=== PATIENT | female | born 1945 | race Caucasian/White ===

== ENCOUNTER 2018-04-05 16:00 | Inpatient (IN) | payer MEDICARE, SELFPAY ==
[2018-04-05] VITALS (10 sets, daily range): BP systolic 109–141; BP diastolic 49–76; PULSE 67–85; RESP 14–20; TEMP 36.1–36.7; O2SAT 97–100; BMI 22.5
--- NOTE | 2018-04-05 16:34 | ED.WEAKNESS ---
HPI - Weakness <Matthew Epperson DO - Last Filed: 04/06/18 07:07> General Chief complaint: Weakness Stated complaint: Can't walk or think Time Seen by Provider: 04/05/18 16:32 Related Data Home Medications Medication Instructions Recorded Confirmed FERROUS SULFATE 325 mg PO HS #0 11/25/12 04/05/18 mupirocin calcium 2 % TOPICAL TID PRN #0 08/24/16 04/05/18 ProAir HFA 108 mcg INHALATION Q4H PRN 04/05/18 04/05/18 calcium carbonate [Calcium 500] 1,200 mg PO DAILY 04/05/18 04/05/18 cholecalciferol (vitamin D3) 2,000 unit PO DAILY 04/05/18 04/05/18 [Vitamin D3] citalopram 40 mg PO DAILY 04/05/18 04/05/18 fluticasone-salmeterol [Advair 1 inh INHALATION BID 04/05/18 04/05/18 Diskus] metoprolol succinate 12.5 mg PO DAILY 04/05/18 04/05/18 multivitamin 1 tab PO DAILY 04/05/18 04/05/18 omeprazole 20 mg PO DAILY 04/05/18 04/05/18 spironolactone 25 mg PO BID 04/05/18 04/05/18 Allergies Allergy/AdvReac Type Severity Reaction Status Date / Time bacitracin Allergy Unknown Verified 04/05/18 16:37 [From NEOSPORIN ([id number])] neomycin Allergy Unknown Verified 04/05/18 16:37 [From NEOSPORIN ([id number])] polymyxin B Allergy Unknown Verified 04/05/18 16:37 [From NEOSPORIN ([id number])] ceftriaxone [CEFTRIAXONE] AdvReac Mild loss of Verified 04/05/18 16:37 memory and lethargy <Angeles Giordano PA-C - Last Filed: 04/05/18 21:24> General Source: patient and family Mode of arrival: ambulatory Limitations: altered mental status History of Present Illness HPI Narrative: This 72-year-old female is brought in by her daughter today due to approximately 4 day history of generalized weakness and fatigue along with feeling like she is mentally foggy. She states ?I can't walk or think right?. She thinks that this has been of gradual onset. She denies any focal weakness. She denies any difficulty with speech, she states that she has some chronic dysphagia but denies any new difficulty swallowing. She has chronic loose stools following intestinal bypass years ago, but states that she has had diarrhea for several days, approximately 8-10 times daily with mucoid stool. She denies any blood in the stool. She denies any urinary symptoms. She denies any recent illness, fever, chills, or sweats. She does have COPD and states she has perhaps slightly more shortness of breath/reduced exercise tolerance. She does not have chest pain. She does not have abdominal pain, but feels bloated. She denies any new pain or swelling in her extremities. 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 Patient denies any headache, vision change, or other new complaints on systems review aside from ?growling? in her stomach. She denies any recent antibiotic use, medication changes, or travel <Angeles Giordano PA-C - Last Filed: 04/05/18 21:24> Review of Systems All systems reviewed & are unremarkable except as noted in HPI and below <Angeles Giordano PA-C - Last Filed: 04/05/18 21:24> Comment: ETOH 1/day Exam <Matthew Epperson DO - Last Filed: 04/06/18 07:07> Initial Vital Signs Initial Vital Signs: Vital Signs Temperature 97 F L 04/05/18 16:17 Pulse Rate 75 04/05/18 16:17 Respiratory Rate 20 04/05/18 16:17 Blood Pressure 141/76 H 04/05/18 16:17 Pulse Oximetry 98 04/05/18 16:17 <Angeles Giordano PA-C - Last Filed: 04/05/18 21:24> Narrative Exam Narrative: GENERAL APPEARANCE: Patient sitting comfortably, in no distress. HEENT: PERRL, EOMI, normal oropharynx NECK: Supple LUNGS: Coarse breath sounds with generalized wheezes and rhonchi, no crackles, no cough on exam HEART: Rate and rhythm regular without murmur, normal S1 and S2, no S3 or S4. ABDOMEN: Soft, NT, ND, + BS x 4 quadrants NEUROLOGIC: Alert, answers questions slowly but speech is fluent, normal coordination EXTREMITIES: No edema, cyanosis, no calf tenderness DERMATOLOGIC: No jaundice or exanthem Initial Vital Signs Initial Vital Signs: Vital Signs Temperature 97 F L 04/05/18 16:17 Pulse Rate 75 04/05/18 16:17 Respiratory Rate 20 04/05/18 16:17 Blood Pressure 141/76 H 04/05/18 16:17 Pulse Oximetry 98 04/05/18 16:17 Course <Matthew Epperson DO - Last Filed: 04/06/18 07:07> Orders Ordered: ED Orders 04/05/18 16:26 EKG-12 Lead Stat 04/05/18 16:30 Ammonia (NH3) Stat 04/05/18 16:44 CT head/brain wo con Stat XR acute abdomen series Stat 04/05/18 16:47 Complete Blood Count AUTO DIFF Stat Comprehensive Metabolic Panel Stat Lipase Stat Magnesium Stat Partial Thromboplastin Time Stat Phosphorous Stat Prothrombin Time INR Stat 04/05/18 16:51 B Type Natriuretic Peptide Stat 04/05/18 18:10 GI Panel Stat 04/05/18 18:15 Lactate (Lactic Acid) Stat 04/05/18 19:30 Urinalysis and Microscopic Stat Urine Culture Stat Discontinued Medications Hydrocodone Bitart/Acetaminophen ([place] 5/325) 1 tab PO NOW ONE Stop: 04/05/18 18:23 Last Admin: 04/05/18 18:36 Dose: Albuterol/Ipratropium (Duoneb) 3 ml INH NOW ONE Stop: 04/05/18 16:45 Last Admin: 04/05/18 16:52 Dose: 3 ml Sodium Chloride (Normal Saline 0.9%) 1,000 mls @ 1,000 mls/hr IV BOLUS ONE Stop: 04/05/18 17:32 Last Infusion: 04/05/18 18:36 Dose: 0 mls/hr Admin: 04/05/18 16:38 Dose: 1,000 mls/hr Sodium Chloride (Normal Saline 0.9%) 1,000 mls @ 1,000 mls/hr IV BOLUS ONE Stop: 04/05/18 18:49 Last Infusion: 04/05/18 21:08 Dose: 0 mls/hr Admin: 04/05/18 18:39 Dose: 1,000 mls/hr Vital Signs - 8 hr 04/05/18 16:17 04/05/18 16:40 04/05/18 16:53 Temperature 97 F L Pulse Rate 75 70 67 Respiratory Rate 20 15 20 Blood Pressure 141/76 H Blood Pressure [Left Arm] 126/54 L Pulse Oximetry 98 99 98 04/05/18 17:56 04/05/18 18:55 04/05/18 18:58 Temperature Pulse Rate 69 85 78 Respiratory Rate 14 14 18 Blood Pressure Blood Pressure [Left Arm] 116/57 L 114/49 L Pulse Oximetry 98 98 04/05/18 19:55 04/05/18 21:05 Temperature Pulse Rate 68 67 Respiratory Rate 18 18 Blood Pressure Blood Pressure [Left Arm] 109/67 109/55 L Pulse Oximetry 97 97 <Angeles Giordano PA-C - Last Filed: 04/05/18 21:24> Additional Information: Reviewed findings with Dr. Epperson who also evaluated patient and agrees hospital admission is warranted. Spoke with front office spec hospitalist CYNDI Gonzalez re: patient's diarrhea, inability to maintain hydration/eat at home as well as ARF today. She has bacteruria (cx pending). Also reviewed elevated BNP (unclear whether new) with history of COPD and question of increased dyspnea/exercise intolerance vs generalized weakness (patient did think sx improved with nebulizer treatment). Patient also has worse anemia per labs. Per outside records she has a history of B12 deficiency but is also on iron. She has not had any blood in the stools. May correlate with renal status. CYNDI Gonzalez is agreeable with admission as inpatient. Orders Ordered: ED Orders 04/05/18 16:26 EKG-12 Lead Stat 04/05/18 16:30 Ammonia (NH3) Stat 04/05/18 16:44 CT head/brain wo con Stat XR acute abdomen series Stat 04/05/18 16:47 Complete Blood Count AUTO DIFF Stat Comprehensive Metabolic Panel Stat Lipase Stat Magnesium Stat Partial Thromboplastin Time Stat Phosphorous Stat Prothrombin Time INR Stat 04/05/18 16:51 B Type Natriuretic Peptide Stat 04/05/18 18:10 GI Panel Stat 04/05/18 18:15 Lactate (Lactic Acid) Stat 04/05/18 19:30 Urinalysis and Microscopic Stat Urine Culture Stat Discontinued Medications Hydrocodone Bitart/Acetaminophen ([place] 5/325) 1 tab PO NOW ONE Stop: 04/05/18 18:23 Last Admin: 04/05/18 18:36 Dose: Albuterol/Ipratropium (Duoneb) 3 ml INH NOW ONE Stop: 04/05/18 16:45 Last Admin: 04/05/18 16:52 Dose: 3 ml Sodium Chloride (Normal Saline 0.9%) 1,000 mls @ 1,000 mls/hr IV BOLUS ONE Stop: 04/05/18 17:32 Last Infusion: 04/05/18 18:36 Dose: 0 mls/hr Admin: 04/05/18 16:38 Dose: 1,000 mls/hr Sodium Chloride (Normal Saline 0.9%) 1,000 mls @ 1,000 mls/hr IV BOLUS ONE Stop: 04/05/18 18:49 Last Infusion: 04/05/18 21:08 Dose: 0 mls/hr Admin: 04/05/18 18:39 Dose: 1,000 mls/hr Vital Signs - 8 hr 04/05/18 16:17 04/05/18 16:40 04/05/18 16:53 Temperature 97 F L Pulse Rate 75 70 67 Respiratory Rate 20 15 20 Blood Pressure 141/76 H Blood Pressure [Left Arm] 126/54 L Pulse Oximetry 98 99 98 04/05/18 17:56 04/05/18 18:55 04/05/18 18:58 Temperature Pulse Rate 69 85 78 Respiratory Rate 14 14 18 Blood Pressure Blood Pressure [Left Arm] 116/57 L 114/49 L Pulse Oximetry 98 98 04/05/18 19:55 04/05/18 21:05 Temperature Pulse Rate 68 67 Respiratory Rate 18 18 Blood Pressure Blood Pressure [Left Arm] 109/67 109/55 L Pulse Oximetry 97 97 MDM - Weakness <Matthew Epperson DO - Last Filed: 04/06/18 07:07> Lab Data Result diagrams: 04/05/18 16:47 04/05/18 16:47 Lab Results 04/05/18 04/05/18 04/05/18 Range/Units 16:30 16:47 16:47 WBC 5.3 (4.5-11.0) X10^3/uL RBC 2.95 L (4.0-5.2) X10^6/uL Hgb 10.0 L (12.0-16.0) g/dL Hct 30.8 L (36-46) % MCV 104.3 H (80-100) fL MCH 33.8 (26-34) PG MCHC 32.4 (30-36) % RDW 13.7 (11.6-14.8) % Plt Count 147 L (150-400) X10^3/uL Neut % (Auto) 61.3 (50-75) % Lymph % (Auto) 25.5 (25-40) % [place] % (Auto) 10.0 (3-14) % Eos % (Auto) 2.4 (2-4) % Baso % (Auto) 0.8 (0-2) % Neut # (Auto) 3200 (5252-8685) /uL PT 12.3 (10.1-12.7) SECONDS INR 1.1 (0.9-1.3) APTT 21 L (26.4-36.2) SECONDS Sodium (137-145) mmol/L Potassium (3.4-5.1) mmol/L Chloride (98-107) mmol/L Carbon Dioxide (22-32) mmol/L BUN (7-17) mg/dL Creatinine (0.52-1.04) mg/dL Estimated GFR (>60) mL/min BUN/Creatinine Ratio (6-22) Glucose (80-110) mg/dL Lactate (0.7-2.1) mmol/L Calcium (8.4-10.2) mg/dL Phosphorus (2.8-4.1) mg/dL Magnesium (1.6-2.3) mg/dL Total Bilirubin (0.2-1.3) mg/dL AST (14-36) IU/L ALT (9-52) IU/L Alkaline Phosphatase (38-126) U/L Ammonia 23.0 (9-30) umol/L B-Natriuretic Peptide (<100) Total Protein (6.3-8.2) g/dL Albumin (3.5-5.0) g/dL Globulin (1.7-4.1) g/dL Albumin/Globulin Ratio (1.0-2.8) Lipase (23-300) U/L Urine Color Urine Appearance Urine pH (4.5-8.0) Ur Specific [place] (1.000-1.035) Urine Protein (Negative) Urine Glucose (UA) (Normal) g/dL Urine Ketones (NEGATIVE) Urine Occult Blood (Negative) Urine Nitrate (Negative) Urine Bilirubin (NEGATIVE) Urine Urobilinogen (0.2) E.U./dL Ur Leukocyte Esterase (NEGATIVE) Urine RBC (0-5/HPF) Urine WBC (0-5/HPF) Ur Squamous Epith Cells Urine Bacteria (None) Ur Culture Indicated? Micro UA Comment Stool Aeromonas Cult (Not Detect) Stl C. cayetanensis PCR (Not Detect) Stool Rotavirus (PCR) (Not Detect) Stool Adenovirus (PCR) (Not Detect) Stool Astrovirus (PCR) (Not Detect) Stool Cryptosporidium PCR (Not Detect) Stl E.coli Shiga Tox PCR (Not Detect) St Sh/Enteroin Ecoli PCR (Not Detect) Stool E coli O157 PCR Stl Enterotoxigenic E PCR (Not Detect) Stool EPEC (PCR) (Not Detect) Stl E. histolytica PCR (Not Detect) Stool Giardia Lamblia PCR (Not Detect) Stool Sapovirus (PCR) (Not Detect) Stl P. shigelloides PCR (Not Detect) St Y.enterocolitica PCR (Not Detect) Stool Vibrio (PCR) (Not Detect) Stl Vibrio cholerae PCR (Not Detect) Stl Enteroaggr Ecoli PCR (Not Detect) Stl Norovirus GI/GII PCR (Not Detect) Campylobacter (PCR) (Not Detect) C. difficile Tox (PCR) (Not Detect) Salmonella (PCR) (Not Detect) 04/05/18 04/05/18 04/05/18 Range/Units 16:47 16:47 16:51 WBC (4.5-11.0) X10^3/uL RBC (4.0-5.2) X10^6/uL Hgb (12.0-16.0) g/dL Hct (36-46) % MCV (80-100) fL MCH (26-34) PG MCHC (30-36) % RDW (11.6-14.8) % Plt Count (150-400) X10^3/uL Neut % (Auto) (50-75) % Lymph % (Auto) (25-40) % [place] % (Auto) (3-14) % Eos % (Auto) (2-4) % Baso % (Auto) (0-2) % Neut # (Auto) (4280-1808) /uL PT (10.1-12.7) SECONDS INR (0.9-1.3) APTT (26.4-36.2) SECONDS Sodium 141 (137-145) mmol/L Potassium 3.8 (3.4-5.1) mmol/L Chloride 115 H (98-107) mmol/L Carbon Dioxide 14 L (22-32) mmol/L BUN 26 H (7-17) mg/dL Creatinine 1.90 H (0.52-1.04) mg/dL Estimated GFR 25.9 L (>60) mL/min BUN/Creatinine Ratio 13.7 (6-22) Glucose 101 (80-110) mg/dL Lactate (0.7-2.1) mmol/L Calcium 8.3 L (8.4-10.2) mg/dL Phosphorus 4.0 Cancelled (2.8-4.1) mg/dL Magnesium 1.4 L (1.6-2.3) mg/dL Total Bilirubin 0.5 (0.2-1.3) mg/dL AST 24 (14-36) IU/L ALT 24 (9-52) IU/L Alkaline Phosphatase 70 (38-126) U/L Ammonia (9-30) umol/L B-Natriuretic Peptide 912.0 H (<100) Total Protein 5.8 L (6.3-8.2) g/dL Albumin 3.2 L (3.5-5.0) g/dL Globulin 2.6 (1.7-4.1) g/dL Albumin/Globulin Ratio 1.2 (1.0-2.8) Lipase 105 (23-300) U/L Urine Color Urine Appearance Urine pH (4.5-8.0) Ur Specific [place] (1.000-1.035) Urine Protein (Negative) Urine Glucose (UA) (Normal) g/dL Urine Ketones (NEGATIVE) Urine Occult Blood (Negative) Urine Nitrate (Negative) Urine Bilirubin (NEGATIVE) Urine Urobilinogen (0.2) E.U./dL Ur Leukocyte Esterase (NEGATIVE) Urine RBC (0-5/HPF) Urine WBC (0-5/HPF) Ur Squamous Epith Cells Urine Bacteria (None) Ur Culture Indicated? Micro UA Comment Stool Aeromonas Cult (Not Detect) Stl C. cayetanensis PCR (Not Detect) Stool Rotavirus (PCR) (Not Detect) Stool Adenovirus (PCR) (Not Detect) Stool Astrovirus (PCR) (Not Detect) Stool Cryptosporidium PCR (Not Detect) Stl E.coli Shiga Tox PCR (Not Detect) St Sh/Enteroin Ecoli PCR (Not Detect) Stool E coli O157 PCR Stl Enterotoxigenic E PCR (Not Detect) Stool EPEC (PCR) (Not Detect) Stl E. histolytica PCR (Not Detect) Stool Giardia Lamblia PCR (Not Detect) Stool Sapovirus (PCR) (Not Detect) Stl P. shigelloides PCR (Not Detect) St Y.enterocolitica PCR (Not Detect) Stool Vibrio (PCR) (Not Detect) Stl Vibrio cholerae PCR (Not Detect) Stl Enteroaggr Ecoli PCR (Not Detect) Stl Norovirus GI/GII PCR (Not Detect) Campylobacter (PCR) (Not Detect) C. difficile Tox (PCR) (Not Detect) Salmonella (PCR) (Not Detect) 04/05/18 04/05/18 04/05/18 Range/Units 18:10 18:15 19:30 WBC (4.5-11.0) X10^3/uL RBC (4.0-5.2) X10^6/uL Hgb (12.0-16.0) g/dL Hct (36-46) % MCV (80-100) fL MCH (26-34) PG MCHC (30-36) % RDW (11.6-14.8) % Plt Count (150-400) X10^3/uL Neut % (Auto) (50-75) % Lymph % (Auto) (25-40) % [place] % (Auto) (3-14) % Eos % (Auto) (2-4) % Baso % (Auto) (0-2) % Neut # (Auto) (5751-6846) /uL PT (10.1-12.7) SECONDS INR (0.9-1.3) APTT (26.4-36.2) SECONDS Sodium (137-145) mmol/L Potassium (3.4-5.1) mmol/L Chloride (98-107) mmol/L Carbon Dioxide (22-32) mmol/L BUN (7-17) mg/dL Creatinine (0.52-1.04) mg/dL Estimated GFR (>60) mL/min BUN/Creatinine Ratio (6-22) Glucose (80-110) mg/dL Lactate 0.5 L (0.7-2.1) mmol/L Calcium (8.4-10.2) mg/dL Phosphorus (2.8-4.1) mg/dL Magnesium (1.6-2.3) mg/dL Total Bilirubin (0.2-1.3) mg/dL AST (14-36) IU/L ALT (9-52) IU/L Alkaline Phosphatase (38-126) U/L Ammonia (9-30) umol/L B-Natriuretic Peptide (<100) Total Protein (6.3-8.2) g/dL Albumin (3.5-5.0) g/dL Globulin (1.7-4.1) g/dL Albumin/Globulin Ratio (1.0-2.8) Lipase (23-300) U/L Urine Color Yellow Urine Appearance Clear Urine pH 5.5 (4.5-8.0) Ur Specific [place] 1.015 (1.000-1.035) Urine Protein Trace H (Negative) Urine Glucose (UA) Negative (Normal) g/dL Urine Ketones Negative (NEGATIVE) Urine Occult Blood Negative (Negative) Urine Nitrate Positive H (Negative) Urine Bilirubin Negative (NEGATIVE) Urine Urobilinogen 0.2 (0.2) E.U./dL Ur Leukocyte Esterase Negative (NEGATIVE) Urine RBC None seen (0-5/HPF) Urine WBC 5-10/hpf H (0-5/HPF) Ur Squamous Epith Cells 0-1 /hpf Urine Bacteria Many (>30) H (None) Ur Culture Indicated? Specimen cultured Micro UA Comment Not Reportable Stool Aeromonas Cult Neg for aeromonas (Not Detect) Stl C. cayetanensis PCR Not detected (Not Detect) Stool Rotavirus (PCR) Not detected (Not Detect) Stool Adenovirus (PCR) Not detected (Not Detect) Stool Astrovirus (PCR) Not detected (Not Detect) Stool Cryptosporidium PCR Not detected (Not Detect) Stl E.coli Shiga Tox PCR Not detected (Not Detect) St Sh/Enteroin Ecoli PCR Not detected (Not Detect) Stool E coli O157 PCR Not Reportable Stl Enterotoxigenic E PCR Not detected (Not Detect) Stool EPEC (PCR) Not detected (Not Detect) Stl E. histolytica PCR Not detected (Not Detect) Stool Giardia Lamblia PCR Not detected (Not Detect) Stool Sapovirus (PCR) Not detected (Not Detect) Stl P. shigelloides PCR Not detected (Not Detect) St Y.enterocolitica PCR Not detected (Not Detect) Stool Vibrio (PCR) Not detected (Not Detect) Stl Vibrio cholerae PCR Not detected (Not Detect) Stl Enteroaggr Ecoli PCR Not detected (Not Detect) Stl Norovirus GI/GII PCR Not detected (Not Detect) Campylobacter (PCR) Not detected (Not Detect) C. difficile Tox (PCR) Not detected (Not Detect) Salmonella (PCR) Not detected (Not Detect) <Angeles Giordano PA-C - Last Filed: 04/05/18 21:24> Lab Data Attestation: I reviewed the patient's lab results. Lab Results 04/05/18 04/05/18 04/05/18 Range/Units 16:30 16:47 16:47 WBC 5.3 (4.5-11.0) X10^3/uL RBC 2.95 L (4.0-5.2) X10^6/uL Hgb 10.0 L (12.0-16.0) g/dL Hct 30.8 L (36-46) % MCV 104.3 H (80-100) fL MCH 33.8 (26-34) PG MCHC 32.4 (30-36) % RDW 13.7 (11.6-14.8) % Plt Count 147 L (150-400) X10^3/uL Neut % (Auto) 61.3 (50-75) % Lymph % (Auto) 25.5 (25-40) % [place] % (Auto) 10.0 (3-14) % Eos % (Auto) 2.4 (2-4) % Baso % (Auto) 0.8 (0-2) % Neut # (Auto) 3200 (4347-7088) /uL PT 12.3 (10.1-12.7) SECONDS INR 1.1 (0.9-1.3) APTT 21 L (26.4-36.2) SECONDS Sodium (137-145) mmol/L Potassium (3.4-5.1) mmol/L Chloride (98-107) mmol/L Carbon Dioxide (22-32) mmol/L BUN (7-17) mg/dL Creatinine (0.52-1.04) mg/dL Estimated GFR (>60) mL/min BUN/Creatinine Ratio (6-22) Glucose (80-110) mg/dL Lactate (0.7-2.1) mmol/L Calcium (8.4-10.2) mg/dL Phosphorus (2.8-4.1) mg/dL Magnesium (1.6-2.3) mg/dL Total Bilirubin (0.2-1.3) mg/dL AST (14-36) IU/L ALT (9-52) IU/L Alkaline Phosphatase (38-126) U/L Ammonia 23.0 (9-30) umol/L B-Natriuretic Peptide (<100) Total Protein (6.3-8.2) g/dL Albumin (3.5-5.0) g/dL Globulin (1.7-4.1) g/dL Albumin/Globulin Ratio (1.0-2.8) Lipase (23-300) U/L Urine Color Urine Appearance Urine pH (4.5-8.0) Ur Specific [place] (1.000-1.035) Urine Protein (Negative) Urine Glucose (UA) (Normal) g/dL Urine Ketones (NEGATIVE) Urine Occult Blood (Negative) Urine Nitrate (Negative) Urine Bilirubin (NEGATIVE) Urine Urobilinogen (0.2) E.U./dL Ur Leukocyte Esterase (NEGATIVE) Urine RBC (0-5/HPF) Urine WBC (0-5/HPF) Ur Squamous Epith Cells Urine Bacteria (None) Ur Culture Indicated? Micro UA Comment Stool Aeromonas Cult (Not Detect) Stl C. cayetanensis PCR (Not Detect) Stool Rotavirus (PCR) (Not Detect) Stool Adenovirus (PCR) (Not Detect) Stool Astrovirus (PCR) (Not Detect) Stool Cryptosporidium PCR (Not Detect) Stl E.coli Shiga Tox PCR (Not Detect) St Sh/Enteroin Ecoli PCR (Not Detect) Stool E coli O157 PCR Stl Enterotoxigenic E PCR (Not Detect) Stool EPEC (PCR) (Not Detect) Stl E. histolytica PCR (Not Detect) Stool Giardia Lamblia PCR (Not Detect) Stool Sapovirus (PCR) (Not Detect) Stl P. shigelloides PCR (Not Detect) St Y.enterocolitica PCR (Not Detect) Stool Vibrio (PCR) (Not Detect) Stl Vibrio cholerae PCR (Not Detect) Stl Enteroaggr Ecoli PCR (Not Detect) Stl Norovirus GI/GII PCR (Not Detect) Campylobacter (PCR) (Not Detect) C. difficile Tox (PCR) (Not Detect) Salmonella (PCR) (Not Detect) 04/05/18 04/05/18 04/05/18 Range/Units 16:47 16:47 16:51 WBC (4.5-11.0) X10^3/uL RBC (4.0-5.2) X10^6/uL Hgb (12.0-16.0) g/dL Hct (36-46) % MCV (80-100) fL MCH (26-34) PG MCHC (30-36) % RDW (11.6-14.8) % Plt Count (150-400) X10^3/uL Neut % (Auto) (50-75) % Lymph % (Auto) (25-40) % [place] % (Auto) (3-14) % Eos % (Auto) (2-4) % Baso % (Auto) (0-2) % Neut # (Auto) (8784-5811) /uL PT (10.1-12.7) SECONDS INR (0.9-1.3) APTT (26.4-36.2) SECONDS Sodium 141 (137-145) mmol/L Potassium 3.8 (3.4-5.1) mmol/L Chloride 115 H (98-107) mmol/L Carbon Dioxide 14 L (22-32) mmol/L BUN 26 H (7-17) mg/dL Creatinine 1.90 H (0.52-1.04) mg/dL Estimated GFR 25.9 L (>60) mL/min BUN/Creatinine Ratio 13.7 (6-22) Glucose 101 (80-110) mg/dL Lactate (0.7-2.1) mmol/L Calcium 8.3 L (8.4-10.2) mg/dL Phosphorus 4.0 Cancelled (2.8-4.1) mg/dL Magnesium 1.4 L (1.6-2.3) mg/dL Total Bilirubin 0.5 (0.2-1.3) mg/dL AST 24 (14-36) IU/L ALT 24 (9-52) IU/L Alkaline Phosphatase 70 (38-126) U/L Ammonia (9-30) umol/L B-Natriuretic Peptide 912.0 H (<100) Total Protein 5.8 L (6.3-8.2) g/dL Albumin 3.2 L (3.5-5.0) g/dL Globulin 2.6 (1.7-4.1) g/dL Albumin/Globulin Ratio 1.2 (1.0-2.8) Lipase 105 (23-300) U/L Urine Color Urine Appearance Urine pH (4.5-8.0) Ur Specific [place] (1.000-1.035) Urine Protein (Negative) Urine Glucose (UA) (Normal) g/dL Urine Ketones (NEGATIVE) Urine Occult Blood (Negative) Urine Nitrate (Negative) Urine Bilirubin (NEGATIVE) Urine Urobilinogen (0.2) E.U./dL Ur Leukocyte Esterase (NEGATIVE) Urine RBC (0-5/HPF) Urine WBC (0-5/HPF) Ur Squamous Epith Cells Urine Bacteria (None) Ur Culture Indicated? Micro UA Comment Stool Aeromonas Cult (Not Detect) Stl C. cayetanensis PCR (Not Detect) Stool Rotavirus (PCR) (Not Detect) Stool Adenovirus (PCR) (Not Detect) Stool Astrovirus (PCR) (Not Detect) Stool Cryptosporidium PCR (Not Detect) Stl E.coli Shiga Tox PCR (Not Detect) St Sh/Enteroin Ecoli PCR (Not Detect) Stool E coli O157 PCR Stl Enterotoxigenic E PCR (Not Detect) Stool EPEC (PCR) (Not Detect) Stl E. histolytica PCR (Not Detect) Stool Giardia Lamblia PCR (Not Detect) Stool Sapovirus (PCR) (Not Detect) Stl P. shigelloides PCR (Not Detect) St Y.enterocolitica PCR (Not Detect) Stool Vibrio (PCR) (Not Detect) Stl Vibrio cholerae PCR (Not Detect) Stl Enteroaggr Ecoli PCR (Not Detect) Stl Norovirus GI/GII PCR (Not Detect) Campylobacter (PCR) (Not Detect) C. difficile Tox (PCR) (Not Detect) Salmonella (PCR) (Not Detect) 04/05/18 04/05/18 04/05/18 Range/Units 18:10 18:15 19:30 WBC (4.5-11.0) X10^3/uL RBC (4.0-5.2) X10^6/uL Hgb (12.0-16.0) g/dL Hct (36-46) % MCV (80-100) fL MCH (26-34) PG MCHC (30-36) % RDW (11.6-14.8) % Plt Count (150-400) X10^3/uL Neut % (Auto) (50-75) % Lymph % (Auto) (25-40) % [place] % (Auto) (3-14) % Eos % (Auto) (2-4) % Baso % (Auto) (0-2) % Neut # (Auto) (2872-6344) /uL PT (10.1-12.7) SECONDS INR (0.9-1.3) APTT (26.4-36.2) SECONDS Sodium (137-145) mmol/L Potassium (3.4-5.1) mmol/L Chloride (98-107) mmol/L Carbon Dioxide (22-32) mmol/L BUN (7-17) mg/dL Creatinine (0.52-1.04) mg/dL Estimated GFR (>60) mL/min BUN/Creatinine Ratio (6-22) Glucose (80-110) mg/dL Lactate 0.5 L (0.7-2.1) mmol/L Calcium (8.4-10.2) mg/dL Phosphorus (2.8-4.1) mg/dL Magnesium (1.6-2.3) mg/dL Total Bilirubin (0.2-1.3) mg/dL AST (14-36) IU/L ALT (9-52) IU/L Alkaline Phosphatase (38-126) U/L Ammonia (9-30) umol/L B-Natriuretic Peptide (<100) Total Protein (6.3-8.2) g/dL Albumin (3.5-5.0) g/dL Globulin (1.7-4.1) g/dL Albumin/Globulin Ratio (1.0-2.8) Lipase (23-300) U/L Urine Color Yellow Urine Appearance Clear Urine pH 5.5 (4.5-8.0) Ur Specific [place] 1.015 (1.000-1.035) Urine Protein Trace H (Negative) Urine Glucose (UA) Negative (Normal) g/dL Urine Ketones Negative (NEGATIVE) Urine Occult Blood Negative (Negative) Urine Nitrate Positive H (Negative) Urine Bilirubin Negative (NEGATIVE) Urine Urobilinogen 0.2 (0.2) E.U./dL Ur Leukocyte Esterase Negative (NEGATIVE) Urine RBC None seen (0-5/HPF) Urine WBC 5-10/hpf H (0-5/HPF) Ur Squamous Epith Cells 0-1 /hpf Urine Bacteria Many (>30) H (None) Ur Culture Indicated? Specimen cultured Micro UA Comment Not Reportable Stool Aeromonas Cult Neg for aeromonas (Not Detect) Stl C. cayetanensis PCR Not detected (Not Detect) Stool Rotavirus (PCR) Not detected (Not Detect) Stool Adenovirus (PCR) Not detected (Not Detect) Stool Astrovirus (PCR) Not detected (Not Detect) Stool Cryptosporidium PCR Not detected (Not Detect) Stl E.coli Shiga Tox PCR Not detected (Not Detect) St Sh/Enteroin Ecoli PCR Not detected (Not Detect) Stool E coli O157 PCR Not Reportable Stl Enterotoxigenic E PCR Not detected (Not Detect) Stool EPEC (PCR) Not detected (Not Detect) Stl E. histolytica PCR Not detected (Not Detect) Stool Giardia Lamblia PCR Not detected (Not Detect) Stool Sapovirus (PCR) Not detected (Not Detect) Stl P. shigelloides PCR Not detected (Not Detect) St Y.enterocolitica PCR Not detected (Not Detect) Stool Vibrio (PCR) Not detected (Not Detect) Stl Vibrio cholerae PCR Not detected (Not Detect) Stl Enteroaggr Ecoli PCR Not detected (Not Detect) Stl Norovirus GI/GII PCR Not detected (Not Detect) Campylobacter (PCR) Not detected (Not Detect) C. difficile Tox (PCR) Not detected (Not Detect) Salmonella (PCR) Not detected (Not Detect) Imaging Data CT scan - head: Radiologist's impression: Lianna Stevenson - Patient Chart Chart Viewer Diagnostics DATE TYPE STATUS AUTHOR Marianna 04/05/18 16:44 Karoline Noguera 04/05/18 16:44 Karoline Noguera Lianna Stevenson R 72, F1944 REG ER, ED - Main ED: R10 165.1cm 54.431kg BSA: 1.59m? BMI: 20.0kg/m? Weakness Search Chart NF - Not included in interaction checking bacitracin (From NEOSPORIN ([id number])) neomycin (From NEOSPORIN ([id number])) polymyxin B (From NEOSPORIN ([id number])) ceftriaxone (CEFTRIAXONE) loss of memory and lethargy ONSET Today 16:53 [place] [address] CT Scan Report Signed Patient: Lianna Stevenson RMR#: [id number] : 5Acct:[id number] Age/Sex: 72 / FDate of Service: 04/05/18 Loc: ED Accession Number: [id number] Procedure: CT head/brain wo con Ordering Provider: Angeles Giordano P.A-C PROCEDURE: CT HEAD/BRAIN WO CON INDICATIONS: MS change TECHNIQUE: Noncontrast 4.5 mm thick angled axial sections acquired from the foramen magnum to the vertex, with coronal and sagittal reformats. For radiation dose reduction, the following was used: automated exposure control, adjustment of mA and/or kV according to patient size. COMPARISON: [facility], CT, HEAD WITHOUT CONTRAST, 08/25/2016, 0:56. FINDINGS: Image quality: Excellent. CSF spaces: Basal cisterns are patent. No extra-axial fluid collections. The ventricles are symmetric in size and shape. Brain: No intracranial bleeds or masses. There is cerebral volume loss for age, with resultant ventricular and sulcal prominence. There are periventricular and deep white matter chronic small vessel ischemic changes. There is intracranial internal carotid artery atherosclerosis. Skull and face: Calvarium and visualized facial bones appear intact, without suspicious lesions. Sinuses: Visualized sinuses and mastoids are clear. IMPRESSION: 1. No acute intracranial process. 2. Moderate atrophy and chronic microvascular ischemic changes. Dictated by: Karoline Noguera M.D. on 04/05/2018 at 17:26 Approved by: Karoline Noguera M.D. on 04/05/2018 at 17:27 Abdominal x-ray: Radiologist's impression: [address] [address] XRay Report Signed Patient: Lianna Stevenson RMR#: [id number] : 5Acct:[id number] Age/Sex: 72 / FDate of Service: 04/05/18 Loc: ED Accession Number: [id number] Procedure: XR acute abdomen series Ordering Provider: Angeles Giordano P.A-C PROCEDURE: XR ACUTE ABDOMEN SERIES INDICATIONS: COPD, abdominal bloating, diarrhea TECHNIQUE: One view chest and two views of the abdomen were acquired. COMPARISON: [facility], , ABDOMEN COMPLETE, 09/15/2016, 8:33. FINDINGS: Surgical changes and devices: None. Chest: Lungs are clear. Heart size is normal. No pleural effusions. No pneumoperitoneum. Abdomen: Bowel gas pattern is nonspecific with several prominent loops of colon. Moderate stool. No suspicious calcifications. Visualized solid organ contours appear normal. Bones: No suspicious bony lesions. IMPRESSION: Nonspecific gas pattern with prominent stool as well as several loops of colon. Overall appearance is most suggestive of constipation. Dictated by: Karoline Noguera M.D. on 04/05/2018 at 17:27 Approved by: Karoline Noguera M.D. on 04/05/2018 at 17:28 ECG Data Attestation: I personally reviewed and interpreted this ECG as follows: (Normal sinus rhythm, rate 68, right bundle branch pattern/conduction delay) Prior ECG tracings: not available for review
[2018-04-05] MEDS: SODIUM CHLORIDE 0.9% 1,000 ML 1000 ML IV ×2 (16:38→18:39)
--- NOTE | 2018-04-05 16:44 | DI.CT.S_ITS ---
PROCEDURE: CT HEAD/BRAIN WO CON INDICATIONS: MS change TECHNIQUE: Noncontrast 4.5 mm thick angled axial sections acquired from the foramen magnum to the vertex, with coronal and sagittal reformats. For radiation dose reduction, the following was used: automated exposure control, adjustment of mA and/or kV according to patient size. COMPARISON: [facility], CT, HEAD WITHOUT CONTRAST, 08/25/2016, 0:56. FINDINGS: Image quality: Excellent. CSF spaces: Basal cisterns are patent. No extra-axial fluid collections. The ventricles are symmetric in size and shape. Brain: No intracranial bleeds or masses. There is cerebral volume loss for age, with resultant ventricular and sulcal prominence. There are periventricular and deep white matter chronic small vessel ischemic changes. There is intracranial internal carotid artery atherosclerosis. Skull and face: Calvarium and visualized facial bones appear intact, without suspicious lesions. Sinuses: Visualized sinuses and mastoids are clear. IMPRESSION: 1. No acute intracranial process. 2. Moderate atrophy and chronic microvascular ischemic changes. Dictated by: Karoline Noguera M.D. on 04/05/2018 at 17:26 Approved by: Karoline Noguera M.D. on 04/05/2018 at 17:27
--- NOTE | 2018-04-05 16:44 | DI.RAD.S_ITS ---
PROCEDURE: XR ACUTE ABDOMEN SERIES INDICATIONS: COPD, abdominal bloating, diarrhea TECHNIQUE: One view chest and two views of the abdomen were acquired. COMPARISON: [facility], , ABDOMEN COMPLETE, 09/15/2016, 8:33. FINDINGS: Surgical changes and devices: None. Chest: Lungs are clear. Heart size is normal. No pleural effusions. No pneumoperitoneum. Abdomen: Bowel gas pattern is nonspecific with several prominent loops of colon. Moderate stool. No suspicious calcifications. Visualized solid organ contours appear normal. Bones: No suspicious bony lesions. IMPRESSION: Nonspecific gas pattern with prominent stool as well as several loops of colon. Overall appearance is most suggestive of constipation. Dictated by: Karoline Noguera M.D. on 04/05/2018 at 17:27 Approved by: Karoline Noguera M.D. on 04/05/2018 at 17:28
[2018-04-05] MEDS: ALBUTEROL/IPRATROPIUM 3 ML AMPUL INH (16:52)
[2018-04-05 17:01] LABS: INR 1.1 (0.9-1.3); Prothrombin Time 12.3 SECONDS (10.1-12.7)
[2018-04-05 17:04] LABS: PTT Partial Thromboplastin Tim 21 SECONDS (26.4-36.2)
[2018-04-05 17:05] LABS: Add Manual Diff / Slide Review NO; Basophils Percent Auto 0.8 % (0-2); Eosinophils Percent Auto 2.4 % (2-4); Hematocrit 30.8 % (36-46); Lymphocytes Percent Auto 25.5 % (25-40); Mean Corpuscular HGB Conc 32.4 % (30-36); Mean Corpuscular Hemoglobin 33.8 PG (26-34); Mean Corpuscular Volume 104.3 fL (80-100); Neutrophils Absolute Auto 3200 /uL (3000-5900); Neutrophils Percent Auto 61.3 % (50-75); Platelet Count 147 X10^3/uL (150-400); Red Blood Cell Count 2.95 X10^6/uL (4.0-5.2); Red Cell Distribution Width 13.7 % (11.6-14.8); White Blood Cell Count 5.3 X10^3/uL (4.5-11.0)
[2018-04-05 17:06] LABS: Alanine Aminotransferase 24 IU/L (9-52); Albumin 3.2 g/dL (3.5-5.0); Albumin Globulin Ratio 1.2 (1.0-2.8); Alkaline Phosphatase 70 U/L (38-126); Aspartate Aminotransferase 24 IU/L (14-36); BUN Creatinine Ratio 13.7 (6-22); Bilirubin Total 0.5 mg/dL (0.2-1.3); Blood Urea Nitrogen 26 mg/dL (7-17); Calcium 8.3 mg/dL (8.4-10.2); Carbon Dioxide 14 mmol/L (22-32); Chloride 115 mmol/L (98-107); Estimated Glomerular Filt Rate 25.9 mL/min (>60); Globulin 2.6 g/dL (1.7-4.1); Glucose 101 mg/dL (80-110); HEMOLYSIS 27 (0-50); Lipase 105 U/L (23-300); Magnesium 1.4 mg/dL (1.6-2.3); Potassium 3.8 mmol/L (3.4-5.1); Sodium 141 mmol/L (137-145); Total Protein 5.8 g/dL (6.3-8.2)
--- NOTE | 2018-04-05 17:59 | PC.NURSE ---
Pt c/o general malaise and difficulty focusing mentally. No focal weakness. Noted worsening anemia and kidney functions but not by a significant amount per history. Pt laying in bed, no acute distress. Family at bedside. Encouraged po fluids.
[2018-04-05 18:34] LABS: Lactate (Lactic Acid) 0.5 mmol/L (0.7-2.1)
--- NOTE | 2018-04-05 18:58 | PC.NURSE ---
Walked w/ standby assist w/o difficulty.
[2018-04-05 20:13] LABS: Adenovirus F 40/41 Not Detected (Not Detect); Astrovirus Not Detected (Not Detect); Campylobacter Not Detected (Not Detect); Clostridium difficile toxin AB Not Detected (Not Detect); Cryptosporidium Not Detected (Not Detect); Cyclospora cayetanensis Not Detected (Not Detect); Entamoeba histolytica Not Detected (Not Detect); Enteroaggregative E.coli Not Detected (Not Detect); Enteropathogenic E.coli Not Detected (Not Detect); Enterotoxigenic E.coli It/st Not Detected (Not Detect); Giardia lamblia Not Detected (Not Detect); Norovirus GI/GII Not Detected (Not Detect); Plesiomonsa shigelloides Not Detected (Not Detect); Rotavirus A Not Detected (Not Detect); Salmonella Not Detected (Not Detect); Shiga-like toxin-prod E.coli Not Detected (Not Detect); Shigella/Enteroinvasive E.coli Not Detected (Not Detect); Vibrio Not Detected (Not Detect); Vibrio cholerae Not Detected (Not Detect); Yersinia enterocolitica Not Detected (Not Detect)
[2018-04-05 20:13] LABS: RBC Urine None Seen (0-5/HPF)
[2018-04-05 20:14] LABS: Sapovirus Not Detected (Not Detect)
[2018-04-05 20:18] LABS: Appearance Urine UA CLEAR; Bilirubin Urine UA NEGATIVE (NEGATIVE); Color Urine UA YELLOW; Glucose Urine UA NEGATIVE (Normal); Ketones Urine UA NEGATIVE (NEGATIVE); Leukocyte Esterase Urine UA NEGATIVE (NEGATIVE); Nitrite Urine UA POSITIVE (Negative); Occult Blood Urine UA NEGATIVE (Negative); Protein Urine UA TRACE (Negative); Specific Gravity Urine UA 1.015 (1.000-1.035); Urobilinogen Urine UA 0.2 E.U./dL (0.2); pH Urine UA 5.5 (4.5-8.0)
[2018-04-05 20:24] LABS: Bacteria Urine Many (>30); Culture Indicated Urine Specimen Cultured; Squamous Epithelial Cell Urine 0-1 /HPF; WBC Urine 5-10/HPF (0-5/HPF)
[2018-04-05 22:08] LABS: Procalcitonin < 0.05 ng/mL (<0.5)
--- NOTE | 2018-04-05 22:28 | PM.HP.1 ---
History of Present Illness Date Patient Seen: 04/05/18 Chief complaint: Can't walk or think Narrative: HPI is ascertained the interview of the patient's daughter, son, and the patient herself. 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 Patient was brought to the ED by her family out of concern for generalized weakness. Patient is set to have a 4-5 day history of generalized weakness, somnolence, disorientation, delayed response time, unstable gait, loose / water stools (8 per day), diminished appetite, dysphagia, weight loss of 10 lbs, dyspnea (both at rest and w/ exertion), and increased purulence. Patient's baseline cognition is noted to be sharp and quick witted. She is noted to be more fatigued and somnolent, noted to be sleeping all day Monday and Monday. The family denies having difficulty arousing the patient. The patient is noted to have disorientation and at times a degree of confusion. They deny symptoms of delirium. She has noted as having slow responses, but no aphasia or dysarthria. Patient lives by herself and is able to perform most ADLs independently. Recently she was noted to have unsteady gait. Patient herself notes her legs not functioning and feels as if they are giving out. No reported falls. Patient has chronic soft stools, recently experiencing 8-10 stools per day, which are described to be more loose. Typically occur shortly after eating. Frequently associated with sensation of dyspepsia, fecal urgency and LLQ abdominal discomfort. Patient has not experienced nausea, vomiting, hematemesis, or signs of blood loss per rectum. Known to have a history of GERD and Zavala's esophagus, recently having difficulty swallowing. Patient has had minimal intake of food and fluid in the past 4 days. Daughter reports weight loss of 10 lbs. Underlying h/o COPD and lifelong tobacco dependence (at least 40 pack yrs), currently smokes 1/2 to 1 ppd. Recently, experiencing dyspnea at rest and with exertion. Reports occasional cough and wheezing. Notes significant increase in purulence (white / thick). Typically is not oxygen dependent. Symptoms improved with an albuterol inhaler. Patient has not experienced fever or chills, chest pain, palpitations, dizziness, lightheadedness, syncopal events, orthopnea, claudication, PND, dysuria, or hematuria. It is worth noting that patient's 3 brother's in a short time frame from each other, one from spinal cancer, one from pancreatic cancer and another from colon cancer. Patient History Medical History Atrial fibrillation (Chronic) COPD (chronic obstructive pulmonary disease) (Chronic) Chronic diarrhea (Chronic) Chronic renal insufficiency (Chronic) GERD (gastroesophageal reflux disease) (Chronic) History of anemia (Chronic) History of hepatic failure (Chronic) History of polymyalgia rheumatica (Chronic) Surgical History Status post intestinal bypass (Resolved) Family & Social History Social History: household members Lives independently in her own home, children live in close proximily Prior Living Arrangements House Safety & Behavioral: Feels Safe in Current Yes Environment Been Physically Hurt or No Threatened By a Person Suicidal Ideation Description None Tobacco & Substance use: Smoking Status Current every day smoker. Left long history of tobacco dependence, at least 40 pack years, currently smokes 1/2 to 1 ppd. alcohol intake Former. No h/o heavy EtOH consumption. Substance Use Type Never Meds Home Medications Medication Instructions Recorded Confirmed Type FERROUS SULFATE 325 mg PO HS #0 11/25/12 04/05/18 History mupirocin calcium 2 % TOPICAL TID PRN #0 08/24/16 04/05/18 History ProAir HFA 108 mcg INHALATION Q4H PRN 04/05/18 04/05/18 History calcium carbonate [Calcium 500] 1,200 mg PO DAILY 04/05/18 04/05/18 History cholecalciferol (vitamin D3) 2,000 unit PO DAILY 04/05/18 04/05/18 History [Vitamin D3] citalopram 40 mg PO DAILY 04/05/18 04/05/18 History fluticasone-salmeterol [Advair 1 inh INHALATION BID 04/05/18 04/05/18 History Diskus] metoprolol succinate 12.5 mg PO DAILY 04/05/18 04/05/18 History multivitamin 1 tab PO DAILY 04/05/18 04/05/18 History omeprazole 20 mg PO DAILY 04/05/18 04/05/18 History spironolactone 25 mg PO BID 04/05/18 04/05/18 History Allergies Allergy/AdvReac Type Severity Reaction Status Date / Time bacitracin Allergy Unknown Verified 04/05/18 16:37 [From NEOSPORIN ([id number])] neomycin Allergy Unknown Verified 04/05/18 16:37 [From NEOSPORIN ([id number])] polymyxin B Allergy Unknown Verified 04/05/18 16:37 [From NEOSPORIN ([id number])] ceftriaxone [CEFTRIAXONE] AdvReac Mild loss of Verified 04/05/18 16:37 memory and lethargy Review of Systems Review of Systems All systems reviewed & are unremarkable except as noted in HPI and below Exam Vital Signs (past 8 hours): - 04/05/18 16:17 04/05/18 16:40 04/05/18 16:53 Temperature 97 F L Pulse Rate 75 70 67 Respiratory Rate 20 15 20 Blood Pressure 141/76 H Blood Pressure [Left Arm] 126/54 L Pulse Oximetry 98 99 98 04/05/18 17:56 04/05/18 18:55 04/05/18 18:58 Temperature Pulse Rate 69 85 78 Respiratory Rate 14 14 18 Blood Pressure Blood Pressure [Left Arm] 116/57 L 114/49 L Pulse Oximetry 98 98 04/05/18 19:55 04/05/18 21:05 04/05/18 21:40 Temperature 97.7 F Pulse Rate 68 67 72 Respiratory Rate 18 18 20 Blood Pressure 124/61 Blood Pressure [Left Arm] 109/67 109/55 L Pulse Oximetry 97 97 100 Fraction of Inspired Oxygen 21 Oxygen Delivery Method Room Air Oxygen Flow Rate 0 Narrative Exam Narrative: Constitutional: NAD Neurologic: alert, oriented to person, year, season and holiday (named wrong hospital), no focal neurological deficits, no unilateral weakness at times having difficulty with what she wants to say Head: NC, AT Eyes: PERRL, EOMI, dry, no drainage Ears: external ears normal, no otorrhea Nose: external nose normal, no rhinorrhea or epistaxis Throat: dry MM, oropharynx w/o exudate Neck: no masses, lymphadenopathy, or JVD Chest / Respiratory: equal chest rise, diminished, expiratory wheeze both lobes (significantly more pronounced on the right), crackles RML/RLL, on RA Heart / CV: S1S2, no murmur Abdomen / GI: round, NT, ND, hypoactive BS RUQ, hyperactive BS RLQ, LLQ, hepatomegally, no ascites : no suprapubic tenderness, no CVA Peripheral / Vascular: warm to touch, DP 2, no edema Musc: full ROM of upper extremities, diminished ROM of lower extremities bilat w/ diminished strength, adequate muscle tone and bulk Skin: hyperpigmentation of BLE, right forearm w/ echymosis and abrasion from cat scratch Objective Labs Result Diagrams: 04/05/18 16:47 04/05/18 16:47 Labs: Laboratory Results - last 24 hr 04/05/18 04/05/18 04/05/18 16:30 16:47 16:47 WBC 5.3 RBC 2.95 L Hgb 10.0 L Hct 30.8 L MCV 104.3 H MCH 33.8 MCHC 32.4 RDW 13.7 Plt Count 147 L Neut % (Auto) 61.3 Lymph % (Auto) 25.5 [place] % (Auto) 10.0 Eos % (Auto) 2.4 Baso % (Auto) 0.8 Neut # (Auto) 3200 PT 12.3 INR 1.1 APTT 21 L Sodium Potassium Chloride Carbon Dioxide BUN Creatinine Estimated GFR BUN/Creatinine Ratio Glucose Lactate Calcium Phosphorus Magnesium Total Bilirubin AST ALT Alkaline Phosphatase Ammonia 23.0 B-Natriuretic Peptide Total Protein Albumin Globulin Albumin/Globulin Ratio Lipase Procalcitonin Urine Color Urine Appearance Urine pH Ur Specific [place] Urine Protein Urine Glucose (UA) Urine Ketones Urine Occult Blood Urine Nitrate Urine Bilirubin Urine Urobilinogen Ur Leukocyte Esterase Urine RBC Urine WBC Ur Squamous Epith Cells Urine Bacteria Ur Culture Indicated? Micro UA Comment Stool Aeromonas Cult Stl C. cayetanensis PCR Stool Rotavirus (PCR) Stool Adenovirus (PCR) Stool Astrovirus (PCR) Stool Cryptosporidium PCR Stl E.coli Shiga Tox PCR St Sh/Enteroin Ecoli PCR Stool E coli O157 PCR Stl Enterotoxigenic E PCR Stool EPEC (PCR) Stl E. histolytica PCR Stool Giardia Lamblia PCR Stool Sapovirus (PCR) Stl P. shigelloides PCR St Y.enterocolitica PCR Stool Vibrio (PCR) Stl Vibrio cholerae PCR Stl Enteroaggr Ecoli PCR Stl Norovirus GI/GII PCR Campylobacter (PCR) C. difficile Tox (PCR) Salmonella (PCR) 04/05/18 04/05/18 04/05/18 16:47 16:47 16:47 WBC RBC Hgb Hct MCV MCH MCHC RDW Plt Count Neut % (Auto) Lymph % (Auto) [place] % (Auto) Eos % (Auto) Baso % (Auto) Neut # (Auto) PT INR APTT Sodium 141 Potassium 3.8 Chloride 115 H Carbon Dioxide 14 L BUN 26 H Creatinine 1.90 H Estimated GFR 25.9 L BUN/Creatinine Ratio 13.7 Glucose 101 Lactate Calcium 8.3 L Phosphorus 4.0 Cancelled Magnesium 1.4 L Total Bilirubin 0.5 AST 24 ALT 24 Alkaline Phosphatase 70 Ammonia B-Natriuretic Peptide Total Protein 5.8 L Albumin 3.2 L Globulin 2.6 Albumin/Globulin Ratio 1.2 Lipase 105 Procalcitonin < 0.05 Urine Color Urine Appearance Urine pH Ur Specific [place] Urine Protein Urine Glucose (UA) Urine Ketones Urine Occult Blood Urine Nitrate Urine Bilirubin Urine Urobilinogen Ur Leukocyte Esterase Urine RBC Urine WBC Ur Squamous Epith Cells Urine Bacteria Ur Culture Indicated? Micro UA Comment Stool Aeromonas Cult Stl C. cayetanensis PCR Stool Rotavirus (PCR) Stool Adenovirus (PCR) Stool Astrovirus (PCR) Stool Cryptosporidium PCR Stl E.coli Shiga Tox PCR St Sh/Enteroin Ecoli PCR Stool E coli O157 PCR Stl Enterotoxigenic E PCR Stool EPEC (PCR) Stl E. histolytica PCR Stool Giardia Lamblia PCR Stool Sapovirus (PCR) Stl P. shigelloides PCR St Y.enterocolitica PCR Stool Vibrio (PCR) Stl Vibrio cholerae PCR Stl Enteroaggr Ecoli PCR Stl Norovirus GI/GII PCR Campylobacter (PCR) C. difficile Tox (PCR) Salmonella (PCR) 04/05/18 04/05/18 04/05/18 16:51 18:10 18:15 WBC RBC Hgb Hct MCV MCH MCHC RDW Plt Count Neut % (Auto) Lymph % (Auto) [place] % (Auto) Eos % (Auto) Baso % (Auto) Neut # (Auto) PT INR APTT Sodium Potassium Chloride Carbon Dioxide BUN Creatinine Estimated GFR BUN/Creatinine Ratio Glucose Lactate 0.5 L Calcium Phosphorus Magnesium Total Bilirubin AST ALT Alkaline Phosphatase Ammonia B-Natriuretic Peptide 912.0 H Total Protein Albumin Globulin Albumin/Globulin Ratio Lipase Procalcitonin Urine Color Urine Appearance Urine pH Ur Specific [place] Urine Protein Urine Glucose (UA) Urine Ketones Urine Occult Blood Urine Nitrate Urine Bilirubin Urine Urobilinogen Ur Leukocyte Esterase Urine RBC Urine WBC Ur Squamous Epith Cells Urine Bacteria Ur Culture Indicated? Micro UA Comment Stool Aeromonas Cult Neg for aeromonas Stl C. cayetanensis PCR Not detected Stool Rotavirus (PCR) Not detected Stool Adenovirus (PCR) Not detected Stool Astrovirus (PCR) Not detected Stool Cryptosporidium PCR Not detected Stl E.coli Shiga Tox PCR Not detected St Sh/Enteroin Ecoli PCR Not detected Stool E coli O157 PCR Not Reportable Stl Enterotoxigenic E PCR Not detected Stool EPEC (PCR) Not detected Stl E. histolytica PCR Not detected Stool Giardia Lamblia PCR Not detected Stool Sapovirus (PCR) Not detected Stl P. shigelloides PCR Not detected St Y.enterocolitica PCR Not detected Stool Vibrio (PCR) Not detected Stl Vibrio cholerae PCR Not detected Stl Enteroaggr Ecoli PCR Not detected Stl Norovirus GI/GII PCR Not detected Campylobacter (PCR) Not detected C. difficile Tox (PCR) Not detected Salmonella (PCR) Not detected 04/05/18 19:30 WBC RBC Hgb Hct MCV MCH MCHC RDW Plt Count Neut % (Auto) Lymph % (Auto) [place] % (Auto) Eos % (Auto) Baso % (Auto) Neut # (Auto) PT INR APTT Sodium Potassium Chloride Carbon Dioxide BUN Creatinine Estimated GFR BUN/Creatinine Ratio Glucose Lactate Calcium Phosphorus Magnesium Total Bilirubin AST ALT Alkaline Phosphatase Ammonia B-Natriuretic Peptide Total Protein Albumin Globulin Albumin/Globulin Ratio Lipase Procalcitonin Urine Color Yellow Urine Appearance Clear Urine pH 5.5 Ur Specific [place] 1.015 Urine Protein Trace H Urine Glucose (UA) Negative Urine Ketones Negative Urine Occult Blood Negative Urine Nitrate Positive H Urine Bilirubin Negative Urine Urobilinogen 0.2 Ur Leukocyte Esterase Negative Urine RBC None seen Urine WBC 5-10/hpf H Ur Squamous Epith Cells 0-1 /hpf Urine Bacteria Many (>30) H Ur Culture Indicated? Specimen cultured Micro UA Comment Not Reportable Stool Aeromonas Cult Stl C. cayetanensis PCR Stool Rotavirus (PCR) Stool Adenovirus (PCR) Stool Astrovirus (PCR) Stool Cryptosporidium PCR Stl E.coli Shiga Tox PCR St Sh/Enteroin Ecoli PCR Stool E coli O157 PCR Stl Enterotoxigenic E PCR Stool EPEC (PCR) Stl E. histolytica PCR Stool Giardia Lamblia PCR Stool Sapovirus (PCR) Stl P. shigelloides PCR St Y.enterocolitica PCR Stool Vibrio (PCR) Stl Vibrio cholerae PCR Stl Enteroaggr Ecoli PCR Stl Norovirus GI/GII PCR Campylobacter (PCR) C. difficile Tox (PCR) Salmonella (PCR) Assessment & Plan Plan: Assessment/Plan Narrative: Acute metabolic encephalopathy 2/2 UTI vs hypoxia / COPD exacerbation vs pneumonia vs UTI vs volume depletion No overt s/s of an infection Head CT w/o findings for an acute intracranial process. No bleed or mass. Moderate atrophy and chronic microvascular ischemic changes noted. Ammonia level WNL. - Neuro checks Q4H x24, then per protocol if stable. Avoid psychotropic agents. - Blood Cx x2 - Urine Cx pending, result to be followed - CXR unremarkable for pneumonia Acute cystitis w/o complications and hematuria No h/o recurrent UTIs. Last UTI 08/2016 w/ urine cx + E. coli species. Documented allergy to rocephin (allergy is questionable, not likely, intolerance at the most) Potentially urinary urgency, otherwise asymptomatic - Levaquin - Urine cx pending, results to be followed TESHA on CKD (baseline sCr 1.3), presented w/ sCr 1.9 / GFR 25.9 likely pre-renal, volume depletion vs ATN - IVF - I/O monitoring. Trend renal fx - Avoid nephrotoxic agents. Renally dose meds. Optimize renal perfusion. Generalized weakness, multifactorial. PT eval and treat Volume Depletion Multi-factorial... poor PO intake, GI losses. Received 2L NS bolus in ED. Dyspnea COPD exacerbation vs aspiration pneumonia vs acute HF vs PAF CXR unremarkable for any acute findings. Prominent wheeze and crackles RML/RLL on exam. Reported increased purulence, dyspnea, and dysphagia. - repeat CXR (2 view) in am, after patient has been hydrated - Consult RT, eval and treat - Duo-neb Q6H scheduled x24 hours, then RT to re-evaluate / change to prn if patient no longer requires - BNP elevated 912, no clinical indication of volume excess (TESHA on CKD) - procalcitonin level - on Levaquin diffuse abdominal pain w/ associated diarrhea, weight loss, anemia, new dysphagia abdominal xr suggestive of constipation. hx of GERD and Zavala's esophagus. FHx of colon and pancreatic cancer (brothers) - consider H. pylori testing and CT of abdomen Dysphagia - Speech to eval and treat. Swallow eval. - Aspiration precautions Macrocytic anemia 2/2 underlying liver disease and h/o gastric bypass surgery. [employer]ER on iron supplement and B12 for iron and B12 deficiency. Hgb 10 on presentation (hemoconcentrated?), Baseline 11 g/dL range. Noted to be 13 in Jun 2017, outlier for patient. No active s/s of bleeding. Reports taking 162 mg of ASA this am d/t a headache. Otherwise, denies use of antithrombotic agents and other anti-coagulants. 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 DPOA is Beatrice Davis, daughter. Home medications reviewed and reconciled. Quality VTE Deep Vein Thrombosis/Pulmonary Embolism Present on Admission: No
[2018-04-05] MEDS: MAGNESIUM SULFATE 2 GM/50 ML PIGGYBACK IV (23:34)
[2018-04-05] MEDS: NICOTINE 21 MG PATCH TOP (23:42)
[2018-04-06] VITALS (7 sets, daily range): BP systolic 108–122; BP diastolic 53–61; PULSE 70–85; RESP 16–21; TEMP 36.4–36.9; O2SAT 96–99; BMI 22.5
--- NOTE | 2018-04-06 | DI.RAD.S_ITS ---
PROCEDURE: XR CHEST 2V INDICATIONS: dyspnea, concern for aspiration, pneumonia TECHNIQUE: 2 views of the chest were acquired. COMPARISON: [facility], , CHEST 1 VIEW, 08/24/2016, 22:19. [facility], , CHEST FOR PICC PLACEMENT, 11/25/2012, 17:01. FINDINGS: Surgical changes and devices: None. Lungs and pleura: No pleural effusions or pneumothorax. Lungs are clear considering light film technique. Mediastinum: Mediastinal contours are normal. Heart size is normal. Bones and chest wall: No suspicious bony abnormalities. Soft tissues appear unremarkable. IMPRESSION: Relatively large lung volumes, COPD is suspected, otherwise normal for age, source of current symptoms is not seen. Light film technique on the frontal projection, which accentuates the bronchovascular markings. Dictated by: Abraham Bautista M.D. on 04/06/2018 at 8:13 Approved by: Abraham Bautista M.D. on 04/06/2018 at 8:23
--- NOTE | 2018-04-06 00:01 | PC.NURSE ---
Patient has tender abdomen, with pre admit history of diarrhea.
[2018-04-06] MEDS: levoFLOXacin 750 MG/150 ML PIGGYBACK 100 MG IV (02:01)
[2018-04-06] MEDS: ALBUTEROL/IPRATROPIUM 3 ML AMPUL INH ×3 (05:58→18:34)
[2018-04-06] MEDS: FLUTICASONE/SALMETEROL 250/50 14 PUFF DISKUS INH ×2 (06:05→18:34)
[2018-04-06 06:44] LABS: Add Manual Diff / Slide Review NO; Basophils Percent Auto 0.7 % (0-2); Eosinophils Percent Auto 4.1 % (2-4); Mean Corpuscular HGB Conc 32.3 % (30-36); Mean Corpuscular Hemoglobin 33.7 PG (26-34); Mean Corpuscular Volume 104.4 fL (80-100); Monocytes Percent Auto 9.9 % (3-14); Neutrophils Absolute Auto 1900 /uL (3000-5900); Neutrophils Percent Auto 55.3 % (50-75); Platelet Count 126 X10^3/uL (150-400); Red Blood Cell Count 2.68 X10^6/uL (4.0-5.2); Red Cell Distribution Width 13.8 % (11.6-14.8); White Blood Cell Count 3.4 X10^3/uL (4.5-11.0)
[2018-04-06 06:56] LABS: Alanine Aminotransferase 23 IU/L (9-52); Albumin 2.4 g/dL (3.5-5.0); Alkaline Phosphatase 63 U/L (38-126); Aspartate Aminotransferase 16 IU/L (14-36); BUN Creatinine Ratio 13.1 (6-22); Bilirubin Total 0.4 mg/dL (0.2-1.3); Blood Urea Nitrogen 21 mg/dL (7-17); Calcium 7.7 mg/dL (8.4-10.2); Carbon Dioxide 11 mmol/L (22-32); Chloride 117 mmol/L (98-107); Estimated Glomerular Filt Rate 31.6 mL/min (>60); Globulin 2.4 g/dL (1.7-4.1); Glucose 68 mg/dL (80-110); HEMOLYSIS < 15 (0-50); Magnesium 1.8 mg/dL (1.6-2.3); Potassium 3.5 mmol/L (3.4-5.1); Sodium 139 mmol/L (137-145); Total Protein 4.8 g/dL (6.3-8.2)
[2018-04-06] MEDS: SODIUM CHLORIDE 0.9% 1,000 ML 70 ML IV ×2 (06:59→21:26)
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
--- NOTE | 2018-04-06 09:32 | P.PN_ITS ---
Subjective Date Patient Seen: 04/06/18 Time Patient Seen: 09:19 Interval history: Follow-up on weakness, dehydration, TESHA, UTI. Patient seen at bedside. Still complaining of weakness. Had 2 episodes of loose stools, however not diarrhea. Denies fevers or chills. Currently denies any shortness of breath. Denies any abdominal pain or chest pain. Patient states she just feels tired, but she would like to eat something. No acute overnight events Exam Vital Signs (past 8 hours): - 04/06/18 03:30 04/06/18 06:11 Temperature 97.5 F L Pulse Rate 78 70 Respiratory Rate 21 18 Blood Pressure 121/60 Pulse Oximetry 98 99 Fraction of Inspired Oxygen 21 Oxygen Delivery Method Room Air Oxygen Flow Rate 0 Narrative Exam Narrative: General: No acute distress, AAO x3 HEENT PERRLA bilaterally, dry mucous membranes Neck: Supple, no LAD or JVD CV: Regular rate rhythm, no murmurs or gallops Respiratory: Mild expiratory wheezes appreciated in all lung oliver, however saturating above 95% on room air GI: No tenderness to palpation, positive bowel sounds in all 4 quadrants. No organomegaly Musculoskeletal: Normal range of motion in all extremities Extremities: No edema noted Skin: No rash or bruising Neuro: No focal deficits Psych: Patient is slightly anxious, The mood is appropriate Objective Labs Result Diagrams: 04/06/18 06:13 04/06/18 06:13 Labs: Laboratory Results - last 24 hr 04/05/18 04/05/18 04/05/18 16:30 16:47 16:47 WBC 5.3 RBC 2.95 L Hgb 10.0 L Hct 30.8 L MCV 104.3 H MCH 33.8 MCHC 32.4 RDW 13.7 Plt Count 147 L Neut % (Auto) 61.3 Lymph % (Auto) 25.5 [place] % (Auto) 10.0 Eos % (Auto) 2.4 Baso % (Auto) 0.8 Neut # (Auto) 3200 PT 12.3 INR 1.1 APTT 21 L Sodium Potassium Chloride Carbon Dioxide BUN Creatinine Estimated GFR BUN/Creatinine Ratio Glucose Lactate Calcium Phosphorus Magnesium Total Bilirubin AST ALT Alkaline Phosphatase Ammonia 23.0 B-Natriuretic Peptide Total Protein Albumin Globulin Albumin/Globulin Ratio Lipase Procalcitonin Urine Color Urine Appearance Urine pH Ur Specific [place] Urine Protein Urine Glucose (UA) Urine Ketones Urine Occult Blood Urine Nitrate Urine Bilirubin Urine Urobilinogen Ur Leukocyte Esterase Urine RBC Urine WBC Ur Squamous Epith Cells Urine Bacteria Ur Culture Indicated? Micro UA Comment Stool Aeromonas Cult Stl C. cayetanensis PCR Stool Rotavirus (PCR) Stool Adenovirus (PCR) Stool Astrovirus (PCR) Stool Cryptosporidium PCR Stl E.coli Shiga Tox PCR St Sh/Enteroin Ecoli PCR Stool E coli O157 PCR Stl Enterotoxigenic E PCR Stool EPEC (PCR) Stl E. histolytica PCR Stool Giardia Lamblia PCR Stool Sapovirus (PCR) Stl P. shigelloides PCR St Y.enterocolitica PCR Stool Vibrio (PCR) Stl Vibrio cholerae PCR Stl Enteroaggr Ecoli PCR Stl Norovirus GI/GII PCR Campylobacter (PCR) C. difficile Tox (PCR) Salmonella (PCR) 04/05/18 04/05/18 04/05/18 16:47 16:47 16:47 WBC RBC Hgb Hct MCV MCH MCHC RDW Plt Count Neut % (Auto) Lymph % (Auto) [place] % (Auto) Eos % (Auto) Baso % (Auto) Neut # (Auto) PT INR APTT Sodium 141 Potassium 3.8 Chloride 115 H Carbon Dioxide 14 L BUN 26 H Creatinine 1.90 H Estimated GFR 25.9 L BUN/Creatinine Ratio 13.7 Glucose 101 Lactate Calcium 8.3 L Phosphorus 4.0 Cancelled Magnesium 1.4 L Total Bilirubin 0.5 AST 24 ALT 24 Alkaline Phosphatase 70 Ammonia B-Natriuretic Peptide Total Protein 5.8 L Albumin 3.2 L Globulin 2.6 Albumin/Globulin Ratio 1.2 Lipase 105 Procalcitonin < 0.05 Urine Color Urine Appearance Urine pH Ur Specific [place] Urine Protein Urine Glucose (UA) Urine Ketones Urine Occult Blood Urine Nitrate Urine Bilirubin Urine Urobilinogen Ur Leukocyte Esterase Urine RBC Urine WBC Ur Squamous Epith Cells Urine Bacteria Ur Culture Indicated? Micro UA Comment Stool Aeromonas Cult Stl C. cayetanensis PCR Stool Rotavirus (PCR) Stool Adenovirus (PCR) Stool Astrovirus (PCR) Stool Cryptosporidium PCR Stl E.coli Shiga Tox PCR St Sh/Enteroin Ecoli PCR Stool E coli O157 PCR Stl Enterotoxigenic E PCR Stool EPEC (PCR) Stl E. histolytica PCR Stool Giardia Lamblia PCR Stool Sapovirus (PCR) Stl P. shigelloides PCR St Y.enterocolitica PCR Stool Vibrio (PCR) Stl Vibrio cholerae PCR Stl Enteroaggr Ecoli PCR Stl Norovirus GI/GII PCR Campylobacter (PCR) C. difficile Tox (PCR) Salmonella (PCR) 04/05/18 04/05/18 04/05/18 16:51 18:10 18:15 WBC RBC Hgb Hct MCV MCH MCHC RDW Plt Count Neut % (Auto) Lymph % (Auto) [place] % (Auto) Eos % (Auto) Baso % (Auto) Neut # (Auto) PT INR APTT Sodium Potassium Chloride Carbon Dioxide BUN Creatinine Estimated GFR BUN/Creatinine Ratio Glucose Lactate 0.5 L Calcium Phosphorus Magnesium Total Bilirubin AST ALT Alkaline Phosphatase Ammonia B-Natriuretic Peptide 912.0 H Total Protein Albumin Globulin Albumin/Globulin Ratio Lipase Procalcitonin Urine Color Urine Appearance Urine pH Ur Specific [place] Urine Protein Urine Glucose (UA) Urine Ketones Urine Occult Blood Urine Nitrate Urine Bilirubin Urine Urobilinogen Ur Leukocyte Esterase Urine RBC Urine WBC Ur Squamous Epith Cells Urine Bacteria Ur Culture Indicated? Micro UA Comment Stool Aeromonas Cult Neg for aeromonas Stl C. cayetanensis PCR Not detected Stool Rotavirus (PCR) Not detected Stool Adenovirus (PCR) Not detected Stool Astrovirus (PCR) Not detected Stool Cryptosporidium PCR Not detected Stl E.coli Shiga Tox PCR Not detected St Sh/Enteroin Ecoli PCR Not detected Stool E coli O157 PCR Not Reportable Stl Enterotoxigenic E PCR Not detected Stool EPEC (PCR) Not detected Stl E. histolytica PCR Not detected Stool Giardia Lamblia PCR Not detected Stool Sapovirus (PCR) Not detected Stl P. shigelloides PCR Not detected St Y.enterocolitica PCR Not detected Stool Vibrio (PCR) Not detected Stl Vibrio cholerae PCR Not detected Stl Enteroaggr Ecoli PCR Not detected Stl Norovirus GI/GII PCR Not detected Campylobacter (PCR) Not detected C. difficile Tox (PCR) Not detected Salmonella (PCR) Not detected 04/05/18 04/06/18 04/06/18 19:30 06:13 06:13 WBC 3.4 L RBC 2.68 L Hgb 9.0 L Hct 28.0 L MCV 104.4 H MCH 33.7 MCHC 32.3 RDW 13.8 Plt Count 126 L Neut % (Auto) 55.3 Lymph % (Auto) 30.0 [place] % (Auto) 9.9 Eos % (Auto) 4.1 H Baso % (Auto) 0.7 Neut # (Auto) 1900 L PT INR APTT Sodium 139 Potassium 3.5 Chloride 117 H Carbon Dioxide 11 L BUN 21 H Creatinine 1.60 H Estimated GFR 31.6 L BUN/Creatinine Ratio 13.1 Glucose 68 L Lactate Calcium 7.7 L Phosphorus Magnesium 1.8 Total Bilirubin 0.4 AST 16 ALT 23 Alkaline Phosphatase 63 Ammonia B-Natriuretic Peptide Total Protein 4.8 L Albumin 2.4 L Globulin 2.4 Albumin/Globulin Ratio 1.0 Lipase Procalcitonin Urine Color Yellow Urine Appearance Clear Urine pH 5.5 Ur Specific [place] 1.015 Urine Protein Trace H Urine Glucose (UA) Negative Urine Ketones Negative Urine Occult Blood Negative Urine Nitrate Positive H Urine Bilirubin Negative Urine Urobilinogen 0.2 Ur Leukocyte Esterase Negative Urine RBC None seen Urine WBC 5-10/hpf H Ur Squamous Epith Cells 0-1 /hpf Urine Bacteria Many (>30) H Ur Culture Indicated? Specimen cultured Micro UA Comment Not Reportable Stool Aeromonas Cult Stl C. cayetanensis PCR Stool Rotavirus (PCR) Stool Adenovirus (PCR) Stool Astrovirus (PCR) Stool Cryptosporidium PCR Stl E.coli Shiga Tox PCR St Sh/Enteroin Ecoli PCR Stool E coli O157 PCR Stl Enterotoxigenic E PCR Stool EPEC (PCR) Stl E. histolytica PCR Stool Giardia Lamblia PCR Stool Sapovirus (PCR) Stl P. shigelloides PCR St Y.enterocolitica PCR Stool Vibrio (PCR) Stl Vibrio cholerae PCR Stl Enteroaggr Ecoli PCR Stl Norovirus GI/GII PCR Campylobacter (PCR) C. difficile Tox (PCR) Salmonella (PCR) Assessment & Plan Plan: Assessment/Plan Narrative: 1. Acute metabolic encephalopathy -resolved, likely due to AKA versus UTI -CT head negative for acute intracranial processes, bleeding, or masses. There was moderate atrophy and chronic microvascular ischemic changes -ammonia levels normal -continue frequent neuro checks 2. UTI -no leukocytosis or fevers -urine cultures positive for gram-negative rods -continue levofloxacin at this time until sensitivities are back 3. TESHA on CKD -improving, likely due to dehydration -BUN 21, creatinine 1.6 -continue IV hydration and monitor renal function 4. Generalized weakness -likely due to dehydration from chronic diarrhea -PT/OT on board, will follow up 5. COPD -not in acute exacerbation, however has mild expiratory wheezes -RT consulted for oxygenation as necessary -continue duo nebs as needed 6. Diffuse abdominal pain -seems to have resolved, possibly due to chronic diarrhea from gastric bypass surgery -abdominal x-ray did not show any acute pathology, however did show prominent stool -consider stool softener, however patient complains of having chronic diarrhea already -stool workup in ED completely negative, including C diff testing -monitor 7. Macrocytic anemia -likely due to malabsorption to have disorder from gastric bypass surgery -hemoglobin 9.0, hematocrit 28.0, MCV >105 -continue iron, B12 supplementation -continue to monitor 8. Dysphagia -speech therapy consulted for swallow eval, will follow up -aspiration precautions 9. End-stage liver disease -no acute ascites noted at this time -continue spironolactone home medication Quality VTE Deep Vein Thrombosis/Pulmonary Embolism Present on Admission: No
[2018-04-06] MEDS: CHOLECALCIFEROL (VITAMIN D3) 1,000 UNIT TABLET 2000 UNIT PO (09:37)
[2018-04-06] MEDS: SPIRONOLACTONE 25 MG TABLET PO ×2 (09:37→20:24)
[2018-04-06] MEDS: MULTIVIT,CALC,MINS/IRON/FOLIC 1 TABLET 1 TAB PO (09:44)
--- NOTE | 2018-04-06 10:57 | CM.DANOTE ---
Addendum entered by Janet Earl LPN 04/06/18 15:26: MAMMOGRAPHY TECHNICIAN Kavita did see pt. Identified her dysphagia issues as related to an ongoing problem with denture/implants and thus a chewing problem. She says the son/in room at the time of her assessment, confirmed this had been an ongoing problem for a long time and that they had been following up with the dental provider. Kavita noted no other concerns needing MAMMOGRAPHY TECHNICIAN followup/see her eval for details. Went to room then to try to check in with son. Pt again asleep. Son gone. DCP team to follow as clearly d/c planning will be needed for this patient. Original Note: Addendum entered by Janet Earl LPN 04/06/18 11:29: Checked in with pt. She is currently in middle of treatment with RT. Will try to return later today as time allows. Original Note: Discharge Planning/Care Management DCP: assessment: case received, EMR reviewed and went to room this morning 0830 to see pt for intial discussion and introduction of role. Pt was lying still in bed, eyes shut. Decision made to check back in when pt is awake and more is known re the dX and POC. Pt is a 72 year old female who admitted to care of hospitalist team last night. Payer: [facility] and [employer]. PCP: Dr. Kang Lion. Admission status: in review: per UR GRECIA Pugh. Is noted that pt carries a multitude of medical comorbidities. She does have several adult children and her daughter Beatrice Davis is DPOA: [phone]. Will be following up with pt and her family as full dx and treatment plan are clarified. CM Discharge Assessment Start: 04/06/18 10:55 Freq: Status: Active Protocol: Document 04/06/18 10:56 ITV (Rec: 04/06/18 10:56 ITV [id number]) Discharge Planning Assessment Advance Directives? No History Provided By Patient Medical Record Prior Living Arrangements House Household Members none Whiteboard Updated in Patient Room with Yes name and ext. # of High Speed Operator Review Status In Process Next Review Type Continued Stay Review
--- NOTE | 2018-04-06 12:10 | PT.IIE ---
Surgical History (Last Reviewed 04/05/18 @ 22:58 by PATRICIO Jacinto) Gastric bypass status for obesity (Acute) Status post intestinal bypass (Resolved) Medical History (Last Reviewed 04/05/18 @ 22:58 by PATRICIO Jacinto) Barretts esophagus (Acute) Liver disease, chronic (Acute) Atrial fibrillation (Chronic) COPD (chronic obstructive pulmonary disease) (Chronic) Chronic diarrhea (Chronic) Chronic renal insufficiency (Chronic) GERD (gastroesophageal reflux disease) (Chronic) History of anemia (Chronic) History of hepatic failure (Chronic) History of polymyalgia rheumatica (Chronic) Physical Therapy Inpatient Evaluation/Re-Eval M1 PT/OT-IP Prior Functional Status Start: 04/06/18 11:42 Freq: NEEDED Status: Active Protocol: Document 04/06/18 09:30 AMB (Rec: 04/06/18 12:06 AMB [id number]) Medical Review Prior Functional Status Medical History Reviewed Yes Mobility and Gait Pt states she has a FWW and SPC at home but was not previously using them. Activities of Daily Living and IADL's Pt reports that before the last 5 days she has been independent with all IADLs. Social History Household Members none Living Arrangements House Number of Floors (Floors) Two Floors Number of Stairs To Enter/Railing? Split level home. 3 steps to enter, then 7 to go upstairs or 6 to go downstairs to the bedroom. 1 railing. Home Equipment Front Wheel Walker Straight Cane Additional Social History Comment Pt has adult children who live in the area and would be able to help, but they do not live with her. M2 PT-IP Current Condition Start: 04/06/18 11:42 Freq: NEEDED Status: Active Protocol: Document 04/06/18 09:30 AMB (Rec: 04/06/18 12:06 AMB [id number]) Physical Therapy Current Condition Current Condition Evaluation Date 04/06/18 Treatment Diagnosis weakness, confusion, UTI Onset Date 04/05/18 M3 PT-IP Subjective Start: 04/06/18 11:42 Freq: NEEDED Status: Active Protocol: Document 04/06/18 09:30 AMB (Rec: 04/06/18 12:06 AMB [id number]) Subjective Physical Therapy Visit Type Type Initial Evaluation Visit Start Time 10:00 Visit Stop Time 10:25 Total Visit Minutes 25 Number of CAISSON WORKER Visits 0 Physical Therapy Visit Comments Patient Comments Pt is cold but is willing to get up Therapy Pain Assessment Pain When Pain Assessed At Rest Pain Present Pain Present Denied Pain M4 PT-IP Mobility and Gait Start: 04/06/18 11:42 Freq: NEEDED Status: Active Protocol: Document 04/06/18 09:30 AMB (Rec: 04/06/18 12:06 AMB [id number]) PT-Bed Mobility Assessment Rolling Type of Rolling Roll to Right Level of Assist Standby Assistance Supine to Sit Supine to Sit Standby Assistance Sit to Supine Sit to Supine Standby Assistance Scooting Scooting to Edge of Bed Standby Assistance PT-Transfer Assessment Sit to and From Stand Sit to and from Stand Minimal Assistance Equipment Transfer Assistive Device Gait Belt Front Wheeled Walker Transfers Transfer Destination Toilet Transfer Technique Stand Step Pivot Transfer Ability Level of Assist Contact Guard Assistance Gait Assessment Gait Gait Assistance Required: Contact Guard Assist Distance (Feet) 150 Assistive Devices Assistive Device Gait Belt Front Wheeled Walker Gait Deviations General Gait Pattern Decreased Stride Length Flexed Trunk Factors Limiting Gait Function Factors Limiting Gait Function Decreased Activity Tolerance Decreased Strength Poor Balance Comments Gait Comments Pt becomes fatigued easily, but able to ambulate with FWW. Not yet at her baseline of being able to safety ambulate without device. Stair Climbing Assessment Evaluation Level of Assist On Stairs Contact Guard Assistance Devices Stair Climbing Assistive Devices Left Railing Right Railing Technique/Endurance Stair Climbing Direction Ascend and Descend Stair Climbing Technique Step to Step Number of Steps Climbed 3 Query Text: Stair Climbing Set # Repetitions (reps) 1 Comments Stair Climbing Comments Pt became fatigued quickly. SpO2 remained in the mid 90's throughout ambulation. PT-Balance Assessment Sitting Balance and Reactions Static Sitting Balance Ability Good Dynamic Sitting Balance Ability Fair Standing Balance and Reactions Static Standing Balance Ability Fair Comments Other Balance Tests/Deviations/Treatment Pt can stand without UE : support with WBOS for 5- 10 seconds, but feels unsteady. M5 PT-IP Objective Assessments Start: 04/06/18 11:42 Freq: NEEDED Status: Active Protocol: Document 04/06/18 09:30 AMB (Rec: 04/06/18 12:06 AMB [id number]) Orientation Orientation/Cognition Safety Awareness Decreased Safety Awareness M7 PT-IP Assessment and Plan Start: 04/06/18 11:42 Freq: NEEDED Status: Active Protocol: Document 04/06/18 09:30 AMB (Rec: 04/06/18 12:06 AMB [id number]) PT Summary Assessment and Plan Potential Rehabilitation Potential Good Status of Condition at Evaluation Evolving Summary Impairments Strength Balance Gait Activity Tolerance Assessment Summary The patient is confused and weak due to UTI and acute on chronic kidney disease. Not yet up to her baseline of being able to ambulate without assistive device or go up and down the many stairs in her split level home. If she recovers quickly, she will likely be able to go home with family assistance and perhaps home health. However at this time she would be unsafe to discharge home alone and if her recovery is slow she would need rehab at a SNF as she is still far from her baseline. Goals Bed Mobility Goal Independent Transfer Goal Independent Gait Goal Standby Assistance Front Wheel Walker Gait Distance 300 Other Goals Ascend and descend 14 steps with one rail with SBA. Days to Meet Goals 4 Frequency of Treatment Frequency Of Treatment Twice a Day Treatment Plan Physical Therapy Treatment Plan Bed Mobility Training Transfer Training Gait Training Therapeutic Exercise Balance Retraining Neuromuscular Re-ed Other Recommendations and Next Treatment Progress gait and stair Focus training Recommendations To Nursing Amount of Assist Needed 1 Person Assist Discharge Recommendations PT Discharge Recommendations SNF Rehab
--- NOTE | 2018-04-06 13:18 | ST.IPIE ---
Care Team Visit Care Team Role Provider Type Kang Lion MD Primary Care Provider Physician Specialty: Internal Medicine Address: [address] [place] [address], [facility] Email: Angeles Giordano PA-C Emergency Provider Advanced Residential Sales Consultant Specialty: Emergency Medicine Address: [address] [place] [address], [facility] Email: PATRICIO Jacinto Admit Provider Advanced Residential Sales Consultant Attending Provider Specialty: Internal Medicine Address: [address] [place] [address], [facility] Email: Past Medical History (Last Reviewed 04/05/18 @ 22:58 by PATRICIO Jacinto) Barretts esophagus (Acute Medical) Liver disease, chronic (Acute Medical) Atrial fibrillation (Chronic Medical) COPD (chronic obstructive pulmonary disease) (Chronic Medical) Chronic diarrhea (Chronic Medical) Chronic renal insufficiency (Chronic Medical) GERD (gastroesophageal reflux disease) (Chronic Medical) History of anemia (Chronic Medical) History of hepatic failure (Chronic Medical) History of polymyalgia rheumatica (Chronic Medical) ST IP Initial Evaulation Report CANCER PROGRAM DIRECTOR Clinical Swallow Evaluation Start: 04/06/18 12:49 Freq: Status: Active Protocol: Document 04/06/18 12:51 LEWIS (Rec: 04/06/18 13:16 [email or web address] [id number]) Clinical Swallow Evaluation Session Time Visit Start Time 12:15 Visit Stop Time 12:50 Total Visit Minutes 35 Setting Assessment Location Acute Care Visit Type Note Type Initial Evaluation Patient Information Identification Type Name ID Card History 72-year-old female brought to ER by family after 4 days of generalized weakness and fatigue, some mental fog. She was found to have dehydration, TESHA, and UTI. Pt has hx of COPD, Zavala's Esophagus (per pt report), and gastric bypass surgery. CT head/brain revealed no intracranial process, moderate atrophy and chronic microvascular ischemic changes . Abdominal x-ray: Nonspecific gas pattern with prominent stool as well as several loops of colon. Overall appearance is most suggestive of constipation. Chest X-ray: Relatively large lung volumes, COPD is suspected, otherwise normal for age, source of current symptoms is not seen. Light film technique on the frontal projection, which accentuates the bronchovascular markings. Subjective Observations The pt was sitting up in bed at ~80 degree eating lunch with her son present. The pt was agreeable to repositioning more upright, which was done by this clinician. She was agreeable to swallow evaluation and, when looking at the food on her tray, stated she was enjoying chowder but would not be able to eat the salad as it was too difficult to chew. The pt reported difficulty with her dentures and described an extended history working with her denturist, including attempts at denture implants that were unsuccessful d/t pt' s body rejecting the screws that were used. Her son confirmed this was an issue they have been trying to resolve for a long time. As a result, the pt has difficulty chewing solids. Evaluation Liquids Trialed Thin Solids Trialed Dysphagia Mechanical Dysphagia Advanced Mechanical Soft Administration Type Straw Oral Impairment WFL Oral Strategies Upright at 90 degrees Controlled Bite/Sip Size Oral Phase Comments Oral motor exam revealed mildly reduced lingual strength. All other structures WFL. Pt exhibited good hyolaryngeal elevation and excursion upon palpation. Oral phase is primarily impacted by the pt's difficulty chewing regular textures secondary to discomfort with dentures. She effectively masticated diced fruit and soft cookie with extended time. She declined trial of green salad stating she would be unable to chew it . She exhibited adequate bolus prep and control, a/p propulsion and swallow trigger , and oral clearance. Pharyngeal Impairment WNL Pharyngeal Strategies Sitting Upright (90 deg) Small Bites and Sips Pharyngeal Phase Comments The pt exhibited no overt s/sx of aspiration with consecutive sips of thin liquid from cup, with chowder, diced fruit and soft cookie. She maintained clear vocal quality throughout the evaluation and had no complaints of swallow difficulty. Findings Dysphagia Type Mild Oral Dysphagia secondary to poor fitting dentures Rehabilitation Potential Good Impressions The pt is able to safely tolerate a soft diet and thin liquids, which is her baseline . She participated appropriately in conversation with mildly slow thought and speech. which appears to be consistent with the pt's personality vs cognitive impairment. She recalled recent events, followed 1- and 2-step instructions, and responded appropriately to comments and questions posed by this clinician, nurse, and family. Diet Recommendations Liquids Order Thin Diet Order Mechanical Soft Medication Recommendations As Tolerated Aspiration Precautions Recommended Precautions Upright at 90 Degrees Small Bites/Sips Additional Precautions Allow pt extended time for consumption Treatment Plan Placement Recommendations after Home Discharge Therapy Recommendations The pt appears to be at baseline. Diet modification to Mechanical Soft is recommended to increase ease of mastication and enjoyment of consumption. Ongoing skilled intervention is not warranted at this time.
--- NOTE | 2018-04-06 15:06 | PT.IPTN ---
Physical Therapy Treatment Note M2 PT-IP Current Condition Start: 04/06/18 11:42 Freq: NEEDED Status: Active Protocol: Document 04/06/18 09:30 AMB (Rec: 04/06/18 12:06 AMB [id number]) Physical Therapy Current Condition Current Condition Evaluation Date 04/06/18 Treatment Diagnosis weakness, confusion, UTI Onset Date 04/05/18 M3 PT-IP Subjective Start: 04/06/18 11:42 Freq: NEEDED Status: Active Protocol: Document 04/06/18 14:21 LJ (Rec: 04/06/18 15:06 LJ [id number]) Subjective Physical Therapy Visit Type Type Treatment Note Visit Start Time 14:21 Visit Stop Time 14:44 Total Visit Minutes 23 Physical Therapy Visit Comments Patient Comments Pt states she is too fatigued to get up and ambulate. States she just got back into bed after using the commode. Therapy Pain Assessment Pain When Pain Assessed At Rest Pain Present Pain Present Denied Pain M4 PT-IP Mobility and Gait Start: 04/06/18 11:42 Freq: NEEDED Status: Active Protocol: Document 04/06/18 14:21 LJ (Rec: 04/06/18 15:06 LJ [id number]) PT-Transfer Assessment Comments Mobility Comments Pt able to reposition self in bed with SBA. Gait Assessment Comments Gait Comments Unwilling at this time d/t fatigue M5 PT-IP Objective Assessments Start: 04/06/18 11:42 Freq: NEEDED Status: Active Protocol: Document 04/06/18 09:30 AMB (Rec: 04/06/18 12:06 AMB [id number]) Orientation Orientation/Cognition Safety Awareness Decreased Safety Awareness M6 PT-IP Treatment Start: 04/06/18 11:42 Freq: NEEDED Status: Active Protocol: Document 04/06/18 14:21 LJ (Rec: 04/06/18 15:06 LJ [id number]) Physical Therapy Treatment Exercises Exercises Ankle Pumps Gluteal Sets Quad Sets Heel Slides Straight Leg Raises Supine Hip Abduction M7 PT-IP Assessment and Plan Start: 04/06/18 11:42 Freq: NEEDED Status: Active Protocol: Document 04/06/18 14:21 LJ (Rec: 04/06/18 15:06 LJ [id number]) PT Summary Assessment and Plan Summary Assessment Summary Pt is weak after using BSC with nursing and previous treatment session earlier today. Worked on supine exercises which pt was able to complete at a low level of effort. Pt states that she wants to get up and walk with therapy tomorrow. Left pt in room with family. Goals Bed Mobility Goal Independent Transfer Goal Independent Gait Goal Standby Assistance Front Wheel Walker Gait Distance 300 Other Goals Ascend and descend 14 steps with one rail with SBA. Days to Meet Goals 4 Frequency of Treatment Frequency Of Treatment Twice a Day Treatment Plan Physical Therapy Treatment Plan Bed Mobility Training Transfer Training Gait Training Therapeutic Exercise Balance Retraining Neuromuscular Re-ed Other Recommendations and Next Treatment Progress gait and stair Focus training Recommendations To Nursing Amount of Assist Needed 1 Person Assist Discharge Recommendations PT Discharge Recommendations SNF Rehab
[2018-04-07] VITALS (10 sets, daily range): BP systolic 120–132; BP diastolic 56–61; PULSE 71–85; RESP 15–18; TEMP 36.4–37; O2SAT 91–99
--- NOTE | 2018-04-07 04:25 | PC.NURSE ---
Patient able to ambulate 1 person assist to the BSC without wheezing. Lungs clear. Feels more alert per patient. Has started coughing at 0425. Non productive, dry cough. Denies pain this shift.
[2018-04-07 06:00] LABS: Add Manual Diff / Slide Review NO; Basophils Percent Auto 0.6 % (0-2); Eosinophils Percent Auto 3.9 % (2-4); Hematocrit 25.5 % (36-46); Hemoglobin 8.2 g/dL (12.0-16.0); Lymphocytes Percent Auto 36.4 % (25-40); Mean Corpuscular HGB Conc 32.3 % (30-36); Mean Corpuscular Hemoglobin 33.8 PG (26-34); Mean Corpuscular Volume 104.8 fL (80-100); Monocytes Percent Auto 11.5 % (3-14); Neutrophils Absolute Auto 1800 /uL (3000-5900); Neutrophils Percent Auto 47.6 % (50-75); Platelet Count 124 X10^3/uL (150-400); Red Blood Cell Count 2.43 X10^6/uL (4.0-5.2); Red Cell Distribution Width 13.8 % (11.6-14.8); White Blood Cell Count 3.8 X10^3/uL (4.5-11.0)
[2018-04-07 06:12] LABS: BUN Creatinine Ratio 10.7 (6-22); Blood Urea Nitrogen 16 mg/dL (7-17); Calcium 7.6 mg/dL (8.4-10.2); Carbon Dioxide 10 mmol/L (22-32); Glucose 76 mg/dL (80-110); HEMOLYSIS < 15 (0-50); Sodium 142 mmol/L (137-145)
[2018-04-07 06:42] LABS: Chloride 122 mmol/L (98-107)
--- NOTE | 2018-04-07 07:01 | PC.NURSE ---
Reported critical chloride level to Sierra Gonzalez of 122. She looked at additional labs from this morning and saw that potassium was low, but not critical. A one time order for potassium chloride solution has been ordered. Waiting for verification from pharmacy.
[2018-04-07] MEDS: MULTIVIT,CALC,MINS/IRON/FOLIC 1 TABLET 1 TAB PO (09:45)
[2018-04-07] MEDS: POTASSIUM CHLORIDE 20 MEQ/15 ML UDC 40 MEQ PO (09:45)
[2018-04-07] MEDS: SPIRONOLACTONE 25 MG TABLET PO ×2 (09:45→20:59)
[2018-04-07] MEDS: CHOLECALCIFEROL (VITAMIN D3) 1,000 UNIT TABLET 2000 UNIT PO (09:46)
[2018-04-07] MEDS: SODIUM CHLORIDE 0.9% 1,000 ML 70 ML IV (09:48)
[2018-04-07] MEDS: FLUTICASONE/SALMETEROL 250/50 14 PUFF DISKUS INH ×2 (09:59→19:31)
--- NOTE | 2018-04-07 10:10 | PM.PN.1 ---
Subjective Date Patient Seen: 04/07/18 Time Patient Seen: 10:10 Interval history: Follow-up on weakness, dehydration, TESHA, and UTI Patient seen at bedside. Stating she slightly getting better. Stating her weakness is improving, and she has been working with physical therapy. Patient denies any fevers or chills. When asked patient regarding stools, she states they are black chronically due to chronic iron use but denies any bright red blood per rectum. She had colonoscopy 9 years ago, which revealed polyps but nothing suspicious. No acute overnight events. Exam Vital Signs (past 8 hours): - 04/07/18 04:50 04/07/18 08:00 04/07/18 09:55 Temperature 97.6 F 98.6 F Pulse Rate 85 85 Respiratory Rate 18 16 Blood Pressure 130/61 132/61 Pulse Oximetry 98 91 97 04/07/18 10:00 Temperature Pulse Rate 75 Respiratory Rate 15 Blood Pressure Pulse Oximetry 97 Fraction of Inspired Oxygen 21 Oxygen Delivery Method Room Air Oxygen Flow Rate 0 Narrative Exam Narrative: General: No acute distress, AAO x3 HEENT PERRLA bilaterally, dry mucous membranes Neck: Supple, no LAD or JVD CV: Regular rate rhythm, no murmurs or gallops Respiratory: Mild expiratory wheezes appreciated in all lung oliver, however saturating above 95% on room air GI: No tenderness to palpation, positive bowel sounds in all 4 quadrants. No organomegaly Musculoskeletal: Normal range of motion in all extremities Extremities: No edema noted Skin: No rash or bruising Neuro: No focal deficits Psych: Patient is slightly anxious, The mood is appropriate Objective Labs Result Diagrams: 04/07/18 05:22 04/07/18 05:22 Labs: Laboratory Results - last 24 hr 04/07/18 04/07/18 05:22 05:22 WBC 3.8 L RBC 2.43 L Hgb 8.2 L Hct 25.5 L MCV 104.8 H MCH 33.8 MCHC 32.3 RDW 13.8 Plt Count 124 L Neut % (Auto) 47.6 L Lymph % (Auto) 36.4 [place] % (Auto) 11.5 Eos % (Auto) 3.9 Baso % (Auto) 0.6 Neut # (Auto) 1800 L Sodium 142 Potassium 3.0 L Chloride 122 H* Carbon Dioxide 10 L BUN 16 Creatinine 1.50 H Estimated GFR 34.0 L BUN/Creatinine Ratio 10.7 Glucose 76 L Calcium 7.6 L Assessment & Plan Plan: Assessment/Plan Narrative: 1. Acute metabolic encephalopathy -Resolved 2. UTI -no leukocytosis or fevers -urine cultures positive for EColi sensitive to Levofloxacin -continue levofloxacin and switch to PO regimen x5-7 days total 3. TESHA on CKD -improving, likely due to dehydration -BUN 16, creatinine 1.5 -continue IV hydration but switch to LR as patient is hyperchloremic and continue at 100cc/hr 4. Generalized weakness -likely due to dehydration from chronic diarrhea -PT/OT on board, will follow up 5. COPD -not in acute exacerbation, however has mild expiratory wheezes -RT consulted for oxygenation as necessary -continue duo nebs as needed 6. Diffuse abdominal pain -resolved, continue to monitor 7. Macrocytic anemia -likely due to malabsorption to have disorder from gastric bypass surgery -hemoglobin 9.0->8.2, hematocrit 28.0->25.5, MCV 104.8 -continue iron, B12 supplementation -will get stool guiac to rule out chronic GI bleed 8. Dysphagia -resolved, patient is tolerating soft mechanical diet well 9. End-stage liver disease -no acute ascites noted at this time -continue spironolactone home medication Quality VTE Deep Vein Thrombosis/Pulmonary Embolism Present on Admission: No
--- NOTE | 2018-04-07 10:15 | CM.DPC ---
DCP Cont: Discussed patient at rounds with physical therapy. They are recommending long-term for rehab. Called and left message with Beatrice CORONA, who is daughter, in order to collaborate and decide on plan of care. Patient has [facility]. P: Will discuss plan for discharge with patient and daughter. DCP to continue to follow closely. Kourtney Munoz RN/Army Senior Officer
--- NOTE | 2018-04-07 10:36 | CM.DPC ---
Was able to get in contact with daughter who is Beatrice CORONA. Stated her mom will not go to skilled, they feel that they can stay with he for a while and help her out, her and sister. Also has sons in area. Beatrice lives in [place], but would commit to helping her mom out. Asked her about home health physical and occupational therapy, and she stated that she has had home health before, and this would be beneficial for her. Daughter stated that patient has stairs in her house, and her bedroom is downstairs. Did not mention her having a life line, but this can be discussed. Discussed home health agencies, and daughter stated that she had no preference. Patient would not be able to use [facility] due to her insurance, so [facility] would be an option. P: Will meet with Beatrice and patient later to discuss discharge plan. Kourtney Munoz RN/Product Operations Associate
--- NOTE | 2018-04-07 12:02 | PC.NURSE ---
Shift summary: Dozing intermittently, awakens easily. Oriented X3. Denies fever/chills or pain. Reports still feeling globally weak. She ambulated in hallway with PT, denied shortness of breath with exertion. Lungs with scattered expiratory wheezing, SpO2 97% on RA. HRR. IVF per orders, site in L forearm WNL. Able to make needs known and calls appropriately. Up in chair working on lunch. Call light in reach, chair alarm on.
--- NOTE | 2018-04-07 12:10 | PT.IPTN ---
Current Diagnoses Metabolic encephalopathy (04/05/18) Physical Therapy Treatment Note M2 PT-IP Current Condition Start: 04/06/18 11:42 Freq: NEEDED Status: Active Protocol: Document 04/06/18 09:30 AMB (Rec: 04/06/18 12:06 AMB [id number]) Physical Therapy Current Condition Current Condition Evaluation Date 04/06/18 Treatment Diagnosis weakness, confusion, UTI Onset Date 04/05/18 M3 PT-IP Subjective Start: 04/06/18 11:42 Freq: NEEDED Status: Active Protocol: Document 04/07/18 11:16 LJ (Rec: 04/07/18 12:09 LJ [id number]) Subjective Physical Therapy Visit Type Type Treatment Note Visit Start Time 11:16 Visit Stop Time 11:40 Total Visit Minutes 24 Notes Family in room just about to leave. Pt still in bed. Physical Therapy Visit Comments Patient Comments Pt states she really doesn't want to get up and walk but will try. Therapy Pain Assessment Pain When Pain Assessed At Rest Pain Present Pain Present Denied Pain M4 PT-IP Mobility and Gait Start: 04/06/18 11:42 Freq: NEEDED Status: Active Protocol: Document 04/07/18 11:16 LJ (Rec: 04/07/18 12:09 LJ [id number]) PT-Bed Mobility Assessment Rolling Type of Rolling Roll to Left Level of Assist Minimal Assistance Supine to Sit Supine to Sit Standby Assistance Sit to Supine Sit to Supine Standby Assistance Scooting Scooting to Edge of Bed Standby Assistance PT-Transfer Assessment Sit to and From Stand Sit to and from Stand Standby Assistance Equipment Transfer Assistive Device Gait Belt Front Wheeled Walker Transfers Transfer Destination Toilet Transfer Technique Stand Step Pivot Transfer Ability Level of Assist Contact Guard Assistance Comments Mobility Comments Pt using toilet prior to ambulating in hallway. Sit<> stand use of railing in bathroom. Performed pericare by herself. Standing at sink w /o use of UEs to wash hands. Gait Assessment Gait Gait Assistance Required: Contact Guard Assist Distance (Feet) 130 Assistive Devices Assistive Device Gait Belt Front Wheeled Walker Gait Deviations General Gait Pattern Decreased Stride Length Decreased Feet Clearance Narrow Based Gait Factors Limiting Gait Function Factors Limiting Gait Function Decreased Activity Tolerance Decreased Strength Poor Balance Comments Gait Comments Pt ambulates 130' with complaint of being out of breath. O2 sat at 98% with activity. Pt fatigues easily. Left pt sitting in chair with warm blankets and lunch. M5 PT-IP Objective Assessments Start: 04/06/18 11:42 Freq: NEEDED Status: Active Protocol: Document 04/06/18 09:30 AMB (Rec: 04/06/18 12:06 AMB [id number]) Orientation Orientation/Cognition Safety Awareness Decreased Safety Awareness M6 PT-IP Treatment Start: 04/06/18 11:42 Freq: NEEDED Status: Active Protocol: Document 04/07/18 11:16 LJ (Rec: 04/07/18 12:09 LJ [id number]) Physical Therapy Treatment Education Education Provided Safety M7 PT-IP Assessment and Plan Start: 04/06/18 11:42 Freq: NEEDED Status: Active Protocol: Document 04/07/18 11:16 LJ (Rec: 04/07/18 12:09 LJ [id number]) PT Summary Assessment and Plan Summary Assessment Summary Pt maintained O2 sats at 98%- 99% during toileting and ambulation. Becomes anxious anticipating activity and getting out of bed. Able to take several steps and remain steady w/o FWW. Pt perked up after walking in hallway and seated in chair. Goals Bed Mobility Goal Independent Transfer Goal Independent Gait Goal Standby Assistance Front Wheel Walker Gait Distance 300 Other Goals Ascend and descend 14 steps with one rail with SBA. Days to Meet Goals 4 Frequency of Treatment Frequency Of Treatment Twice a Day Treatment Plan Physical Therapy Treatment Plan Bed Mobility Training Transfer Training Gait Training Therapeutic Exercise Balance Retraining Neuromuscular Re-ed Other Recommendations and Next Treatment Progress gait and stair Focus training Recommendations To Nursing Amount of Assist Needed Standby Assistance Discharge Recommendations PT Discharge Recommendations SNF Rehab
--- NOTE | 2018-04-07 12:59 | CM.DPC ---
DCP Cont: Met with daughter/Beatrice CORONA. Pleasant. Very involved in patient's care. Stated, they used to give her TPN at home at one time. Stated that they will follow any recommendations for discharge, but not skilled facility. Re-iterated that they are open to home health P.T./O.T. May need nursing as well, to be determined as plan unfolds. Went over Medicare choice list for home health, and she has no preference. Stated that they have had home health before, and home is set up with toilet riser, bars in shower. Did mention again that patient does go up stairs to kitchen, for she lives in split level home. Does have life line as well. Daughter concerned about nutritional factors, that her mom may not always eat enough. She stated that she will be staying with her mom for a while. P: DCP to follow closely. Will discuss case again at team rounds and will discuss with therapy team as well. Will ensure that if patient is discharged tomorrow, that face to face is completed as well. Kourtney Munoz RN/Filter Changing Technician
--- NOTE | 2018-04-07 14:00 | PT.IPTN ---
Current Diagnoses Metabolic encephalopathy (04/05/18) Physical Therapy Treatment Note M2 PT-IP Current Condition Start: 04/06/18 11:42 Freq: NEEDED Status: Active Protocol: Document 04/07/18 14:00 RCC (Rec: 04/07/18 14:17 [facility] [id number]) Physical Therapy Current Condition Current Condition Evaluation Date 04/06/18 Treatment Diagnosis weakness, confusion, UTI Onset Date 04/05/18 M3 PT-IP Subjective Start: 04/06/18 11:42 Freq: NEEDED Status: Active Protocol: Document 04/07/18 14:00 RCC (Rec: 04/07/18 14:17 [facility] [id number]) Subjective Physical Therapy Visit Type Type Treatment Note Visit Start Time 13:46 Visit Stop Time 14:00 Total Visit Minutes 14 Number of PAPER COUNTER Visits 0 Physical Therapy Visit Comments Patient Comments pt reports she has been OOB all day, but willing to ambulate. M4 PT-IP Mobility and Gait Start: 04/06/18 11:42 Freq: NEEDED Status: Active Protocol: Document 04/07/18 14:00 RCC (Rec: 04/07/18 14:17 [facility] [id number]) PT-Bed Mobility Assessment Supine to Sit Supine to Sit Standby Assistance Head of Bed Elevated Sit to Supine Sit to Supine Standby Assistance Head of Bed Elevated Scooting Scooting to Edge of Bed Standby Assistance PT-Transfer Assessment Sit to and From Stand Sit to and from Stand Standby Assistance Equipment Transfer Assistive Device Gait Belt Front Wheeled Walker Transfers Transfer Destination Bed Transfer Technique Stand Step Pivot Transfer Ability Level of Assist Standby Assistance Gait Assessment Gait Gait Assistance Required: Standby Assistance Distance (Feet) 230 Assistive Devices Assistive Device Gait Belt Front Wheeled Walker Gait Deviations General Gait Pattern Decreased Stride Length Decreased Feet Clearance Factors Limiting Gait Function Factors Limiting Gait Function Decreased Activity Tolerance Decreased Strength Comments Gait Comments O2 saturation 97% after ambulation, VA 98 bpm. Stair Climbing Assessment Comments Stair Climbing Comments not assessed this session M5 PT-IP Objective Assessments Start: 04/06/18 11:42 Freq: NEEDED Status: Active Protocol: Document 04/06/18 09:30 AMB (Rec: 04/06/18 12:06 AMB [id number]) Orientation Orientation/Cognition Safety Awareness Decreased Safety Awareness M6 PT-IP Treatment Start: 04/06/18 11:42 Freq: NEEDED Status: Active Protocol: Document 04/07/18 11:16 MAREN (Rec: 04/07/18 12:09 LJ [id number]) Physical Therapy Treatment Education Education Provided Safety M7 PT-IP Assessment and Plan Start: 04/06/18 11:42 Freq: NEEDED Status: Active Protocol: Document 04/07/18 14:00 RCC (Rec: 04/07/18 14:17 [facility] [id number]) PT Summary Assessment and Plan Summary Progress Towards Goals Progressing Toward Goals Assessment Summary Pt able to ambulate 230 ft with SBA and FWW, no c/o SOB. Pt's balance is improving, and was SBA for bed mobility, although HOB was elevated. Daughter stated to that she can stay for some time in the home with the pt, if that is the case, pt may be able to d/ c home when medically stable with the understanding pt will need 05/12 assist and use her FWW at home. Pt would benefit from PT/OT upon d/c if she is to return home, and will need to progress stair training next session. Goals Bed Mobility Goal Independent Transfer Goal Independent Gait Goal Standby Assistance Front Wheel Walker Gait Distance 300 Other Goals Ascend and descend 14 steps with one rail with SBA. Days to Meet Goals 4 Frequency of Treatment Frequency Of Treatment Twice a Day Treatment Plan Other Recommendations and Next Treatment stair training (3 SE, then 6 Focus or 7 steps once immediately inside) unilat. rail. Recommendations To Nursing Amount of Assist Needed 1 Person Assist Discharge Recommendations PT Discharge Recommendations Home with 24/7 Assist Home Health
--- NOTE | 2018-04-07 15:00 | CM.DPC ---
Addendum entered by Kourtney Munoz R.N. 04/07/18 15:59: Spoke to Maria M at [facility]. May not be able to get to home until , due to holiday. Did state that they do accept patient's insurance. Went ahead and faxed clinicals to [facility]. Attempted [facility], but no answer. Original Note: DCP Cont: Discussed case with [facility] physical therapist, who read this caser up's note regarding conference with daughter and home health. Mentioned stairs in patient's home. Therapy will be able to work on stair training, for goals have changed since she is going home versus usp facility. Will discuss further tomorrow at team rounds. Left [facility] a message regarding patient and insurance information regarding home health needs upon discharge. Will await call back. May need nursing as well as physical and occupational therapy. This will be determined as well. P: DCP to continue to follow closely. Will pursue home health upon discharge. Will also await response from [facility]. Kourtney Munoz RN/Credit Administrator
[2018-04-07] MEDS: LACTATED RINGERS 1,000 ML 100 ML IV (15:58)
[2018-04-08] VITALS (8 sets, daily range): BP systolic 113–132; BP diastolic 59–61; PULSE 75–91; RESP 14–20; TEMP 36.6–37; O2SAT 95–99
[2018-04-08] MEDS: LACTATED RINGERS 1,000 ML 100 ML IV (02:37)
[2018-04-08] MEDS: FLUTICASONE/SALMETEROL 250/50 14 PUFF DISKUS INH ×2 (05:16→18:08)
[2018-04-08 06:18] LABS: Add Manual Diff / Slide Review NO; Basophils Percent Auto 0.5 % (0-2); Eosinophils Percent Auto 4.8 % (2-4); Hematocrit 26.9 % (36-46); Hemoglobin 8.6 g/dL (12.0-16.0); Lymphocytes Percent Auto 31.2 % (25-40); Mean Corpuscular HGB Conc 32.2 % (30-36); Mean Corpuscular Hemoglobin 33.7 PG (26-34); Mean Corpuscular Volume 104.7 fL (80-100); Monocytes Percent Auto 10.5 % (3-14); Neutrophils Absolute Auto 2400 /uL (3000-5900); Platelet Count 131 X10^3/uL (150-400); Red Blood Cell Count 2.57 X10^6/uL (4.0-5.2); Red Cell Distribution Width 14.1 % (11.6-14.8); White Blood Cell Count 4.5 X10^3/uL (4.5-11.0)
[2018-04-08 06:44] LABS: BUN Creatinine Ratio 8.6 (6-22); Blood Urea Nitrogen 12 mg/dL (7-17); Calcium 8.1 mg/dL (8.4-10.2); Carbon Dioxide 12 mmol/L (22-32); Estimated Glomerular Filt Rate 36.9 mL/min (>60); Glucose 80 mg/dL (80-110); HEMOLYSIS < 15 (0-50); Potassium 3.6 mmol/L (3.4-5.1); Sodium 143 mmol/L (137-145)
[2018-04-08 06:52] LABS: Chloride 123 mmol/L (98-107)
[2018-04-08] MEDS: NICOTINE 21 MG PATCH TOP (10:20)
[2018-04-08] MEDS: CHOLECALCIFEROL (VITAMIN D3) 1,000 UNIT TABLET 2000 UNIT PO (10:21)
[2018-04-08] MEDS: MULTIVIT,CALC,MINS/IRON/FOLIC 1 TABLET 1 TAB PO (10:21)
[2018-04-08] MEDS: levoFLOXacin 250 MG TABLET 750 MG PO (10:21)
[2018-04-08] MEDS: SPIRONOLACTONE 25 MG TABLET PO ×2 (10:21→20:05)
--- NOTE | 2018-04-08 11:42 | P.PN_ITS ---
Subjective Date Patient Seen: 04/08/18 Time Patient Seen: 11:36 Interval history: Follow-up on weakness, dehydration, TESHA, and UTI Patient seen at bedside. She is feeling better today. She was able to ambulate with physical therapy earlier. States her diarrhea is improved. No other overnight events. No fevers or chills. Still pending stool collection for guaiac testing. Exam Vital Signs (past 8 hours): - 04/08/18 05:16 04/08/18 05:59 04/08/18 08:05 Temperature 98.5 F 98.3 F Pulse Rate 77 79 80 Respiratory Rate 14 20 20 Blood Pressure 113/59 L 118/59 L Pulse Oximetry 98 96 95 Fraction of Inspired Oxygen 21 Oxygen Delivery Method Room Air Oxygen Flow Rate 0 Narrative Exam Narrative: General: No acute distress, AAO x3 HEENT PERRLA bilaterally, dry mucous membranes Neck: Supple, no LAD or JVD CV: Regular rate rhythm, no murmurs or gallops Respiratory: Mild expiratory wheezes appreciated in all lung oliver, however saturating above 95% on room air GI: No tenderness to palpation, positive bowel sounds in all 4 quadrants. No organomegaly Musculoskeletal: Normal range of motion in all extremities Extremities: No edema noted Skin: No rash or bruising Neuro: No focal deficits Psych: Patient is slightly anxious, The mood is appropriate Objective Labs Result Diagrams: 04/08/18 05:45 04/08/18 05:45 Labs: Laboratory Results - last 24 hr 04/08/18 04/08/18 05:45 05:45 WBC 4.5 RBC 2.57 L Hgb 8.6 L Hct 26.9 L MCV 104.7 H MCH 33.7 MCHC 32.2 RDW 14.1 Plt Count 131 L Neut % (Auto) 53.0 Lymph % (Auto) 31.2 [place] % (Auto) 10.5 Eos % (Auto) 4.8 H Baso % (Auto) 0.5 Neut # (Auto) 2400 L Sodium 143 Potassium 3.6 Chloride 123 H* Carbon Dioxide 12 L BUN 12 Creatinine 1.40 H Estimated GFR 36.9 L BUN/Creatinine Ratio 8.6 Glucose 80 Calcium 8.1 L Assessment & Plan Plan: Assessment/Plan Narrative: 1. Acute metabolic encephalopathy -Resolved 2. UTI -no leukocytosis or fevers -urine cultures positive for EColi sensitive to Levofloxacin -continue levofloxacin POx5-7 days total (Day 3 today) 3. TESHA on CKD -improving, likely due to dehydration -BUN 12, creatinine 1.4 -Continue hydration with LR but decrease rate to 70cc/hr given Cl of 123 -Approaching baseline Cr of 1.2...Will consider stopping fluids tomorrow 4. Generalized weakness -likely due to dehydration from chronic diarrhea -PT/OT on board, weakness is improving -Possible discharge home with home health tomorrow 5. COPD -not in acute exacerbation, however has mild expiratory wheezes -RT consulted for oxygenation as necessary -continue duo nebs as needed 6. Diffuse abdominal pain -resolved, continue to monitor 7. Macrocytic anemia -likely due to malabsorption to have disorder from gastric bypass surgery -hemoglobin 9.0->8.6, hematocrit 28.0->26.9, MCV 104.7. Stable -continue iron, B12 supplementation -will get stool guiac to rule out chronic GI bleed 8. Dysphagia -resolved, patient is tolerating soft mechanical diet well 9. End-stage liver disease -no acute ascites noted at this time -continue spironolactone home medication Dispo: Possible discharge home with home health tomorrow after Cr is back to baseline. Will need OP levofloxacin for 2-4 more days Quality VTE Deep Vein Thrombosis/Pulmonary Embolism Present on Admission: No
--- NOTE | 2018-04-08 11:54 | CM.DPC ---
DCP Cont: Discussed patient during rounds this morning. Dr. Awan concerned about patient's rising chloride level. Will be here another day, may be discharged tomorrow. Discussed case with [facility], physical therapist, as well. Stated that they would work on stair training today with patient, and that patient has improved on her ambulation status. Stated that home health will be appropriate for patient. Awaiting medical stability. Will continue to give any pertinent updates to Beatrice, daughter, as well. She is prepared to take patient home when ready. Faxed updated orders and face to face to [facility]. P: DCP to continue to follow. Plan is for home when stable, home health P.T/O.T. Kourtney Munoz RN/Formulator Compounder
--- NOTE | 2018-04-08 11:59 | PT.IPTN ---
Current Diagnoses Metabolic encephalopathy (04/05/18) Physical Therapy Treatment Note M2 PT-IP Current Condition Start: 04/06/18 11:42 Freq: NEEDED Status: Active Protocol: Document 04/07/18 14:00 RCC (Rec: 04/07/18 14:17 RCC [id number]) Physical Therapy Current Condition Current Condition Evaluation Date 04/06/18 Treatment Diagnosis weakness, confusion, UTI Onset Date 04/05/18 M3 PT-IP Subjective Start: 04/06/18 11:42 Freq: NEEDED Status: Active Protocol: Document 04/08/18 11:21 CLB (Rec: 04/08/18 11:59 CLB [id number]) Subjective Physical Therapy Visit Type Type Treatment Note Visit Start Time 11:21 Visit Stop Time 11:41 Total Visit Minutes 20 Number of BACKEND JAVA DEVELOPER Visits 1 Physical Therapy Visit Comments Patient Comments Pt agreeable to ambulate and trial stairs. Therapy Pain Assessment Pain When Pain Assessed At Rest Pain Present Pain Present Denied Pain M4 PT-IP Mobility and Gait Start: 04/06/18 11:42 Freq: NEEDED Status: Active Protocol: Document 04/08/18 11:21 CLB (Rec: 04/08/18 11:59 CLB [id number]) PT-Bed Mobility Assessment Supine to Sit Supine to Sit Standby Assistance Scooting Scooting to Edge of Bed Standby Assistance PT-Transfer Assessment Sit to and From Stand Sit to and from Stand Standby Assistance Equipment Transfer Assistive Device Gait Belt Front Wheeled Walker Transfers Transfer Destination Chair Transfer Technique Stand Step Pivot Transfer Ability Level of Assist Standby Assistance Gait Assessment Gait Gait Assistance Required: Contact Guard Assist Distance (Feet) 150 Assistive Devices Assistive Device Gait Belt Front Wheeled Walker Gait Deviations General Gait Pattern Decreased Stride Length Decreased Feet Clearance Factors Limiting Gait Function Factors Limiting Gait Function Decreased Activity Tolerance Decreased Strength Stair Climbing Assessment Evaluation Level of Assist On Stairs Contact Guard Assistance Devices Stair Climbing Assistive Devices Left Railing Right Railing Technique/Endurance Stair Climbing Direction Ascend and Descend Stair Climbing Technique Step Over Step Step to Step Number of Steps Climbed 3 Query Text: Stair Climbing Set # Repetitions (reps) 2 Comments Stair Climbing Comments Pt able to climb stairs CGA step over step ascending and step to step down stairs. Pt needed cues to keep walker close until she is able to reach hand rails. M5 PT-IP Objective Assessments Start: 04/06/18 11:42 Freq: NEEDED Status: Active Protocol: Document 04/06/18 09:30 AMB (Rec: 04/06/18 12:06 AMB [id number]) Orientation Orientation/Cognition Safety Awareness Decreased Safety Awareness M6 PT-IP Treatment Start: 04/06/18 11:42 Freq: NEEDED Status: Active Protocol: Document 04/07/18 11:16 LJ (Rec: 04/07/18 12:09 LJ [id number]) Physical Therapy Treatment Education Education Provided Safety M7 PT-IP Assessment and Plan Start: 04/06/18 11:42 Freq: NEEDED Status: Active Protocol: Document 04/08/18 11:21 CLB (Rec: 04/08/18 11:59 CLB [id number]) PT Summary Assessment and Plan Summary Progress Towards Goals Progressing Toward Goals Assessment Summary Pt ambulates slowly w/o LOB. Pt successfully performed stair training requiring CGA. Pt fatigued after stair training and wanted to return to her room rather than ambulate farther.Left pt in chair with warm blankets, all needs within reach and visitor present. Goals Bed Mobility Goal Independent Transfer Goal Independent Gait Goal Standby Assistance Front Wheel Walker Gait Distance 300 Other Goals Ascend and descend 14 steps with one rail with SBA. Frequency of Treatment Frequency Of Treatment Twice a Day Treatment Plan Physical Therapy Treatment Plan Bed Mobility Training Transfer Training Gait Training Therapeutic Exercise Balance Retraining Neuromuscular Re-ed Other Recommendations and Next Treatment Progress gait and stair Focus training Recommendations To Nursing Amount of Assist Needed 1 Person Assist Discharge Recommendations PT Discharge Recommendations Home with 05/12 Assist Home Health
--- NOTE | 2018-04-08 12:40 | CM.DPC ---
DCP Cont: Spoke to patient's daughter, Beatrice Davis, for she called requesting update on discharge. Let her know that patient would not be discharged today, due to concerns regarding some lab results. Did let her know that she was working with [facility], physical therapy, and was showing some signs of improvement. Let her know that if labs are stable tomorrow, could go home. Let her also know that [facility] was sent orders, and may not be able to get to home until . P: DCP to continue to follow. Patient could be discharged home tomorrow. Continue to update daughter. Kourtney Munoz RN/Blending Technician
--- NOTE | 2018-04-08 14:31 | PC.NURSE ---
Shift overview: Patient calm, pleasant and cooperative. Tolerating meals. Up to bathroom with assistance, guiac stool still needed (per DATA COMMUNICATIONS ANALYST stool was mixed with urine and unable to obtain specimen). Ambulated in halls with P.T. tolerating well. Patient is hopeful she can go home tomorrow. Bed alarm on for safety. Call light within reach.
--- NOTE | 2018-04-08 14:42 | PT.IPTN ---
Current Diagnoses Metabolic encephalopathy (04/05/18) Physical Therapy Treatment Note M2 PT-IP Current Condition Start: 04/06/18 11:42 Freq: NEEDED Status: Active Protocol: Document 04/07/18 14:00 RCC (Rec: 04/07/18 14:17 RCC [id number]) Physical Therapy Current Condition Current Condition Evaluation Date 04/06/18 Treatment Diagnosis weakness, confusion, UTI Onset Date 04/05/18 M3 PT-IP Subjective Start: 04/06/18 11:42 Freq: NEEDED Status: Active Protocol: Document 04/08/18 14:00 CLB (Rec: 04/08/18 14:41 CLB [id number]) Subjective Physical Therapy Visit Type Type Treatment Note Visit Start Time 14:00 Visit Stop Time 14:15 Total Visit Minutes 15 Number of CONTRACT DRIVER Visits 2 Physical Therapy Visit Comments Patient Comments Pt agreeable to ambulate. Therapy Pain Assessment Pain When Pain Assessed At Rest Pain Present Pain Present Denied Pain M4 PT-IP Mobility and Gait Start: 04/06/18 11:42 Freq: NEEDED Status: Active Protocol: Document 04/08/18 14:00 CLB (Rec: 04/08/18 14:41 CLB [id number]) PT-Bed Mobility Assessment Supine to Sit Supine to Sit Minimal Assistance Head of Bed Elevated Sit to Supine Sit to Supine Standby Assistance Scooting Scooting to Edge of Bed Standby Assistance PT-Transfer Assessment Sit to and From Stand Sit to and from Stand Standby Assistance Equipment Transfer Assistive Device Gait Belt Front Wheeled Walker Transfers Transfer Destination Bed Toilet Transfer Technique Stand Step Pivot Transfer Ability Level of Assist Standby Assistance Comments Mobility Comments Pt needed increased assist sup -sit. Gait Assessment Gait Gait Assistance Required: Standby Assistance Distance (Feet) 220 Assistive Devices Assistive Device Gait Belt Front Wheeled Walker Gait Deviations General Gait Pattern Decreased Stride Length Decreased Feet Clearance Factors Limiting Gait Function Factors Limiting Gait Function Decreased Activity Tolerance Decreased Strength Comments Gait Comments Pt ambulated in muñoz w/o LOB or SOB. M5 PT-IP Objective Assessments Start: 04/06/18 11:42 Freq: NEEDED Status: Active Protocol: Document 04/06/18 09:30 AMB (Rec: 04/06/18 12:06 AMB [id number]) Orientation Orientation/Cognition Safety Awareness Decreased Safety Awareness M6 PT-IP Treatment Start: 04/06/18 11:42 Freq: NEEDED Status: Active Protocol: Document 04/07/18 11:16 LJ (Rec: 04/07/18 12:09 LJ [id number]) Physical Therapy Treatment Education Education Provided Safety M7 PT-IP Assessment and Plan Start: 04/06/18 11:42 Freq: NEEDED Status: Active Protocol: Document 04/08/18 14:00 CLB (Rec: 04/08/18 14:41 CLB [id number]) PT Summary Assessment and Plan Summary Progress Towards Goals Progressing Toward Goals Assessment Summary Pt ambulated in muñoz ~220ft w/ o LOB or SOB. Pt needs cues for approach to toilet and use of wall rail. Pt able to perform own pericare as well as donning/doffing brief. Pt able to stand at sink and wash hands SBA. Goals Bed Mobility Goal Independent Transfer Goal Independent Gait Goal Standby Assistance Front Wheel Walker Gait Distance 300 Other Goals Ascend and descend 14 steps with one rail with SBA. Frequency of Treatment Frequency Of Treatment Twice a Day Treatment Plan Physical Therapy Treatment Plan Bed Mobility Training Transfer Training Gait Training Therapeutic Exercise Balance Retraining Neuromuscular Re-ed Other Recommendations and Next Treatment Progress gait as tolerated. Focus Recommendations To Nursing Amount of Assist Needed 1 Person Assist Discharge Recommendations PT Discharge Recommendations Home with 05/12 Assist Home Health
[2018-04-09 05:00] VITALS: PULSE 80; RESP 18; O2SAT 94
[2018-04-09] MEDS: FLUTICASONE/SALMETEROL 250/50 14 PUFF DISKUS INH (05:00)
[2018-04-09 05:50] VITALS: BP 144/71; PULSE 103; RESP 20; TEMP 36.7; O2SAT 96
[2018-04-09 06:27] LABS: Add Manual Diff / Slide Review NO; Basophils Percent Auto 0.5 % (0-2); Eosinophils Percent Auto 4.5 % (2-4); Hematocrit 30.9 % (36-46); Hemoglobin 9.7 g/dL (12.0-16.0); Lymphocytes Percent Auto 31.1 % (25-40); Mean Corpuscular HGB Conc 31.5 % (30-36); Mean Corpuscular Volume 108.2 fL (80-100); Monocytes Percent Auto 9.8 % (3-14); Neutrophils Absolute Auto 3200 /uL (3000-5900); Neutrophils Percent Auto 54.1 % (50-75); Platelet Count 139 X10^3/uL (150-400); Red Blood Cell Count 2.85 X10^6/uL (4.0-5.2); Red Cell Distribution Width 14.7 % (11.6-14.8); White Blood Cell Count 5.9 X10^3/uL (4.5-11.0)
[2018-04-09 06:34] LABS: BUN Creatinine Ratio 7.1 (6-22); Blood Urea Nitrogen 10 mg/dL (7-17); Calcium 8.2 mg/dL (8.4-10.2); Carbon Dioxide 10 mmol/L (22-32); Estimated Glomerular Filt Rate 36.9 mL/min (>60); Glucose 82 mg/dL (80-110); HEMOLYSIS < 15 (0-50); Potassium 3.4 mmol/L (3.4-5.1); Sodium 142 mmol/L (137-145)
[2018-04-09 06:37] LABS: Chloride 122 mmol/L (98-107)
[2018-04-09 07:00] VITALS: BP 121/64; PULSE 79; RESP 16; TEMP 36.6; O2SAT 96
--- NOTE | 2018-04-09 08:22 | PM.DS.1 ---
History of Present Illness Date Patient Seen: 04/09/18 Time Patient Seen: 10:13 Chief complaint: CONFUSION Discharge Providers Date of admission: 04/05/18 20:58 Primary care physician: Kang Lion MD Consults: 04/05/18 21:25 Consult to Physical Therapy Evaluate & Treat Comment: generalized weakness Physician Instructions: Evaluate and Treat Consult to Respiratory Therapy Evaluate & Treat Comment: h/o COPD, bronchospams on presentation Physician Instructions: Evaluate and treat 04/05/18 22:15 Consult to Dietitian, Adult Routine Comment: Reason For Exam: assessed at high risk 04/05/18 23:36 Consult to Speech Therapy Evaluate & Treat Comment: dysphagia, swallow eval Physician Instructions: Evaluate and treat 04/08/18 11:05 Consult to Home Health Routine Comment: Reason For Exam: Physical and Occupational Therapy Discharge provider: Luh Cassidy DO Discharge Date: 04/09/18 Summary Discharge Diagnosis: ACUTE METABOLIC ENCEPHALOPATHY E COLI UTI; DISCHARGED ON LEVAQUIN POSSIBLE ACUTE COPD EXACERBATION MEDICAL NONCOMPLIANCE ACUTE ON CHRONIC KIDNEY DISEASE STAGE 2 THROUGH 3 GENERALIZED WEAKNESS PHYSICAL DECONDITIONING ACUTE COPD EXACERBATION CONFUSION TOBACCO ABUSE COPD Hospital Course: THIS IS A VERY PLEASANT 72-YEAR-OLD FEMALE ADMITTED TO THE HOSPITAL WITH AMS THIS WAS SUSPECTED TO BE DUE TO UTI. PATIENT THE URINE DID GROW E COLI. SUSCEPTIBILITY REPORT INDICATED THE ORGANISM WAS WAS POINTING TO LEVAQUIN. SHE WAS DISCHARGED ON P.O. MEDICATIONS PER SENSITIVITY REPORT. SHE APPEARS BACK AT BASELINE MENTALLY PRIOR TO DISCHARGE. SHE DID SHOW SIGN OF ACUTE PHYSICAL DECONDITIONING. AND WILL BE DISCHARGED WITH FOR A PHYSICAL AND OCCUPATIONAL THERAPY SHE WAS GIVEN EXTENSIVE COUNSELING REGARDING TOBACCO ABUSE AND QUIT HIS ADDICTION. TIME SPENT ON DISCHARGE 45 MIN. MORE THAN 30 MIN SPENT ON COORDINATING PATIENT DISCHARGE Status at Discharge Cognitive/behavioral status at discharge: STABLE AT BASELINE Functional status at discharge: uses cane/walker Overall status at discharge: patient is back to baseline Time Spent with Patient Greater than 30 minutes Exam Vital Signs (past 8 hours): - 04/09/18 05:00 04/09/18 05:50 04/09/18 07:00 Temperature 98.0 F 97.9 F Pulse Rate 80 103 H 79 Respiratory Rate 18 20 16 Blood Pressure 144/71 H 121/64 Pulse Oximetry 94 96 96 Fraction of Inspired Oxygen 21 Oxygen Delivery Method Room Air Oxygen Flow Rate 0 Narrative Exam Narrative: NO ACUTE DISTRESS. PATIENT IS ALERT ORIENTED X3. VITAL SIGNS STABLE HEAD ATRAUMATIC NORMOCEPHALIC NECK : SUPPLE WITHOUT ADENOPATHY BECAUSE SHE WOULD HAS REVIEWED THE EYE: EOMI, PERRLA, NORMAL CONJUNCTIVA CHEST: REGULAR RATE.. NO RUBS. PMI IS NON DISPLACED. 1/6 SYSTOLIC MURMUR NOTED ON THE 2ND INTRACOSTAL IN THE RIGHT PULMONARY: DECREASED AIR MOVEMENT OVER THE BASES. MILD BIBASILAR CRACKLES NOTED; NO INCREASED DULLNESS TO PERCUSSION EXTREMITIES: 1+ EDEMA. NONPITTING. NO CYANOSIS CLUBBING NOTED. NEURO: CRANIAL NERVES 2-12 GROSSLY INTACT. NO FOCAL NEUROLOGICAL DEFICIT NOTED. MSK: NORMAL RANGE OF MOTION FOR AGE. NO JOINT EFFUSION. SKIN: NORMAL FOR ETHNICITY; NO ECCHYMOSIS. NO LESION. FAIR TURGOR. : NORMAL EXTERNAL GENITALIA. PSYCH : APPROPRIATE MOOD AND AFFECT. ALERT AWAKE ORIENTED X3 Objective Labs Result Diagrams: 04/09/18 05:52 04/09/18 05:52 Labs: Laboratory Results - last 24 hr 04/09/18 04/09/18 05:52 05:52 WBC 5.9 RBC 2.85 L Hgb 9.7 L Hct 30.9 L MCV 108.2 H D MCH 34.0 MCHC 31.5 RDW 14.7 Plt Count 139 L Neut % (Auto) 54.1 Lymph % (Auto) 31.1 Catron % (Auto) 9.8 Eos % (Auto) 4.5 H Baso % (Auto) 0.5 Neut # (Auto) 3200 Sodium 142 Potassium 3.4 Chloride 122 H* Carbon Dioxide 10 L BUN 10 Creatinine 1.40 H Estimated GFR 36.9 L BUN/Creatinine Ratio 7.1 Glucose 82 Calcium 8.2 L Discharge Plan Discharge Plan Patient Disposition: Home Health Service Discharge comment: act as sanchez cardiac diet f/u with pcp 3-10 days avoid tobacco and etoh products Discharge Med Rec/Prescriptions Prescriptions: New ipratropium-albuterol 0.5 mg-3 mg(2.5 mg base)/3 mL Solution For Nebulization 3 ml INH RTQ4HR PRN (Reason: Shortness Of Breath) Qty: 60 RF: 0 levofloxacin 250 mg Tablet 250 mg PO DAILY 5 Days Qty: 5 RF: 0 nicotine 21 mg/24 hr Patch 24 Hour 21 mg Topical DAILY Qty: 40 RF: 0 ysqzlutw-iguk-XV-calcium-mins [Thera M Plus (ferrous fumarat)] 9 mg iron-400 mcg Tablet 1 tab PO DAILY 60 Days RF: 0 Continue FERROUS SULFATE 325 mg PO HS Qty: 0 RF: 0 mupirocin calcium 2 % cream 2 % Topical TID PRN (Reason: Itching) Qty: 0 RF: 0 fluticasone-salmeterol [Advair Diskus] 250-50 mcg/dose Blister With Device 1 inh INHALATION BID RF: 0 citalopram 40 mg tablet 40 mg PO DAILY RF: 0 spironolactone 25 mg tablet 25 mg PO BID RF: 0 calcium carbonate [Calcium 500] 500 mg calcium (1,250 mg) Tablet 1,200 mg PO DAILY RF: 0 omeprazole 20 mg capsule,delayed release(DR/EC) 20 mg PO DAILY RF: 0 metoprolol succinate 25 mg tablet extended release 24 hr 12.5 mg PO DAILY RF: 0 cholecalciferol (vitamin D3) [Vitamin D3] 2,000 unit Capsule 2,000 unit PO DAILY RF: 0 ProAir HFA 108 mcg Inhalation Q4H PRN (Reason: Dyspnea) RF: 0 multivitamin 1 tab PO DAILY RF: 0 Follow up/Referrals: Kang Lion MD [Primary Care Provider] - (please follow up with your primary care provider after discharge) Visit Report/Discharge Packet Instructions: DI for Urinary Tract Infection (UTI), Levofloxacin Visit Report Forms: Stroke Signs & Symptoms Discharge Data Primary Care Provider: Kang Lion Attending Provider: Sierra Gonzalez Admit Date/Time: 04/05/18 20:58 Discharges patient from system. Discharge Date/Time: 04/09/18 12:35 Quality VTE Deep Vein Thrombosis/Pulmonary Embolism Present on Admission: No
[2018-04-09] MEDS: SPIRONOLACTONE 25 MG TABLET PO (08:40)
[2018-04-09] MEDS: CHOLECALCIFEROL (VITAMIN D3) 1,000 UNIT TABLET 2000 UNIT PO (08:40)
[2018-04-09] MEDS: MULTIVIT,CALC,MINS/IRON/FOLIC 1 TABLET 1 TAB PO (08:40)
[2018-04-09] MEDS: NICOTINE 21 MG PATCH TOP (08:40)
--- NOTE | 2018-04-09 08:48 | PT.IPTN ---
Current Diagnoses Metabolic encephalopathy (04/05/18) Physical Therapy Treatment Note M2 PT-IP Current Condition Start: 04/06/18 11:42 Freq: NEEDED Status: Active Protocol: Document 04/07/18 14:00 RCC (Rec: 04/07/18 14:17 RCC [id number]) Physical Therapy Current Condition Current Condition Evaluation Date 04/06/18 Treatment Diagnosis weakness, confusion, UTI Onset Date 04/05/18 M3 PT-IP Subjective Start: 04/06/18 11:42 Freq: NEEDED Status: Active Protocol: Document 04/09/18 08:39 AMB (Rec: 04/09/18 08:48 AMB [email or web address]) Subjective Physical Therapy Visit Type Type Treatment Note Visit Start Time 08:00 Visit Stop Time 08:25 Total Visit Minutes 25 Number of BALANCE RECESSER Visits 0 Physical Therapy Visit Comments Patient Comments Pt willing to ambulate and try stairs. Therapy Pain Assessment Pain When Pain Assessed At Rest Pain Present Pain Present Denied Pain M4 PT-IP Mobility and Gait Start: 04/06/18 11:42 Freq: NEEDED Status: Active Protocol: Document 04/09/18 08:39 AMB (Rec: 04/09/18 08:48 AMB [email or web address]) PT-Bed Mobility Assessment Rolling Type of Rolling Roll to Right Level of Assist Standby Assistance Supine to Sit Supine to Sit Standby Assistance Head of Bed Elevated Sit to Supine Sit to Supine Standby Assistance Scooting Scooting to Edge of Bed Standby Assistance PT-Transfer Assessment Sit to and From Stand Sit to and from Stand Standby Assistance Equipment Transfer Assistive Device Gait Belt Front Wheeled Walker Transfers Transfer Destination Bed Bedside Commode Transfer Technique Stand Step Pivot Transfer Ability Level of Assist Standby Assistance Comments Mobility Comments Assist for IV pole management only Gait Assessment Gait Gait Assistance Required: Standby Assistance Distance (Feet) 100 Assistive Devices Assistive Device Gait Belt Front Wheeled Walker Gait Deviations General Gait Pattern Decreased Stride Length Decreased Feet Clearance Factors Limiting Gait Function Factors Limiting Gait Function Decreased Activity Tolerance Decreased Strength Comments Gait Comments Pt wanted to be done with ambulation due to needing to have a bowel movement. Stair Climbing Assessment Evaluation Level of Assist On Stairs Standby Assistance Devices Stair Climbing Assistive Devices Right Railing Technique/Endurance Stair Climbing Direction Ascend and Descend Stair Climbing Technique Step to Step Number of Steps Climbed 3 Query Text: Stair Climbing Set # Repetitions (reps) 3 Comments Stair Climbing Comments Pt is was able to carefully ascend and descend the stairs, would recommend she avoid carrying items up and down the stairs for now. M5 PT-IP Objective Assessments Start: 04/06/18 11:42 Freq: NEEDED Status: Active Protocol: Document 04/06/18 09:30 AMB (Rec: 04/06/18 12:06 AMB [id number]) Orientation Orientation/Cognition Safety Awareness Decreased Safety Awareness M6 PT-IP Treatment Start: 04/06/18 11:42 Freq: NEEDED Status: Active Protocol: Document 04/07/18 11:16 LJ (Rec: 04/07/18 12:09 LJ [id number]) Physical Therapy Treatment Education Education Provided Safety M7 PT-IP Assessment and Plan Start: 04/06/18 11:42 Freq: NEEDED Status: Active Protocol: Document 04/09/18 08:39 AMB (Rec: 04/09/18 08:48 AMB [id number]) PT Summary Assessment and Plan Summary Progress Towards Goals Progressing Toward Goals Goals Bed Mobility Goal Independent Transfer Goal Independent Gait Goal Standby Assistance Front Wheel Walker Gait Distance 300 Other Goals Ascend and descend 14 steps with one rail with SBA. Frequency of Treatment Frequency Of Treatment Twice a Day Discharge Recommendations PT Discharge Recommendations Home with 05/12 Assist Home Health Other Discharge Recommendations Pt has discharge orders, may be going home today
--- NOTE | 2018-04-09 12:47 | PC.NURSE ---
patient's daughter in to pick up and delivery driver patient. Reviewed discharge instructions, home care handouts and medications. Given prescriptions to fill at pharmacy of choice. Patient and daughter state understanding and have no further questions or concerns. Patient escorted out via wheelchair by CARE TRANSITION MGR. Patient's daughter will call to schedule follow up appointment with Dr. Lion for 3-10 days.
--- NOTE | 2018-04-09 15:07 | CM.DPC ---
DCP: continued: Case received, dc order to home noted and saw that pt had already left for home with her daughter. See that DCPlanner RN Fatoumata had sent referral to [facility] along with PT/OT orders and Face/Face. Face to Face noted to be incompleted. Filled out the remaining items (PCP and Hospitalist Dr. Prater/identiifed. Faxed Dr. Prater's progress note that was written the day she signed the F/F and gave the HH orders. DC summary is not in yet/new hospitalist. Will fax to [facility] when available/likely tomorrow.
== END 2018-04-09 12:35 | disposition home health service (06) | DRG 71 ==
LOC: ED 20:38 → AC 20:59
PROVIDERS: Emergency Medicine; Internal Medicine; Admitting Provider Nurse Practitioner Gerontology; Emergency Provider Internal Medicine; PCP Internal Medicine; Visit Provider Nurse Practitioner Gerontology
DX: G93.41 Metabolic encephalopathy (principal); N39.0 Urinary tract infection, site not specified; N17.9 Acute kidney failure, unspecified; K91.2 Postsurgical malabsorption, not elsewhere classified; K95.89 Other complications of other bariatric procedure; J44.1 Chronic obstructive pulmonary disease with (acute) exacerbation; B96.20 Unspecified Escherichia coli [E. coli] as the cause of diseases classified elsewhere; K72.90 Hepatic failure, unspecified without coma; R19.7 Diarrhea, unspecified; D52.0 Dietary folate deficiency anemia; K22.70 Barrett's esophagus without dysplasia; F17.210 Nicotine dependence, cigarettes, uncomplicated; I48.0 Paroxysmal atrial fibrillation; M35.3 Polymyalgia rheumatica; I25.10 Atherosclerotic heart disease of native coronary artery without angina pectoris; E86.9 Volume depletion, unspecified; N18.3 Chronic kidney disease, stage 3 (moderate); R53.1 Weakness; Z91.19 Patient's noncompliance with other medical treatment and regimen
CPT/HCPCS: 36415; 70450; 71046; 74022; 80048; 80053; 81001; 82140; 83605; 83690; 83735; 83880; 84100; 84145; 85025; 85610; 85730; 87040; 87077; 87086; 87186; 87507; 93005; 93041; 94640; 96360; 96361; 97110; 97116; 97162; 97530; 99285; 99406; J1956

== ENCOUNTER → 2018-04-16 14:28 | Outpatient (CLI) | payer MEDICARE, SELFPAY ==
[2018-04-05 17:51] VITALS: BMI 22.5
[2018-04-16 15:35] LABS: Add Manual Diff / Slide Review NO; Basophils Percent Auto 0.7 % (0-2); Eosinophils Percent Auto 2.4 % (2-4); Hematocrit 32.1 % (36-46); Hemoglobin 10.5 g/dL (12.0-16.0); Lymphocytes Percent Auto 17.1 % (25-40); Mean Corpuscular HGB Conc 32.7 % (30-36); Mean Corpuscular Hemoglobin 33.8 PG (26-34); Mean Corpuscular Volume 103.5 fL (80-100); Monocytes Percent Auto 10.9 % (3-14); Neutrophils Absolute Auto 5100 /uL (3000-5900); Neutrophils Percent Auto 68.9 % (50-75); Platelet Count 187 X10^3/uL (150-400); Red Cell Distribution Width 14.4 % (11.6-14.8); White Blood Cell Count 7.4 X10^3/uL (4.5-11.0)
[2018-04-16 15:50] LABS: Alanine Aminotransferase 28 IU/L (9-52); Albumin Globulin Ratio 1.1 (1.0-2.8); Alkaline Phosphatase 78 U/L (38-126); Aspartate Aminotransferase 23 IU/L (14-36); BUN Creatinine Ratio 5.4 (6-22); Bilirubin Total 0.7 mg/dL (0.2-1.3); Blood Urea Nitrogen 7 mg/dL (7-17); Calcium 7.6 mg/dL (8.4-10.2); Carbon Dioxide 17 mmol/L (22-32); Chloride 118 mmol/L (98-107); Estimated Glomerular Filt Rate 40.2 mL/min (>60); Globulin 2.7 g/dL (1.7-4.1); Glucose 117 mg/dL (80-110); HEMOLYSIS 20 (0-50); Potassium 3.2 mmol/L (3.4-5.1); Sodium 147 mmol/L (137-145); Total Protein 5.7 g/dL (6.3-8.2)
[2018-04-16 17:02] LABS: Erythrocyte Sedimentation Rate 33 MM/HR (0-20)
== END ==
PROVIDERS: PCP Internal Medicine; Visit Provider Internal Medicine
DX: N39.0 Urinary tract infection, site not specified (principal); J44.9 Chronic obstructive pulmonary disease, unspecified; R10.30 Lower abdominal pain, unspecified
CPT/HCPCS: 36415; 80053; 85025; 85651

== ENCOUNTER → 2018-04-17 14:56 | Outpatient (CLI) | payer MEDICARE, SELFPAY ==
[2018-04-05 17:51] VITALS: BMI 22.5
--- NOTE | 2018-04-17 | DI.CT.S_ITS ---
PROCEDURE: CT CHEST ABD PEL W CON INDICATIONS: RIGHT LOWER QUADRANT ABDOMINAL PAIN TECHNIQUE: After the administration of oral and intravenous contrast, 5 mm thick sections acquired from the lung apices to the symphysis. 5 mm coronal and sagittal reformats were performed, with additional 7 mm coronal MIP reformats through the lungs. For radiation dose reduction, the following was used: automated exposure control, adjustment of mA and/or kV according to patient size. COMPARISON: [facility], [place], ABDOMEN/PELVIS WITH CONTRAST, 11/13/2006, 10:50. [facility], [place], ABDOMEN WITH CONTRAST, 03/06/2012, 14:16. [facility], [place], ABDOMEN COMPLETE, 09/15/2016, 8:33. [facility], [place], HEPATOBILIARY SCAN WITH CCK, 09/15/2016, 9:16. [facility], [place], XR CHEST 2V, 04/06/2018, 5:51. [facility], [place], XR ACUTE ABDOMEN SERIES, 04/05/2018, 17:09. [facility], CT, CHEST/ABD/PEL WITH CONTRAST, 04/20/2012, 18:02. FINDINGS: Image quality: Excellent. CHEST: Lungs and pleura: Centrilobular emphysematous changes are seen. These are more prominent at the lung apices than at the lung bases. No acute airspace opacities. No pneumothorax. Small bilateral pleural effusions are seen, right more prominent than left. Mild dependent atelectasis can be seen within the lower lobes. Central and peripheral airways appear patent and normal in caliber. Mediastinum: Heart size is normal. No pericardial effusion. There is a borderline prominent right paratracheal lymph node seen that measures 10 x 12 mm, as on series 2 image 24. Thoracic aorta and central pulmonary arteries are normal in size. Esophagus is normal in caliber. No hiatal hernia. Chest wall: No axillary or supraclavicular adenopathy by size criteria. Thyroid gland demonstrates a partially cystic lesion with peripheral dense calcification within the left thyroid lobe. This is not significantly changed compared to 12 and thus likely benign. ABDOMEN: Solid organs: Liver is normal in size and enhancement. A central liver cyst is seen, as before. Gallbladder is partially collapsed at the time of this study. Biliary system is non dilated. Pancreas enhances normally. Spleen is normal in size and enhancement. There is again seen a left adrenal mass that measures 2.4 x 1.8 cm. In 2012, this measured 2.2 x 2.1 cm and is not significantly changed. In 2007, this measured 2.4 x 1.5 x 1.9 cm. No right adrenal nodules. Kidneys demonstrate normal size and enhancement, without hydronephrosis. There is a 3 mm nonobstructing stone seen within the superior pole of the left kidney, as on series 2 image 62. Peritoneum and bowel: In this patient with this given history, scrutiny is given to the appendix. A normal appendix can be seen, as on series 2 image 99. No focal right lower quadrant inflammatory changes are seen. Within the ascending colon, there is focal colonic thickening, as on series 4 image 19. This patient previously had focal bowel wall thickening within this region. Bowel loops otherwise demonstrate normal wall thickness and caliber. No free air. Diverticulosis is seen, without findings of active diverticulitis. Nodes and vessels: No retroperitoneal or mesenteric adenopathy by size criteria. Aorta and inferior vena cava are normal in size. Miscellaneous: No ventral hernias. PELVIS: Genitourinary: Bladder wall thickness is normal. A mild amount of free pelvic fluid can be seen. Miscellaneous: No inguinal hernias or adenopathy. Bones: No suspicious bony lesions. No vertebral body compression fractures. Degenerative changes are seen throughout, which are most prominent at the L4-L5 level. IMPRESSION: Focal colonic wall thickening can be seen involving the ascending colon, which may relate to the patient's presenting history of right lower quadrant pain. It is noted that this patient previously had thickening within this region in 2012. If clinically appropriate, please consider a colonoscopy for further evaluation. A borderline prominent right paratracheal lymph node can be seen, which is similar to 2012 and likely benign. Small bilateral pleural effusions are seen. A small amount of free pelvic fluid can be seen. The amount of free intraperitoneal fluid has decreased compared to 2012. Normal appendix. There is a stable left adrenal mass seen, which is not significantly changed compared to 2007 and regarded to be benign. Incidental note is made of: Emphysematous changes Central liver cyst 3 mm nonobstructing left-sided kidney stone Diverticulosis is seen, without findings of active diverticulitis. Focal L4-L5 degenerative change Dictated by: Montrell Bourne M.D. on 04/17/2018 at 16:01 Approved by: Montrell Bourne M.D. on 04/17/2018 at 16:12
== END ==
PROVIDERS: PCP Internal Medicine; Visit Provider Internal Medicine
DX: R10.31 Right lower quadrant pain (principal); K57.90 Diverticulosis of intestine, part unspecified, without perforation or abscess without bleeding; E27.9 Disorder of adrenal gland, unspecified; N20.0 Calculus of kidney; K76.89 Other specified diseases of liver; J90 Pleural effusion, not elsewhere classified; J43.2 Centrilobular emphysema; M47.816 Spondylosis without myelopathy or radiculopathy, lumbar region
CPT/HCPCS: 71260; 74177; Q9967

== ENCOUNTER → 2018-05-29 15:09 | Outpatient (CLI) | payer MEDICARE, SELFPAY ==
[2018-04-05 17:51] VITALS: BMI 22.5
[2018-05-29 15:59] LABS: Add Manual Diff / Slide Review NO; Basophils Absolute Auto 0 /uL (0-100); Basophils Percent Auto 0.3 % (0-2); Eosinophils Absolute Auto 100 /uL (0-450); Eosinophils Percent Auto 1.1 % (2-4); Hematocrit 32.6 % (36-46); Hemoglobin 10.5 g/dL (12.0-16.0); Lymphocytes Absolute Auto 2000 /uL (1100-4500); Lymphocytes Percent Auto 26.8 % (25-40); Mean Corpuscular HGB Conc 32.1 % (30-36); Mean Corpuscular Hemoglobin 32.9 PG (26-34); Mean Corpuscular Volume 102.5 fL (80-100); Monocytes Absolute Auto 600 /uL (0-900); Monocytes Percent Auto 8.7 % (3-14); Neutrophils Absolute Auto 4700 /uL (1500-7000); Neutrophils Percent Auto 63.1 % (50-75); Platelet Count 233 X10^3/uL (150-400); Red Blood Cell Count 3.18 X10^6/uL (4.0-5.2); Red Cell Distribution Width 16.9 % (11.6-14.8); White Blood Cell Count 7.4 X10^3/uL (4.5-11.0)
[2018-05-29 16:08] LABS: HEMOLYSIS < 15 (0-50); Iron 93 ug/dL (37-170)
[2018-05-29 16:10] LABS: BUN Creatinine Ratio 12.9 (6-22); Blood Urea Nitrogen 18 mg/dL (7-17); Calcium 8.4 mg/dL (8.4-10.2); Carbon Dioxide 22 mmol/L (22-32); Chloride 114 mmol/L (98-107); Estimated Glomerular Filt Rate 36.9 mL/min (>60); Glucose 115 mg/dL (80-110); HEMOLYSIS < 15 (0-50); Potassium 4.8 mmol/L (3.4-5.1); Sodium 143 mmol/L (137-145)
[2018-05-29 16:19] LABS: Percent Iron Saturation 53 % (15-50); Total Iron Binding Capacity 176 ug/dL (265-497); Transferrin 120 mg/dL (206-381)
== END ==
PROVIDERS: PCP Internal Medicine; Visit Provider Internal Medicine
DX: N18.9 Chronic kidney disease, unspecified (principal)
CPT/HCPCS: 36415; 80048; 83540; 83550; 85025

== ENCOUNTER 2018-07-24 23:08 | Emergency (ER) | payer MEDICARE, SELFPAY ==
[2018-04-05 17:51] VITALS: BMI 22.5
[2018-07-24 23:16] VITALS: BP 105/60; PULSE 95; RESP 16; TEMP 38.6; O2SAT 95; BMI 19.1
--- NOTE | 2018-07-24 23:19 | DI.RAD.S_ITS ---
PROCEDURE: XR CHEST 2V INDICATIONS: cough,congestion,fever TECHNIQUE: 2 views of the chest were acquired. COMPARISON: [facility], CR, XR CHEST 2V, 04/06/2018, 5:51. FINDINGS: Surgical changes and devices: None. Lungs and pleura: Mild vascular prominence perinephric pulmonary edema. Hyperexpansion consistent with COPD. No focal pulmonary infiltrate. No pleural effusions or pneumothorax. Mediastinum: Mediastinal contours are normal. Heart size is normal. Bones and chest wall: No suspicious bony abnormalities. Soft tissues appear unremarkable. IMPRESSION: COPD. Mild vascular prominence without pulmonary edema. Dictated by: Fran Hernández M.D. on 07/25/2018 at 8:08 Approved by: Fran Hernández M.D. on 07/25/2018 at 8:27
[2018-07-24 23:43] LABS: Influenza A and B by PCR Rapid Negative (Negative)
[2018-07-25] MEDS: ALBUTEROL/IPRATROPIUM 3 ML AMPUL INH ×2 (00:44→01:33)
[2018-07-25 00:48] VITALS: O2SAT 95
[2018-07-25 01:30] VITALS: O2SAT 94
[2018-07-25] MEDS: predniSONE 20 MG TABLET 40 MG PO (01:33)
[2018-07-25 01:53] VITALS: BP 106/52; PULSE 90; RESP 20; TEMP 37.3; O2SAT 95
--- NOTE | 2018-07-26 05:54 | ED.URI ---
HPI - URI/Sore Throat General Chief Complaint: Upper Respiratory Symptoms Stated Complaint: chest/lung issues, weakness Time Seen by Provider: 07/25/18 00:00 Source: patient and family Mode of arrival: ambulatory Limitations: no limitations History of Present Illness HPI Narrative: 72-year-old female smoker with history of COPD presents with family in the chief complaint of difficulty with breathing including wheeze, shortness of breath and cough over the past day or 2. She denies any fever or chills nor any headache, runny nose or sore throat. She has not been using her medications as frequently as she has directed. MD Complaint: cough Onset (ago): hour(s) Duration: constant Severity: moderate Relieving factors: nothing Exacerbating factors: exertion and speaking Able to tolerate fluids by mouth: Yes Associated symptoms: cough and shortness of breath Related Data Home Medications Medication Instructions Recorded Confirmed FERROUS SULFATE 325 mg PO HS #0 11/25/12 04/05/18 mupirocin calcium 2 % TOPICAL TID PRN #0 08/24/16 04/05/18 ProAir HFA 108 mcg INHALATION Q4H PRN 04/05/18 04/05/18 calcium carbonate [Calcium 500] 1,200 mg PO DAILY 04/05/18 04/05/18 cholecalciferol (vitamin D3) 2,000 unit PO DAILY 04/05/18 04/05/18 [Vitamin D3] citalopram 40 mg PO DAILY 04/05/18 04/05/18 fluticasone-salmeterol [Advair 1 inh INHALATION BID 04/05/18 04/05/18 Diskus] metoprolol succinate 12.5 mg PO DAILY 04/05/18 04/05/18 multivitamin 1 tab PO DAILY 04/05/18 04/05/18 omeprazole 20 mg PO DAILY 04/05/18 04/05/18 spironolactone 25 mg PO BID 04/05/18 04/05/18 Previous Rx's Medication Instructions Recorded ipratropium-albuterol 3 ml INH RTQ4HR PRN #60 ml 04/09/18 nicotine 21 mg TOPICAL DAILY #40 ea 04/09/18 albuterol sulfate 2.5 mg INHALATION TID-QID PRN #30 07/25/18 each prednisone 20 mg PO DAILY #5 tab 07/25/18 Allergies Allergy/AdvReac Type Severity Reaction Status Date / Time bacitracin Allergy Unknown Verified 07/24/18 23:16 [From NEOSPORIN ([id number])] neomycin Allergy Unknown Verified 07/24/18 23:16 [From NEOSPORIN ([id number])] polymyxin B Allergy Unknown Verified 07/24/18 23:16 [From NEOSPORIN ([id number])] ceftriaxone [CEFTRIAXONE] AdvReac Mild loss of Verified 07/24/18 23:16 memory and lethargy Review of Systems Constitutional Denies chills, Denies fever(s), Denies lethargy and Denies weakness Eyes Denies change in vision, Denies eye discharge, Denies irritation and Denies loss of vision ENT Ears, Nose, Mouth, and Throat: Denies change in voice, Denies neck pain and Denies sore throat Cardiovascular Denies chest pain, Denies irregular heart rhythm, Denies lightheadedness, Denies palpitations, Reports dyspnea, Reports dyspnea on exertion and Denies orthopnea Respiratory Reports cough, Reports dyspnea, Reports dyspnea on exertion and Reports wheezing Gastrointestinal Gastrointestinal: Denies abdominal pain, Denies change in bowel habits, Denies diarrhea, Denies nausea and Denies vomiting Genitourinary Denies hematuria, Denies flank pain, Denies urinary incontinence and Denies urinary urgency Musculoskeletal Denies neck pain Integumentary/Breasts Denies pruritus, Denies erythema, Denies rash and Denies wounds Neurologic Denies confusion, Denies loss of vision and Denies weakness Psychiatric Denies anxiety, Denies confusion, Denies depression, Denies homicidal ideation and Denies suicidal ideation Endocrine Denies palpitations Hematologic/Lymphatic Denies easy bruising Allergic/Immunologic Reports wheezing [facility] Medical History Barretts esophagus (Acute) Liver disease, chronic (Acute) Atrial fibrillation (Chronic) COPD (chronic obstructive pulmonary disease) (Chronic) Chronic diarrhea (Chronic) Chronic renal insufficiency (Chronic) GERD (gastroesophageal reflux disease) (Chronic) History of anemia (Chronic) History of hepatic failure (Chronic) History of polymyalgia rheumatica (Chronic) Surgical History Gastric bypass status for obesity (Acute) Status post intestinal bypass (Resolved) Social History household members: none Smoking Status: Current every day smoker alcohol intake: former Social History household members: none Smoking Status: Current every day smoker alcohol intake: former Exam Narrative Exam Narrative: GENERAL: Frail 72-year-old female appears older than stated age. She is quite thin HEAD: Atraumatic. Normocephalic. No temporal or scalp tenderness. EYES: Pupils equal round and reactive. Extraocular motions intact. No scleral icterus. No injection or drainage. ENT: Nose without bleeding, purulent drainage or septal hematoma. Throat without erythema, tonsillar hypertrophy or exudate. Uvula midline. Airway patent. NECK: Trachea midline. No JVD or lymphadenopathy. Supple, nontender, no meningeal signs. CARDIOVASCULAR: Regular rate and rhythm without murmurs, gallops, or rubs. RESPIRATORY: Decreased breath sounds bilaterally with prolonged expiratory phase and expiratory wheeze GASTROINTESTINAL: Abdomen soft, non-tender, nondistended. No hepato-splenomegaly, or palpable masses. No guarding. EXTREMITIES: No clubbing, cyanosis, or edema. No joint tenderness, effusion, or edema noted. BACK: Nontender without deformity or crepitance. No flank tenderness. NEURO: AOx3. SKIN: No rash or erythema. Initial Vital Signs Initial Vital Signs: Vital Signs Temperature 101.5 F H 07/24/18 23:16 Pulse Rate 95 H 07/24/18 23:16 Respiratory Rate 16 07/24/18 23:16 Blood Pressure 105/60 07/24/18 23:16 Pulse Oximetry 95 07/24/18 23:16 Course Orders Ordered: Discontinued Medications Albuterol/Ipratropium (Duoneb) 3 ml INH NOW ONE Stop: 07/25/18 00:39 Last Admin: 07/25/18 00:44 Dose: 3 ml Albuterol/Ipratropium (Duoneb) 3 ml INH NOW ONE Stop: 07/25/18 01:33 Last Admin: 07/25/18 01:33 Dose: 3 ml Prednisone (Deltasone) 40 mg PO NOW ONE Stop: 07/25/18 01:26 Last Admin: 07/25/18 01:33 Dose: 40 mg MDM - URI/Sore Throat Lab Data Lab Results 07/24/18 Range/Units 23:21 Influenza A & B (PCR) Negative (Negative) Imaging Data Chest x-ray: Radiologist's impression: Chart Viewer Diagnostics DATE TYPE STATUS AUTHOR Marianna 07/24/18 23:19 Fran Hernández 04/17/18 00:00 Jo-Ann Bournee 04/06/18 00:00 Michele,Abraham 04/05/18 20:58 04/05/18 16:44 Karoline Noguera 04/05/18 16:44 PoornimaKaroline Lianna Stevenson 72, [id number] [facility] ER, ED.LOC - Main ED 165.1cm 52.163kg BMI: 19.1kg/m? Upper Respiratory Symptoms Search Chart NF - Not included in interaction checking loss of memory and lethargy ONSET 07/25/18 01:53 Lianna Stevenson 72 F 1945 [place] [address] XRay Report Signed Patient: Lianna Stevenson RMR#: [id number] : 5Acct:[id number] Age/Sex: 72 / FDate of Service: 07/24/18 Loc: ED Accession Number: [id number] Procedure: XR chest 2V Ordering Provider: Rancho Emery D.O. PROCEDURE: XR CHEST 2V INDICATIONS: cough,congestion,fever TECHNIQUE: 2 views of the chest were acquired. COMPARISON: [facility], , XR CHEST 2V, 04/06/2018, 5:51. FINDINGS: Surgical changes and devices: None. Lungs and pleura: Mild vascular prominence perinephric pulmonary edema. Hyperexpansion consistent with COPD. No focal pulmonary infiltrate. No pleural effusions or pneumothorax. Mediastinum: Mediastinal contours are normal. Heart size is normal. Bones and chest wall: No suspicious bony abnormalities. Soft tissues appear unremarkable. IMPRESSION: COPD. Mild vascular prominence without pulmonary edema. Dictated by: Fran Hernández M.D. on 07/25/2018 at 8:08 Approved by: Fran Hernández M.D. on 07/25/2018 at 8:27 MDM Narrative Medical decision making narrative: Patient is afebrile, medically noncompliant shows tremendous improvement with above-stated therapies. She and family had questions answered to their apparent satisfaction and understand discharge instructions as evidenced by their verbalized remarks. Discharge Plan Departure Patient Disposition: Home Clinical Impression: Acute exacerbation of chronic obstructive pulmonary disease (COPD) Discharge Date/Time: 07/25/18 01:50 Interventions: ED Discharge Assessment Last Done: 07/25/18 01:53 Instructions: DI for Chronic Obstructive Pulmonary Disease Activity Restrictions/Additional Instructions: *You have been diagnosed with [ acute exacerbation COPD] *What to do: *Take medications as directed: your prescriptions have been electronically transmitted to [facility] *Follow up with your primary care provider in 2-3 days, call for an appointment. Let them know you were seen in the Emergency Department and that we ask that you be seen in follow up *Return to ER if you should have any new, worsening or concerning symptoms, such as [ ] Prescriptions: New prednisone 20 mg tablet 20 mg PO DAILY Qty: 5 RF: 0 albuterol sulfate 2.5 mg/0.5 mL solution for nebulization 2.5 mg INHALATION TID-QID PRN (Reason: shortness of breath or wheezing) Qty: 30 RF: 0 No Action FERROUS SULFATE 325 mg PO HS Qty: 0 RF: 0 mupirocin calcium 2 % cream 2 % Topical TID PRN (Reason: Itching) Qty: 0 RF: 0 fluticasone-salmeterol [Advair Diskus] 250-50 mcg/dose Blister With Device 1 inh INHALATION BID RF: 0 citalopram 40 mg tablet 40 mg PO DAILY RF: 0 spironolactone 25 mg tablet 25 mg PO BID RF: 0 calcium carbonate [Calcium 500] 500 mg calcium (1,250 mg) Tablet 1,200 mg PO DAILY RF: 0 omeprazole 20 mg capsule,delayed release(DR/EC) 20 mg PO DAILY RF: 0 metoprolol succinate 25 mg tablet extended release 24 hr 12.5 mg PO DAILY RF: 0 cholecalciferol (vitamin D3) [Vitamin D3] 2,000 unit Capsule 2,000 unit PO DAILY RF: 0 ProAir HFA 108 mcg Inhalation Q4H PRN (Reason: Dyspnea) RF: 0 multivitamin 1 tab PO DAILY RF: 0 ipratropium-albuterol 0.5 mg-3 mg(2.5 mg base)/3 mL Solution For Nebulization 3 ml INH RTQ4HR PRN (Reason: Shortness Of Breath) Qty: 60 RF: 0 nicotine 21 mg/24 hr Patch 24 Hour 21 mg Topical DAILY Qty: 40 RF: 0 Referrals: Kang Lion MD [Primary Care Provider] -
--- NOTE | 2018-07-26 05:59 | ED_ITS ---
HPI - URI/Sore Throat General Chief Complaint: Upper Respiratory Symptoms Stated Complaint: chest/lung issues, weakness Time Seen by Provider: 07/25/18 00:00 Source: patient and family Mode of arrival: ambulatory Limitations: no limitations History of Present Illness HPI Narrative: 72-year-old female smoker with history of COPD presents with family in the chief complaint of difficulty with breathing including wheeze, shortness of breath and cough over the past day or 2. She denies any fever or chills nor any headache, runny nose or sore throat. She has not been using her medications as frequently as she has directed. MD Complaint: cough Onset (ago): hour(s) Duration: constant Severity: moderate Relieving factors: nothing Exacerbating factors: exertion and speaking Able to tolerate fluids by mouth: Yes Associated symptoms: cough and shortness of breath Related Data Home Medications Medication Instructions Recorded Confirmed FERROUS SULFATE 325 mg PO HS #0 11/25/12 04/05/18 mupirocin calcium 2 % TOPICAL TID PRN #0 08/24/16 04/05/18 ProAir HFA 108 mcg INHALATION Q4H PRN 04/05/18 04/05/18 calcium carbonate [Calcium 500] 1,200 mg PO DAILY 04/05/18 04/05/18 cholecalciferol (vitamin D3) 2,000 unit PO DAILY 04/05/18 04/05/18 [Vitamin D3] citalopram 40 mg PO DAILY 04/05/18 04/05/18 fluticasone-salmeterol [Advair 1 inh INHALATION BID 04/05/18 04/05/18 Diskus] metoprolol succinate 12.5 mg PO DAILY 04/05/18 04/05/18 multivitamin 1 tab PO DAILY 04/05/18 04/05/18 omeprazole 20 mg PO DAILY 04/05/18 04/05/18 spironolactone 25 mg PO BID 04/05/18 04/05/18 Previous Rx's Medication Instructions Recorded ipratropium-albuterol 3 ml INH RTQ4HR PRN #60 ml 04/09/18 nicotine 21 mg TOPICAL DAILY #40 ea 04/09/18 albuterol sulfate 2.5 mg INHALATION TID-QID PRN #30 07/25/18 each prednisone 20 mg PO DAILY #5 tab 07/25/18 Allergies Allergy/AdvReac Type Severity Reaction Status Date / Time bacitracin Allergy Unknown Verified 07/24/18 23:16 [From NEOSPORIN ([id number])] neomycin Allergy Unknown Verified 07/24/18 23:16 [From NEOSPORIN ([id number])] polymyxin B Allergy Unknown Verified 07/24/18 23:16 [From NEOSPORIN ([id number])] ceftriaxone [CEFTRIAXONE] AdvReac Mild loss of Verified 07/24/18 23:16 memory and lethargy Review of Systems Constitutional Denies chills, Denies fever(s), Denies lethargy and Denies weakness Eyes Denies change in vision, Denies eye discharge, Denies irritation and Denies loss of vision ENT Ears, Nose, Mouth, and Throat: Denies change in voice, Denies neck pain and Denies sore throat Cardiovascular Denies chest pain, Denies irregular heart rhythm, Denies lightheadedness, Denies palpitations, Reports dyspnea, Reports dyspnea on exertion and Denies orthopnea Respiratory Reports cough, Reports dyspnea, Reports dyspnea on exertion and Reports wheezing Gastrointestinal Gastrointestinal: Denies abdominal pain, Denies change in bowel habits, Denies diarrhea, Denies nausea and Denies vomiting Genitourinary Denies hematuria, Denies flank pain, Denies urinary incontinence and Denies urinary urgency Musculoskeletal Denies neck pain Integumentary/Breasts Denies pruritus, Denies erythema, Denies rash and Denies wounds Neurologic Denies confusion, Denies loss of vision and Denies weakness Psychiatric Denies anxiety, Denies confusion, Denies depression, Denies homicidal ideation and Denies suicidal ideation Endocrine Denies palpitations Hematologic/Lymphatic Denies easy bruising Allergic/Immunologic Reports wheezing [facility] Medical History Barretts esophagus (Acute) Liver disease, chronic (Acute) Atrial fibrillation (Chronic) COPD (chronic obstructive pulmonary disease) (Chronic) Chronic diarrhea (Chronic) Chronic renal insufficiency (Chronic) GERD (gastroesophageal reflux disease) (Chronic) History of anemia (Chronic) History of hepatic failure (Chronic) History of polymyalgia rheumatica (Chronic) Surgical History Gastric bypass status for obesity (Acute) Status post intestinal bypass (Resolved) Social History household members: none Smoking Status: Current every day smoker alcohol intake: former Social History household members: none Smoking Status: Current every day smoker alcohol intake: former Exam Narrative Exam Narrative: GENERAL: Frail 72-year-old female appears older than stated age. She is quite thin HEAD: Atraumatic. Normocephalic. No temporal or scalp tenderness. EYES: Pupils equal round and reactive. Extraocular motions intact. No scleral icterus. No injection or drainage. ENT: Nose without bleeding, purulent drainage or septal hematoma. Throat without erythema, tonsillar hypertrophy or exudate. Uvula midline. Airway patent. NECK: Trachea midline. No JVD or lymphadenopathy. Supple, nontender, no meningeal signs. CARDIOVASCULAR: Regular rate and rhythm without murmurs, gallops, or rubs. RESPIRATORY: Decreased breath sounds bilaterally with prolonged expiratory phase and expiratory wheeze GASTROINTESTINAL: Abdomen soft, non-tender, nondistended. No hepato- splenomegaly, or palpable masses. No guarding. EXTREMITIES: No clubbing, cyanosis, or edema. No joint tenderness, effusion, or edema noted. BACK: Nontender without deformity or crepitance. No flank tenderness. NEURO: AOx3. SKIN: No rash or erythema. Initial Vital Signs Initial Vital Signs: Vital Signs Temperature 101.5 F H 07/24/18 23:16 Pulse Rate 95 H 07/24/18 23:16 Respiratory Rate 16 07/24/18 23:16 Blood Pressure 105/60 07/24/18 23:16 Pulse Oximetry 95 07/24/18 23:16 Course Orders Ordered: Discontinued Medications Albuterol/Ipratropium (Duoneb) 3 ml INH NOW ONE Stop: 07/25/18 00:39 Last Admin: 07/25/18 00:44 Dose: 3 ml Albuterol/Ipratropium (Duoneb) 3 ml INH NOW ONE Stop: 07/25/18 01:33 Last Admin: 07/25/18 01:33 Dose: 3 ml Prednisone (Deltasone) 40 mg PO NOW ONE Stop: 07/25/18 01:26 Last Admin: 07/25/18 01:33 Dose: 40 mg MDM - URI/Sore Throat Lab Data Lab Results 07/24/18 Range/Units 23:21 Influenza A & B (PCR) Negative (Negative) Imaging Data Chest x-ray: Radiologist's impression: Chart Viewer Diagnostics DATE TYPE STATUS AUTHOR Marianna 07/24/18 23:19 Fran Hernández 04/17/18 00:00 Jo-Ann Bournee 04/06/18 00:00 Michele,Abraham 04/05/18 20:58 04/05/18 16:44 Karoline Noguera 04/05/18 16:44 PoornimaKaroline Lianna Stevenson 72, F1945 [facility] ER, ED.LOC - Main ED 165.1cm 52.163kg BMI: 19.1kg/m? Upper Respiratory Symptoms Search Chart NF - Not included in interaction checking loss of memory and lethargy ONSET 07/25/18 01:53 Lianna Stevenson 72 F 1945 [place] [address] XRay Report Signed Patient: Lianna Stevenson RMR#: [id number] : 5Acct:[id number] Age/Sex: 72 / FDate of Service: 07/24/18 Loc: ED Accession Number: [id number] Procedure: XR chest 2V Ordering Provider: Rancho Emery D.O. PROCEDURE: XR CHEST 2V INDICATIONS: cough,congestion,fever TECHNIQUE: 2 views of the chest were acquired. COMPARISON: [facility], , XR CHEST 2V, 04/06/2018, 5:51. FINDINGS: Surgical changes and devices: None. Lungs and pleura: Mild vascular prominence perinephric pulmonary edema. Hyperexpansion consistent with COPD. No focal pulmonary infiltrate. No pleural effusions or pneumothorax. Mediastinum: Mediastinal contours are normal. Heart size is normal. Bones and chest wall: No suspicious bony abnormalities. Soft tissues appear unremarkable. IMPRESSION: COPD. Mild vascular prominence without pulmonary edema. Dictated by: Fran Hernández M.D. on 07/25/2018 at 8:08 Approved by: Fran Hernández M.D. on 07/25/2018 at 8:27 MDM Narrative Medical decision making narrative: Patient is afebrile, medically noncompliant shows tremendous improvement with above-stated therapies. She and family had questions answered to their apparent satisfaction and understand discharge instructions as evidenced by their verbalized remarks. Discharge Plan Departure Patient Disposition: Home Clinical Impression: Acute exacerbation of chronic obstructive pulmonary disease (COPD) Discharge Date/Time: 07/25/18 01:50 Interventions: ED Discharge Assessment Last Done: 07/25/18 01:53 Instructions: DI for Chronic Obstructive Pulmonary Disease Activity Restrictions/Additional Instructions: *You have been diagnosed with [ acute exacerbation COPD] *What to do: *Take medications as directed: your prescriptions have been electronically transmitted to [facility] *Follow up with your primary care provider in 2-3 days, call for an appointment. Let them know you were seen in the Emergency Department and that we ask that you be seen in follow up *Return to ER if you should have any new, worsening or concerning symptoms, such as [ ] Prescriptions: New prednisone 20 mg tablet 20 mg PO DAILY Qty: 5 RF: 0 albuterol sulfate 2.5 mg/0.5 mL solution for nebulization 2.5 mg INHALATION TID-QID PRN (Reason: shortness of breath or wheezing) Qty: 30 RF: 0 No Action FERROUS SULFATE 325 mg PO HS Qty: 0 RF: 0 mupirocin calcium 2 % cream 2 % Topical TID PRN (Reason: Itching) Qty: 0 RF: 0 fluticasone-salmeterol [Advair Diskus] 250-50 mcg/dose Blister With Device 1 inh INHALATION BID RF: 0 citalopram 40 mg tablet 40 mg PO DAILY RF: 0 spironolactone 25 mg tablet 25 mg PO BID RF: 0 calcium carbonate [Calcium 500] 500 mg calcium (1,250 mg) Tablet 1,200 mg PO DAILY RF: 0 omeprazole 20 mg capsule,delayed release(DR/EC) 20 mg PO DAILY RF: 0 metoprolol succinate 25 mg tablet extended release 24 hr 12.5 mg PO DAILY RF: 0 cholecalciferol (vitamin D3) [Vitamin D3] 2,000 unit Capsule 2,000 unit PO DAILY RF: 0 ProAir HFA 108 mcg Inhalation Q4H PRN (Reason: Dyspnea) RF: 0 multivitamin 1 tab PO DAILY RF: 0 ipratropium-albuterol 0.5 mg-3 mg(2.5 mg base)/3 mL Solution For Nebulization 3 ml INH RTQ4HR PRN (Reason: Shortness Of Breath) Qty: 60 RF: 0 nicotine 21 mg/24 hr Patch 24 Hour 21 mg Topical DAILY Qty: 40 RF: 0 Referrals: Kang Lion MD [Primary Care Provider] -
== END 2018-07-25 01:50 | disposition home or self-care (01) ==
PROVIDERS: Emergency Provider Emergency Medicine; PCP Internal Medicine
DX: J44.1 Chronic obstructive pulmonary disease with (acute) exacerbation (principal)
CPT/HCPCS: 71046; 87400; 94640; 99282; 99284

== ENCOUNTER → 2018-07-30 15:17 | Outpatient (CLI) | payer MEDICARE, SELFPAY ==
[2018-04-05 17:51] VITALS: BMI 22.5
[2018-07-30 16:07] LABS: Add Manual Diff / Slide Review NO; Basophils Absolute Auto 0 /uL (0-100); Basophils Percent Auto 0.1 % (0-2); Eosinophils Absolute Auto 0 /uL (0-450); Eosinophils Percent Auto 0.1 % (2-4); Hematocrit 34.7 % (36-46); Hemoglobin 10.9 g/dL (12.0-16.0); Lymphocytes Absolute Auto 1500 /uL (1100-4500); Lymphocytes Percent Auto 12.9 % (25-40); Mean Corpuscular HGB Conc 31.4 % (30-36); Mean Corpuscular Hemoglobin 32.9 PG (26-34); Mean Corpuscular Volume 104.7 fL (80-100); Monocytes Absolute Auto 1300 /uL (0-900); Monocytes Percent Auto 10.8 % (3-14); Neutrophils Absolute Auto 9000 /uL (1500-7000); Neutrophils Percent Auto 76.1 % (50-75); Platelet Count 186 X10^3/uL (150-400); Red Blood Cell Count 3.31 X10^6/uL (4.0-5.2); Red Cell Distribution Width 14.3 % (11.6-14.8); White Blood Cell Count 11.9 X10^3/uL (4.5-11.0)
[2018-07-30 16:27] LABS: HEMOLYSIS < 15 (0-50); Iron 30 ug/dL (37-170)
[2018-07-30 16:33] LABS: Alanine Aminotransferase 55 IU/L (9-52); Albumin 3.3 g/dL (3.5-5.0); Albumin Globulin Ratio 1.3 (1.0-2.8); Alkaline Phosphatase 97 U/L (38-126); Aspartate Aminotransferase 45 IU/L (14-36); Blood Urea Nitrogen 18 mg/dL (7-17); Calcium 8.5 mg/dL (8.4-10.2); Carbon Dioxide 18 mmol/L (22-32); Chloride 105 mmol/L (98-107); Globulin 2.6 g/dL (1.7-4.1); Glucose 98 mg/dL (80-110); HEMOLYSIS < 15 (0-50); Potassium 4.3 mmol/L (3.4-5.1); Sodium 136 mmol/L (137-145); Total Protein 5.9 g/dL (6.3-8.2)
[2018-07-30 16:38] LABS: Percent Iron Saturation 14 % (15-50); Total Iron Binding Capacity 209 ug/dL (265-497); Transferrin 150 mg/dL (206-381)
== END ==
PROVIDERS: PCP Internal Medicine; Visit Provider Internal Medicine
DX: J44.9 Chronic obstructive pulmonary disease, unspecified (principal); K72.90 Hepatic failure, unspecified without coma; N18.9 Chronic kidney disease, unspecified; D64.9 Anemia, unspecified
CPT/HCPCS: 36415; 80053; 83540; 83550; 85025

== ENCOUNTER 2018-10-27 14:09 | Emergency (ER) | payer MEDICARE, SELFPAY ==
[2018-04-05 17:51] VITALS: BMI 22.5
[2018-10-27 14:19] VITALS: BP 126/71; PULSE 89; RESP 18; TEMP 36.7; O2SAT 99
--- NOTE | 2018-10-27 14:22 | ED_ITS ---
HPI - Extremity Problem General Chief complaint: Extremity Problem,Nontraumatic Stated complaint: WEAKNESS/SWOLLEN R ANKLE/HAND WEAKNESS Time Seen by Provider: 10/27/18 14:17 Source: patient Mode of arrival: ambulatory Limitations: no limitations History of Present Illness HPI Narrative: Patient is a 72-year-old female. Does have a history of poly myalgia rheumatica. She is not currently on steroids. She states that for the past couple days she has had redness and pain in her right wrist and also her right ankle. She also states she has weakness in her right wrist. She denies any trauma. A couple days ago she thought maybe she was sweating at night but no other signs of a fever. She states she has had cellulitis in her right lower extremity in the past. No chest pain. No shortness of breath. Related Data Home Medications Medication Instructions Recorded Confirmed FERROUS SULFATE 325 mg PO HS #0 11/25/12 04/05/18 mupirocin calcium 2 % TOPICAL TID PRN #0 08/24/16 04/05/18 ProAir HFA 108 mcg INHALATION Q4H PRN 04/05/18 04/05/18 calcium carbonate [Calcium 500] 1,200 mg PO DAILY 04/05/18 04/05/18 cholecalciferol (vitamin D3) 2,000 unit PO DAILY 04/05/18 04/05/18 [Vitamin D3] citalopram 40 mg PO DAILY 04/05/18 04/05/18 fluticasone propion-salmeterol 1 inh INHALATION BID 04/05/18 04/05/18 [Advair Diskus] metoprolol succinate 12.5 mg PO DAILY 04/05/18 04/05/18 multivitamin 1 tab PO DAILY 04/05/18 04/05/18 omeprazole 20 mg PO DAILY 04/05/18 04/05/18 spironolactone 25 mg PO BID 04/05/18 04/05/18 Previous Rx's Medication Instructions Recorded ipratropium-albuterol 3 ml INH RTQ4HR PRN #60 ml 04/09/18 nicotine 21 mg TOPICAL DAILY #40 ea 04/09/18 albuterol sulfate 2.5 mg INHALATION TID-QID PRN #30 07/25/18 each prednisone 20 mg PO DAILY #5 tab 07/25/18 prednisone 40 mg PO DAILY 6 Days #12 tab 10/27/18 Allergies Allergy/AdvReac Type Severity Reaction Status Date / Time bacitracin Allergy Unknown Verified 07/24/18 23:16 [From NEOSPORIN ([id number])] neomycin Allergy Unknown Verified 07/24/18 23:16 [From NEOSPORIN ([id number])] polymyxin B Allergy Unknown Verified 07/24/18 23:16 [From NEOSPORIN ([id number])] ceftriaxone [CEFTRIAXONE] AdvReac Mild loss of Verified 07/24/18 23:16 memory and lethargy Review of Systems Constitutional Denies fatigue, Denies fever(s), Reports night sweats and Reports weakness (Right hand) Cardiovascular Denies chest pain and Denies dyspnea Respiratory Denies dyspnea Gastrointestinal Gastrointestinal: Denies abdominal pain, Denies nausea and Denies vomiting Genitourinary Denies dysuria Musculoskeletal Denies back pain and Reports arthralgias (Right wrist and right ankle) Integumentary/Breasts Comments: Redness to the right wrist in the right ankle Neurologic Reports weakness (Right hand) Endocrine Denies fatigue Hematologic/Lymphatic Denies easy bleeding and Denies easy bruising [facility] Medical History Barretts esophagus (Acute) Liver disease, chronic (Acute) Atrial fibrillation (Chronic) COPD (chronic obstructive pulmonary disease) (Chronic) Chronic diarrhea (Chronic) Chronic renal insufficiency (Chronic) GERD (gastroesophageal reflux disease) (Chronic) History of anemia (Chronic) History of hepatic failure (Chronic) History of polymyalgia rheumatica (Chronic) Social History household members: none Smoking Status: Current every day smoker alcohol intake: former Exam Initial Vital Signs Initial Vital Signs: Vital Signs Temperature 98.0 F 10/27/18 14:19 Pulse Rate 89 10/27/18 14:19 Respiratory Rate 18 10/27/18 14:19 Blood Pressure 126/71 10/27/18 14:19 Pulse Oximetry 99 10/27/18 14:19 Const General: cooperative, comfortable, well developed and well groomed Orientation: alert and awake HENTX Head: normal to inspection and normocephalic Resp Effort & Inspection: normal respiratory effort Auscultation: clear to auscultation bilaterally Cardio Rate: regular rate Rhythm: regular rhythm Pulses: radial pulses present on the right and dorsalis pedis present on the right Skin Other: Redness and warmth circumferentially however more so on the dorsum of the right wrist. The patient also with redness and warmth around the right ankle on the anterior aspect. Neuro General: alert and awake Cognition: normal cognition Speech: speech normal Extrem General: capillary refill normal Other: Limited range of motion of the right wrist secondary to pain. She does have a 2/5 strength right hand. Patient with full range of motion of the right ankle. Psych Appearance: grossly normal and well kempt Course Orders Ordered: ED Orders 10/27/18 14:38 C-Reactive Protein Quant Stat Complete Blood Count AUTO DIFF Stat Comprehensive Metabolic Panel Stat Erythrocyte Sedimentation Rate Stat Lactate (Lactic Acid) Stat Lipase Stat Procalcitonin Stat Uric Acid Stat Discontinued Medications Prednisone (Deltasone) 40 mg PO NOW ONE Stop: 10/27/18 15:47 Vital Signs - 8 hr 10/27/18 14:19 Temperature 98.0 F Pulse Rate 89 Respiratory Rate 18 Blood Pressure 126/71 Pulse Oximetry 99 MDM - Extremity (Nontraumatic) Lab Data Attestation: I reviewed the patient's lab results. Result diagrams: 10/27/18 14:38 10/27/18 14:38 Lab Results 10/27/18 10/27/18 10/27/18 Range/Units 14:38 14:38 14:38 WBC 7.9 (4.5-11.0) X10^3/uL RBC 3.18 L (4.0-5.2) X10^6/uL Hgb 10.6 L (12.0-16.0) g/dL Hct 31.4 L (36-46) % MCV 98.6 (80-100) fL MCH 33.3 (26-34) PG MCHC 33.8 (30-36) % RDW 15.4 H (11.6-14.8) % Plt Count 225 (150-400) X10^3/uL Neut % (Auto) 66.9 (50-75) % Lymph % (Auto) 17.4 L (25-40) % [place] % (Auto) 14.2 H (3-14) % Eos % (Auto) 1.1 L (2-4) % Baso % (Auto) 0.4 (0-2) % Neut # (Auto) 5300 (1491-1394) /uL Lymph # (Auto) 1400 (4513-0296) /uL [place] # (Auto) 1100 H (0-900) /uL Eos # (Auto) 100 (0-450) /uL Baso # (Auto) 0 (0-100) /uL ESR 64 H (0-20) MM/HR Sodium 139 (137-145) mmol/L Potassium 3.7 (3.4-5.1) mmol/L Chloride 113 H (98-107) mmol/L Carbon Dioxide 16 L (22-32) mmol/L BUN 31 H (7-17) mg/dL Creatinine 1.20 H (0.52-1.04) mg/dL Estimated GFR 44.0 L (>60) mL/min BUN/Creatinine Ratio 25.8 H (6-22) Glucose 108 (80-110) mg/dL Lactate (0.7-2.1) mmol/L Uric Acid 6.8 H (2.5-6.2) mg/dL Calcium 8.8 (8.4-10.2) mg/dL Total Bilirubin 0.6 (0.2-1.3) mg/dL AST 18 (14-36) IU/L ALT 16 (9-52) IU/L Alkaline Phosphatase 112 (38-126) U/L C-Reactive Protein 3.2 H (<1.0) mg/dL Total Protein 6.3 (6.3-8.2) g/dL Albumin 3.4 L (3.5-5.0) g/dL Globulin 2.9 (1.7-4.1) g/dL Albumin/Globulin Ratio 1.2 (1.0-2.8) Lipase 96 (23-300) U/L Procalcitonin < 0.05 (<0.5) ng/mL 10/27/18 Range/Units 14:38 WBC (4.5-11.0) X10^3/uL RBC (4.0-5.2) X10^6/uL Hgb (12.0-16.0) g/dL Hct (36-46) % MCV (80-100) fL MCH (26-34) PG MCHC (30-36) % RDW (11.6-14.8) % Plt Count (150-400) X10^3/uL Neut % (Auto) (50-75) % Lymph % (Auto) (25-40) % [place] % (Auto) (3-14) % Eos % (Auto) (2-4) % Baso % (Auto) (0-2) % Neut # (Auto) (0256-9819) /uL Lymph # (Auto) (7977-6228) /uL [place] # (Auto) (0-900) /uL Eos # (Auto) (0-450) /uL Baso # (Auto) (0-100) /uL ESR (0-20) MM/HR Sodium (137-145) mmol/L Potassium (3.4-5.1) mmol/L Chloride (98-107) mmol/L Carbon Dioxide (22-32) mmol/L BUN (7-17) mg/dL Creatinine (0.52-1.04) mg/dL Estimated GFR (>60) mL/min BUN/Creatinine Ratio (6-22) Glucose (80-110) mg/dL Lactate 0.7 (0.7-2.1) mmol/L Uric Acid (2.5-6.2) mg/dL Calcium (8.4-10.2) mg/dL Total Bilirubin (0.2-1.3) mg/dL AST (14-36) IU/L ALT (9-52) IU/L Alkaline Phosphatase (38-126) U/L C-Reactive Protein (<1.0) mg/dL Total Protein (6.3-8.2) g/dL Albumin (3.5-5.0) g/dL Globulin (1.7-4.1) g/dL Albumin/Globulin Ratio (1.0-2.8) Lipase (23-300) U/L Procalcitonin (<0.5) ng/mL MDM Narrative Medical decision making narrative: Patient denies any trauma. I held on x-rays today is a feel that fracture is on likely. She does have redness and warmth however is afebrile. Does not have an elevated white blood cell count and the f act that it is her wrist and her ankle make me think less that this is cellulitis. Because of this and will hold on any antibiotics. She does not have any other signs of systemic infection. She has never had gout in the past. This presentation does have the appearance of gout somewhat. I do not feel that an aspiration of the wrist to the ankle would be successful at obtaining any fluid so will hold on this for now. This could also very well be a flare of her arthritis or her PMR. Will send home with a course of steroids. She was given return precautions and follow-up instructions. Informed that she would contact her primary doctor for follow-up. She expressed understanding and agre ement with plan. Discharge Plan Departure Patient Disposition: Home Clinical Impression: Arthritis Instructions: DI for Arthritis Activity Restrictions/Additional Instructions: Your 1st dose of prednisone was given here in the emergency department. Your next dose will be tomorrow. On Monday you need to contact your primary provider for a follow-up. Return to the emergency department for any new or worsening symptoms. Your prescription was sent to the [facility] in [place]. Prescriptions: New prednisone 20 mg tablet 40 mg PO DAILY 6 Days Qty: 12 RF: 0 No Action FERROUS SULFATE 325 mg PO HS Qty: 0 RF: 0 mupirocin calcium 2 % cream 2 % Topical TID PRN (Reason: Itching) Qty: 0 RF: 0 fluticasone propion-salmeterol [Advair Diskus] 250-50 mcg/dose Blister With Device 1 inh INHALATION BID RF: 0 citalopram 40 mg tablet 40 mg PO DAILY RF: 0 spironolactone 25 mg tablet 25 mg PO BID RF: 0 calcium carbonate [Calcium 500] 500 mg calcium (1,250 mg) Tablet 1,200 mg PO DAILY RF: 0 omeprazole 20 mg capsule,delayed release(DR/EC) 20 mg PO DAILY RF: 0 metoprolol succinate 25 mg tablet extended release 24 hr 12.5 mg PO DAILY RF: 0 cholecalciferol (vitamin D3) [Vitamin D3] 2,000 unit Capsule 2,000 unit PO DAILY RF: 0 ProAir HFA 108 mcg Inhalation Q4H PRN (Reason: Dyspnea) RF: 0 multivitamin 1 tab PO DAILY RF: 0 ipratropium-albuterol 0.5 mg-3 mg(2.5 mg base)/3 mL Solution For Nebulization 3 ml INH RTQ4HR PRN (Reason: Shortness Of Breath) Qty: 60 RF: 0 nicotine 21 mg/24 hr Patch 24 Hour 21 mg Topical DAILY Qty: 40 RF: 0 prednisone 20 mg tablet 20 mg PO DAILY Qty: 5 RF: 0 albuterol sulfate 2.5 mg/0.5 mL solution for nebulization 2.5 mg INHALATION TID-QID PRN (Reason: shortness of breath or wheezing) Qty: 30 RF: 0 Referrals: Kang Lino MD [Primary Care Provider] -
[2018-10-27 14:50] LABS: Add Manual Diff / Slide Review NO; Basophils Absolute Auto 0 /uL (0-100); Basophils Percent Auto 0.4 % (0-2); Eosinophils Absolute Auto 100 /uL (0-450); Eosinophils Percent Auto 1.1 % (2-4); Hematocrit 31.4 % (36-46); Hemoglobin 10.6 g/dL (12.0-16.0); Lymphocytes Absolute Auto 1400 /uL (1100-4500); Lymphocytes Percent Auto 17.4 % (25-40); Mean Corpuscular HGB Conc 33.8 % (30-36); Mean Corpuscular Hemoglobin 33.3 PG (26-34); Mean Corpuscular Volume 98.6 fL (80-100); Monocytes Absolute Auto 1100 /uL (0-900); Monocytes Percent Auto 14.2 % (3-14); Neutrophils Absolute Auto 5300 /uL (1500-7000); Neutrophils Percent Auto 66.9 % (50-75); Platelet Count 225 X10^3/uL (150-400); Red Blood Cell Count 3.18 X10^6/uL (4.0-5.2); Red Cell Distribution Width 15.4 % (11.6-14.8); White Blood Cell Count 7.9 X10^3/uL (4.5-11.0)
[2018-10-27 15:12] LABS: Lactate (Lactic Acid) 0.7 mmol/L (0.7-2.1)
[2018-10-27 15:15] LABS: Alanine Aminotransferase 16 IU/L (9-52); Albumin 3.4 g/dL (3.5-5.0); Albumin Globulin Ratio 1.2 (1.0-2.8); Alkaline Phosphatase 112 U/L (38-126); Aspartate Aminotransferase 18 IU/L (14-36); BUN Creatinine Ratio 25.8 (6-22); Bilirubin Total 0.6 mg/dL (0.2-1.3); Blood Urea Nitrogen 31 mg/dL (7-17); C-Reactive Protein Quant 3.2 mg/dL (<1.0); Calcium 8.8 mg/dL (8.4-10.2); Carbon Dioxide 16 mmol/L (22-32); Chloride 113 mmol/L (98-107); Globulin 2.9 g/dL (1.7-4.1); Glucose 108 mg/dL (80-110); HEMOLYSIS < 15 (0-50); Lipase 96 U/L (23-300); Potassium 3.7 mmol/L (3.4-5.1); Sodium 139 mmol/L (137-145); Total Protein 6.3 g/dL (6.3-8.2); Uric Acid 6.8 mg/dL (2.5-6.2)
[2018-10-27 15:25] LABS: Erythrocyte Sedimentation Rate 64 MM/HR (0-20)
[2018-10-27 15:26] LABS: Procalcitonin < 0.05 ng/mL (<0.5)
[2018-10-27] MEDS: predniSONE 20 MG TABLET 40 MG PO (15:57)
[2018-10-27 16:09] VITALS: BP 115/73; PULSE 80; RESP 17; O2SAT 100
== END 2018-10-27 16:10 | disposition home or self-care (01) ==
PROVIDERS: Emergency Provider Emergency Medicine; PCP Internal Medicine
DX: M19.90 Unspecified osteoarthritis, unspecified site (principal)
CPT/HCPCS: 36591; 80053; 83605; 83690; 84145; 84550; 85025; 85651; 86140; 99282; 99283

== ENCOUNTER 2018-11-11 09:04 | Emergency (ER) | payer MEDICARE, SELFPAY ==
[2018-04-05 17:51] VITALS: BMI 22.5
[2018-11-11 09:04] VITALS: BP 129/81; PULSE 74; RESP 19; TEMP 36.9; O2SAT 100; BMI 22.9
--- NOTE | 2018-11-11 09:17 | ED.SOB ---
HPI - SOB/Dyspnea General Chief Complaint: Weakness Stated Complaint: Feeling puny Time Seen by Provider: 11/11/18 09:15 Source: patient and old records reviewed Mode of arrival: ambulatory Limitations: no limitations History of Present Illness Patient is a 72-year-old female who presents with generalized weakness. She has a history of COPD however her legs have been progressively getting swollen over last couple of weeks. She has been feeling more short of breath worse with exertion. She says the last 2 nights she has not been able to lie flat in her bed to sleep. She denies any fever or productive cough. She has been using her nebulizer at home without any relief. She was placed on prednisone 2 weeks ago for arthritis she was given a short burst of 6 days 40 mg.. She was seen by Dr. Lion her PCP 4 days ago at that time her legs were swollen but not as bad. Relieving factors: upright position Exacerbating factors: lying flat and exertion Related Data Home Medications Medication Instructions Recorded Confirmed FERROUS SULFATE 325 mg PO HS #0 11/25/12 04/05/18 mupirocin calcium 2 % TOPICAL TID PRN #0 08/24/16 04/05/18 ProAir HFA 108 mcg INHALATION Q4H PRN 04/05/18 04/05/18 calcium carbonate [Calcium 500] 1,200 mg PO DAILY 04/05/18 04/05/18 cholecalciferol (vitamin D3) 2,000 unit PO DAILY 04/05/18 04/05/18 [Vitamin D3] citalopram 40 mg PO DAILY 04/05/18 04/05/18 fluticasone propion-salmeterol 1 inh INHALATION BID 04/05/18 04/05/18 [Advair Diskus] metoprolol succinate 12.5 mg PO DAILY 04/05/18 04/05/18 multivitamin 1 tab PO DAILY 04/05/18 04/05/18 omeprazole 20 mg PO DAILY 04/05/18 04/05/18 spironolactone 25 mg PO BID 04/05/18 04/05/18 Previous Rx's Medication Instructions Recorded ipratropium-albuterol 3 ml INH RTQ4HR PRN #60 ml 04/09/18 nicotine 21 mg TOPICAL DAILY #40 ea 04/09/18 albuterol sulfate 2.5 mg INHALATION TID-QID PRN #30 07/25/18 each prednisone 20 mg PO DAILY #5 tab 07/25/18 furosemide [Lasix] 20 mg PO QAM #3 tab 11/11/18 Allergies Allergy/AdvReac Type Severity Reaction Status Date / Time bacitracin Allergy Unknown Verified 11/11/18 09:14 [From NEOSPORIN ([id number])] neomycin Allergy Unknown Verified 11/11/18 09:14 [From NEOSPORIN ([id number])] polymyxin B Allergy Unknown Verified 11/11/18 09:14 [From NEOSPORIN ([id number])] ceftriaxone [CEFTRIAXONE] AdvReac Mild loss of Verified 11/11/18 09:14 memory and lethargy Review of Systems Review of Systems ROS Unobtainable: All systems reviewed & are unremarkable except as noted in HPI and below Constitutional Denies chills, Denies fever(s), Denies lethargy and Denies weakness Cardiovascular Denies chest pain, Reports pedal edema, Reports edema, Denies irregular heart rhythm, Denies lightheadedness, Denies palpitations, Reports dyspnea, Reports dyspnea on exertion and Denies orthopnea Respiratory Denies change in phlegm color, Denies cough, Reports dyspnea, Reports dyspnea on exertion and Reports wheezing Gastrointestinal Gastrointestinal: Denies abdominal pain, Denies change in bowel habits, Denies diarrhea, Denies nausea and Denies vomiting Genitourinary Denies hematuria, Denies flank pain, Denies urinary incontinence and Denies urinary urgency Musculoskeletal Denies back pain, Denies muscle weakness, Denies numbness and Denies tingling Integumentary/Breasts Denies pruritus, Denies erythema, Denies rash and Denies wounds Neurologic Denies numbness, Denies tingling and Denies weakness Endocrine Denies palpitations Allergic/Immunologic Reports wheezing [facility] Medical History Barretts esophagus (Acute) Liver disease, chronic (Acute) Atrial fibrillation (Chronic) COPD (chronic obstructive pulmonary disease) (Chronic) Chronic diarrhea (Chronic) Chronic renal insufficiency (Chronic) GERD (gastroesophageal reflux disease) (Chronic) History of anemia (Chronic) History of hepatic failure (Chronic) History of polymyalgia rheumatica (Chronic) Surgical History Gastric bypass status for obesity (Acute) Status post intestinal bypass (Resolved) Social History household members: none Smoking Status: Current every day smoker alcohol intake: former Social History household members: none Smoking Status: Current every day smoker alcohol intake: former Exam Initial Vital Signs Initial Vital Signs: Vital Signs Temperature 98.5 F 11/11/18 09:04 Pulse Rate 74 11/11/18 09:04 Respiratory Rate 19 11/11/18 09:04 Blood Pressure 129/81 11/11/18 09:04 Pulse Oximetry 100 11/11/18 09:04 GENERAL: Well-appearing, well-nourished and in no acute distress. HEENT: Head atraumatic,EOMI, pupils reactive, CARDIOVASCULAR: Regular rate and rhythm without murmurs, rubs or gallops. RESPIRATORY: Slight expiratory wheezing overall respiratory distress be simple sentence ABDOMEN: Soft, nontender. Normoactive bowel sounds all 4 quadrants. No guarding or rebound. EXTREMITIES: +3 pitting edema Normal range of motion, no clubbing or edema. Neurovascularly intact NEUROLOGICAL: Alert and oriented x4.Normal gait and speech. Cranial nerves II through XII grossly intact. SKIN: Warm, dry, no laceration, no petechiae, no rashes or lesions. Course Orders Ordered: ED Orders 11/11/18 09:18 XR chest 1V Stat 11/11/18 09:19 EKG-12 Lead Stat 11/11/18 10:11 B Type Natriuretic Peptide Stat Complete Blood Count AUTO DIFF Stat Comprehensive Metabolic Panel Stat Procalcitonin Stat Troponin & CK Cardiac Panel Stat Discontinued Medications Albuterol/Ipratropium (Duoneb) 3 ml INH NOW ONE Stop: 11/11/18 09:18 Last Admin: 11/11/18 09:33 Dose: 3 ml Furosemide (Lasix) 20 mg IV NOW ONE Stop: 11/11/18 12:05 Last Admin: 11/11/18 12:17 Dose: 20 mg Methylprednisolone (Solu-Medrol 125 Mg Vial) 125 mg IV NOW ONE Stop: 11/11/18 09:18 Last Admin: 11/11/18 09:22 Dose: 125 mg Vital Signs - 8 hr 11/11/18 11:30 11/11/18 12:30 Pulse Rate 66 72 Respiratory Rate 20 18 Blood Pressure [Left Arm] 123/62 122/62 Pulse Oximetry 100 96 MDM - SOB/Dyspnea Lab Data Attestation: I reviewed the patient's lab results. Result diagrams: 11/11/18 10:11 11/11/18 10:11 Lab Results 11/11/18 11/11/18 11/11/18 Range/Units 10:11 10:11 10:11 WBC 7.9 (4.5-11.0) X10^3/uL RBC 2.82 L (4.0-5.2) X10^6/uL Hgb 9.4 L (12.0-16.0) g/dL Hct 28.6 L (36-46) % MCV 101.5 H (80-100) fL MCH 33.4 (26-34) PG MCHC 32.9 (30-36) % RDW 15.9 H (11.6-14.8) % Plt Count 189 (150-400) X10^3/uL Neut % (Auto) 70.7 (50-75) % Lymph % (Auto) 21.3 L (25-40) % [place] % (Auto) 6.8 (3-14) % Eos % (Auto) 0.7 L (2-4) % Baso % (Auto) 0.5 (0-2) % Neut # (Auto) 5600 (0491-2851) /uL Lymph # (Auto) 1700 (6567-9119) /uL [place] # (Auto) 500 (0-900) /uL Eos # (Auto) 100 (0-450) /uL Baso # (Auto) 0 (0-100) /uL Sodium 145 (137-145) mmol/L Potassium 3.7 (3.4-5.1) mmol/L Chloride 116 H (98-107) mmol/L Carbon Dioxide 16 L (22-32) mmol/L BUN 26 H (7-17) mg/dL Creatinine 1.50 H (0.52-1.04) mg/dL Estimated GFR 34.0 L (>60) mL/min BUN/Creatinine Ratio 17.3 (6-22) Glucose 85 (80-110) mg/dL Calcium 7.8 L (8.4-10.2) mg/dL Total Bilirubin 0.5 (0.2-1.3) mg/dL AST 29 (14-36) IU/L ALT 33 (9-52) IU/L Alkaline Phosphatase 98 (38-126) U/L Total Creatine Kinase 59 (30-135) U/L CK-MB (CK-2) TNP CK-MB (CK-2) Rel Index TNP Troponin I 0.018 (0.01-0.034) ng/mL B-Natriuretic Peptide 604 H (<100) Total Protein 6.1 L (6.3-8.2) g/dL Albumin 3.4 L (3.5-5.0) g/dL Globulin 2.7 (1.7-4.1) g/dL Albumin/Globulin Ratio 1.3 (1.0-2.8) Procalcitonin < 0.05 (<0.5) ng/mL Urine Dip Bedside Urine Glucose Negative Bedside Urine Bilirubin - Negative Bedside Urine Ketone - Negative Urine Specific [place] 1.010 Bedside Urine Occult Blood - Negative Bedside Urine pH 6.5 Bedside Urine Protein - Negative Bedside Urine Urobilinogen - Negative Bedside Urine Nitrite - Negative Bedside Urine Leukocytes - Negative Esterase Imaging Data Chest x-ray: Radiologist's impression: PROCEDURE: XR CHEST 1V INDICATIONS: short of breath TECHNIQUE: One view of the chest was acquired. COMPARISON: [facility], , XR CHEST 2V, 07/24/2018, 23:35. FINDINGS: Surgical changes and devices: None. Lungs and pleura: Lungs are clear. No pleural effusions or pneumothorax. Mediastinum: Mediastinal contours appear normal. Heart size is normal. Bones and chest wall: No suspicious bony lesions. Overlying soft tissues appear unremarkable. IMPRESSION: Stable chest. No acute cardiopulmonary process is evident. Dictated by: Maximilian Dial M.D. on 11/11/2018 at 9:30 ECG Data Attestation: I personally reviewed and interpreted this ECG as follows: Prior ECG tracings: available for review Interpretation: Normal sinus rhythm rate 68 he are interval [address] changes similar to previous EKGs MDM Narrative Medical decision making narrative: 130 p.m. patient is dressed he has walked to the restroom she overall is feeling better. She does have significant swelling of her legs which she says is new. She says her breathing is better. But she always has trouble breathing it feels about baseline for her. I will put her on Lasix for a few days to see if it helps her legs and her breathing. She has slightly elevated BNP but has been as low as 154 and as high as 900. Today it is 600. We discussed admission versus going home. At this time she says she lives close to the hospital she would like to try and go home. She does feel little better. I discussed with her and her significant other the for ins of returning to the ER if she should have any new or worsening symptoms immediately. Discharge Plan Departure Patient Disposition: Home Clinical Impression: Bilateral lower extremity edema Discharge Date/Time: 11/11/18 13:44 Interventions: ED Discharge Assessment Last Done: 11/11/18 13:44 Instructions: DI for Peripheral Edema -- Bilateral Activity Restrictions/Additional Instructions: *You have been diagnosed with lower extremity edema *What to do: Strongly recommend that he have further workup with Dr. Lion *Continue to take medications as directed Lasix 20 mg once a day 1st thing in the morning for 3 days--> SENT TO [facility] [place] *Follow up with your primary care provider in 2-3 days *Return to ER if you should have increasing shortness of breath, worsening chest pain, worsening lower extremity swelling [or] any new, worsening or concerning symptoms Prescriptions: New furosemide [Lasix] 20 mg tablet 20 mg PO QAM Qty: 3 RF: 0 No Action FERROUS SULFATE 325 mg PO HS Qty: 0 RF: 0 mupirocin calcium 2 % cream 2 % Topical TID PRN (Reason: Itching) Qty: 0 RF: 0 fluticasone propion-salmeterol [Advair Diskus] 250-50 mcg/dose Blister With Device 1 inh INHALATION BID RF: 0 citalopram 40 mg tablet 40 mg PO DAILY RF: 0 spironolactone 25 mg tablet 25 mg PO BID RF: 0 calcium carbonate [Calcium 500] 500 mg calcium (1,250 mg) Tablet 1,200 mg PO DAILY RF: 0 omeprazole 20 mg capsule,delayed release(DR/EC) 20 mg PO DAILY RF: 0 metoprolol succinate 25 mg tablet extended release 24 hr 12.5 mg PO DAILY RF: 0 cholecalciferol (vitamin D3) [Vitamin D3] 2,000 unit Capsule 2,000 unit PO DAILY RF: 0 ProAir HFA 108 mcg Inhalation Q4H PRN (Reason: Dyspnea) RF: 0 multivitamin 1 tab PO DAILY RF: 0 ipratropium-albuterol 0.5 mg-3 mg(2.5 mg base)/3 mL Solution For Nebulization 3 ml INH RTQ4HR PRN (Reason: Shortness Of Breath) Qty: 60 RF: 0 nicotine 21 mg/24 hr Patch 24 Hour 21 mg Topical DAILY Qty: 40 RF: 0 prednisone 20 mg tablet 20 mg PO DAILY Qty: 5 RF: 0 albuterol sulfate 2.5 mg/0.5 mL solution for nebulization 2.5 mg INHALATION TID-QID PRN (Reason: shortness of breath or wheezing) Qty: 30 RF: 0 Referrals: Kang Lion MD [Primary Care Provider] -
[2018-11-11] MEDS: methylPREDNISolone 125 MG/2 ML VIAL IV (09:22)
[2018-11-11] MEDS: ALBUTEROL/IPRATROPIUM 3 ML AMPUL INH (09:33)
[2018-11-11 09:35] VITALS: PULSE 70; RESP 16; O2SAT 96
[2018-11-11 10:32] LABS: Add Manual Diff / Slide Review NO; Basophils Absolute Auto 0 /uL (0-100); Basophils Percent Auto 0.5 % (0-2); Eosinophils Absolute Auto 100 /uL (0-450); Eosinophils Percent Auto 0.7 % (2-4); Hematocrit 28.6 % (36-46); Hemoglobin 9.4 g/dL (12.0-16.0); Lymphocytes Absolute Auto 1700 /uL (1100-4500); Lymphocytes Percent Auto 21.3 % (25-40); Mean Corpuscular HGB Conc 32.9 % (30-36); Mean Corpuscular Hemoglobin 33.4 PG (26-34); Mean Corpuscular Volume 101.5 fL (80-100); Monocytes Absolute Auto 500 /uL (0-900); Monocytes Percent Auto 6.8 % (3-14); Neutrophils Absolute Auto 5600 /uL (1500-7000); Neutrophils Percent Auto 70.7 % (50-75); Platelet Count 189 X10^3/uL (150-400); Red Blood Cell Count 2.82 X10^6/uL (4.0-5.2); Red Cell Distribution Width 15.9 % (11.6-14.8); White Blood Cell Count 7.9 X10^3/uL (4.5-11.0)
[2018-11-11 10:54] LABS: Alanine Aminotransferase 33 IU/L (9-52); Albumin 3.4 g/dL (3.5-5.0); Albumin Globulin Ratio 1.3 (1.0-2.8); Alkaline Phosphatase 98 U/L (38-126); Aspartate Aminotransferase 29 IU/L (14-36); BUN Creatinine Ratio 17.3 (6-22); Bilirubin Total 0.5 mg/dL (0.2-1.3); Blood Urea Nitrogen 26 mg/dL (7-17); Calcium 7.8 mg/dL (8.4-10.2); Carbon Dioxide 16 mmol/L (22-32); Chloride 116 mmol/L (98-107); Creatine Kinase 59 U/L (30-135); Globulin 2.7 g/dL (1.7-4.1); Glucose 85 mg/dL (80-110); HEMOLYSIS 32 (0-50); Potassium 3.7 mmol/L (3.4-5.1); Sodium 145 mmol/L (137-145); Total Protein 6.1 g/dL (6.3-8.2)
[2018-11-11 11:02] LABS: B Type Natriuretic Peptide 604 (<100)
[2018-11-11 11:05] LABS: Troponin I 0.018 ng/mL (0.01-0.034)
[2018-11-11 11:30] VITALS: BP 123/62; PULSE 66; RESP 20; O2SAT 100
[2018-11-11 11:42] LABS: Procalcitonin < 0.05 ng/mL (<0.5)
--- NOTE | 2018-11-11 11:50 | PC.NURSE ---
patient eating snack, ok per Dr. Covington. Updated on plan of care. Denies SOB.
[2018-11-11] MEDS: FUROSEMIDE 20 MG/2 ML VIAL IV (12:17)
[2018-11-11 12:30] VITALS: BP 122/62; PULSE 72; RESP 18; O2SAT 96
--- NOTE | 2018-11-11 13:47 | PC.NURSE ---
ambulation trial, pt able to walk without assistance and was stable. She reports feeling much better and feels like she can go home.
== END 2018-11-11 13:44 | disposition home or self-care (01) ==
PROVIDERS: Emergency Provider Emergency Medicine; PCP Internal Medicine
DX: R60.0 Localized edema (principal); R06.00 Dyspnea, unspecified; R53.1 Weakness
CPT/HCPCS: 36591; 71045; 80053; 81003; 82550; 83880; 84145; 84484; 85025; 93005; 94640; 96374; 96375; 99283; 99285; J1940; J2930

== ENCOUNTER 2018-11-14 18:18 | Inpatient (IN) | payer MEDICARE, SELFPAY ==
[2018-04-05 17:51] VITALS: BMI 22.5
[2018-11-14] VITALS (10 sets, daily range): BP systolic 101–127; BP diastolic 52–88; PULSE 75–136; RESP 16–24; TEMP 36.7–37.1; O2SAT 98–100; BMI 18.8
--- NOTE | 2018-11-14 18:25 | DI.RAD.S_ITS ---
PROCEDURE: XR CHEST 1V INDICATIONS: chest pain TECHNIQUE: One view of the chest was acquired. COMPARISON: [facility], CR, XR CHEST 1V, 11/11/2018, 9:31. FINDINGS: Surgical changes and devices: None. Lungs and pleura: Lungs are clear. No pleural effusions or pneumothorax. Mediastinum: Mediastinal contours appear normal. Heart size is normal. Bones and chest wall: No suspicious bony lesions. Overlying soft tissues appear unremarkable. IMPRESSION: No acute cardiopulmonary findings. Dictated by: Nyla Aguila M.D. on 11/14/2018 at 19:17 Approved by: Nyla Aguila M.D. on 11/14/2018 at 19:18
--- NOTE | 2018-11-14 18:39 | ED.CHESTPAIN ---
HPI - Chest Pain General Chief Complaint: Chest Pain Stated Complaint: chf, rapid afib, chest pain Time Seen by Provider: 11/14/18 18:19 Source: patient and family Mode of arrival: ambulatory Limitations: no limitations History of Present Illness HPI narrative: 72-year-old female with history of GERD and AFib presents with her family for evaluation of palpitations, chest pain, shortness of breath and lower extremities swelling. She was at her primary care provider's office being evaluated and encouraged to present here for further evaluation stabilization. She does have a history of atrial fibrillation but is not anticoagulated. She states the symptoms have been present for quite a few days. She is denying any fever chills nor nausea, vomiting or diarrhea. Her shortness of breath seems to be worse with exertion. MD complaint: chest pain Onset (ago): day(s) Duration: constant Severity: mild Quality: tightness Relieving factors: nothing Exacerbating factors: nothing Treatments prior to arrival chest pain: none Related Data Home Medications Medication Instructions Recorded Confirmed metoprolol succinate 12.5 mg PO DAILY 04/05/18 11/14/18 multivitamin 1 tab PO DAILY 04/05/18 11/14/18 calcium carbonate 1,200 mg PO DAILY 11/14/18 11/14/18 fluticasone propion-salmeterol 1 inh INHALATION BID 11/14/18 11/14/18 [Advair Diskus] omeprazole 20 mg PO DAILY 11/14/18 11/14/18 potassium chloride 10 meq PO DAILY 11/14/18 11/14/18 prednisone 40 mg PO DAILY 11/14/18 11/14/18 spironolactone 25 mg PO DAILY 11/14/18 11/14/18 Allergies Allergy/AdvReac Type Severity Reaction Status Date / Time bacitracin Allergy Unknown Verified 11/11/18 09:14 [From NEOSPORIN ([id number])] neomycin Allergy Unknown Verified 11/11/18 09:14 [From NEOSPORIN ([id number])] polymyxin B Allergy Unknown Verified 11/11/18 09:14 [From NEOSPORIN ([id number])] ceftriaxone [CEFTRIAXONE] AdvReac Mild loss of Verified 11/11/18 09:14 memory and lethargy Review of Systems Constitutional Denies chills, Denies fever(s), Denies lethargy and Denies weakness Eyes Denies change in vision, Denies eye discharge, Denies irritation and Denies loss of vision ENT Ears, Nose, Mouth, and Throat: Denies change in voice, Denies neck pain and Denies sore throat Cardiovascular Reports chest pain, Reports irregular heart rhythm, Denies lightheadedness, Reports palpitations, Reports dyspnea, Denies dyspnea on exertion and Denies orthopnea Respiratory Denies cough, Reports dyspnea, Denies dyspnea on exertion and Denies wheezing Gastrointestinal Gastrointestinal: Denies abdominal pain, Denies change in bowel habits, Denies diarrhea, Denies nausea and Denies vomiting Genitourinary Denies hematuria, Denies flank pain, Denies urinary incontinence and Denies urinary urgency Musculoskeletal Denies neck pain Integumentary/Breasts Denies pruritus, Denies erythema, Denies rash and Denies wounds Neurologic Denies confusion, Denies loss of vision and Denies weakness Psychiatric Denies anxiety, Denies confusion, Denies depression, Denies homicidal ideation and Denies suicidal ideation Endocrine Reports palpitations Hematologic/Lymphatic Denies easy bruising Allergic/Immunologic Denies wheezing [facility] Medical History Barretts esophagus (Acute) Liver disease, chronic (Acute) Atrial fibrillation (Chronic) COPD (chronic obstructive pulmonary disease) (Chronic) Chronic diarrhea (Chronic) Chronic renal insufficiency (Chronic) GERD (gastroesophageal reflux disease) (Chronic) History of anemia (Chronic) History of hepatic failure (Chronic) History of polymyalgia rheumatica (Chronic) Surgical History Gastric bypass status for obesity (Acute) Status post intestinal bypass (Resolved) Family History (Updated 11/14/18 @ 22:43 by PATRICIO Jacinto) Mother No known health problems Father No known health problems Brother Colon cancer Social History household members: none Smoking Status: Current every day smoker alcohol intake: former Family History Mother No known health problems Father No known health problems Brother Colon cancer Social History household members: none Smoking Status: Current every day smoker alcohol intake: former Exam Narrative Exam Narrative: GENERAL: This is a well-nourished, well-developed patient, in mild distress. HEAD: Atraumatic. Normocephalic. No temporal or scalp tenderness. EYES: Pupils equal round and reactive. Extraocular motions intact. No scleral icterus. No injection or drainage. ENT: Nose without bleeding, purulent drainage or septal hematoma. Throat without erythema, tonsillar hypertrophy or exudate. Uvula midline. Airway patent. NECK: Trachea midline. No JVD or lymphadenopathy. Supple, nontender, no meningeal signs. CARDIOVASCULAR: Tachycardic and irregular, RESPIRATORY: Faint crackles in bilateral bases GASTROINTESTINAL: Abdomen soft, non-tender, nondistended. No hepato-splenomegaly, or palpable masses. No guarding. EXTREMITIES: 2+ pitting edema bilateral lower extremities BACK: Nontender without deformity or crepitance. No flank tenderness. NEURO: AOx3. SKIN: No rash or erythema. Initial Vital Signs Initial Vital Signs: Vital Signs Temperature 98.1 F 11/14/18 18:19 Pulse Rate 116 H 11/14/18 18:19 Respiratory Rate 24 11/14/18 18:19 Blood Pressure 127/88 11/14/18 18:19 Pulse Oximetry 98 11/14/18 18:19 Course Orders Ordered: ED Orders 11/14/18 21:05 MRSA PCR Urgent 11/14/18 21:33 Consult to Dietitian, Adult Routine 11/14/18 22:58 Consult to Respiratory Therapy Routine 11/14/18 22:59 Education, smoking cessation ONGOING 11/15/18 02:08 Magnesium Urgent Renal Function Panel Urgent 11/15/18 07:00 Basic Metabolic Panel Urgent Complete Blood Count MAN DIFF Urgent Magnesium Urgent Albuterol (Ventolin) 2.5 mg INH [id number] PRN PRN Reason: Shortness Of Breath Albuterol/Ipratropium (Duoneb) 3 ml INH [id number] [facility] Citalopram Hydrobromide (Celexa) 40 mg PO DAILY [facility] Ferrous Sulfate (Ferrous Sulfate) 325 mg PO BEDTIME [facility] Last Admin: 11/14/18 22:59 Dose: Not Given Furosemide (Lasix) 40 mg IV Q8H [facility] Last Admin: 11/15/18 00:50 Dose: 40 mg DILTIAZEM (Diltiazem 125 Mg/125 Ml-D5w) 125 mg in 125 mls @ 5 mls/hr IV TITRATE [facility]; Protocol Last Admin: 11/14/18 19:04 Dose: 5 mg/hr, 5 mls/hr Magnesium Oxide (Mag Ox) 400 mg PO DAILY [facility] Last Admin: 11/14/18 21:52 Dose: Not Given Nicotine (Nicoderm) 21 mg TOP DAILY [facility] Last Admin: 11/14/18 22:57 Dose: Not Given Fluticasone/Salmeterol (Advair 250/50 Diskus) 1 puff INH BID [facility] Sodium Bicarbonate (Sodium Bicarbonate) 650 mg PO TID [facility] Last Admin: 11/14/18 21:45 Dose: 650 mg Discontinued Medications Diltiazem HCl (Cardizem) 10 mg IV NOW ONE Stop: 11/14/18 18:51 Last Admin: 11/14/18 19:04 Dose: 10 mg Furosemide (Lasix) 40 mg IV NOW ONE Stop: 11/14/18 18:52 Last Admin: 11/14/18 19:05 Dose: 40 mg Magnesium Sulfate (Magnesium Sulfate) 4 gm in 100 mls @ 50 mls/hr IV NOW ONE Stop: 11/14/18 22:29 Last Infusion: 11/15/18 00:20 Dose: 0 mls/hr Admin: 11/14/18 21:34 Dose: 50 mls/hr Potassium Chloride (Potassium Chloride) 40 meq PO NOW ONE Stop: 11/14/18 19:16 Last Admin: 11/14/18 22:56 Dose: Not Given Potassium Chloride (Klor-Con M20) 40 meq PO NOW ONE Stop: 11/14/18 21:58 Last Admin: 11/14/18 22:00 Dose: 40 meq Fluticasone/Salmeterol (Advair 250/50 Diskus) 1 puff INH BID [facility] Last Admin: 11/14/18 22:58 Dose: Not Given Vital Signs - 8 hr 11/14/18 21:50 11/14/18 22:00 11/14/18 22:10 Temperature Pulse Rate 82 78 79 Respiratory Rate Blood Pressure 114/63 108/63 112/63 Pulse Oximetry 11/15/18 00:00 11/15/18 02:00 11/15/18 03:00 Temperature 96.5 F L Pulse Rate 80 80 Respiratory Rate 18 18 16 Blood Pressure 103/62 103/58 L 101/51 L Pulse Oximetry 98 97 96 11/15/18 04:00 11/15/18 05:02 11/15/18 05:25 Temperature 96.7 F L Pulse Rate 77 75 80 Respiratory Rate 15 15 17 Blood Pressure 110/57 L 96/50 L Pulse Oximetry 98 96 97 MDM - Chest Pain Lab Data Result diagrams: 11/14/18 18:25 11/15/18 02:08 Lab Results 11/14/18 11/14/18 11/14/18 Range/Units 18:25 18:25 18:25 WBC 9.1 (4.5-11.0) X10^3/uL RBC 3.36 L (4.0-5.2) X10^6/uL Hgb 11.0 L (12.0-16.0) g/dL Hct 34.3 L (36-46) % MCV 102.0 H (80-100) fL MCH 32.9 (26-34) PG MCHC 32.2 (30-36) % RDW 16.3 H (11.6-14.8) % Plt Count 262 (150-400) X10^3/uL Neut % (Auto) 88.9 H (50-75) % Lymph % (Auto) 8.3 L (25-40) % Weakley % (Auto) 2.7 L (3-14) % Eos % (Auto) 0.0 L (2-4) % Baso % (Auto) 0.1 (0-2) % Neut # (Auto) 8100 H (2257-0586) /uL Lymph # (Auto) 800 L (2972-1327) /uL Weakley # (Auto) 200 (0-900) /uL Eos # (Auto) 0 (0-450) /uL Baso # (Auto) 0 (0-100) /uL PT 13.1 H (10.1-12.7) SECONDS INR 1.1 (0.9-1.3) APTT 33 D (26.4-36.2) SECONDS Sodium 145 (137-145) mmol/L Potassium 3.2 L (3.4-5.1) mmol/L Chloride 113 H (98-107) mmol/L Carbon Dioxide 19 L (22-32) mmol/L BUN 32 H (7-17) mg/dL Creatinine 1.50 H (0.52-1.04) mg/dL Estimated GFR 34.0 L (>60) mL/min BUN/Creatinine Ratio 21.3 (6-22) Glucose 132 H (80-110) mg/dL Calcium 7.5 L (8.4-10.2) mg/dL Phosphorus (2.8-4.1) mg/dL Magnesium 1.0 L (1.6-2.3) mg/dL Total Bilirubin 0.6 (0.2-1.3) mg/dL AST 32 (14-36) IU/L ALT 62 H (9-52) IU/L Alkaline Phosphatase 108 (38-126) U/L Total Creatine Kinase 51 (30-135) U/L CK-MB (CK-2) TNP CK-MB (CK-2) Rel Index TNP Troponin I 0.031 (0.01-0.034) ng/mL B-Natriuretic Peptide 981 H (<100) Total Protein 6.6 (6.3-8.2) g/dL Albumin 3.8 (3.5-5.0) g/dL Globulin 2.8 (1.7-4.1) g/dL Albumin/Globulin Ratio 1.4 (1.0-2.8) Lipase 85 (23-300) U/L TSH (0.47-4.68) uIU/mL Nasal Screen MRSA (PCR) (Negative) 11/14/18 11/14/18 11/15/18 Range/Units 18:25 21:05 02:08 WBC (4.5-11.0) X10^3/uL RBC (4.0-5.2) X10^6/uL Hgb (12.0-16.0) g/dL Hct (36-46) % MCV (80-100) fL MCH (26-34) PG MCHC (30-36) % RDW (11.6-14.8) % Plt Count (150-400) X10^3/uL Neut % (Auto) (50-75) % Lymph % (Auto) (25-40) % Weakley % (Auto) (3-14) % Eos % (Auto) (2-4) % Baso % (Auto) (0-2) % Neut # (Auto) (8822-2659) /uL Lymph # (Auto) (4775-0734) /uL Weakley # (Auto) (0-900) /uL Eos # (Auto) (0-450) /uL Baso # (Auto) (0-100) /uL PT (10.1-12.7) SECONDS INR (0.9-1.3) APTT (26.4-36.2) SECONDS Sodium 147 H (137-145) mmol/L Potassium 3.5 (3.4-5.1) mmol/L Chloride 111 H (98-107) mmol/L Carbon Dioxide 23 (22-32) mmol/L BUN 33 H (7-17) mg/dL Creatinine 1.50 H (0.52-1.04) mg/dL Estimated GFR 34.0 L (>60) mL/min BUN/Creatinine Ratio 22.0 (6-22) Glucose 106 (80-110) mg/dL Calcium 7.5 L (8.4-10.2) mg/dL Phosphorus 4.4 H (2.8-4.1) mg/dL Magnesium (1.6-2.3) mg/dL Total Bilirubin (0.2-1.3) mg/dL AST (14-36) IU/L ALT (9-52) IU/L Alkaline Phosphatase (38-126) U/L Total Creatine Kinase (30-135) U/L CK-MB (CK-2) CK-MB (CK-2) Rel Index Troponin I (0.01-0.034) ng/mL B-Natriuretic Peptide (<100) Total Protein (6.3-8.2) g/dL Albumin 3.8 (3.5-5.0) g/dL Globulin (1.7-4.1) g/dL Albumin/Globulin Ratio (1.0-2.8) Lipase (23-300) U/L TSH 0.50 (0.47-4.68) uIU/mL Nasal Screen MRSA (PCR) Negative for mrsa (Negative) 11/15/18 Range/Units 02:08 WBC (4.5-11.0) X10^3/uL RBC (4.0-5.2) X10^6/uL Hgb (12.0-16.0) g/dL Hct (36-46) % MCV (80-100) fL MCH (26-34) PG MCHC (30-36) % RDW (11.6-14.8) % Plt Count (150-400) X10^3/uL Neut % (Auto) (50-75) % Lymph % (Auto) (25-40) % Weakley % (Auto) (3-14) % Eos % (Auto) (2-4) % Baso % (Auto) (0-2) % Neut # (Auto) (1507-3206) /uL Lymph # (Auto) (4691-5862) /uL Weakley # (Auto) (0-900) /uL Eos # (Auto) (0-450) /uL Baso # (Auto) (0-100) /uL PT (10.1-12.7) SECONDS INR (0.9-1.3) APTT (26.4-36.2) SECONDS Sodium (137-145) mmol/L Potassium (3.4-5.1) mmol/L Chloride (98-107) mmol/L Carbon Dioxide (22-32) mmol/L BUN (7-17) mg/dL Creatinine (0.52-1.04) mg/dL Estimated GFR (>60) mL/min BUN/Creatinine Ratio (6-22) Glucose (80-110) mg/dL Calcium (8.4-10.2) mg/dL Phosphorus (2.8-4.1) mg/dL Magnesium 2.7 H (1.6-2.3) mg/dL Total Bilirubin (0.2-1.3) mg/dL AST (14-36) IU/L ALT (9-52) IU/L Alkaline Phosphatase (38-126) U/L Total Creatine Kinase (30-135) U/L CK-MB (CK-2) CK-MB (CK-2) Rel Index Troponin I (0.01-0.034) ng/mL B-Natriuretic Peptide (<100) Total Protein (6.3-8.2) g/dL Albumin (3.5-5.0) g/dL Globulin (1.7-4.1) g/dL Albumin/Globulin Ratio (1.0-2.8) Lipase (23-300) U/L TSH (0.47-4.68) uIU/mL Nasal Screen MRSA (PCR) (Negative) Imaging Data Chest x-ray: Radiologist's impression: [address] [id number] XRay Report Signed Patient: Lianna Stevenson RMR#: [id number] : 5Acct:[id number] Age/Sex: 72 / FDate of Service: 11/14/18 Loc: ED Accession Number: [id number] Procedure: XR chest 1V Ordering Provider: Rancho Emery D.O. PROCEDURE: XR CHEST 1V INDICATIONS: chest pain TECHNIQUE: One view of the chest was acquired. COMPARISON: [facility], , XR CHEST 1V, 11/11/2018, 9:31. FINDINGS: Surgical changes and devices: None. Lungs and pleura: Lungs are clear. No pleural effusions or pneumothorax. Mediastinum: Mediastinal contours appear normal. Heart size is normal. Bones and chest wall: No suspicious bony lesions. Overlying soft tissues appear unremarkable. IMPRESSION: No acute cardiopulmonary findings. Dictated by: Nyla Aguila M.D. on 11/14/2018 at 19:17 Approved by: Nyla Aguila M.D. on 11/14/2018 at 19:18 ECG Data Interpretation: Rapid atrial fibrillation in the 140s without any ST elevation or depression MDM Narrative Medical decision making narrative: Patient with rapid AFib is not a candidate for cardioversion given the duration of her symptoms and lack of anticoagulation. As a result patient is placed on a Cardizem drip which slowed her heart rate into the 90s, at which point patient becomes essentially asymptomatic Discharge Plan Departure Patient Disposition: Admitted As Inpatient Clinical Impression: Atrial fibrillation with rapid ventricular response, Hypomagnesemia, Acute hypokalemia Discharge Date/Time: 11/14/18 20:45 Interventions: ED Discharge Assessment Last Done: 11/14/18 20:44 Admit Date/Time: 11/14/18 19:56 Admit Provider: Sierra Gonzalez
--- NOTE | 2018-11-14 18:46 | PC.NURSE ---
seen last weekend for lower leg edema, given diuretics, pt follow up with her doctor, found with elevated hr and low bp. on arrival pt reports, chest tightness with shortness of breath.
--- NOTE | 2018-11-14 18:50 | ED_ITS ---
HPI - Chest Pain General Chief Complaint: Chest Pain Stated Complaint: chf, rapid afib, chest pain Time Seen by Provider: 11/14/18 18:19 Source: patient and family Mode of arrival: ambulatory Limitations: no limitations History of Present Illness HPI narrative: 72-year-old female with history of GERD and AFib presents with her family for evaluation of palpitations, chest pain, shortness of breath and lower extremities swelling. She was at her primary care provider's office being evaluated and encouraged to present here for further evaluation stabilization. She does have a history of atrial fibrillation but is not anticoagulated. She states the symptoms have been present for quite a few days. She is denying any fever chills nor nausea, vomiting or diarrhea. Her shortness of breath seems to be worse with exertion. MD complaint: chest pain Onset (ago): day(s) Duration: constant Severity: mild Quality: tightness Relieving factors: nothing Exacerbating factors: nothing Treatments prior to arrival chest pain: none Related Data Home Medications Medication Instructions Recorded Confirmed metoprolol succinate 12.5 mg PO DAILY 04/05/18 11/14/18 multivitamin 1 tab PO DAILY 04/05/18 11/14/18 calcium carbonate 1,200 mg PO DAILY 11/14/18 11/14/18 fluticasone propion-salmeterol 1 inh INHALATION BID 11/14/18 11/14/18 [Advair Diskus] omeprazole 20 mg PO DAILY 11/14/18 11/14/18 potassium chloride 10 meq PO DAILY 11/14/18 11/14/18 prednisone 40 mg PO DAILY 11/14/18 11/14/18 spironolactone 25 mg PO DAILY 11/14/18 11/14/18 Allergies Allergy/AdvReac Type Severity Reaction Status Date / Time bacitracin Allergy Unknown Verified 11/11/18 09:14 [From NEOSPORIN ([id number])] neomycin Allergy Unknown Verified 11/11/18 09:14 [From NEOSPORIN ([id number])] polymyxin B Allergy Unknown Verified 11/11/18 09:14 [From NEOSPORIN ([id number])] ceftriaxone [CEFTRIAXONE] AdvReac Mild loss of Verified 11/11/18 09:14 memory and lethargy Review of Systems Constitutional Denies chills, Denies fever(s), Denies lethargy and Denies weakness Eyes Denies change in vision, Denies eye discharge, Denies irritation and Denies loss of vision ENT Ears, Nose, Mouth, and Throat: Denies change in voice, Denies neck pain and Denies sore throat Cardiovascular Reports chest pain, Reports irregular heart rhythm, Denies lightheadedness, Reports palpitations, Reports dyspnea, Denies dyspnea on exertion and Denies orthopnea Respiratory Denies cough, Reports dyspnea, Denies dyspnea on exertion and Denies wheezing Gastrointestinal Gastrointestinal: Denies abdominal pain, Denies change in bowel habits, Denies diarrhea, Denies nausea and Denies vomiting Genitourinary Denies hematuria, Denies flank pain, Denies urinary incontinence and Denies urinary urgency Musculoskeletal Denies neck pain Integumentary/Breasts Denies pruritus, Denies erythema, Denies rash and Denies wounds Neurologic Denies confusion, Denies loss of vision and Denies weakness Psychiatric Denies anxiety, Denies confusion, Denies depression, Denies homicidal ideation and Denies suicidal ideation Endocrine Reports palpitations Hematologic/Lymphatic Denies easy bruising Allergic/Immunologic Denies wheezing [facility] Medical History Barretts esophagus (Acute) Liver disease, chronic (Acute) Atrial fibrillation (Chronic) COPD (chronic obstructive pulmonary disease) (Chronic) Chronic diarrhea (Chronic) Chronic renal insufficiency (Chronic) GERD (gastroesophageal reflux disease) (Chronic) History of anemia (Chronic) History of hepatic failure (Chronic) History of polymyalgia rheumatica (Chronic) Surgical History Gastric bypass status for obesity (Acute) Status post intestinal bypass (Resolved) Family History (Updated 11/14/18 @ 22:43 by PATRICIO Jacinto) Mother No known health problems Father No known health problems Brother Colon cancer Social History household members: none Smoking Status: Current every day smoker alcohol intake: former Family History Mother No known health problems Father No known health problems Brother Colon cancer Social History household members: none Smoking Status: Current every day smoker alcohol intake: former Exam Narrative Exam Narrative: GENERAL: This is a well-nourished, well-developed patient, in mild distress. HEAD: Atraumatic. Normocephalic. No temporal or scalp tenderness. EYES: Pupils equal round and reactive. Extraocular motions intact. No scleral icterus. No injection or drainage. ENT: Nose without bleeding, purulent drainage or septal hematoma. Throat without erythema, tonsillar hypertrophy or exudate. Uvula midline. Airway patent. NECK: Trachea midline. No JVD or lymphadenopathy. Supple, nontender, no mening eal signs. CARDIOVASCULAR: Tachycardic and irregular, RESPIRATORY: Faint crackles in bilateral bases GASTROINTESTINAL: Abdomen soft, non-tender, nondistended. No hepato- splenomegaly, or palpable masses. No guarding. EXTREMITIES: 2+ pitting edema bilateral lower extremities BACK: Nontender without deformity or crepitance. No flank tenderness. NEURO: AOx3. SKIN: No rash or erythema. Initial Vital Signs Initial Vital Signs: Vital Signs Temperature 98.1 F 11/14/18 18:19 Pulse Rate 116 H 11/14/18 18:19 Respiratory Rate 24 11/14/18 18:19 Blood Pressure 127/88 11/14/18 18:19 Pulse Oximetry 98 11/14/18 18:19 Course Orders Ordered: ED Orders 11/14/18 21:05 MRSA PCR Urgent 11/14/18 21:33 Consult to Dietitian, Adult Routine 11/14/18 22:58 Consult to Respiratory Therapy Routine 11/14/18 22:59 Education, smoking cessation ONGOING 11/15/18 02:08 Magnesium Urgent Renal Function Panel Urgent 11/15/18 07:00 Basic Metabolic Panel Urgent Complete Blood Count MAN DIFF Urgent Magnesium Urgent Albuterol (Ventolin) 2.5 mg INH [id number] PRN PRN Reason: Shortness Of Breath Albuterol/Ipratropium (Duoneb) 3 ml INH [id number] [facility] Citalopram Hydrobromide (Celexa) 40 mg PO DAILY [facility] Ferrous Sulfate (Ferrous Sulfate) 325 mg PO BEDTIME [facility] Last Admin: 11/14/18 22:59 Dose: Not Given Furosemide (Lasix) 40 mg IV Q8H EMILE Last Admin: 11/15/18 00:50 Dose: 40 mg DILTIAZEM (Diltiazem 125 Mg/125 Ml-D5w) 125 mg in 125 mls @ 5 mls/hr IV TITRATE EMILE; Protocol Last Admin: 11/14/18 19:04 Dose: 5 mg/hr, 5 mls/hr Magnesium Oxide (Mag Ox) 400 mg PO DAILY EMILE Last Admin: 11/14/18 21:52 Dose: Not Given Nicotine (Nicoderm) 21 mg TOP DAILY EMILE Last Admin: 11/14/18 22:57 Dose: Not Given Fluticasone/Salmeterol (Advair 250/50 Diskus) 1 puff INH BID EMILE Sodium Bicarbonate (Sodium Bicarbonate) 650 mg PO TID [facility] Last Admin: 11/14/18 21:45 Dose: 650 mg Discontinued Medications Diltiazem HCl (Cardizem) 10 mg IV NOW ONE Stop: 11/14/18 18:51 Last Admin: 11/14/18 19:04 Dose: 10 mg Furosemide (Lasix) 40 mg IV NOW ONE Stop: 11/14/18 18:52 Last Admin: 11/14/18 19:05 Dose: 40 mg Magnesium Sulfate (Magnesium Sulfate) 4 gm in 100 mls @ 50 mls/hr IV NOW ONE Stop: 11/14/18 22:29 Last Infusion: 11/15/18 00:20 Dose: 0 mls/hr Admin: 11/14/18 21:34 Dose: 50 mls/hr Potassium Chloride (Potassium Chloride) 40 meq PO NOW ONE Stop: 11/14/18 19:16 Last Admin: 11/14/18 22:56 Dose: Not Given Potassium Chloride (Klor-Con M20) 40 meq PO NOW ONE Stop: 11/14/18 21:58 Last Admin: 11/14/18 22:00 Dose: 40 meq Fluticasone/Salmeterol (Advair 250/50 Diskus) 1 puff INH BID EMILE Last Admin: 11/14/18 22:58 Dose: Not Given Vital Signs - 8 hr 11/14/18 21:50 11/14/18 22:00 11/14/18 22:10 Temperature Pulse Rate 82 78 79 Respiratory Rate Blood Pressure 114/63 108/63 112/63 Pulse Oximetry 11/15/18 00:00 11/15/18 02:00 11/15/18 03:00 Temperature 96.5 F L Pulse Rate 80 80 Respiratory Rate 18 18 16 Blood Pressure 103/62 103/58 L 101/51 L Pulse Oximetry 98 97 96 11/15/18 04:00 11/15/18 05:02 11/15/18 05:25 Temperature 96.7 F L Pulse Rate 77 75 80 Respiratory Rate 15 15 17 Blood Pressure 110/57 L 96/50 L Pulse Oximetry 98 96 97 MDM - Chest Pain Lab Data Result diagrams: 11/14/18 18:25 11/15/18 02:08 Lab Results 11/14/18 11/14/18 11/14/18 Range/Units 18:25 18:25 18:25 WBC 9.1 (4.5-11.0) X10^3/uL RBC 3.36 L (4.0-5.2) X10^6/uL Hgb 11.0 L (12.0-16.0) g/dL Hct 34.3 L (36-46) % MCV 102.0 H (80-100) fL MCH 32.9 (26-34) PG MCHC 32.2 (30-36) % RDW 16.3 H (11.6-14.8) % Plt Count 262 (150-400) X10^3/uL Neut % (Auto) 88.9 H (50-75) % Lymph % (Auto) 8.3 L (25-40) % Mayes % (Auto) 2.7 L (3-14) % Eos % (Auto) 0.0 L (2-4) % Baso % (Auto) 0.1 (0-2) % Neut # (Auto) 8100 H (1990-8404) /uL Lymph # (Auto) 800 L (4403-8266) /uL Mayes # (Auto) 200 (0-900) /uL Eos # (Auto) 0 (0-450) /uL Baso # (Auto) 0 (0-100) /uL PT 13.1 H (10.1-12.7) SECONDS INR 1.1 (0.9-1.3) APTT 33 D (26.4-36.2) SECONDS Sodium 145 (137-145) mmol/L Potassium 3.2 L (3.4-5.1) mmol/L Chloride 113 H (98-107) mmol/L Carbon Dioxide 19 L (22-32) mmol/L BUN 32 H (7-17) mg/dL Creatinine 1.50 H (0.52-1.04) mg/dL Estimated GFR 34.0 L (>60) mL/min BUN/Creatinine Ratio 21.3 (6-22) Glucose 132 H (80-110) mg/dL Calcium 7.5 L (8.4-10.2) mg/dL Phosphorus (2.8-4.1) mg/dL Magnesium 1.0 L (1.6-2.3) mg/dL Total Bilirubin 0.6 (0.2-1.3) mg/dL AST 32 (14-36) IU/L ALT 62 H (9-52) IU/L Alkaline Phosphatase 108 (38-126) U/L Total Creatine Kinase 51 (30-135) U/L CK-MB (CK-2) TNP CK-MB (CK-2) Rel Index TNP Troponin I 0.031 (0.01-0.034) ng/mL B-Natriuretic Peptide 981 H (<100) Total Protein 6.6 (6.3-8.2) g/dL Albumin 3.8 (3.5-5.0) g/dL Globulin 2.8 (1.7-4.1) g/dL Albumin/Globulin Ratio 1.4 (1.0-2.8) Lipase 85 (23-300) U/L TSH (0.47-4.68) uIU/mL Nasal Screen MRSA (PCR) (Negative) 11/14/18 11/14/18 11/15/18 Range/Units 18:25 21:05 02:08 WBC (4.5-11.0) X10^3/uL RBC (4.0-5.2) X10^6/uL Hgb (12.0-16.0) g/dL Hct (36-46) % MCV (80-100) fL MCH (26-34) PG MCHC (30-36) % RDW (11.6-14.8) % Plt Count (150-400) X10^3/uL Neut % (Auto) (50-75) % Lymph % (Auto) (25-40) % Mayes % (Auto) (3-14) % Eos % (Auto) (2-4) % Baso % (Auto) (0-2) % Neut # (Auto) (9672-8904) /uL Lymph # (Auto) (5153-7263) /uL Mayes # (Auto) (0-900) /uL Eos # (Auto) (0-450) /uL Baso # (Auto) (0-100) /uL PT (10.1-12.7) SECONDS INR (0.9-1.3) APTT (26.4-36.2) SECONDS Sodium 147 H (137-145) mmol/L Potassium 3.5 (3.4-5.1) mmol/L Chloride 111 H (98-107) mmol/L Carbon Dioxide 23 (22-32) mmol/L BUN 33 H (7-17) mg/dL Creatinine 1.50 H (0.52-1.04) mg/dL Estimated GFR 34.0 L (>60) mL/min BUN/Creatinine Ratio 22.0 (6-22) Glucose 106 (80-110) mg/dL Calcium 7.5 L (8.4-10.2) mg/dL Phosphorus 4.4 H (2.8-4.1) mg/dL Magnesium (1.6-2.3) mg/dL Total Bilirubin (0.2-1.3) mg/dL AST (14-36) IU/L ALT (9-52) IU/L Alkaline Phosphatase (38-126) U/L Total Creatine Kinase (30-135) U/L CK-MB (CK-2) CK-MB (CK-2) Rel Index Troponin I (0.01-0.034) ng/mL B-Natriuretic Peptide (<100) Total Protein (6.3-8.2) g/dL Albumin 3.8 (3.5-5.0) g/dL Globulin (1.7-4.1) g/dL Albumin/Globulin Ratio (1.0-2.8) Lipase (23-300) U/L TSH 0.50 (0.47-4.68) uIU/mL Nasal Screen MRSA (PCR) Negative for mrsa (Negative) 11/15/18 Range/Units 02:08 WBC (4.5-11.0) X10^3/uL RBC (4.0-5.2) X10^6/uL Hgb (12.0-16.0) g/dL Hct (36-46) % MCV (80-100) fL MCH (26-34) PG MCHC (30-36) % RDW (11.6-14.8) % Plt Count (150-400) X10^3/uL Neut % (Auto) (50-75) % Lymph % (Auto) (25-40) % Mayes % (Auto) (3-14) % Eos % (Auto) (2-4) % Baso % (Auto) (0-2) % Neut # (Auto) (9031-1076) /uL Lymph # (Auto) (6350-9826) /uL Mayes # (Auto) (0-900) /uL Eos # (Auto) (0-450) /uL Baso # (Auto) (0-100) /uL PT (10.1-12.7) SECONDS INR (0.9-1.3) APTT (26.4-36.2) SECONDS Sodium (137-145) mmol/L Potassium (3.4-5.1) mmol/L Chloride (98-107) mmol/L Carbon Dioxide (22-32) mmol/L BUN (7-17) mg/dL Creatinine (0.52-1.04) mg/dL Estimated GFR (>60) mL/min BUN/Creatinine Ratio (6-22) Glucose (80-110) mg/dL Calcium (8.4-10.2) mg/dL Phosphorus (2.8-4.1) mg/dL Magnesium 2.7 H (1.6-2.3) mg/dL Total Bilirubin (0.2-1.3) mg/dL AST (14-36) IU/L ALT (9-52) IU/L Alkaline Phosphatase (38-126) U/L Total Creatine Kinase (30-135) U/L CK-MB (CK-2) CK-MB (CK-2) Rel Index Troponin I (0.01-0.034) ng/mL B-Natriuretic Peptide (<100) Total Protein (6.3-8.2) g/dL Albumin (3.5-5.0) g/dL Globulin (1.7-4.1) g/dL Albumin/Globulin Ratio (1.0-2.8) Lipase (23-300) U/L TSH (0.47-4.68) uIU/mL Nasal Screen MRSA (PCR) (Negative) Imaging Data Chest x-ray: Radiologist's impression: [address] [id number] XRay Report Signed Patient: Lianna Stevenson RMR#: [id number] : 5Acct:[id number] Age/Sex: 72 / FDate of Service: 11/14/18 Loc: ED Accession Number: [id number] Procedure: XR chest 1V Ordering Provider: Rancho Emery D.O. PROCEDURE: XR CHEST 1V INDICATIONS: chest pain TECHNIQUE: One view of the chest was acquired. COMPARISON: [facility], , XR CHEST 1V, 11/11/2018, 9:31. FINDINGS: Surgical changes and devices: None. Lungs and pleura: Lungs are clear. No pleural effusions or pneumothorax. Mediastinum: Mediastinal contours appear normal. Heart size is normal. Bones and chest wall: No suspicious bony lesions. Overlying soft tissues appear unremarkable. IMPRESSION: No acute cardiopulmonary findings. Dictated by: Nyla Aguila M.D. on 11/14/2018 at 19:17 Approved by: Nyla Aguila M.D. on 11/14/2018 at 19:18 ECG Data Interpretation: Rapid atrial fibrillation in the 140s without any ST elevation or depression MDM Narrative Medical decision making narrative: Patient with rapid AFib is not a candidate for cardioversion given the duration of her symptoms and lack of anticoagulation. As a result patient is placed on a Cardizem drip which slowed her heart rate into the 90s, at which point patient becomes essentially asymptomatic Discharge Plan Departure Patient Disposition: Admitted As Inpatient Clinical Impression: Atrial fibrillation with rapid ventricular response, Hypomagnesemia, Acute hypokalemia Discharge Date/Time: 11/14/18 20:45 Interventions: ED Discharge Assessment Last Done: 11/14/18 20:44 Admit Date/Time: 11/14/18 19:56 Admit Provider: Sierra Gonzalez
[2018-11-14 18:58] LABS: Add Manual Diff / Slide Review NO; Basophils Absolute Auto 0 /uL (0-100); Basophils Percent Auto 0.1 % (0-2); Eosinophils Absolute Auto 0 /uL (0-450); Hematocrit 34.3 % (36-46); Lymphocytes Absolute Auto 800 /uL (1100-4500); Lymphocytes Percent Auto 8.3 % (25-40); Mean Corpuscular HGB Conc 32.2 % (30-36); Mean Corpuscular Hemoglobin 32.9 PG (26-34); Monocytes Absolute Auto 200 /uL (0-900); Monocytes Percent Auto 2.7 % (3-14); Neutrophils Absolute Auto 8100 /uL (1500-7000); Neutrophils Percent Auto 88.9 % (50-75); Platelet Count 262 X10^3/uL (150-400); Red Blood Cell Count 3.36 X10^6/uL (4.0-5.2); Red Cell Distribution Width 16.3 % (11.6-14.8); White Blood Cell Count 9.1 X10^3/uL (4.5-11.0)
[2018-11-14 19:01] LABS: INR 1.1 (0.9-1.3); Prothrombin Time 13.1 SECONDS (10.1-12.7)
[2018-11-14 19:04] LABS: PTT Partial Thromboplastin Tim 33 SECONDS (26.4-36.2)
[2018-11-14] MEDS: DILTIAZEM 125 MG/125 ML PIGGYBACK IV (19:04)
[2018-11-14] MEDS: dilTIAZem 5 MG/ML SDV 10 MG IV (19:04)
[2018-11-14 19:05] LABS: Alanine Aminotransferase 62 IU/L (9-52); Albumin 3.8 g/dL (3.5-5.0); Albumin Globulin Ratio 1.4 (1.0-2.8); Alkaline Phosphatase 108 U/L (38-126); Aspartate Aminotransferase 32 IU/L (14-36); BUN Creatinine Ratio 21.3 (6-22); Bilirubin Total 0.6 mg/dL (0.2-1.3); Blood Urea Nitrogen 32 mg/dL (7-17); Calcium 7.5 mg/dL (8.4-10.2); Carbon Dioxide 19 mmol/L (22-32); Chloride 113 mmol/L (98-107); Creatine Kinase 51 U/L (30-135); Globulin 2.8 g/dL (1.7-4.1); Glucose 132 mg/dL (80-110); HEMOLYSIS 24 (0-50); Lipase 85 U/L (23-300); Potassium 3.2 mmol/L (3.4-5.1); Sodium 145 mmol/L (137-145); Total Protein 6.6 g/dL (6.3-8.2)
[2018-11-14] MEDS: FUROSEMIDE 40 MG/4 ML VIAL IV (19:05)
[2018-11-14 19:16] LABS: Troponin I 0.031 ng/mL (0.01-0.034)
[2018-11-14 19:28] LABS: B Type Natriuretic Peptide 981 (<100)
--- NOTE | 2018-11-14 19:53 | PM.HP.1 ---
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 Prior to ED presentation patient was being seen by her PCP who is recommending further evaluation in the ED. Patient presents out of concern for worsening dyspnea over the past 2 weeks w/ reported weight gain of 22 lbs. Associated symptoms include peripheral edema, orthopnea, dizziness, and generalized weakness. Symptoms progressively worsening. Dyspnea is exacerbated by activity / exertion. She is noted to have variable BPs at the PCPs office, as high as SBP 170s per patient's daughter, which is unusual. Denies fever, chills, chest pain, palpitations, syncopal events, and abdominal pain. Patient is known to have chronic diarrhea / loose stools secondary to prior jejunoileal bypass, this has not been worse from baseline. On 10/27 started on pulse course of prednisone 40 mg for presumed RA flair. On 11/11 started on course of lasix for suspected CHF. In the ED patient was found to be in AFIB RVR w/ signs of volume overload and severe electrolyte abnormality. On 10/27 patient was seen at [facility] ED, she was suspected to have a flare of her rheumatoid arthritis and discharged home on a 6 day pulse course of prednisone, 40 mg QD x6 days and asked to follow-up w/ PCP there after. Patient completed the course and followed up w/ her PCP on 11/07. At time of follow-up she noted resolution of her symptoms related to RA flair. She does note presence of mild peripheral edema. For unknown reasons, the prednisone therapy was continued. Patient presented to the ED on 11/11, now with dyspnea and lower extremity edema. She was noted to have symptoms of heart failure and was discharged home on Lasix. At that time she had elevated BNP from her baseline and a CXR that was unremarkable. Since ED discharge patient has continued to take both prednisone and lasix. She feels Lasix was partially helpful. Over the past week patient reports increase in weight of 1.5 lb per day. She states an overall weight increase of 22 lbs (116 to 138lbs) since 10/27. ED presentation and work-up Labs 11/14/2018 @ 1825 WBC 9.1 Hgb 11 Plt 163 Na 145 K 3.2 Mg 1.0 Cl 113 Ca 7.5 Alb 3.8 Glu 132 CO2 19 BUN 32 Cr 1.5 GFR 34 T. Bili 0.6 AST 32 ALT 62 Alk Phos 108 Lipase 85 CK 51 Trop 0.031 BNP 981 EKG 11/14/2018 @ 1827... AFIB RVR (v-rate 137). Non-specific ST & T wave abnormality. Abnormal rhythm. Patient History Medical History Barretts esophagus (Acute) Liver disease, chronic (Acute) Atrial fibrillation (Chronic) COPD (chronic obstructive pulmonary disease) (Chronic) Chronic diarrhea (Chronic) Chronic renal insufficiency (Chronic) GERD (gastroesophageal reflux disease) (Chronic) History of anemia (Chronic) History of hepatic failure (Chronic) History of polymyalgia rheumatica (Chronic) Surgical History Gastric bypass status for obesity (Acute) Status post intestinal bypass (Resolved) Family History (Updated 11/14/18 @ 22:43 by PATRICIO Jacinto) Mother No known health problems Father No known health problems Brother Colon cancer Social History household members: none Smoking Status: Current every day smoker alcohol intake: former Family & Social History Family History Mother No known health problems Father No known health problems Brother Colon cancer Social History: household members none Safety & Behavioral: Feels Safe in Current Yes Environment Been Physically Hurt or No Threatened By a Person Tobacco & Substance use: Smoking Status Current every day smoker, 1/2 to 1 ppd alcohol intake former alcohol intake frequency holiday/special occasion Substance Use Type does not use Meds Home Medications Medication Instructions Recorded Confirmed Type metoprolol succinate 12.5 mg PO DAILY 04/05/18 11/14/18 History multivitamin 1 tab PO DAILY 04/05/18 11/14/18 History calcium carbonate 1,200 mg PO DAILY 11/14/18 11/14/18 History fluticasone propion-salmeterol 1 inh INHALATION BID 11/14/18 11/14/18 History [Advair Diskus] omeprazole 20 mg PO DAILY 11/14/18 11/14/18 History potassium chloride 10 meq PO DAILY 11/14/18 11/14/18 History prednisone 40 mg PO DAILY 11/14/18 11/14/18 History spironolactone 25 mg PO DAILY 11/14/18 11/14/18 History Allergies Allergy/AdvReac Type Severity Reaction Status Date / Time bacitracin Allergy Unknown Verified 11/11/18 09:14 [From NEOSPORIN ([id number])] neomycin Allergy Unknown Verified 11/11/18 09:14 [From NEOSPORIN ([id number])] polymyxin B Allergy Unknown Verified 11/11/18 09:14 [From NEOSPORIN ([id number])] ceftriaxone [CEFTRIAXONE] AdvReac Mild loss of Verified 11/11/18 09:14 memory and lethargy Review of Systems Review of Systems All systems reviewed & are unremarkable except as noted in HPI and below Exam Vital Signs (past 8 hours): - 11/14/18 18:19 11/14/18 18:47 11/14/18 19:04 Temperature 98.1 F Pulse Rate 116 H 136 H 126 H Respiratory Rate 24 21 Blood Pressure 127/88 124/61 Blood Pressure [Left Arm] 124/61 Pulse Oximetry 98 99 11/14/18 19:12 Temperature Pulse Rate 94 H Respiratory Rate 20 Blood Pressure Blood Pressure [Left Arm] 101/55 L Pulse Oximetry 99 Oxygen Delivery Method Room Air Objective Labs Result Diagrams: 11/14/18 18:25 11/15/18 02:08 Labs: Laboratory Results - last 24 hr 11/14/18 11/14/18 11/14/18 18:25 18:25 18:25 WBC 9.1 RBC 3.36 L Hgb 11.0 L Hct 34.3 L MCV 102.0 H MCH 32.9 MCHC 32.2 RDW 16.3 H Plt Count 262 Neut % (Auto) 88.9 H Lymph % (Auto) 8.3 L [place] % (Auto) 2.7 L Eos % (Auto) 0.0 L Baso % (Auto) 0.1 Neut # (Auto) 8100 H Lymph # (Auto) 800 L [place] # (Auto) 200 Eos # (Auto) 0 Baso # (Auto) 0 PT 13.1 H INR 1.1 APTT 33 D Sodium 145 Potassium 3.2 L Chloride 113 H Carbon Dioxide 19 L BUN 32 H Creatinine 1.50 H Estimated GFR 34.0 L BUN/Creatinine Ratio 21.3 Glucose 132 H Calcium 7.5 L Magnesium 1.0 L Total Bilirubin 0.6 AST 32 ALT 62 H Alkaline Phosphatase 108 Total Creatine Kinase 51 CK-MB (CK-2) TNP CK-MB (CK-2) Rel Index TNP Troponin I 0.031 B-Natriuretic Peptide 981 H Total Protein 6.6 Albumin 3.8 Globulin 2.8 Albumin/Globulin Ratio 1.4 Lipase 85 Assessment & Plan Assessment & Plan narrative: AFIB RVR - Trop 0.031 BNP 981 - [id number] 3 (age, female, CHF) - Received 10 mg IV Diltiazem bolus in ED. Now on a titrating Diltiazem gtt - Tele. VS per unit protocol. Congestive heart failure, acute, type unknown, present on admission, active - Received 40 mg IV Lasix in ED. Repeat BMP, Mg in am. - Evaluate volume status in am. Will plan on continuing additional diureses - Echo - Heart healthy diet w/ 1.5L FR - Daily weight (standing, if possible). Strict I/O monitoring. Hypokalemia, acute, present on admission, active - Replete w/ 40 mEq KCl now. Repeat lab at 0200. Hypomagnesemia, acute, present on admission, active - Replete w/ 2 mg MgSO4 and 400 mg Mg Ox. Repeat Lab at 0200 Macrocytic anemia, present on admission, stable 2/2 gastric bypass surgery and malabsorption - Hgb 11.0 (at baselien) MCV 102. No active s/s of bleeding. - Monitor and trend Hgb level w/ routine lab TESHA, present on admission, active - TESHA on CKD. sCr 1.5 (baseline 1.2 g/dL), likely aggravated in the setting of an arrhythmia and CHF. Also, recently on Lasix. - Monitor renal function and electrolytes closely in the setting of active diuresis - BMP, Mg at 0200 and 0700 Metabolic acidosis, acute on chronic, present on admission, active - potentially in the setting of underlying CKD - start on NaHCO3 Tobacco Abuse, chronic condition, present on admission, stable - Admits to 1/2 to 1 ppd current tobacco use. Nicotine patch. - Smoking cessation highly encouraged COPD w/o acute exacerbation, chronic condition, stable - CXR unremarkable for acute cardiopulmonary findings. No hypoxia. - Resume [employer] bronchodilator regimen. Duo-Neb Q4H prn bronchospasms. Full Code. Daughter Beatrice Davis is the surrogate decision maker. Home medications reviewed and reconciled. Admission time > 30 minutes
--- NOTE | 2018-11-14 20:45 | PC.NURSE ---
Per Grisel, pt to have Magnesium hung when over to ICU. Report called. Urine output void x1 prior to admit to ICU (375mL)
[2018-11-14] MEDS: MAGNESIUM SULFATE 4 GM/100 ML PIGGYBACK IV (21:34)
[2018-11-14] MEDS: SODIUM BICARBONATE 650 MG TABLET PO (21:45)
[2018-11-14] MEDS: POTASSIUM CHLORIDE 20 MEQ TAB 40 MEQ PO (22:00)
--- NOTE | 2018-11-14 22:39 | PC.NURSE ---
2100- Patient arrived to room 103 via stretcher. Patient is alert and oriented. Diltiazem gtt at 5mg/hr. Heart rate 80-90 AFib/CVR. Qureshi catheter placed per order. Magnesium rider hung per order. Potassium po given per order. Family at bedside. No distress noted at this time.
[2018-11-15] VITALS (24 sets, daily range): BP systolic 80–110; BP diastolic 44–62; PULSE 71–120; RESP 12–30; TEMP 35.8–37.2; O2SAT 96–98
--- NOTE | 2018-11-15 | DI.ECHO.S_ITS ---
[facility] +---------+ [facility] +---------+ : : [address] : [address] [place] : : : : [id number] : : : : Phone: [phone]+ Echocardiogram Report + + :Name: JEANETTE TOLENTINO Study Date: 11/15/2018 Height: 66 in : :[facility] Weight: 104 lb : : Gender: Female BSA: 1.5 m2 : :: 1945 Age: 72 yrs BP: 118/70 mmHg: :Reason For Study: HEART FAILURE, ATRIAL FIBRILLATION : :Ordering Physician: Jane : :Hospitalist Performed By: Devora Kent : :Referring: MARGARET MANNING : + + Interpretation Summary Left ventricular systolic function is mildly reduced with the ejection fraction visually estimated to be 45-55% with considerable qjip-go-zysu variability due to the rapid atrial fibrillation and appears slightly less dynamic compared to the previous study. There are no obvious focal wall motion abnormalities noted but poor endocardial definition reduces the sensitivity for the detection of such. The left ventricle is normal in size. The right ventricle is at the upper limits of normal in size and systolic function is mildly reduced and appeared slightly less dynamic compared to the previous study. The right ventricular systolic pressure is estimated to be at least 35 mmHg based on an estimated right atrial pressure of 15 mm Hg, and is likely slightly higher compared to the previous study. The left atrium is severely dilated and the right atrium is mildly dilated. Both atria have mildly increased in size since the prior echo exam. There is mild mitral regurgitation that is unchanged compared to the previous study. There is moderate to severe tricuspid regurgitation that is more prominent compared to the previous exam. There is no other significant valvular heart disease. \ The patient was in atrial fibrillation with heart rates between 80-122 bpm during the exam which is new with considerably faster heart rates compared to the previous study, and suggests the possibility of a mild tachycardia mediated cardiomyopathy. Procedure: A two-dimensional transthoracic echocardiogram with color flow and Doppler was performed. The study quality was technically adequate. A contrast injection of Definity was performed to improve assessment of LV function. Comparison is made with the echocardiogram of 11/25/2012. The patient was in atrial fibrillation with heart rates between 80-122 bpm during the exam. This is new with considerably faster heart rates compared to the previous study. Left Ventricle: The left ventricle is normal in size. There is normal left ventricular wall thickness. There is no thrombus. Left ventricular systolic function is mildly reduced. Left ventricular ejection fraction is estimated to be 45-55% with considerable gprf-dp-fkqk variability due to the rapid atrial fibrillation. There are no obvious focal wall motion abnormalities noted but poor endocardial definition reduces the sensitivity for the detection of such. This is appears slightly less dynamic compared to the previous study. Diastolic function could not be accurately assessed due to atrial fibrillation. Right Ventricle: The right ventricle is at the upper limits of normal in size. Right ventricular systolic function is mildly reduced. This is slightly less dynamic compared to the previous study. Atria: The left atrium is severely dilated. Both atria have mildly increased in size since the prior echo exam. The right atrium is mildly dilated. Chiari network (normal variant) is noted. There is no Doppler evidence for an interatrial shunt. Mitral Valve: The mitral valve leaflets appear mildly thickened, but open well. There is mild mitral regurgitation. This is unchanged compared to the previous study. Aortic Valve: The aortic valve is not well visualized. The aortic valve is grossly normal. The aortic valve opens well. There is no aortic valve stenosis. There is trace aortic regurgitation. Tricuspid Valve: The tricuspid valve leaflets are thin and pliable. There is moderate to severe tricuspid regurgitation. The right ventricular systolic pressure is estimated to be at least 35 mmHg based on an estimated right atrial pressure of 15 mm Hg. This is likely slightly higher compared to the previous study. Pulmonic Valve: The pulmonic valve is not well visualized. There is no other significant valvular heart disease. Great Vessels: The aortic root is normal size. The ascending aorta could not be visualized. The IVC is dilated (diameter is greater than 2.1 cm) and it collapses less than 50% with a sniff. This suggests a high right atrial pressure of 15 mm Hg. Pericardium/ Pleura There is no pericardial effusion. MMode/2D Measurements & Calculations LVIDd: 4.5 cm LVOT diam: 2.2 cm LVIDs: 3.2 cm Ao root diam: 3.1 cm FS: 28.3 % IVSd: 0.60 cm LVPWd: 0.70 cm LV britt. diameter/BSA (cm/m^2): 2.9 LV sys. diameter/BSA (cm/m^2): 2.1 LA A2 area: 22.9 cm2 RA long axis: 5.0 cm LA A4 area: 21.3 cm2 RA area: 17.8 cm2 LA length (vol): 5.1 cm RA vol: 54.1 ml LA vol: 81.7 ml RA : 35.7 ml/m2 LA vol index: 53.9 ml/m2 IVC diam: 2.2 cm RVD1 (basal): 3.8 cm RVD2 (mid): 2.7 cm TAPSE: 1.3 cm Doppler Measurements & Calculations Ao V2 max: 85.3 cm/sec LVOT Max Jacob: 47.3 cm/sec Ao V2 mean: 55.8 cm/sec LV V1 max P.89 mmHg Ao max P.9 mmHg LV V1 VTI: 8.5 cm Ao mean P.4 mmHg ALEXSANDRA(I,D): 2.0 cm2 Ao V2 VTI: 15.7 cm ALEXSANDRA(V,D): 2.1 cm2 sev ratio: 0.54 ALEXSANDRA indexed to BSA (cm^2/m^2): 1.3 Med Peak E' Jacob: 7.8 cm/sec TR max jacob: 223.3 cm/sec Lat Peak E' Jacob: 10.9 cm/sec TR max P.9 mmHg MVA(VTI): 3.0 cm2 PA V2 max: 68.5 cm/sec PA V2 mean: 47.2 cm/sec PA mean P.0 mmHg PA Accel Time: 0.11 sec MV V2 mean: 51.2 cm/sec SV(LVOT): 32.0 ml MV mean P.2 mmHg MV V2 VTI: 10.6 cm Reading Physician:PM
[2018-11-15] MEDS: FUROSEMIDE 40 MG/4 ML VIAL IV (00:50)
[2018-11-15 02:42] LABS: Albumin 3.8 g/dL (3.5-5.0); Blood Urea Nitrogen 33 mg/dL (7-17); Calcium 7.5 mg/dL (8.4-10.2); Carbon Dioxide 23 mmol/L (22-32); Chloride 111 mmol/L (98-107); Glucose 106 mg/dL (80-110); HEMOLYSIS < 15 (0-50); Phosphorous 4.4 mg/dL (2.8-4.1); Potassium 3.5 mmol/L (3.4-5.1); Sodium 147 mmol/L (137-145)
[2018-11-15 02:51] LABS: Magnesium 2.7 mg/dL (1.6-2.3)
[2018-11-15 07:20] LABS: Hematocrit 33.6 % (36-46); Hemoglobin 11.1 g/dL (12.0-16.0); Mean Corpuscular Hemoglobin 32.9 PG (26-34); Mean Corpuscular Volume 99.9 fL (80-100); Platelet Count 258 X10^3/uL (150-400); Red Blood Cell Count 3.37 X10^6/uL (4.0-5.2); Red Cell Distribution Width 15.9 % (11.6-14.8); White Blood Cell Count 7.8 X10^3/uL (4.5-11.0)
[2018-11-15 07:30] LABS: BUN Creatinine Ratio 25.7 (6-22); Blood Urea Nitrogen 36 mg/dL (7-17); Calcium 7.2 mg/dL (8.4-10.2); Carbon Dioxide 26 mmol/L (22-32); Chloride 109 mmol/L (98-107); Estimated Glomerular Filt Rate 36.9 mL/min (>60); Glucose 88 mg/dL (80-110); HEMOLYSIS < 15 (0-50); Magnesium 2.3 mg/dL (1.6-2.3); Potassium 3.3 mmol/L (3.4-5.1); Sodium 146 mmol/L (137-145)
[2018-11-15 07:44] LABS: Neutrophils Absolute Manual 4446 /uL (3000-5900); Total Cells Counted 100
[2018-11-15 07:45] LABS: Microcytosis 2+
--- NOTE | 2018-11-15 08:06 | P.PN_ITS ---
Subjective Date Patient Seen: 11/15/18 Time Patient Seen: 07:41 Interval history: Follow-up on fluid overload and AFib with RVR. Patient seen at bedside. She is doing a the today. She is complaining of cramping in her arms and legs that lab subjective seconds but are frequent. Patient is also hungry this morning, she states she has an over day. Denies any dizziness or shortness of breath at this time. Denies any headache, loss of consciousness, fevers or chills. Denies any nausea or vomiting. Overnight patient produced -3600 cc urine output. Blood pressure borderline low, however maintains map above 65. Exam Vital Signs (past 8 hours): - 11/15/18 00:00 11/15/18 02:00 11/15/18 03:00 Temperature 96.5 F L Pulse Rate 80 80 Respiratory Rate 18 18 16 Blood Pressure 103/62 103/58 L 101/51 L Pulse Oximetry 98 97 96 11/15/18 04:00 11/15/18 05:02 11/15/18 05:25 Temperature 96.7 F L Pulse Rate 77 75 80 Respiratory Rate 15 15 17 Blood Pressure 110/57 L 96/50 L Pulse Oximetry 98 96 97 11/15/18 06:00 11/15/18 07:29 Temperature 98.9 F Pulse Rate 87 77 Respiratory Rate 23 17 Blood Pressure 102/54 L 83/44 L Pulse Oximetry 96 98 Oxygen Delivery Method Room Air Oxygen Flow Rate 0 Narrative Exam Narrative: General: No acute distress, A/O x3 HEENT: Atraumatic, normocephalic. PERRLA and EOMI bilaterally. Moist mucous membranes Neck: Supple, no LAD or JVD CV: Irregularly irregular rhythm, rate controlled. No murmurs or gallops Respiratory: Clear to auscultation bilaterally. No wheezes or crackles appreciated GI: Positive bowel sounds in all 4 quadrants. Nontender, nondistended. No organomegaly Musculoskeletal: Moves all extremities Extremities: 2+ pitting edema lower extremities bilaterally up to knees. 2+ pulses Skin: Warm to touch, without bruising or lesions. Generalized pallor Neuro: No focal deficits Psych: Appropriate mood and behavior. Able to make her own decisions Objective Labs Result Diagrams: 11/15/18 07:05 11/15/18 07:05 Labs: Laboratory Results - last 24 hr 11/14/18 11/14/18 11/14/18 18:25 18:25 18:25 WBC 9.1 RBC 3.36 L Hgb 11.0 L Hct 34.3 L MCV 102.0 H MCH 32.9 MCHC 32.2 RDW 16.3 H Plt Count 262 Neut % (Auto) 88.9 H Lymph % (Auto) 8.3 L Taliaferro % (Auto) 2.7 L Eos % (Auto) 0.0 L Baso % (Auto) 0.1 Neut # (Auto) 8100 H Lymph # (Auto) 800 L Taliaferro # (Auto) 200 Eos # (Auto) 0 Baso # (Auto) 0 PT 13.1 H INR 1.1 APTT 33 D Sodium 145 Potassium 3.2 L Chloride 113 H Carbon Dioxide 19 L BUN 32 H Creatinine 1.50 H Estimated GFR 34.0 L BUN/Creatinine Ratio 21.3 Glucose 132 H Calcium 7.5 L Phosphorus Magnesium 1.0 L Total Bilirubin 0.6 AST 32 ALT 62 H Alkaline Phosphatase 108 Total Creatine Kinase 51 CK-MB (CK-2) TNP CK-MB (CK-2) Rel Index TNP Troponin I 0.031 B-Natriuretic Peptide 981 H Total Protein 6.6 Albumin 3.8 Globulin 2.8 Albumin/Globulin Ratio 1.4 Lipase 85 TSH Nasal Screen MRSA (PCR) 11/14/18 11/14/18 11/15/18 18:25 21:05 02:08 WBC RBC Hgb Hct MCV MCH MCHC RDW Plt Count Neut % (Auto) Lymph % (Auto) Taliaferro % (Auto) Eos % (Auto) Baso % (Auto) Neut # (Auto) Lymph # (Auto) Taliaferro # (Auto) Eos # (Auto) Baso # (Auto) PT INR APTT Sodium 147 H Potassium 3.5 Chloride 111 H Carbon Dioxide 23 BUN 33 H Creatinine 1.50 H Estimated GFR 34.0 L BUN/Creatinine Ratio 22.0 Glucose 106 Calcium 7.5 L Phosphorus 4.4 H Magnesium Total Bilirubin AST ALT Alkaline Phosphatase Total Creatine Kinase CK-MB (CK-2) CK-MB (CK-2) Rel Index Troponin I B-Natriuretic Peptide Total Protein Albumin 3.8 Globulin Albumin/Globulin Ratio Lipase TSH 0.50 Nasal Screen MRSA (PCR) Negative for mrsa 11/15/18 11/15/18 11/15/18 02:08 07:05 07:05 WBC 7.8 RBC 3.37 L Hgb 11.1 L Hct 33.6 L MCV 99.9 MCH 32.9 MCHC 33.0 RDW 15.9 H Plt Count 258 Neut % (Auto) Lymph % (Auto) Taliaferro % (Auto) Eos % (Auto) Baso % (Auto) Neut # (Auto) Lymph # (Auto) Taliaferro # (Auto) Eos # (Auto) Baso # (Auto) PT INR APTT Sodium 146 H Potassium 3.3 L Chloride 109 H Carbon Dioxide 26 BUN 36 H Creatinine 1.40 H Estimated GFR 36.9 L BUN/Creatinine Ratio 25.7 H Glucose 88 Calcium 7.2 L Phosphorus Magnesium 2.7 H 2.3 Total Bilirubin AST ALT Alkaline Phosphatase Total Creatine Kinase CK-MB (CK-2) CK-MB (CK-2) Rel Index Troponin I B-Natriuretic Peptide Total Protein Albumin Globulin Albumin/Globulin Ratio Lipase TSH Nasal Screen MRSA (PCR) Assessment & Plan Assessment & Plan narrative: 72-year-old female with past medical history of jejunoileal bypass surgery with associated complications of vitamin B12 deficiency, malabsorption, liver disease, Zavala's esophagus, GERD, COPD, tobacco dependence, paroxysmal atrial fibrillation not on anticoagulation, polymyalgia rheumatica, and carotid artery disease presented to emergency department with worsening dyspnea and weight gain. She was found to be in AFib with RVR, as well as volume overload and electrolyte abnormality admitted for further management. 1. AFIB with RVR, acute, present on admission - Possibly due to new onset CHF - Trop 0.031, BNP 981 - [id number] 3 (age, female, CHF) - patient is now rate controlled on Cardizem drip. Will attempt to wean off the drip and resume home medication regimen metoprolol 12.5 mg daily -monitor in telemetry 2. Volume overload, acute, present on admission, improving - likely due to new onset Congestive heart failure - BNP this admission is 981, significantly elevated from previous ED visit few days ago - chest x-ray did not reveal any cardiopulmonary processes, however peripherally patient seems to have pitting edema - patient initially received Lasix 80 mg IV in ED, followed by Lasix 40 mg IV q.12 hours. She is in negative fluid balance 4600 cc - will switch patient to Lasix 20 mg IV b.i.d., as she is naive to Lasix and is responding quite well to diuresis Will plan on continuing additional diureses - Echo pending to rule out new onset CHF - Heart healthy diet w/ 1.5L FR - Daily weight (standing, if possible). Strict I/O monitoring 3. Hypokalemia, acute, present on admission, active - continue to replete and monitor 4. Hypomagnesemia, acute, present on admission, resolved - continue to replete and monitor 5. Macrocytic anemia, present on admission, stable - Likely due to gastric bypass surgery and malabsorption, as well as B12 deficiency - Hgb 11.1 (at baseline) MCV 102->99. No active s/s of bleeding -continue to monitor hemoglobin and hematocrit 6. TESHA on CKD stage 3B, present on admission, improving - Likely aggravated in the setting of an arrhythmia and possible new onset CHF. Also, recently on Lasix. - BUN 36, Cr 1.4, downtrending - Continue diuresing with Lasix 20 mg IV b.i.d. - Monitor renal function and electrolytes closely in the setting of active diuresis 7. Metabolic acidosis, acute on chronic, present on admission, resolved - potentially in the setting of underlying CKD -stop NaHCO3 as bicarb has resolved to 26 now 8. Tobacco Abuse, chronic condition, present on admission, stable - Admits to 1/2 to 1 ppd current tobacco use. Nicotine patch. - Smoking cessation highly encouraged 9. COPD w/o acute exacerbation, chronic condition, stable - CXR unremarkable for acute cardiopulmonary findings. No hypoxia. - continue home bronchodilator regimen. - continue Duo-Neb Q4H prn bronchospasms. 10. Rheumatoid arthritis with recent flare, chronic, present on admission, resolving - patient was started on prednisone 40 mg p.o. on 10/27/2018 after ED visit with RA flare - unfortunately prednisone has been continued by PCP up until this visit - given the 18 day duration of prednisone therapy, will not stop prednisone abruptly but start tapering - start prednisone 30 mg p.o. daily times 3-4 days, and then decrease the more Full Code. Daughter Beatrice Davis is the surrogate decision maker. DVT prophylaxis with heparin subcu Disposition: Patient is here with volume overload with active diuresis. AFib now rate controlled-we will attempt to switch to p.o. medications. Will need to discuss with patient regarding anticoagulation therapy, as she is chads Vasc score 3 Quality VTE Deep Vein Thrombosis/Pulmonary Embolism Present on Admission: No
[2018-11-15] MEDS: ALBUTEROL/IPRATROPIUM 3 ML AMPUL INH ×3 (08:15→17:15)
[2018-11-15] MEDS: FLUTICASONE/SALMETEROL 250/50 14 PUFF DISKUS INH ×2 (08:16→20:17)
[2018-11-15] MEDS: MAGNESIUM OXIDE 400 MG TABLET PO (08:29)
[2018-11-15] MEDS: predniSONE 10 MG TABLET 30 MG PO (08:29)
[2018-11-15] MEDS: CITALOPRAM 20 MG TABLET 40 MG PO (08:29)
[2018-11-15] MEDS: CYCLOBENZAPRINE 5 MG TABLET PO ×2 (08:29→17:33)
[2018-11-15] MEDS: HEPARIN 5,000 UNIT/ML VIAL 5000 UNIT SUBCUT ×2 (08:29→20:53)
[2018-11-15] MEDS: MULTIVITAMIN 1 TABLET 1 TAB PO (08:29)
[2018-11-15] MEDS: FUROSEMIDE 20 MG/2 ML VIAL IV ×2 (08:29→20:53)
[2018-11-15] MEDS: POTASSIUM CHLORIDE 20 MEQ TAB 40 MEQ PO (08:30)
[2018-11-15] MEDS: CALCIUM CARBONATE 600 MG TABLET 1200 MG PO (08:30)
[2018-11-15] MEDS: PANTOPRAZOLE 20 MG TABLET PO (08:30)
[2018-11-15] MEDS: METOPROLOL ER 25 MG TABLET 12.5 MG PO (08:30)
[2018-11-15] MEDS: NICOTINE 21 MG PATCH TOP (08:31)
--- NOTE | 2018-11-15 09:46 | DIET.PN ---
Dietary Progress Note Assessment: Pt admitted for CHF, Rapid Afib, Chest Pain. She presents with fluid overload reporting 22 lb weight gain in the last 2 weeks. Pt with a hx of jejunoileal bypass x 40 yr ago. She discusses hx of morbid obesity prior to surgery. She states 2-3 mo ago she was wearing a size 6, but admits to regular fluctuations in weight. Pt is a current every day smoker (~15/day). Pt reports difficulty swallowing fruits and meats. PMHX: Jejunoileal Bypass; B12 deficiency; Malabsorption; ESLD; Zavala's Esophagus; GERD Diet: heart healthy; Fluid restriction (1500ml) Previous Admit Diet Order: Mech Soft; Thin Liq HT: 165.1cm WT: 47.3kg UBW: 52-55kg BMI: 17.4 MNA: 10 Labs: Na: 146 K: 3.3 Ca: 7.2 BUN: 36 Cr: 1.4 BNP: 981 Nutrition Diagnosis: Severe Chronic Protein Calorie Malnutrition r/t alteration in GI tract structure aeb energy intake < 75% EER >1mo, chronic weight fluctuation, BMI <21 (age >65), severe subcut fat loss and muscle wasting, pt hx of jejunoileal bypass. Interventions: 1. Education pt on heart healthy, low sodium, and GERD nutrition therapy. 2. Recommend Soft Chew foods based on patient report and past diet order. Monitoring/Evaluations: PO intake, Weight, Diet tolerance, associated labs
[2018-11-15] MEDS: MORPHINE 4 MG/ML INJ 1 MG IV (10:33)
[2018-11-15] MEDS: METOPROLOL TARTRATE 5 MG/5 ML INJ IV (12:21)
[2018-11-15] MEDS: MORPHINE 2 MG/ML INJ 1 MG IV (13:18)
[2018-11-15] MEDS: DILTIAZEM 125 MG/125 ML PIGGYBACK 15 MG IV (13:58)
--- NOTE | 2018-11-15 14:25 | PC.NURSE ---
Addendum entered by Sridhar Kelly R.N. 11/15/18 14:50: Called to Dr. Prater. Reported pt again c/o leg cramps. Reported BP 80/52 (62) HR 80s Afib CVR with dilt gtt @ 10 mg/hr. Orders received for bmp and once time norco 5/325 mg PO. Original Note: Rec'd pt in bed resting. Responds to verbal stimuli with clear, logical speech. Intermittently forgetful of details but oriented to person/place/time/situation. Reports intermittent leg/arm cramping but denies at this time. HR is noted to be 90s-110s Afib CVR-RVR depending on activity. With position changes, pt reports brief but mild dizziness with HR 110s-120. Dilt gtt is infusing to piv at 5 mg/hr. Dr. Prater rounded 0730. Reported am lab values, uop, VS. Reported pt c/o cramps. Orders received for PO flexeril 5mg q 8 hr PRN, change lasix to 20 mg IV BID, and potassium 40 meq PO now x1 dose. Plan is to titrate dilt gtt to off with AM metoprolol administration. Dilt titrated to off and HR relatively controlled at rest with rates up to 110s with activity. Pt denies symptoms of dizziness, lightheadedness. lead technical writer in to perform echocardiogram 1015. Pt began to c/o more frequent leg cramping as well as neck discomfort. Pt restless and squirming in bed. lead technical writer unable to complete exam. HR noted to be 100-130s Afib. Called to Dr. Prater and reported pt c/o cramping pain to legs and neck discomfort. Orders received for 1 time dose of IV morphine 1mg now. Instructed to hold off on restarting dilt gtt and monitor for pain relief. Clarified if 1200 labs should be drawn early. Orders received to d/c labs until tomorrow. Pt received good relief from morphine. HR remained elevated low 100s with occ increases to 120s-130. Pt asymptomatic. Restarted dilt gtt at 1130 and titrated up. Around 1200 HR began to sustain 130s-150s. Called to Dr. Prater and rec'd orders for IV metoprolol 5 mg x1 dose. Administered with good effect HR 90s-100s. Pt able to rest. lead technical writer back to bedside around 1300. Pt reports cramps to back of knees increasing and pt noted to be writhing in pain. Called to Dr. Prater and rec'd orders for 1 time dose of IV morphine. Administered with good effect. Echo able to finish exam and pt able to rest comfortably post med administration. Bed alarm on and call light in reach.
[2018-11-15] MEDS: HYDROCODONE/ACET 5/325 TABLET 1 TAB PO (14:56)
--- NOTE | 2018-11-15 15:17 | CM.DANOTE ---
Discharge Planning/Care Management DCP: assessment: Case received, EMR reviewed and met with pt and her daughter/DPOA Beatrice Ryan: [phone]. Introduced self and role. Pt is a 72 year old female who admitted to care of hosptitalist team last night. PCP: Dr. Kang Lion Payer: [employer] Medicare Pt participated in some of the conversation but she had just had morphine and admitted she was not thinking clearly. She deferred to Beatrice to relay much of the information. Beatrice confirms pt does live alone. She has had [facility] in the past ([facility] did see pt after she d/c'd home from Mar 2018). Pt is frail and with multiple medical comorbidities. Beatrice says there are alot of family members who can provide any support needed and that while they are open to HH services again a snf setting is not something pt or family wish to consider. Beatrice notes her mother has been on home TPN in the past and we did just fine helping her with that. Pt appears frail and weak. Will plan to ask for PT/OT orders tomorrow in Team Rounds if pt is medically ready for this. Pt has been on diltiazam drip for most of the day altho wean to oral is planned and tests have been in process. P: follow up tomorrow as planned. If pt goes home at d/c would request HH services... CM Discharge Assessment Start: 11/15/18 14:59 Freq: Status: Active Protocol: Document 11/15/18 14:59 ITV (Rec: 11/15/18 15:03 ITV [id number]) Discharge Planning Assessment Advance Directives? No History Provided By Patient Family Member Medical Record Prior Living Arrangements House Household Members none Whiteboard Updated in Patient Room with Yes name and ext. # of [employer] Insurance Agent Next Review Type Continued Stay Review Document 11/15/18 15:17 ITV (Rec: 11/15/18 15:17 ITV [id number]) Discharge Planning Assessment Advance Directives? No History Provided By Patient Family Member Medical Record Prior Living Arrangements House Household Members none Whiteboard Updated in Patient Room with Yes name and ext. # of [employer] Insurance Agent Next Review Type Continued Stay Review
[2018-11-15 15:35] LABS: Blood Urea Nitrogen 36 mg/dL (7-17); Calcium 7.2 mg/dL (8.4-10.2); Carbon Dioxide 20 mmol/L (22-32); Chloride 113 mmol/L (98-107); Glucose 140 mg/dL (80-110); HEMOLYSIS < 15 (0-50); Potassium 4.1 mmol/L (3.4-5.1); Sodium 147 mmol/L (137-145)
--- NOTE | 2018-11-15 17:37 | PC.NURSE ---
7070- Patient having severe leg cramps. Gentle massage to affected extremity. Patient medicated with muscle relaxer per order.
[2018-11-15] MEDS: CALCIUM GLUCONATE 9.3 MEQ in SODIUM CHLORIDE 0.9% 50 ML 140 ML IV (18:25)
[2018-11-15] MEDS: FERROUS SULFATE 325 MG TABLET PO (20:53)
[2018-11-15 23:20] LABS: Calcium 8.2 mg/dL (8.4-10.2)
[2018-11-16] VITALS (14 sets, daily range): BP systolic 80–113; BP diastolic 47–71; PULSE 67–136; RESP 14–65; TEMP 35.8–36.8; O2SAT 95–98
[2018-11-16 05:17] LABS: Add Manual Diff / Slide Review NO; Basophils Absolute Auto 0 /uL (0-100); Basophils Percent Auto 0.5 % (0-2); Eosinophils Absolute Auto 100 /uL (0-450); Eosinophils Percent Auto 0.9 % (2-4); Hematocrit 32.6 % (36-46); Hemoglobin 10.7 g/dL (12.0-16.0); Lymphocytes Absolute Auto 1500 /uL (1100-4500); Lymphocytes Percent Auto 22.2 % (25-40); Mean Corpuscular HGB Conc 32.8 % (30-36); Mean Corpuscular Hemoglobin 32.7 PG (26-34); Mean Corpuscular Volume 99.7 fL (80-100); Monocytes Absolute Auto 400 /uL (0-900); Monocytes Percent Auto 6.6 % (3-14); Neutrophils Absolute Auto 4700 /uL (1500-7000); Neutrophils Percent Auto 69.8 % (50-75); Platelet Count 210 X10^3/uL (150-400); Red Blood Cell Count 3.27 X10^6/uL (4.0-5.2); White Blood Cell Count 6.8 X10^3/uL (4.5-11.0)
[2018-11-16 05:19] LABS: BUN Creatinine Ratio 28.5 (6-22); Blood Urea Nitrogen 37 mg/dL (7-17); Calcium 7.7 mg/dL (8.4-10.2); Carbon Dioxide 27 mmol/L (22-32); Chloride 108 mmol/L (98-107); Estimated Glomerular Filt Rate 40.2 mL/min (>60); Glucose 89 mg/dL (80-110); HEMOLYSIS 23 (0-50); Potassium 4.1 mmol/L (3.4-5.1); Sodium 143 mmol/L (137-145)
[2018-11-16] MEDS: FLUTICASONE/SALMETEROL 250/50 14 PUFF DISKUS INH ×2 (05:47→18:21)
[2018-11-16] MEDS: ALBUTEROL/IPRATROPIUM 3 ML AMPUL INH ×2 (05:47→10:57)
[2018-11-16] MEDS: PANTOPRAZOLE 20 MG TABLET PO (06:33)
[2018-11-16] MEDS: CITALOPRAM 20 MG TABLET 40 MG PO (08:55)
[2018-11-16] MEDS: CALCIUM CARBONATE 600 MG TABLET 1200 MG PO (08:55)
[2018-11-16] MEDS: FUROSEMIDE 20 MG/2 ML VIAL IV (08:55)
[2018-11-16] MEDS: METOPROLOL ER 25 MG TABLET 12.5 MG PO (08:56)
[2018-11-16] MEDS: HEPARIN 5,000 UNIT/ML VIAL 5000 UNIT SUBCUT ×2 (08:56→21:16)
[2018-11-16] MEDS: MAGNESIUM OXIDE 400 MG TABLET PO (08:56)
[2018-11-16] MEDS: MULTIVITAMIN 1 TABLET 1 TAB PO (08:57)
[2018-11-16] MEDS: predniSONE 10 MG TABLET 30 MG PO (08:58)
[2018-11-16] MEDS: NICOTINE 21 MG PATCH TOP (08:58)
--- NOTE | 2018-11-16 11:12 | DIET.PN ---
Dietary Progress Note Assessment: RD f/u pt appreciates Soft Chew diet modifications r/t difficulty swallowing fruits and meats, current PO 75-90% of trays. Pt requested coffee but understands cannot have r/t heart healthy diet order and fluid restriction. Wt has remained stable over 24h. PMHX: Jejunoileal Bypass; B12 deficiency; Malabsorption; ESLD; Zavala's Esophagus; GERD Diet: heart healthy; Fluid restriction (1500ml) Previous Admit Diet Order: Mech Soft; Thin Liq HT: 165.1cm WT: 47.3kg UBW: 52-55kg BMI: 17.4 MNA: 10 Labs: Na: 143 (wnl) K: 4.1 (wnl) Ca: 7.7 (wnl) BUN: 37 (H) Nutrition Diagnosis: Severe Chronic Protein Calorie Malnutrition r/t alteration in GI tract structure aeb energy intake < 75% EER >1mo, chronic weight fluctuation, BMI <21 (age >65), severe subcut fat loss and muscle wasting, pt hx of jejunoileal bypass. Interventions: Adding yogurt to trays tid (+30g PRO and 50% calcium) Monitoring/Evaluations: PO intake, Weight, Diet tolerance, associated labs
--- NOTE | 2018-11-16 12:42 | P.PN_ITS ---
Subjective Date Patient Seen: 11/16/18 Interval history: PATIENT IS A 72-YEAR-OLD FEMALE ADMITTED TO THE HOSPITAL WITH ACUTE DECOMPENSATED CONGESTIVE HEART FAILURE, ATRIAL FIBRILLATION, RHEUMATOID ARTHRITIS WHO HAS HAD SIGNIFICANT IMPROVEMENT IN HER EDEMA. SHE REMAINS IN ATRIAL FIBRILLATION. She was weaned off the Cardizem but then needed to return to the Cardizem drip. She has diuresed quite nicely with IV Lasix. She reports no further shortness of breath. Her legs continue to be tender to light touch. Exam Vital Signs (past 8 hours): - 11/16/18 05:07 11/16/18 05:47 11/16/18 07:00 Temperature 97.7 F Pulse Rate 78 90 104 H Respiratory Rate 16 16 15 Blood Pressure 101/56 L 88/51 L Pulse Oximetry 98 97 97 11/16/18 08:56 11/16/18 09:00 11/16/18 10:57 Temperature 97.9 F Pulse Rate 124 H 122 H 106 H Respiratory Rate 14 16 Blood Pressure 87/66 L 80/47 L Pulse Oximetry 98 95 11/16/18 11:00 Temperature 98.2 F Pulse Rate 107 H Respiratory Rate 15 Blood Pressure 103/59 L Pulse Oximetry Oxygen Delivery Method Room Air Oxygen Flow Rate 0 Narrative Exam Narrative: Elderly female lying in bed ill-appearing but in no acute distress Lungs: Decreased breath sounds but clear Cardiac exam: Irregularly irregular normal S1-S2 Abdomen: Soft nontender nondistended Extremities: 1+ edema, tender to palpation Objective Labs Result Diagrams: 11/16/18 04:44 11/16/18 04:44 Labs: Laboratory Results - last 24 hr 11/15/18 11/15/18 11/16/18 13:45 23:00 04:44 WBC 6.8 RBC 3.27 L Hgb 10.7 L Hct 32.6 L MCV 99.7 MCH 32.7 MCHC 32.8 RDW 16.0 H Plt Count 210 Neut % (Auto) 69.8 Lymph % (Auto) 22.2 L [place] % (Auto) 6.6 Eos % (Auto) 0.9 L Baso % (Auto) 0.5 Neut # (Auto) 4700 Lymph # (Auto) 1500 [place] # (Auto) 400 Eos # (Auto) 100 Baso # (Auto) 0 Sodium 147 H Potassium 4.1 Chloride 113 H Carbon Dioxide 20 L BUN 36 H Creatinine 1.50 H Estimated GFR 34.0 L BUN/Creatinine Ratio 24.0 H Glucose 140 H Calcium 7.2 L 8.2 L 11/16/18 04:44 WBC RBC Hgb Hct MCV MCH MCHC RDW Plt Count Neut % (Auto) Lymph % (Auto) [place] % (Auto) Eos % (Auto) Baso % (Auto) Neut # (Auto) Lymph # (Auto) [place] # (Auto) Eos # (Auto) Baso # (Auto) Sodium 143 Potassium 4.1 Chloride 108 H Carbon Dioxide 27 BUN 37 H Creatinine 1.30 H Estimated GFR 40.2 L BUN/Creatinine Ratio 28.5 H Glucose 89 Calcium 7.7 L Assessment & Plan Assessment & Plan narrative: AFIB with RVR, acute, present on admission - Possibly due to new onset CHF - Trop 0.031, BNP 981 - [id number] 3 (age, female, CHF) -patient continues to require Cardizem drip with poor rate control. Will discontinue the Cardizem drip and start her on metoprolol 25 p.o. Q 6. Blood pressure has improved at this point. 2. Volume overload, acute, present on admission, improving - likely due to new onset Congestive heart failure - BNP this admission is 981, significantly elevated from previous ED visit few days ago - chest x-ray did not reveal any cardiopulmonary processes, however peripherally patient seems to have pitting edema - patient initially received Lasix 80 mg IV in ED, followed by Lasix 40 mg IV q. 12 hours. She is in negative fluid balance 4600 cc - will switch patient to Lasix 20 mg IV b.i.d., as she is naive to Lasix and is responding quite well to diuresis Will hold Lasix at this time. - Echo pending to rule out new onset CHF - Heart healthy diet w/ 1.5L FR - Daily weight (standing, if possible). Strict I/O monitoring 3. Hypokalemia, acute, present on admission, active - continue to replete and monitor 4. Hypomagnesemia, acute, present on admission, resolved - continue to replete and monitor 5. Macrocytic anemia, present on admission, stable - Likely due to gastric bypass surgery and malabsorption, as well as B12 deficiency - Hgb 11.1 (at baseline) MCV 102->99. No active s/s of bleeding -continue to monitor hemoglobin and hematocrit 6. TESHA on CKD stage 3B, present on admission, improving - Likely aggravated in the setting of an arrhythmia and possible new onset CHF. Also, recently on Lasix. - BUN 36, Cr 1.4, downtrending - Continue diuresing with Lasix 20 mg IV b.i.d. - Monitor renal function and electrolytes closely in the setting of active diuresis 7. Metabolic acidosis, acute on chronic, present on admission, resolved - potentially in the setting of underlying CKD -stop NaHCO3 as bicarb has resolved to 26 now 8. Tobacco Abuse, chronic condition, present on admission, stable - Admits to 1/2 to 1 ppd current tobacco use. Nicotine patch. - Smoking cessation highly encouraged 9. COPD w/o acute exacerbation, chronic condition, stable - CXR unremarkable for acute cardiopulmonary findings. No hypoxia. - continue home bronchodilator regimen. - continue Duo-Neb Q4H prn bronchospasms. 10. Rheumatoid arthritis with recent flare, chronic, present on admission, resolving - patient was started on prednisone 40 mg p.o. on 10/27/2018 after ED visit with RA flare - unfortunately prednisone has been continued by PCP up until this visit - given the 18 day duration of prednisone therapy, will not stop prednisone abruptly but start tapering - start prednisone 30 mg p.o. daily times 3-4 days, and then decrease the more Full Code. Daughter Beatrice Davis is the surrogate decision maker. DVT prophylaxis with heparin subcu Quality VTE Deep Vein Thrombosis/Pulmonary Embolism Present on Admission: No
[2018-11-16] MEDS: METOPROLOL IR 25 MG TABLET PO ×2 (13:16→18:54)
--- NOTE | 2018-11-16 15:02 | PC.NURSE ---
Received in bed, somnolent but arousable. Monitor shows continuing atrial fibrillation/RVR. Diltiazem gtt infusing at 5mg/hr at beginning of shift, weaned to off. Metoprolol p.o. dose increased to 25mg. No c/o of CP or SOB. No episodes of LE cramping. Qureshi intact to DD, I/O as noted. Taking p.o. soft foods. OOB to BSC, but no BM. Remains on 1500ml fluid restriction. Discussed plan of care and medication changes with pt. and family. Currently resting quietly. Call light in reach.
--- NOTE | 2018-11-16 16:51 | PC.NURSE ---
1645- Patient converted to NSR. Dr. Knox notified. Will monitor.
[2018-11-16] MEDS: FERROUS SULFATE 325 MG TABLET PO (21:16)
[2018-11-17] VITALS: BP 97/59; PULSE 66; RESP 25; TEMP 36.3; O2SAT 97
[2018-11-17] MEDS: METOPROLOL IR 25 MG TABLET PO ×2 (00:09→06:37)
[2018-11-17 00:10] VITALS: O2SAT 97
[2018-11-17 04:40] VITALS: BP 108/62; PULSE 69; RESP 19; TEMP 36.4; O2SAT 97
[2018-11-17 05:01] LABS: Add Manual Diff / Slide Review NO; Basophils Absolute Auto 0 /uL (0-100); Basophils Percent Auto 0.1 % (0-2); Eosinophils Absolute Auto 0 /uL (0-450); Eosinophils Percent Auto 0.5 % (2-4); Hematocrit 29.1 % (36-46); Hemoglobin 9.8 g/dL (12.0-16.0); Lymphocytes Absolute Auto 1700 /uL (1100-4500); Lymphocytes Percent Auto 18.1 % (25-40); Mean Corpuscular HGB Conc 33.5 % (30-36); Mean Corpuscular Hemoglobin 33.4 PG (26-34); Mean Corpuscular Volume 99.7 fL (80-100); Monocytes Absolute Auto 700 /uL (0-900); Monocytes Percent Auto 7.4 % (3-14); Neutrophils Absolute Auto 6900 /uL (1500-7000); Neutrophils Percent Auto 73.9 % (50-75); Platelet Count 212 X10^3/uL (150-400); Red Blood Cell Count 2.92 X10^6/uL (4.0-5.2); Red Cell Distribution Width 15.7 % (11.6-14.8); White Blood Cell Count 9.3 X10^3/uL (4.5-11.0)
[2018-11-17 05:04] LABS: BUN Creatinine Ratio 32.3 (6-22); Blood Urea Nitrogen 42 mg/dL (7-17); Calcium 7.8 mg/dL (8.4-10.2); Carbon Dioxide 28 mmol/L (22-32); Chloride 105 mmol/L (98-107); Estimated Glomerular Filt Rate 40.2 mL/min (>60); Glucose 80 mg/dL (80-110); HEMOLYSIS < 15 (0-50); Potassium 4.8 mmol/L (3.4-5.1); Sodium 139 mmol/L (137-145)
[2018-11-17 05:13] LABS: B Type Natriuretic Peptide 299 (<100)
[2018-11-17] MEDS: PANTOPRAZOLE 20 MG TABLET PO (06:36)
--- NOTE | 2018-11-17 06:50 | PC.NURSE ---
Patient has remained in SR, rate 60s-80s at rest, up to 110 briefly while up to BSC, scheduled PO metoprolol given Q6h, denies dizziness or shortness of breath.
[2018-11-17 07:00] VITALS: BP 110/57; PULSE 68; RESP 23; TEMP 36.6; O2SAT 98
[2018-11-17 08:02] VITALS: O2SAT 98
[2018-11-17] MEDS: CITALOPRAM 20 MG TABLET 40 MG PO (08:21)
[2018-11-17] MEDS: MULTIVITAMIN 1 TABLET 1 TAB PO (08:21)
[2018-11-17] MEDS: NICOTINE 21 MG PATCH TOP (08:21)
[2018-11-17] MEDS: predniSONE 10 MG TABLET 30 MG PO (08:21)
[2018-11-17] MEDS: MAGNESIUM OXIDE 400 MG TABLET PO (08:21)
[2018-11-17] MEDS: CALCIUM CARBONATE 600 MG TABLET 1200 MG PO (08:21)
[2018-11-17] MEDS: HEPARIN 5,000 UNIT/ML VIAL 5000 UNIT SUBCUT (08:21)
[2018-11-17] MEDS: SODIUM CHLORIDE 0.9% FLUSH 10 ML IV (08:23)
[2018-11-17] MEDS: FLUTICASONE/SALMETEROL 250/50 14 PUFF DISKUS INH (09:23)
[2018-11-17 09:25] VITALS: PULSE 71; RESP 18; O2SAT 98
--- NOTE | 2018-11-17 11:05 | CM.DPC ---
DCP Cont: Patient is to be discharged home today. Will go ahead and order home health through [facility], P.T, nursing, and O.T. Face to face already signed. Spoke to Beatrice, daughter CHLOE, and gave her update. Met briefly with patient regarding plan. Will fax over face to face and orders, along with History and Physical. Still awaiting discharge summary. Will update [facility]. P: Patient is to discharge home today with home health. Daughter will pick her up. Will follow up with [facility]. Kourtney Munoz RN/Community Integration Specialist
--- NOTE | 2018-11-17 12:09 | P.DS_ITS ---
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 Prior to ED presentation patient was being seen by her PCP who is recommending further evaluation in the ED. Patient presents out of concern for worsening dyspnea over the past 2 weeks w/ reported weight gain of 22 lbs. Associated symptoms include peripheral edema, orthopnea, dizziness, and generalized weakness. Symptoms progressively worsening. Dyspnea is exacerbated by activity / exertion. She is noted to have variable BPs at the PCPs office, as high as SBP 170s per patient's daughter, which is unusual. Denies fever, chills, chest pain, palpitations, syncopal events, and abdominal pain. Patient is known to have chronic diarrhea / loose stools secondary to prior jejunoileal bypass, this has not been worse from baseline. On 10/27 started on pulse course of prednisone 40 mg for presumed RA flair. On 11/11 started on course of lasix for suspected CHF. In the ED patient was found to be in AFIB RVR w/ signs of volume overload and severe electrolyte abnormality. On 10/27 patient was seen at [facility] ED, she was suspected to have a flare of her rheumatoid arthritis and discharged home on a 6 day pulse course of prednisone, 40 mg QD x6 days and asked to follow-up w/ PCP there after. Patient completed the course and followed up w/ her PCP on 11/07. At time of follow-up she noted resolution of her symptoms related to RA flair. She does note presence of mild peripheral edema. For unknown reasons, the prednisone therapy was continued. Patient presented to the ED on 11/11, now with dyspnea and lower extremity edema. She was noted to have symptoms of heart failure and was discharged home on Lasix. At that time she had elevated BNP from her baseline and a CXR that was unremarkable. Since ED discharge patient has continued to take both prednisone and lasix. She feels Lasix was partially helpful. Over the past week patient reports increase in weight of 1.5 lb per day. She states an overall weight increase of 22 lbs (116 to 138lbs) since 10/27. Discharge Providers Date of admission: 11/14/18 19:56 Discharge Date: 11/17/18 Primary care physician: Kang Lion MD Consults: 11/14/18 21:33 Consult to Dietitian, Adult Routine Comment: Reason For Exam: assessed at high risk 11/14/18 22:58 Consult to Respiratory Therapy Routine Comment: Physician Instructions: Evaluate and treat 11/17/18 10:46 Consult to Home Health Routine Comment: Reason For Exam: Nursing, P.T, O.T. Discharge provider: Carol Knox MD Summary Discharge Diagnosis: 1. Acute decompensated systolic heart failure, present on a dmission, ejection fracture mildly reduced at 45-55% 2. Atrial fibrillation with rapid ventricular response rate, resolved, patient now in sinus rhythm 3. COPD, chronic 4. Liver disease, chronic 5. Zavala's esophagitis, chronic 6. Chronic Renal Insufficiency 6. Anemia, chronic 7. Rheumatoid arthritis, chronic Hospital Course: Patient is a 72-year-old female who was admitted to the hospital for acute congestive heart failure. The patient reports a 22 lb weight gain over 7-10 days. She had started on Lasix as an outpatient however this had not made significant improvement. Patient was admitted to the hospital. She was found to be in atrial fibrillation with a rapid ventricular response rate. She received IV Lasix with significant improvement in diuresis. Her lower extremity edema improved. Her breathing improved. The patient was in atrial fibrillation and required a Cardizem drip. Her heart rate remained elevated at over 150 and she was switched to metoprolol. She was then switched to 25 twice daily of the metoprolol. The patient spontaneously converted to sinus rhythm and remained in sinus rhythm. She felt improved as her lower extremity edema had resolved. With her diuresis she developed hypomagnesemia, hypokalemia s evere cramping. Once her electrolytes were placed her symptoms resolved. The patient had an echocardiogram during her hospital stay. The echocardiogram revealed left ventricular systolic function mildly reduced with an ejection fraction estimated to be 45-55%. There was consider Ob to be very ability due to rapid atrial fibrillation and was apparently slightly less dynamic compared to her previous study. There was no obvious focal wall motion abnormality but poor endocardial definition. Left ventricular was normal in size. The right ventricle was at the upper limits of normal size and systolic function was mildly reduced. Right atrial pressure was 15 mm and slightly higher compared to previous study. The left atrium was severely dilated and right atrium mildly dilated. There was mild mitral regurgitation that was unchanged. Moderate to severe tricuspid regurgitation was noted and more prominent than her prior exam. Patient was noted to be in atrial fibrillation with a rate between 80 and 122. Status at Discharge Cognitive/behavioral status at discharge: oriented Functional status at discharge: independent ambulation Overall status at discharge: patient is back to baseline Time Spent with Patient Less than 30 minutes Exam Vital Signs (past 8 hours): - 11/17/18 04:40 11/17/18 07:00 11/17/18 08:02 Temperature 97.5 F L 97.8 F Pulse Rate 69 68 Respiratory Rate 19 23 Blood Pressure 108/62 110/57 L Pulse Oximetry 97 98 98 11/17/18 09:25 Temperature Pulse Rate 71 Respiratory Rate 18 Blood Pressure Pulse Oximetry 98 Oxygen Delivery Method Room Air Oxygen Flow Rate 0 Narrative Exam Narrative: Pleasant female resting comfortably in no obvious distress Lungs: Clear to auscultation Cardiac exam: Regular rate and rhythm normal S1-S2 Abdomen: Soft and nontender Extremities: No edema Psychiatric exam patient is awake alert and appropriate, she is oriented with no evidence of hallucinations. Objective Labs Result Diagrams: 11/17/18 04:40 11/17/18 04:40 Labs: Laboratory Results - last 24 hr 11/17/18 11/17/18 04:40 04:40 WBC 9.3 RBC 2.92 L Hgb 9.8 L Hct 29.1 L MCV 99.7 MCH 33.4 MCHC 33.5 RDW 15.7 H Plt Count 212 Neut % (Auto) 73.9 Lymph % (Auto) 18.1 L [place] % (Auto) 7.4 Eos % (Auto) 0.5 L Baso % (Auto) 0.1 Neut # (Auto) 6900 Lymph # (Auto) 1700 [place] # (Auto) 700 Eos # (Auto) 0 Baso # (Auto) 0 Sodium 139 Potassium 4.8 Chloride 105 Carbon Dioxide 28 BUN 42 H Creatinine 1.30 H Estimated GFR 40.2 L BUN/Creatinine Ratio 32.3 H Glucose 80 Calcium 7.8 L B-Natriuretic Peptide 299 H Discharge Plan Discharge Plan Patient Disposition: Home Discharge comment: follow up with Dr. Lion/Romel next week Discharge Med Rec/Prescriptions Prescriptions: New prednisone 10 mg Tablet 30 mg PO DAILY 7 Days RF: 0 citalopram 20 mg Tablet 40 mg PO DAILY 30 Days RF: 0 ferrous sulfate 325 mg (65 mg iron) Tablet 325 mg PO BEDTIME 30 Days RF: 0 metoprolol succinate 25 mg Tablet Extended Release 24 Hr 25 mg PO BID 30 Days Qty: 60 RF: 0 prednisone 10 mg tablet 20 mg PO DAILY 21 Days RF: 0 Continued calcium carbonate 500 mg calcium (1,250 mg) Capsule 1,200 mg PO DAILY RF: 0 fluticasone propion-salmeterol [Advair Diskus] 250-50 mcg/dose Blister With Device 1 inh INHALATION BID RF: 0 spironolactone 25 mg Tablet 25 mg PO DAILY RF: 0 omeprazole 20 mg Tablet,Delayed Release (Dr/Ec) 20 mg PO DAILY RF: 0 multivitamin 1 tab PO DAILY RF: 0 Discontinued prednisone 10 mg Tablet 40 mg PO DAILY RF: 0 potassium chloride 10 mEq Tablet Extended Release 10 meq PO DAILY RF: 0 metoprolol succinate 25 mg tablet extended release 24 hr 12.5 mg PO DAILY RF: 0 Follow up/Referrals: Kang Lion MD [Primary Care Provider] - Provider Discharge Instructions Diet: Low-sodium Diet comment: 2 gram sodium diet Activity: as tolerated Oxygen: not indicated Visit Report/Discharge Packet Instructions: DI for Heart Failure, DI for Atrial Fibrillation, Prednisone, Metoprolol Discharge Data Primary Care Provider: Kang Lion Attending Provider: Sierra Gonzalez Admit Date/Time: 11/14/18 19:56 Quality VTE Deep Vein Thrombosis/Pulmonary Embolism Present on Admission: No
== END 2018-11-17 14:45 | disposition home health service (06) | DRG 308 ==
LOC: ED 19:01 → ICU 11-15 08:33
PROVIDERS: Internal Medicine; Admitting Provider Nurse Practitioner Gerontology; Emergency Provider Emergency Medicine; PCP Internal Medicine; Visit Provider Nurse Practitioner Gerontology
DX: I48.2 Chronic atrial fibrillation (principal); I50.21 Acute systolic (congestive) heart failure; E43 Unspecified severe protein-calorie malnutrition; N17.9 Acute kidney failure, unspecified; K91.2 Postsurgical malabsorption, not elsewhere classified; E87.2 Acidosis; Z68.1 Body mass index [BMI] 19.9 or less, adult; E83.42 Hypomagnesemia; E87.6 Hypokalemia; J44.9 Chronic obstructive pulmonary disease, unspecified; F17.210 Nicotine dependence, cigarettes, uncomplicated; M35.3 Polymyalgia rheumatica
CPT/HCPCS: 36415; 36591; 71045; 80048; 80053; 80069; 81003; 82310; 82550; 83690; 83735; 83880; 84145; 84443; 84484; 85025; 85610; 85730; 87797; 93005; 93010; 93041; 93306; 94640; 94760; 96365; 96366; 96374; 96375; 99284; 99285; 99406; J0610; J1644; J1940; J2270; J2930; J3475; Q9957

== ENCOUNTER → 2018-12-11 18:47 | Outpatient (ROUT) | payer MEDICARE, SELFPAY ==
[2018-11-14 21:22] VITALS: BMI 18.8
[2018-12-11 19:00] LABS: Alanine Aminotransferase 37 IU/L (9-52); Albumin 3.7 g/dL (3.5-5.0); Albumin Globulin Ratio 1.5 (1.0-2.8); Alkaline Phosphatase 92 U/L (38-126); Aspartate Aminotransferase 26 IU/L (14-36); BUN Creatinine Ratio 23.3 (6-22); Bilirubin Total 0.7 mg/dL (0.2-1.3); Blood Urea Nitrogen 28 mg/dL (7-17); Carbon Dioxide 22 mmol/L (22-32); Chloride 107 mmol/L (98-107); Globulin 2.4 g/dL (1.7-4.1); Glucose 103 mg/dL (80-110); HEMOLYSIS < 15 (0-50); Potassium 4.2 mmol/L (3.4-5.1); Sodium 139 mmol/L (137-145); Total Protein 6.1 g/dL (6.3-8.2)
[2018-12-11 19:03] LABS: Add Manual Diff / Slide Review NO; Basophils Absolute Auto 0 /uL (0-100); Basophils Percent Auto 0.2 % (0-2); Eosinophils Absolute Auto 0 /uL (0-450); Eosinophils Percent Auto 0.6 % (2-4); Hematocrit 36.9 % (36-46); Lymphocytes Absolute Auto 1100 /uL (1100-4500); Lymphocytes Percent Auto 14.7 % (25-40); Mean Corpuscular HGB Conc 32.5 % (30-36); Mean Corpuscular Volume 101.6 fL (80-100); Monocytes Absolute Auto 500 /uL (0-900); Monocytes Percent Auto 6.3 % (3-14); Neutrophils Absolute Auto 5900 /uL (1500-7000); Neutrophils Percent Auto 78.2 % (50-75); Platelet Count 202 X10^3/uL (150-400); Red Blood Cell Count 3.64 X10^6/uL (4.0-5.2); Red Cell Distribution Width 16.7 % (11.6-14.8); White Blood Cell Count 7.5 X10^3/uL (4.5-11.0)
[2018-12-11 19:19] LABS: B Type Natriuretic Peptide 333 (<100)
[2018-12-11 19:22] LABS: Erythrocyte Sedimentation Rate 11 MM/HR (0-20)
== END ==
PROVIDERS: PCP Internal Medicine; Visit Provider Internal Medicine
DX: M35.3 Polymyalgia rheumatica (principal); K76.9 Liver disease, unspecified; I50.23 Acute on chronic systolic (congestive) heart failure
CPT/HCPCS: 80053; 83880; 85025; 85651

== ENCOUNTER 2019-02-14 10:37 | Inpatient (IN) | payer MEDICARE, SELFPAY ==
[2018-11-14 21:22] VITALS: BMI 18.8
[2019-02-14] VITALS (50 sets, daily range): BP systolic 50–102; BP diastolic 23–71; PULSE 77–139; RESP 14–35; TEMP 36.2–39.3; O2SAT 75–100; BMI 19.5; BMI 20.7
--- NOTE | 2019-02-14 | DI.US.S_ITS ---
PROCEDURE: US EXTREMITY NONVASC UPPER LT INDICATIONS: PALP LUMP LEFT FOREARM, ?HEMATOMA VS ABSCESS TECHNIQUE: Real-time scanning was performed of the left forearm, with image documentation. COMPARISON: [facility], , US EXTREMELY NONVASC UPPER RT, 02/14/2019, 16:12. FINDINGS: Scanning is performed of the area of clinical concern involving the left forearm at the area of the swelling, pain, and a palpable lump. Soft tissue edema is seen, yet without focal fluid collections. Mildly increased generalized vascularity can be seen. No soft tissue masses are seen. IMPRESSION: Soft tissue edema, without an abscess identified. Dictated by: Montrell Bourne M.D. on 02/14/2019 at 16:42 Approved by: Montrell Bourne M.D. on 02/14/2019 at 16:43
--- NOTE | 2019-02-14 10:43 | DI.RAD.S_ITS ---
PROCEDURE: XR CHEST 1V INDICATIONS: hypotensive TECHNIQUE: One view of the chest was acquired. COMPARISON: [facility], CR, XR CHEST 1V, 11/14/2018, 18:27. FINDINGS: Surgical changes and devices: None. Lungs and pleura: Lungs are clear. No pleural effusions or pneumothorax. Mediastinum: Mediastinal contours appear normal. Heart size is normal. Bones and chest wall: No suspicious bony lesions. 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 The degree of degenerative changes of the spine and shoulders are unchanged. Overlying soft tissues appear unremarkable. IMPRESSION: Stable chest. No acute cardiopulmonary process is evident. Dictated by: Maximilian Dial M.D. on 02/14/2019 at 10:11 Approved by: Maximilian Dial M.D. on 02/14/2019 at 10:14
[2019-02-14] MEDS: SODIUM CHLORIDE 0.9% 1,000 ML 1000 ML IV (11:17)
[2019-02-14 11:20] LABS: Ammonia (NH3) < 9.0 umol/L (9-30)
--- NOTE | 2019-02-14 11:23 | DI.RAD.S_ITS ---
PROCEDURE: XR CHEST 1V INDICATIONS: line placement TECHNIQUE: One view of the chest was acquired. COMPARISON: [facility], CR, XR CHEST 1V, 02/14/2019, 10:47. FINDINGS: Surgical changes and devices: There is a left-sided central line catheter identified with the tip overlying the mid superior vena cava. Lungs and pleura: Lungs are clear. No pleural effusions or pneumothorax. Mediastinum: Mediastinal contours appear normal. Heart size is normal. Bones and chest wall: No suspicious bony lesions. Overlying soft tissues appear unremarkable. IMPRESSION: Left-sided PICC line catheter is positioned with the tip overlying the superior vena cava. No pneumothorax. Dictated by: Maximilian Dial M.D. on 02/14/2019 at 10:39 Approved by: Maximilian Dial M.D. on 02/14/2019 at 10:39
--- NOTE | 2019-02-14 11:27 | ED_ITS ---
HPI - Fever General Chief Complaint: Fever Stated Complaint: Low BP Time Seen by Provider: 02/14/19 10:43 Source: family and EMS Mode of arrival: EMS History of Present Illness HPI Narrative: Patient is 73-year-old female history of COPD, CHF and atrial fibrillation presenting with a significant weakness. Found in the field to have a blood pressure in the 50s. Started IV fluids and given 1 dose of pushed dose at the by EMS. Patient states she started to not feel well last night she was able to call her daughter in-law this morning what daughter in-law saw her immediately called 911 because she was extremely weak. She seems to be complaining of arm pain she has some minimal swelling and ?bumps on both arms. There is no erythema no streaking no drainage. She denies any cough she feels like her abdomen is swollen, no painful or frequent urination MD complaint: fever, malaise and weakness Related Data Home Medications Medication Instructions Recorded Confirmed multivitamin 1 tab PO DAILY #0 04/05/18 02/14/19 fluticasone propion-salmeterol 1 inh INHALATION BID 11/14/18 02/14/19 [Advair Diskus] omeprazole 20 mg PO DAILY 11/14/18 02/14/19 spironolactone 25 mg PO DAILY 11/14/18 02/14/19 Calcium 1,200 mg PO DAILY 02/14/19 02/14/19 albuterol sulfate [ProAir HFA] 2 puff INHALATION Q4H PRN 02/14/19 02/14/19 cholecalciferol (vitamin D3) 2,000 unit PO DAILY 02/14/19 02/14/19 [Vitamin D3] citalopram 40 mg PO DAILY 02/14/19 02/14/19 ferrous sulfate 325 mg PO BEDTIME 02/14/19 02/14/19 furosemide 20 mg PO DAILY 02/14/19 02/14/19 ipratropium-albuterol 3 ml INHALATION Q4H PRN 02/14/19 02/14/19 metoprolol succinate 25 mg PO BID 02/14/19 02/14/19 mupirocin 1 applic TOPICAL TID PRN 02/14/19 02/14/19 potassium chloride 10 meq PO DAILY 02/14/19 02/14/19 warfarin 5 mg PO DAILY 02/14/19 02/14/19 Allergies Allergy/AdvReac Type Severity Reaction Status Date / Time bacitracin Allergy Unknown Verified 11/11/18 09:14 [From NEOSPORIN ([id number])] neomycin Allergy Unknown Verified 11/11/18 09:14 [From NEOSPORIN ([id number])] polymyxin B Allergy Unknown Verified 11/11/18 09:14 [From NEOSPORIN ([id number])] ceftriaxone [CEFTRIAXONE] AdvReac Mild loss of Verified 11/11/18 09:14 memory and lethargy Review of Systems Review of Systems ROS Unobtainable: All systems reviewed & are unremarkable except as noted in HPI and below Constitutional Constitutional: Reports body ache(s) and Reports fatigue Cardiovascular Cardiovascular: Denies chest pain, Reports rapid heart rate, Denies dyspnea and Denies dyspnea on exertion Respiratory Respiratory: Denies cough, Denies dyspnea, Denies dyspnea on exertion and Denies wheezing Gastrointestinal Gastrointestinal: Reports as per HPI Genitourinary Genitourinary: Denies hematuria, Denies flank pain, Denies urinary incontinence and Denies urinary urgency Musculoskeletal Musculoskeletal: Denies back pain, Denies muscle weakness, Denies numbness and Denies tingling Integumentary/Breasts Skin/Breast: Denies pruritus, Denies erythema, Denies rash and Denies wounds Neurologic Neurologic: Denies numbness and Denies tingling Endocrine Endocrine: Reports fatigue Allergic/Immunologic Allergic/Immunologic: Denies wheezing [facility] Medical History Atrial fibrillation (Chronic) Barretts esophagus (Acute) Chronic diarrhea (Chronic) Chronic renal insufficiency (Chronic) COPD (chronic obstructive pulmonary disease) (Chronic) GERD (gastroesophageal reflux disease) (Chronic) History of anemia (Chronic) History of hepatic failure (Chronic) History of polymyalgia rheumatica (Chronic) Liver disease, chronic (Acute) Surgical History Gastric bypass status for obesity (Acute) Status post intestinal bypass (Resolved) Family History (Updated 02/14/19 @ 14:29 by Carol Knox MD) Mother No known health problems Father No known health problems Brother Colon cancer Acute renal failure Social History household members: none Smoking Status: Current every day smoker alcohol intake: former Family History Mother No known health problems Father No known health problems Brother Colon cancer Acute renal failure Social History household members: none Smoking Status: Current every day smoker alcohol intake: former Exam Initial Vital Signs Initial Vital Signs: Vital Signs Temperature 99.4 F 02/14/19 10:42 Pulse Rate 125 H 02/14/19 10:42 Respiratory Rate 27 H 02/14/19 10:42 Blood Pressure 74/47 L 02/14/19 10:42 Pulse Oximetry 97 02/14/19 10:42 Gen.: Alert week elderly female HEENT: Head is atraumatic, EOMI, no JVD Neck: Supple no JVD Lungs: Clear bilaterally, no rales or rhonchi Cardiac: Regular rate and rhythm no S1 or S2 Abdomen: Soft no tenderness, no erythema. Extremities: No gross bony deformities peripheral pulses intact. Arms to have mild swelling non erythematous very tender to touch Neurologic: A&O x3. 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 strength equal bilaterally moving toe Procedures Central Line Placement Left SC: Time Out Performed: Yes Patient Placed on Monitor/Pulse Ox: Yes MD Prep: mask Central Line Prep: Chlorhexidine scrub and sterile drapes applied Local Anesthetic: lidocaine 1% Central Line Lumen Inserted: triple Post Procedure: sutured in place, good blood return, all ports aspirated, flushed, capped and sterile dressing applied Post Procedure X-Ray: tip of catheter in good position and no pneumothorax seen Patient Tolerated Procedure: Well Complications: none Scores GCS Dorothy coma scale eye opening: Spontaneous [place] coma scale verbal response: Confused Dorothy coma scale motor response: Obey commands [place] coma scale total score: 14 qSOFA Altered Mental Status (GCS <15): Yes Respiratory rate greater than/equal to 22: Yes Systolic blood pressure less than or equal to 100: Yes qSOFA Total: 3 0-1 Not High Risk 1-3 High risk Course Orders Ordered: ED Orders 02/14/19 10:43 XR chest 1V Stat 02/14/19 10:46 EKG-12 Lead Stat 02/14/19 11:02 Ammonia (NH3) Stat Blood Culture Stat Lactate (Lactic Acid) Stat 02/14/19 11:10 B Type Natriuretic Peptide Stat Complete Blood Count AUTO DIFF Stat Comprehensive Metabolic Panel Stat Lipase Stat Partial Thromboplastin Time Stat Procalcitonin Stat Prothrombin Time INR Stat Troponin & CK Cardiac Panel Stat 02/14/19 11:23 XR chest 1V Stat Acetaminophen (Tylenol) 650 mg PO Q6HR PRN PRN Reason: As Needed for Fever/Mild Pain Last Admin: 02/14/19 16:40 Dose: 650 mg Documented by: TCOLE Albuterol/Ipratropium (Duoneb) 3 ml INH [id number] EMILE Last Admin: 02/14/19 14:38 Dose: 3 ml Documented by: VANDANA Hydrocortisone (Solu-Cortef) 100 mg IV Q6HR EMILE Norepinephrine Bitartrate 4 mg (/ Dextrose) 254 mls @ 30.48 mls/hr IV TITRATE EMILE; Protocol Last Admin: 02/14/19 17:18 Dose: 14 mcg/min, 53.34 mls/hr Documented by: Titration: 02/14/19 17:18 Dose: 14 mcg/min, 53.34 mls/hr Documented by: Titration: 02/14/19 17:06 Dose: 14 mcg/min, 53.34 mls/hr Documented by: Titration: 02/14/19 16:45 Dose: 12 mcg/min, 45.72 mls/hr Documented by: Titration: 02/14/19 15:26 Dose: 14 mcg/min, 53.34 mls/hr Documented by: Titration: 02/14/19 13:18 Dose: 12 mcg/min, 45.72 mls/hr Documented by: Titration: 02/14/19 13:15 Dose: 0 mcg/min, 0 mls/hr Documented by: Titration: 02/14/19 12:27 Dose: 10 mcg/min, 38.1 mls/hr Documented by: Admin: 02/14/19 12:06 Dose: 8 mcg/min, 30.48 mls/hr Documented by: RICKYTONTram Piperacillin/Tazobactam/Dextrose (Zosyn) 2.25 gm in 50 mls @ 100 mls/hr IV Q8H EMILE Lactated Ringer's (Lactated Ringers) 1,000 mls @ 150 mls/hr IV CONT [facility] Last Admin: 02/14/19 15:47 Dose: 150 mls/hr Documented by: HARSHA Vancomycin HCl/Dextrose (Vancomycin) 750 mg in 150 mls @ 150 mls/hr IV Q24H [facility] Lactated Ringer's (Lactated Ringers) 1,000 mls @ 1,000 mls/hr IV BOLUS ONE Stop: 02/14/19 18:10 Last Admin: 02/14/19 17:15 Dose: 999 mls/hr Documented by: HARSHA Metoclopramide HCl (Reglan) 10 mg IV Q6HR PRN PRN Reason: Nausea And Vomiting Morphine Sulfate (Morphine) 2 mg IV Q4HR PRN PRN Reason: Pain, Moderate (4-6) Naloxone HCl (Narcan) 0.2 mg IV Q2MIN PRN PRN Reason: Opiate Reversal Fluticasone/Salmeterol (Advair 500/50 Diskus) 1 puff INH RTBID [facility] Vancomycin HCl (Vancomycin Trough) 1 request MISC 1130 [facility] Stop: 02/17/19 11:31 Discontinued Medications Sodium Chloride (Normal Saline 0.9%) 1,000 mls @ 1,000 mls/hr IV BOLUS ONE Stop: 02/14/19 12:05 Last Infusion: 02/14/19 11:52 Dose: 0 mls/hr Documented by: Admin: 02/14/19 11:17 Dose: 1,000 mls/hr Documented by: GÓMEZ Lactated Ringer's (Lactated Ringers) 500 mls @ 1,636 mls/hr IV CONT [facility] Last Infusion: 02/14/19 12:40 Dose: 0 mls/hr Documented by: Admin: 02/14/19 11:53 Dose: 1,636 mls/hr Documented by: SHAUNA Piperacillin/Tazobactam/Dextrose (Zosyn) 3.375 gm in 50 mls @ 100 mls/hr IV NOW ONE Stop: 02/14/19 12:21 Last Infusion: 02/14/19 12:29 Dose: 0 mls/hr Documented by: Admin: 02/14/19 12:02 Dose: 100 mls/hr Documented by: SHAUNA Vancomycin HCl (Vancomycin) 1,000 mg in 200 mls @ 200 mls/hr IV NOW ONE Stop: 02/14/19 12:51 Last Infusion: 02/14/19 13:13 Dose: 0 mls/hr Documented by: Admin: 02/14/19 12:03 Dose: 200 mls/hr Documented by: SHAUNA Lactated Ringer's (Lactated Ringers) 1,000 mls @ 1,000 mls/hr IV BOLUS ONE Stop: 02/14/19 13:40 Last Infusion: 02/14/19 13:12 Dose: 0 mls/hr Documented by: Admin: 02/14/19 12:43 Dose: 1,000 mls/hr Documented by: SHAUNA Famotidine (Pepcid) 20 mg in 50 mls @ 200 mls/hr IV Q12HR EMILE Lactated Ringer's (Lactated Ringers) 500 mls @ 1,000 mls/hr IV BOLUS ONE Stop: 02/14/19 15:54 Last Admin: 02/14/19 17:13 Dose: Not Given Documented by: HARSHA Lactated Ringer's (Lactated Ringers) 1,000 mls @ 1,000 mls/hr IV BOLUS ONE Stop: 02/14/19 16:24 Last Infusion: 02/14/19 17:12 Dose: 0 mls/hr Documented by: Admin: 02/14/19 15:49 Dose: 999 mls/hr Documented by: HARSHA Pantoprazole Sodium (Protonix) 20 mg PO NOW ONE Stop: 02/14/19 14:11 Last Admin: 02/14/19 15:48 Dose: 20 mg Documented by: HARSHA Vancomycin HCl (Vancomycin Per Pharmacy) 1 request MISC NOW ONE Stop: 02/14/19 14:07 Last Admin: 02/14/19 17:13 Dose: Not Given Documented by: HARSHA Vital Signs Vital signs: Vital Signs - 8 hr 02/14/19 10:42 02/14/19 10:47 02/14/19 11:02 Temperature 99.4 F 99.4 F Pulse Rate 125 H 133 H 120 H Respiratory Rate 27 H 18 18 Blood Pressure 65/38 L Blood Pressure [Right Arm] 74/47 L 52/23 L Pulse Oximetry 97 99 98 02/14/19 11:16 02/14/19 11:18 02/14/19 11:45 Temperature Pulse Rate 112 H 115 H Respiratory Rate 28 H 27 H Blood Pressure Blood Pressure [Right Arm] 93/50 L 93/50 L 50/30 L Pulse Oximetry 99 99 02/14/19 11:47 02/14/19 11:50 02/14/19 11:54 Temperature 99.4 F Pulse Rate 119 H 112 H 115 H Respiratory Rate 26 H 27 H Blood Pressure 65/38 L Blood Pressure [Right Arm] 80/53 L 66/23 L Pulse Oximetry 98 98 99 02/14/19 11:55 Temperature Pulse Rate 109 H Respiratory Rate Blood Pressure Blood Pressure [Right Arm] 91/47 L Pulse Oximetry 98 MDM - Fever Lab Data Attestation: I reviewed the patient's lab results. Result diagrams: 02/14/19 13:35 02/14/19 13:35 Labs: Lab Results 02/14/19 02/14/19 02/14/19 Range/Units 11:02 11:02 11:10 WBC (4.5-11.0) X10^3/uL RBC (4.0-5.2) X10^6/uL Hgb (12.0-16.0) g/dL Hct (36-46) % MCV (80-100) fL MCH (26-34) PG MCHC (30-36) % RDW (11.6-14.8) % Plt Count (150-400) X10^3/uL Neut % (Auto) Lymph % (Auto) [place] % (Auto) Eos % (Auto) Baso % (Auto) Lymph # (Auto) [place] # (Auto) Baso # (Auto) Total Counted Seg Neutrophils % (38-70) % Band Neutrophils % (3-7) % Lymphocytes % (Manual) (25-45) % Atypical Lymphs % ( - 0) % Monocytes % (Manual) (2-11) % Metamyelocytes % (-0) % Neutrophils # (Manual) (7811-2544) /uL RBC Morphology PT 24.7 H (10.1-12.7) SECONDS INR 2.1 H (0.9-1.3) APTT 19 L D (26.4-36.2) SECONDS Sodium (137-145) mmol/L Potassium (3.4-5.1) mmol/L Chloride (98-107) mmol/L Carbon Dioxide (22-32) mmol/L BUN (7-17) mg/dL Creatinine (0.52-1.04) mg/dL Estimated GFR (>60) mL/min BUN/Creatinine Ratio (6-22) Glucose (80-110) mg/dL Lactate 5.5 H* (0.7-2.1) mmol/L Calcium (8.4-10.2) mg/dL Total Bilirubin (0.2-1.3) mg/dL AST (14-36) IU/L ALT (9-52) IU/L Alkaline Phosphatase (38-126) U/L Ammonia < 9.0 L (9-30) umol/L Total Creatine Kinase (30-135) U/L CK-MB (CK-2) (<2.37) ng/mL CK-MB (CK-2) Rel Index (1.5-5.0) % Troponin I (0.01-0.034) ng/mL B-Natriuretic Peptide (<100) Total Protein (6.3-8.2) g/dL Albumin (3.5-5.0) g/dL Globulin (1.7-4.1) g/dL Albumin/Globulin Ratio (1.0-2.8) Lipase (23-300) U/L Procalcitonin (<0.5) ng/mL Urine Color Urine Appearance Urine pH (4.5-8.0) Ur Specific [place] (1.000-1.035) Urine Protein (Negative) Urine Glucose (UA) (Negative) g/dL Urine Ketones (NEGATIVE) Urine Occult Blood (Negative) Urine Nitrate (Negative) Urine Bilirubin (NEGATIVE) Urine Urobilinogen (0.2) E.U./dL Ur Leukocyte Esterase (NEGATIVE) Urine RBC (0-5/HPF) Urine WBC (0-5/HPF) Ur Squamous Epith Cells (0-5/HPF) Urine Bacteria (None) Ur Culture Indicated? 02/14/19 02/14/19 02/14/19 Range/Units 11:10 11:10 11:10 WBC 18.9 H (4.5-11.0) X10^3/uL RBC 4.03 (4.0-5.2) X10^6/uL Hgb 13.4 (12.0-16.0) g/dL Hct 40.4 (36-46) % MCV 100.3 H (80-100) fL MCH 33.2 (26-34) PG MCHC 33.1 (30-36) % RDW 14.3 (11.6-14.8) % Plt Count 297 (150-400) X10^3/uL Neut % (Auto) Not Reportable Lymph % (Auto) Not Reportable [place] % (Auto) Not Reportable Eos % (Auto) Not Reportable Baso % (Auto) Not Reportable Lymph # (Auto) Not Reportable [place] # (Auto) Not Reportable Baso # (Auto) Not Reportable Total Counted 100 Seg Neutrophils % 60.0 (38-70) % Band Neutrophils % 23.0 H (3-7) % Lymphocytes % (Manual) 5.0 L (25-45) % Atypical Lymphs % 1.0 H ( - 0) % Monocytes % (Manual) 5.0 (2-11) % Metamyelocytes % 6.0 H (-0) % Neutrophils # (Manual) 31562 H (5511-0426) /uL RBC Morphology Normal morphology PT (10.1-12.7) SECONDS INR (0.9-1.3) APTT (26.4-36.2) SECONDS Sodium (137-145) mmol/L Potassium (3.4-5.1) mmol/L Chloride (98-107) mmol/L Carbon Dioxide (22-32) mmol/L BUN (7-17) mg/dL Creatinine (0.52-1.04) mg/dL Estimated GFR (>60) mL/min BUN/Creatinine Ratio (6-22) Glucose (80-110) mg/dL Lactate (0.7-2.1) mmol/L Calcium (8.4-10.2) mg/dL Total Bilirubin (0.2-1.3) mg/dL AST (14-36) IU/L ALT (9-52) IU/L Alkaline Phosphatase (38-126) U/L Ammonia (9-30) umol/L Total Creatine Kinase 101 (30-135) U/L CK-MB (CK-2) 1.19 (<2.37) ng/mL CK-MB (CK-2) Rel Index 1.2 L (1.5-5.0) % Troponin I 0.031 (0.01-0.034) ng/mL B-Natriuretic Peptide 503 H (<100) Total Protein (6.3-8.2) g/dL Albumin (3.5-5.0) g/dL Globulin (1.7-4.1) g/dL Albumin/Globulin Ratio (1.0-2.8) Lipase (23-300) U/L Procalcitonin (<0.5) ng/mL Urine Color Urine Appearance Urine pH (4.5-8.0) Ur Specific [place] (1.000-1.035) Urine Protein (Negative) Urine Glucose (UA) (Negative) g/dL Urine Ketones (NEGATIVE) Urine Occult Blood (Negative) Urine Nitrate (Negative) Urine Bilirubin (NEGATIVE) Urine Urobilinogen (0.2) E.U./dL Ur Leukocyte Esterase (NEGATIVE) Urine RBC (0-5/HPF) Urine WBC (0-5/HPF) Ur Squamous Epith Cells (0-5/HPF) Urine Bacteria (None) Ur Culture Indicated? 02/14/19 02/14/19 02/14/19 Range/Units 11:10 11:10 12:10 WBC (4.5-11.0) X10^3/uL RBC (4.0-5.2) X10^6/uL Hgb (12.0-16.0) g/dL Hct (36-46) % MCV (80-100) fL MCH (26-34) PG MCHC (30-36) % RDW (11.6-14.8) % Plt Count (150-400) X10^3/uL Neut % (Auto) Lymph % (Auto) [place] % (Auto) Eos % (Auto) Baso % (Auto) Lymph # (Auto) [place] # (Auto) Baso # (Auto) Total Counted Seg Neutrophils % (38-70) % Band Neutrophils % (3-7) % Lymphocytes % (Manual) (25-45) % Atypical Lymphs % ( - 0) % Monocytes % (Manual) (2-11) % Metamyelocytes % (-0) % Neutrophils # (Manual) (9228-6516) /uL RBC Morphology PT (10.1-12.7) SECONDS INR (0.9-1.3) APTT (26.4-36.2) SECONDS Sodium 139 (137-145) mmol/L Potassium 3.3 L (3.4-5.1) mmol/L Chloride 111 H (98-107) mmol/L Carbon Dioxide 16 L (22-32) mmol/L BUN 32 H (7-17) mg/dL Creatinine 2.40 H (0.52-1.04) mg/dL Estimated GFR 19.7 L (>60) mL/min BUN/Creatinine Ratio 13.3 (6-22) Glucose 69 L (80-110) mg/dL Lactate (0.7-2.1) mmol/L Calcium 7.4 L (8.4-10.2) mg/dL Total Bilirubin 1.3 (0.2-1.3) mg/dL AST 26 (14-36) IU/L ALT 21 (9-52) IU/L Alkaline Phosphatase 54 (38-126) U/L Ammonia (9-30) umol/L Total Creatine Kinase (30-135) U/L CK-MB (CK-2) (<2.37) ng/mL CK-MB (CK-2) Rel Index (1.5-5.0) % Troponin I (0.01-0.034) ng/mL B-Natriuretic Peptide (<100) Total Protein 5.0 L (6.3-8.2) g/dL Albumin 2.5 L (3.5-5.0) g/dL Globulin 2.5 (1.7-4.1) g/dL Albumin/Globulin Ratio 1.0 (1.0-2.8) Lipase 38 (23-300) U/L Procalcitonin 29.14 H (<0.5) ng/mL Urine Color Yellow Urine Appearance Cloudy Urine pH 5.0 (4.5-8.0) Ur Specific [place] 1.015 (1.000-1.035) Urine Protein 3+ H (Negative) Urine Glucose (UA) Negative (Negative) g/dL Urine Ketones Trace H (NEGATIVE) Urine Occult Blood Trace-intact (Negative) Urine Nitrate Negative (Negative) Urine Bilirubin Negative (NEGATIVE) Urine Urobilinogen 0.2 (0.2) E.U./dL Ur Leukocyte Esterase 2+ H (NEGATIVE) Urine RBC 1-5/hpf (0-5/HPF) Urine WBC >100/hpf H (0-5/HPF) Ur Squamous Epith Cells 1-5 /hpf (0-5/HPF) Urine Bacteria Many (>30) H (None) Ur Culture Indicated? Specimen cultured Imaging Data Chest x-ray: Radiologist's impression: PROCEDURE: XR CHEST 1V INDICATIONS: hypotensive TECHNIQUE: One view of the chest was acquired. COMPARISON: [facility], XR CHEST 1V, 11/14/2018, 18:27. FINDINGS: Surgical changes and devices: None. Lungs and pleura: Lungs are clear. No pleural effusions or pneumothorax. Mediastinum: Mediastinal contours appear normal. Heart size is normal. Bones and chest wall: No suspicious bony lesions. 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 The degree of degenerative changes of the spine and shoulders are unchanged. Overlying soft tissues appear unremarkable. IMPRESSION: Stable chest. No acute cardiopulmonary process is evident. Dictated by: Maximilian Dial M.D. on 02/14/2019 at 10:11 Approved by: Maximilian Dial M.D. on 02/14/2019 at 10:14 chest xr #2: Radiologist's impression: PROCEDURE: XR CHEST 1V INDICATIONS: line placement TECHNIQUE: One view of the chest was acquired. COMPARISON: [facility], XR CHEST 1V, 02/14/2019, 10:47. FINDINGS: Surgical changes and devices: There is a left-sided central line catheter identified with the tip overlying the mid superior vena cava. Lungs and pleura: Lungs are clear. No pleural effusions or pneumothorax. Mediastinum: Mediastinal contours appear normal. Heart size is normal. Bones and chest wall: No suspicious bony lesions. Overlying soft tissues appear unremarkable. IMPRESSION: Left-sided PICC line catheter is positioned with the tip overlying the superior vena cava. No pneumothorax. Dictated by: Maximilian Dial M.D. on 02/14/2019 at 10:39 ECG Data Attestation: I personally reviewed and interpreted this ECG as follows: Prior ECG tracings: available for review Interpretation: Min sinus tachycardia rate 115 p.r. interval 133 MDM Narrative Medical decision making narrative: Patient blood pressure continues to decreased despite IV fluids and pushed does apnea. Central line placed for presumed septic shock. X-ray does not show fluid overload. Lungs are clear. I do not believe this to be CHF. She has low-grade fever. She is started on sepsis protocol IV fluids, started on broad-spectrum antibiotics Zosyn and vancomycin she does have a history of MRSA. She is started on Levophed while she is hydrated. Qureshi catheter placed minimal urine output. Significant elevation of lactic acid of 5.5. [id number] at bedside, central line placed emergently, full code. Patient complains mostly of her arms every time there touch there quite painful. I do not see any erythema or signs of infection. , has been updated on patient's symptoms and test results. Awaiting UA results however Qureshi catheter placed. Patient will be going to the ICU Critical Care Time Critical Care Time Critical Care Time: Yes Total Critical Care Time: 60 Attestation: The high probability of a clinically significant, sudden or life threatening deterioration of the [cardiovascular] system(s) required my full and direct attention, intervention and personal management. The aggregate critical care time was 60 minutes. This time is in addition to time spent performing reported procedures but includes the following: [x] Data Review and interpretation [x] Patient assessment and monitoring of vital signs [x] Documentation [x] Medication orders and management Discharge Plan Departure Patient Disposition: Admitted As Inpatient Clinical Impression: Septic shock Discharge Date/Time: 02/14/19 13:18 Admit Date/Time: 02/14/19 12:13 Admit Provider: Carol Knox
[2019-02-14 11:36] LABS: INR 2.1 (0.9-1.3); Prothrombin Time 24.7 SECONDS (10.1-12.7)
[2019-02-14 11:39] LABS: Hematocrit 40.4 % (36-46); Hemoglobin 13.4 g/dL (12.0-16.0); Mean Corpuscular HGB Conc 33.1 % (30-36); Mean Corpuscular Hemoglobin 33.2 PG (26-34); Mean Corpuscular Volume 100.3 fL (80-100); PTT Partial Thromboplastin Tim 19 SECONDS (26.4-36.2); Platelet Count 297 X10^3/uL (150-400); Red Blood Cell Count 4.03 X10^6/uL (4.0-5.2); Red Cell Distribution Width 14.3 % (11.6-14.8)
[2019-02-14 11:41] LABS: Add Manual Diff / Slide Review YES; White Blood Cell Count 18.9 X10^3/uL (4.5-11.0)
[2019-02-14 11:43] LABS: Creatine Kinase 101 U/L (30-135)
[2019-02-14 11:44] LABS: Alanine Aminotransferase 21 IU/L (9-52); Albumin 2.5 g/dL (3.5-5.0); Alkaline Phosphatase 54 U/L (38-126); Aspartate Aminotransferase 26 IU/L (14-36); BUN Creatinine Ratio 13.3 (6-22); Bilirubin Total 1.3 mg/dL (0.2-1.3); Blood Urea Nitrogen 32 mg/dL (7-17); Calcium 7.4 mg/dL (8.4-10.2); Carbon Dioxide 16 mmol/L (22-32); Chloride 111 mmol/L (98-107); Estimated Glomerular Filt Rate 19.7 mL/min (>60); Globulin 2.5 g/dL (1.7-4.1); Glucose 69 mg/dL (80-110); HEMOLYSIS 32 (0-50); Lipase 38 U/L (23-300); Potassium 3.3 mmol/L (3.4-5.1); Sodium 139 mmol/L (137-145)
[2019-02-14 11:45] LABS: Lactate (Lactic Acid) 5.5 mmol/L (0.7-2.1)
[2019-02-14 11:48] LABS: B Type Natriuretic Peptide 503 (<100)
[2019-02-14] MEDS: LACTATED RINGERS 500 ML 1636 ML IV (11:53)
[2019-02-14 11:56] LABS: Troponin I 0.031 ng/mL (0.01-0.034)
[2019-02-14 11:58] LABS: CKMB % Relative Index 1.2 % (1.5-5.0); Creatine Kinase MB 1.19 ng/mL (<2.37); Procalcitonin 29.14 ng/mL (<0.5)
[2019-02-14] MEDS: PIPERACILLIN-TAZO 3.375 GM/50 ML FROZ.PIGGY IV (12:02)
[2019-02-14] MEDS: VANCOMYCIN 1,000 MG/200 ML PIGGYBACK 200 MG IV (12:03)
[2019-02-14] MEDS: NOREPINEPHRINE 4 MG in DEXTROSE 5% IN WATER 250 ML 30.48 ML IV (12:06)
[2019-02-14 12:22] LABS: Neutrophils Absolute Manual 15687 /uL (3000-5900); Total Cells Counted 100
[2019-02-14 12:24] LABS: RBC Morphology Normal Morphology
[2019-02-14 12:36] LABS: Appearance Urine UA CLOUDY; Bilirubin Urine UA NEGATIVE (NEGATIVE); Color Urine UA YELLOW; Glucose Urine UA NEGATIVE (Negative); Ketones Urine UA TRACE (NEGATIVE); Leukocyte Esterase Urine UA 2+ (NEGATIVE); Nitrite Urine UA NEGATIVE (Negative); Occult Blood Urine UA TRACE-INTACT (Negative); Protein Urine UA 3+ (Negative); Specific Gravity Urine UA 1.015 (1.000-1.035); Urobilinogen Urine UA 0.2 E.U./dL (0.2)
[2019-02-14 12:41] LABS: Bacteria Urine Many (>30); Culture Indicated Urine Specimen Cultured; RBC Urine 1-5/HPF (0-5/HPF); Squamous Epithelial Cell Urine 1-5 /HPF (0-5/HPF); WBC Urine >100/HPF (0-5/HPF)
[2019-02-14] MEDS: LACTATED RINGERS 1,000 ML 1000 ML IV (12:43)
--- NOTE | 2019-02-14 12:50 | PC.NURSE ---
pt arrived to Er with mottled skin, b/l pain in both arms with large lumps. daughter in law reports that the lumps started yesterday. dr. Hua aware
[2019-02-14 13:07] LABS: Reflexed Lactate in 2 Hours Y
--- NOTE | 2019-02-14 13:22 | PC.NURSE ---
transfer to ICU with Norepinephrine gtt.
[2019-02-14 13:34] LABS: Influenza A and B by PCR Rapid Negative (Negative)
[2019-02-14 13:54] LABS: Lactate 2HR (Lactic Acid Rflx) 3.1 mmol/L (0.7-2.1)
--- NOTE | 2019-02-14 14:12 | DI.US.S_ITS ---
PROCEDURE: US EXTREMELY NONVASC UPPER RT INDICATIONS: PALP LUMP RIGHT FOREARM, ?HEMATOMA VS ABSCESS TECHNIQUE: Real-time scanning was performed of the right elbow region, with image documentation. COMPARISON: [facility], , EXTREMITY NONVASC UPPER LT, 02/14/2019, 16:05. FINDINGS: Scanning is performed at the area of clinical concern involving the right lateral posterior lower arm, within the region of the elbow. Generalized edema is seen. Mildly increased vascularity can be seen. No focal fluid collections are seen. No soft tissue masses can be seen. IMPRESSION: Soft tissue edema is seen, without drainable abscess. Dictated by: Montrell Bourne M.D. on 02/14/2019 at 16:43 Approved by: Montrell Bourne M.D. on 02/14/2019 at 16:44
--- NOTE | 2019-02-14 14:24 | PM.HP.1 ---
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 According to the patient and her family she was in her usual state of health until last evening 1 day prior to admission. Patient reported pain in her upper extremities. She texted the picture to her daughter which showed some swelling of the forearms on the left. This morning her daughter in-law called to check on her when the patient stated she was unable to get out of bed. She was brought into the emergency department. The patient was found to be markedly hypotensive with a systolic blood pressure of 50. She was febrile to 100?. The patient does have chronic COPD. She is chronically short of breath. Her only complaints of pain are her upper extremities and left knee when she ambulates. She had some nausea earlier today. She has had no vomiting. She denies any hematemesis melena or bright red blood per rectum. The patient denies any dysuria hematuria or pyuria. In the emergency department a UA was obtained which was positive for many bacteria, leukocyte esterase, and many WBCs. The patient had an elevated white count of 18.9, her initial lactate was 5.1 and repeat 3.1. She was started on sepsis protocol for early goal-directed therapy to include antibiotics. Patient was given Zosyn and Vanco in the emergency department. She was given 30 mils per kg. Her repeat lactate was 3.1. Patient had a markedly elevated procalcitonin of 29. She was started on low-dose Levophed and admitted to the intensive care unit for ongoing treatment. Of note the patient's creatinine is elevated at 2.4 with a baseline creatinine of 1.2. The patient is alert and answers questions appropriately. Patient History Medical History Atrial fibrillation (Chronic) Barretts esophagus (Acute) Chronic diarrhea (Chronic) Chronic renal insufficiency (Chronic) COPD (chronic obstructive pulmonary disease) (Chronic) GERD (gastroesophageal reflux disease) (Chronic) History of anemia (Chronic) History of hepatic failure (Chronic) History of polymyalgia rheumatica (Chronic) Liver disease, chronic (Acute) Surgical History Gastric bypass status for obesity (Acute) Status post intestinal bypass (Resolved) Family History Mother No known health problems Father No known health problems Brother Colon cancer Social History household members: none Smoking Status: Current every day smoker alcohol intake: former Family & Social History Family History (Updated 02/14/19 @ 14:29 by Carol Knox MD) Mother No known health problems Father No known health problems Brother Colon cancer Acute renal failure Social History: household members none Prior Living Arrangements House Safety & Behavioral: Feels Safe in Current Yes Environment Been Physically Hurt or No Threatened By a Person Tobacco & Substance use: Tobacco type cigarettes Smoking Status Current every day smoker alcohol intake former alcohol intake frequency holiday/special occasion Substance Use Type does not use Meds Home Medications and Allergies Home Medications Medication Instructions Recorded Confirmed Type multivitamin 1 tab PO DAILY #0 04/05/18 02/14/19 History fluticasone propion-salmeterol 1 inh INHALATION BID 11/14/18 02/14/19 History [Advair Diskus] omeprazole 20 mg PO DAILY 11/14/18 02/14/19 History spironolactone 25 mg PO DAILY 11/14/18 02/14/19 History Calcium 1,200 mg PO DAILY 02/14/19 02/14/19 History albuterol sulfate [ProAir HFA] 2 puff INHALATION Q4H PRN 02/14/19 02/14/19 History cholecalciferol (vitamin D3) 2,000 unit PO DAILY 02/14/19 02/14/19 History [Vitamin D3] citalopram 40 mg PO DAILY 02/14/19 02/14/19 History ferrous sulfate 325 mg PO BEDTIME 02/14/19 02/14/19 History furosemide 20 mg PO DAILY 02/14/19 02/14/19 History ipratropium-albuterol 3 ml INHALATION Q4H PRN 02/14/19 02/14/19 History metoprolol succinate 25 mg PO BID 02/14/19 02/14/19 History mupirocin 1 applic TOPICAL TID PRN 02/14/19 02/14/19 History potassium chloride 10 meq PO DAILY 02/14/19 02/14/19 History warfarin 5 mg PO DAILY 02/14/19 02/14/19 History Allergies Allergy/AdvReac Type Severity Reaction Status Date / Time bacitracin Allergy Unknown Verified 11/11/18 09:14 [From NEOSPORIN ([id number])] neomycin Allergy Unknown Verified 11/11/18 09:14 [From NEOSPORIN ([id number])] polymyxin B Allergy Unknown Verified 11/11/18 09:14 [From NEOSPORIN ([id number])] ceftriaxone [CEFTRIAXONE] AdvReac Mild loss of Verified 11/11/18 09:14 memory and lethargy Review of Systems Review of Systems ROS Unobtainable: All systems reviewed & are unremarkable except as noted in HPI and below Exam Vital Signs (past 8 hours): - 02/14/19 10:42 02/14/19 10:47 02/14/19 11:02 Temperature 99.4 F 99.4 F Pulse Rate 125 H 133 H 120 H Respiratory Rate 27 H 18 18 Blood Pressure 65/38 L Blood Pressure [Right Arm] 74/47 L 52/23 L Pulse Oximetry 97 99 98 02/14/19 11:16 02/14/19 11:18 02/14/19 11:45 Temperature Pulse Rate 112 H 115 H Respiratory Rate 28 H 27 H Blood Pressure Blood Pressure [Right Arm] 93/50 L 93/50 L 50/30 L Pulse Oximetry 99 99 02/14/19 11:47 02/14/19 11:50 02/14/19 11:54 Temperature 99.4 F Pulse Rate 119 H 112 H 115 H Respiratory Rate 26 H 27 H Blood Pressure 65/38 L Blood Pressure [Right Arm] 80/53 L 66/23 L Pulse Oximetry 98 98 99 02/14/19 11:55 02/14/19 12:15 02/14/19 12:30 Temperature 100.0 F H Pulse Rate 109 H 111 H 114 H Respiratory Rate 28 H Blood Pressure Blood Pressure [Right Arm] 91/47 L 92/70 83/45 L Pulse Oximetry 98 98 98 02/14/19 12:45 02/14/19 12:57 Temperature Pulse Rate 115 H 116 H Respiratory Rate 28 H 28 H Blood Pressure Blood Pressure [Right Arm] 102/52 L 92/48 L Pulse Oximetry 98 98 Oxygen Delivery Method Nasal Cannula Oxygen Flow Rate 3 Narrative Exam Narrative: Ill-appearing female lying in bed HEENT: Normocephalic atraumatic, extraocular muscles are intact, sclerae anicteric, oropharynx reveals dry mucous membranes, no lesions noted Neck: Supple, no adenopathy, no thyromegaly, no JVD noted Lungs: Decreased breath sounds bilaterally, occasional scattered rhonchi Cardiac exam: Tachycardic, regular rate and rhythm, normal S1-S2, 2/6 systolic ejection murmur Abdomen: Soft and nontender, there is no appreciable hepatosplenomegaly, no palpable masses, no board-like rigidity, no CVA tenderness Extremities: Left arm forearm with raised tender palpable area involving the subcutaneous tissue. There is early bruising noted. There are no palpable masses. Right arm is tender palpation as well Skin: Warm, dry, erythematous, no petechiae are noted Neuro exam: She is awake, oriented, answers questions appropriately, she is slow to respond. Her cranial nerves are intact, her strength she is weak in both upper and lower extremities, sensation grossly intact reflexes are equal Psychiatric exam: Patient is alert, slow to respond, oriented to the hospital, consult date why she is here Objective Labs Result Diagrams: 02/14/19 11:10 02/14/19 11:10 Labs: Laboratory Results - last 24 hr 02/14/19 02/14/19 02/14/19 11:02 11:02 11:10 WBC RBC Hgb Hct MCV MCH MCHC RDW Plt Count Neut % (Auto) Lymph % (Auto) [place] % (Auto) Eos % (Auto) Baso % (Auto) Lymph # (Auto) [place] # (Auto) Baso # (Auto) Total Counted Seg Neutrophils % Band Neutrophils % Lymphocytes % (Manual) Atypical Lymphs % Monocytes % (Manual) Metamyelocytes % Neutrophils # (Manual) RBC Morphology PT 24.7 H INR 2.1 H APTT 19 L D Sodium Potassium Chloride Carbon Dioxide BUN Creatinine Estimated GFR BUN/Creatinine Ratio Glucose Lactate 5.5 H* Calcium Total Bilirubin AST ALT Alkaline Phosphatase Ammonia < 9.0 L Total Creatine Kinase CK-MB (CK-2) CK-MB (CK-2) Rel Index Troponin I B-Natriuretic Peptide Total Protein Albumin Globulin Albumin/Globulin Ratio Lipase Procalcitonin Urine Color Urine Appearance Urine pH Ur Specific Eros Urine Protein Urine Glucose (UA) Urine Ketones Urine Occult Blood Urine Nitrate Urine Bilirubin Urine Urobilinogen Ur Leukocyte Esterase Urine RBC Urine WBC Ur Squamous Epith Cells Urine Bacteria Ur Culture Indicated? Influenza A & B (PCR) 02/14/19 02/14/19 02/14/19 11:10 11:10 11:10 WBC 18.9 H RBC 4.03 Hgb 13.4 Hct 40.4 MCV 100.3 H MCH 33.2 MCHC 33.1 RDW 14.3 Plt Count 297 Neut % (Auto) Not Reportable Lymph % (Auto) Not Reportable [place] % (Auto) Not Reportable Eos % (Auto) Not Reportable Baso % (Auto) Not Reportable Lymph # (Auto) Not Reportable [place] # (Auto) Not Reportable Baso # (Auto) Not Reportable Total Counted 100 Seg Neutrophils % 60.0 Band Neutrophils % 23.0 H Lymphocytes % (Manual) 5.0 L Atypical Lymphs % 1.0 H Monocytes % (Manual) 5.0 Metamyelocytes % 6.0 H Neutrophils # (Manual) 28946 H RBC Morphology Normal morphology PT INR APTT Sodium Potassium Chloride Carbon Dioxide BUN Creatinine Estimated GFR BUN/Creatinine Ratio Glucose Lactate Calcium Total Bilirubin AST ALT Alkaline Phosphatase Ammonia Total Creatine Kinase 101 CK-MB (CK-2) 1.19 CK-MB (CK-2) Rel Index 1.2 L Troponin I 0.031 B-Natriuretic Peptide 503 H Total Protein Albumin Globulin Albumin/Globulin Ratio Lipase Procalcitonin Urine Color Urine Appearance Urine pH Ur Specific Eros Urine Protein Urine Glucose (UA) Urine Ketones Urine Occult Blood Urine Nitrate Urine Bilirubin Urine Urobilinogen Ur Leukocyte Esterase Urine RBC Urine WBC Ur Squamous Epith Cells Urine Bacteria Ur Culture Indicated? Influenza A & B (PCR) 02/14/19 02/14/19 02/14/19 11:10 11:10 12:10 WBC RBC Hgb Hct MCV MCH MCHC RDW Plt Count Neut % (Auto) Lymph % (Auto) [place] % (Auto) Eos % (Auto) Baso % (Auto) Lymph # (Auto) [place] # (Auto) Baso # (Auto) Total Counted Seg Neutrophils % Band Neutrophils % Lymphocytes % (Manual) Atypical Lymphs % Monocytes % (Manual) Metamyelocytes % Neutrophils # (Manual) RBC Morphology PT INR APTT Sodium 139 Potassium 3.3 L Chloride 111 H Carbon Dioxide 16 L BUN 32 H Creatinine 2.40 H Estimated GFR 19.7 L BUN/Creatinine Ratio 13.3 Glucose 69 L Lactate Calcium 7.4 L Total Bilirubin 1.3 AST 26 ALT 21 Alkaline Phosphatase 54 Ammonia Total Creatine Kinase CK-MB (CK-2) CK-MB (CK-2) Rel Index Troponin I B-Natriuretic Peptide Total Protein 5.0 L Albumin 2.5 L Globulin 2.5 Albumin/Globulin Ratio 1.0 Lipase 38 Procalcitonin 29.14 H Urine Color Yellow Urine Appearance Cloudy Urine pH 5.0 Ur Specific Eros 1.015 Urine Protein 3+ H Urine Glucose (UA) Negative Urine Ketones Trace H Urine Occult Blood Trace-intact Urine Nitrate Negative Urine Bilirubin Negative Urine Urobilinogen 0.2 Ur Leukocyte Esterase 2+ H Urine RBC 1-5/hpf Urine WBC >100/hpf H Ur Squamous Epith Cells 1-5 /hpf Urine Bacteria Many (>30) H Ur Culture Indicated? Specimen cultured Influenza A & B (PCR) 02/14/19 02/14/19 12:45 13:07 WBC RBC Hgb Hct MCV MCH MCHC RDW Plt Count Neut % (Auto) Lymph % (Auto) [place] % (Auto) Eos % (Auto) Baso % (Auto) Lymph # (Auto) [place] # (Auto) Baso # (Auto) Total Counted Seg Neutrophils % Band Neutrophils % Lymphocytes % (Manual) Atypical Lymphs % Monocytes % (Manual) Metamyelocytes % Neutrophils # (Manual) RBC Morphology PT INR APTT Sodium Potassium Chloride Carbon Dioxide BUN Creatinine Estimated GFR BUN/Creatinine Ratio Glucose Lactate 3.1 H Calcium Total Bilirubin AST ALT Alkaline Phosphatase Ammonia Total Creatine Kinase CK-MB (CK-2) CK-MB (CK-2) Rel Index Troponin I B-Natriuretic Peptide Total Protein Albumin Globulin Albumin/Globulin Ratio Lipase Procalcitonin Urine Color Urine Appearance Urine pH Ur Specific Eros Urine Protein Urine Glucose (UA) Urine Ketones Urine Occult Blood Urine Nitrate Urine Bilirubin Urine Urobilinogen Ur Leukocyte Esterase Urine RBC Urine WBC Ur Squamous Epith Cells Urine Bacteria Ur Culture Indicated? Influenza A & B (PCR) Negative Assessment & Plan Assessment & Plan narrative: Impression 1. 73-year-old female admitted to the hospital with septic shock, workup thus far remarkable for an elevated white count of 18.9, procalcitonin of 29.1, tachycardia with a heart rate of 116, tachypnea with a respiratory rate of 32, acute renal failure with a creatinine of 2.4, fever to 100.1. The patient's UA is positive, there are many bacteria, many white cells. Chest x-ray is negative, blood cultures are pending. Patient will continue to be fluid resuscitated with lactated Ringer's, will repeat laboratory studies will replace potassium. Patient will continue on IV Zosyn, IV vancomycin, as we await final urine cultures, and blood culture results. Septic shock with associated organ system failure to include acute renal failure and persistent hypotension. Will repeat labs this evening. It will recheck procalcitonin and continue to trend this until it has decreased significantly. Patient currently on Levophed which will be continued. 2. Urinary tract infection, most likely etiology of septic shock. Patient will be covered with IV Zosyn/Vanco. Will narrow antibiotics once cultures have been obtained. She will continue on IV fluids. Given her acute renal failure will defer CT of the abdomen. However once renal function improves would consider CT of the abdomen and pelvis to rule out the possibility of a perinephric abscess given the severity of her sepsis. 3. Bilateral upper extremity swelling and pain. There is a question hematoma of the upper extremities versus abscess. Will obtain ultrasound of the forearm to rule out hematoma. Patient will be started on pain medication as she is significantly uncomfortable due to the pain. 4. Acute renal failure, present on admission, likely related to her underlying septic shock. Suspect renal failure reflects ATN her from prior diuresis and shock. At this time the patient will continue with IV hydration. Will discontinue spironolactone, furosemide, and metoprolol in the setting of septic shock. 5. Persistent atrial fibrillation, patient is tachycardic at this time, this likely is multifactorial will hold her Coumadin at this time. Metoprolol has been held as well given her hypotension. Once the patient's blood pressure and fluid status has improved would resume her metoprolol. Will resume Coumadin once we determined there is no evidence of hematoma given her bilateral forearm pain. 6. End-stage liver disease spironolactone, Lasix held. 7. COPD, chronic, present on admission, continue her usual home inhalers 8. History of jejunal bypass surgery, with malabsorption, and B12 deficiency. Patient's multivitamin, calcium, and other medications will be held at this time. 9. History of Zavala's esophagitis a continue PPI 10. History of polymyalgia rheumatica, prior steroid therapy discontinued in December, should the patient remain hypotensive despite fluid resuscitation and pressors would consider IV hydrocortisone for presumed adrenal insufficiency. 11. Coronary artery disease, will continue to monitor and follow closely Patient is a full code and will note that her record accordingly 75 minutes of critical care time spent with this patient. Quality VTE Deep Vein Thrombosis/Pulmonary Embolism Present on Admission: No
[2019-02-14 14:31] LABS: Hematocrit 34.1 % (36-46); Hemoglobin 11.2 g/dL (12.0-16.0); Mean Corpuscular HGB Conc 32.8 % (30-36); Mean Corpuscular Hemoglobin 33.3 PG (26-34); Mean Corpuscular Volume 101.3 fL (80-100); Platelet Count 189 X10^3/uL (150-400); Red Blood Cell Count 3.37 X10^6/uL (4.0-5.2); Red Cell Distribution Width 13.9 % (11.6-14.8); White Blood Cell Count 17.5 X10^3/uL (4.5-11.0)
[2019-02-14 14:34] LABS: Add Manual Diff / Slide Review YES
[2019-02-14] MEDS: ALBUTEROL/IPRATROPIUM 3 ML AMPUL INH ×3 (14:38→22:42)
[2019-02-14 14:40] LABS: BUN Creatinine Ratio 14.1 (6-22); Blood Urea Nitrogen 31 mg/dL (7-17); Calcium 7.3 mg/dL (8.4-10.2); Carbon Dioxide 16 mmol/L (22-32); Chloride 109 mmol/L (98-107); Estimated Glomerular Filt Rate 21.8 mL/min (>60); Glucose 75 mg/dL (80-110); HEMOLYSIS < 15 (0-50); Potassium 3.5 mmol/L (3.4-5.1); Sodium 137 mmol/L (137-145)
--- NOTE | 2019-02-14 14:46 | PC.ADMIT ---
Admission Note: Patient arrived to room 104 from ER via stretcher at 1315. Transferred to bed via slider board. Patient is drowsy but awakens to voice, able to answer questions. Oxygen sats 99% on 2L NC, breathing labored and irregular. BP in the 80s/40s, minimal urine output. Qureshi catheter in place. Levophed at 12 mcg/min. Extremities warm to touch. ST in the 120s. All valuables sent home per Beatrice (daughter). Clothing at bedside. Call light within reach, instructed on use of call light/bed/tv controls. Bed alarm on. The patient,Lianna Stevenson,73 y/o, was given written information regarding hospital policies, unit procedures and contact persons. Patient's smoking status: Current every day smoker. Vital Signs - 8 hr 02/14/19 10:42 02/14/19 10:47 02/14/19 11:02 Temperature 99.4 F 99.4 F Pulse Rate 125 H 133 H 120 H Respiratory Rate 27 H 18 18 Blood Pressure 65/38 L Blood Pressure [Right Arm] 74/47 L 52/23 L Pulse Oximetry 97 99 98 02/14/19 11:16 02/14/19 11:18 02/14/19 11:45 Temperature Pulse Rate 112 H 115 H Respiratory Rate 28 H 27 H Blood Pressure Blood Pressure [Right Arm] 93/50 L 93/50 L 50/30 L Pulse Oximetry 99 99 02/14/19 11:47 02/14/19 11:50 02/14/19 11:54 Temperature 99.4 F Pulse Rate 119 H 112 H 115 H Respiratory Rate 26 H 27 H Blood Pressure 65/38 L Blood Pressure [Right Arm] 80/53 L 66/23 L Pulse Oximetry 98 98 99 02/14/19 11:55 02/14/19 12:15 02/14/19 12:30 Temperature 100.0 F H Pulse Rate 109 H 111 H 114 H Respiratory Rate 28 H Blood Pressure Blood Pressure [Right Arm] 91/47 L 92/70 83/45 L Pulse Oximetry 98 98 98 02/14/19 12:45 02/14/19 12:57 Temperature Pulse Rate 115 H 116 H Respiratory Rate 28 H 28 H Blood Pressure Blood Pressure [Right Arm] 102/52 L 92/48 L Pulse Oximetry 98 98
[2019-02-14 14:58] LABS: Neutrophils Absolute Manual 15225 /uL (3000-5900); Total Cells Counted 100
[2019-02-14 15:01] LABS: Toxic Vacuolation Present
[2019-02-14] MEDS: LACTATED RINGERS 1,000 ML 150 ML IV (15:47)
[2019-02-14] MEDS: PANTOPRAZOLE 20 MG TABLET PO (15:48)
[2019-02-14] MEDS: LACTATED RINGERS 1,000 ML 999 ML IV ×2 (15:49→17:15)
[2019-02-14] MEDS: ACETAMINOPHEN 325 MG TABLET 650 MG PO (16:40)
[2019-02-14] MEDS: NOREPINEPHRINE 4 MG in DEXTROSE 5% IN WATER 250 ML 53.34 ML IV (17:18)
[2019-02-14 18:01] LABS: Lactate (Lactic Acid) 3.3 mmol/L (0.7-2.1)
[2019-02-14] MEDS: HYDROCORTISONE 100 MG/2 ML VIAL IV (18:02)
[2019-02-14 19:48] LABS: Reflexed Lactate in 2 Hours Y
[2019-02-14 19:52] LABS: Creatine Kinase 1106 U/L (30-135)
--- NOTE | 2019-02-14 19:59 | P.CONS_ITS ---
History of Present Illness Consult details Date Patient Seen: 02/14/19 Time Patient Seen: 20:11 Chief complaint: Low BP Narrative: 73-year-old woman admitted with septic shock. She developed severe left forearm pain and associated spreading blisters of the extremity today. At the time of consult her systolic blood pressures 70/40 heart rate 150 temperature 103? on 40 of Levophed oliguric. She has received 6 L of saline for resuscitation IV Zosyn and vancomycin. She has had no trauma to the upper extremity no open wounds. Medical history is significant for atrial fibrillation for which she is anticoagulated with warfarin, COPD on home oxygen, chronic renal insufficiency, baseline Cr 1.2 and unspecified liver disease for which she is maintained on spironolactone and Lasix. She is obtunded and further history from the patient could not be obtained. [facility] Medical History Atrial fibrillation (Chronic) Barretts esophagus (Acute) Chronic diarrhea (Chronic) Chronic renal insufficiency (Chronic) COPD (chronic obstructive pulmonary disease) (Chronic) GERD (gastroesophageal reflux disease) (Chronic) History of anemia (Chronic) History of hepatic failure (Chronic) History of polymyalgia rheumatica (Chronic) Liver disease, chronic (Acute) Surgical History Gastric bypass status for obesity (Acute) Status post intestinal bypass (Resolved) Family History Mother No known health problems Father No known health problems Brother Colon cancer Acute renal failure Social History household members: none Smoking Status: Current every day smoker alcohol intake: former Family History Mother No known health problems Father No known health problems Brother Colon cancer Acute renal failure Social History household members: none Smoking Status: Current every day smoker alcohol intake: former Meds Home Medications and Allergies Home Medications Medication Instructions Recorded Confirmed Type multivitamin 1 tab PO DAILY #0 04/05/18 02/14/19 History fluticasone propion-salmeterol 1 inh INHALATION BID 11/14/18 02/14/19 History [Advair Diskus] omeprazole 20 mg PO DAILY 11/14/18 02/14/19 History spironolactone 25 mg PO DAILY 11/14/18 02/14/19 History Calcium 1,200 mg PO DAILY 02/14/19 02/14/19 History albuterol sulfate [ProAir HFA] 2 puff INHALATION Q4H PRN 02/14/19 02/14/19 History cholecalciferol (vitamin D3) 2,000 unit PO DAILY 02/14/19 02/14/19 History [Vitamin D3] citalopram 40 mg PO DAILY 02/14/19 02/14/19 History ferrous sulfate 325 mg PO BEDTIME 02/14/19 02/14/19 History furosemide 20 mg PO DAILY 02/14/19 02/14/19 History ipratropium-albuterol 3 ml INHALATION Q4H PRN 02/14/19 02/14/19 History metoprolol succinate 25 mg PO BID 02/14/19 02/14/19 History mupirocin 1 applic TOPICAL TID PRN 02/14/19 02/14/19 History potassium chloride 10 meq PO DAILY 02/14/19 02/14/19 History warfarin 5 mg PO DAILY 02/14/19 02/14/19 History Allergies Allergy/AdvReac Type Severity Reaction Status Date / Time bacitracin Allergy Unknown Verified 11/11/18 09:14 [From NEOSPORIN ([id number])] neomycin Allergy Unknown Verified 11/11/18 09:14 [From NEOSPORIN ([id number])] polymyxin B Allergy Unknown Verified 11/11/18 09:14 [From NEOSPORIN ([id number])] ceftriaxone [CEFTRIAXONE] AdvReac Mild loss of Verified 11/11/18 09:14 memory and lethargy Review of Systems Review of Systems ROS Unobtainable: unobtainable due to mental status Exam Vital Signs (past 8 hours): - 02/14/19 12:15 02/14/19 12:30 02/14/19 12:45 Temperature 100.0 F H Pulse Rate 111 H 114 H 115 H Respiratory Rate 28 H 28 H Blood Pressure Blood Pressure [Right Arm] 92/70 83/45 L 102/52 L Pulse Oximetry 98 98 98 02/14/19 12:57 02/14/19 13:10 02/14/19 13:30 Temperature 100.8 F H Pulse Rate 116 H 125 H 120 H Respiratory Rate 28 H 28 H Blood Pressure 85/51 L 86/38 L Blood Pressure [Right Arm] 92/48 L Pulse Oximetry 98 91 95 02/14/19 13:45 02/14/19 14:00 02/14/19 14:30 Temperature Pulse Rate 118 H 116 H 113 H Respiratory Rate 30 H 27 H 26 H Blood Pressure 95/38 L 84/41 L 89/47 L Blood Pressure [Right Arm] Pulse Oximetry 75 L 93 97 02/14/19 14:38 02/14/19 14:45 02/14/19 15:15 Temperature 101.7 F H 100.4 F H Pulse Rate 118 H 119 H 122 H Respiratory Rate 22 28 H 26 H Blood Pressure 88/41 L 86/44 L Blood Pressure [Right Arm] Pulse Oximetry 99 99 98 02/14/19 16:00 02/14/19 16:30 02/14/19 16:40 Temperature 100.4 F H Pulse Rate 121 H 119 H Respiratory Rate 35 H 26 H Blood Pressure 88/57 L 91/44 L Blood Pressure [Right Arm] Pulse Oximetry 98 100 02/14/19 16:45 02/14/19 17:10 02/14/19 17:12 Temperature 102.8 F H 102.8 F H Pulse Rate 125 H 134 H Respiratory Rate 22 28 H Blood Pressure 92/44 L 71/31 L Blood Pressure [Right Arm] Pulse Oximetry 99 99 02/14/19 17:15 02/14/19 17:30 02/14/19 17:45 Temperature Pulse Rate 128 H 117 H 117 H Respiratory Rate 21 27 H 26 H Blood Pressure 89/71 L 99/51 L 95/43 L Blood Pressure [Right Arm] Pulse Oximetry 99 99 100 02/14/19 18:00 02/14/19 18:15 02/14/19 18:30 Temperature Pulse Rate 118 H 119 H 123 H Respiratory Rate 24 23 25 H Blood Pressure 95/43 L 92/41 L 84/36 L Blood Pressure [Right Arm] Pulse Oximetry 100 100 100 02/14/19 18:38 02/14/19 18:45 02/14/19 19:00 Temperature Pulse Rate 128 H 134 H 136 H Respiratory Rate 24 30 H 29 H Blood Pressure 78/39 L 80/44 L Blood Pressure [Right Arm] Pulse Oximetry 98 98 99 02/14/19 19:15 02/14/19 19:49 02/14/19 19:50 Temperature Pulse Rate 122 H 125 H 118 H Respiratory Rate 29 H 30 H 31 H Blood Pressure 77/39 L 82/41 L 73/37 L Blood Pressure [Right Arm] Pulse Oximetry 98 99 99 Oxygen Delivery Method Nasal Cannula Oxygen Flow Rate 2 Narrative Exam Narrative: General-adult female ill appearing obtunded. HEENT- no scleral icterus Neck-supple no lymphadenopathy Chest- labored respirations, wheezing bilaterally Cardiac-regular rate and rhythm Abdomen-soft, nontender, non distended Extremities-LEFT UPPER EXTREMITY. Forearm Extremely tender to palpation, ci rcumferential bulae warm, no open or draining wounds. Neurological-Eyes open spontaneously, responsive to painful stimuli, moaning in pain Objective Labs Result Diagrams: 02/14/19 13:35 02/14/19 13:35 Labs: Laboratory Results - last 24 hr 02/14/19 02/14/19 02/14/19 11:02 11:02 11:10 WBC RBC Hgb Hct MCV MCH MCHC RDW Plt Count Neut % (Auto) Lymph % (Auto) [place] % (Auto) Eos % (Auto) Baso % (Auto) Lymph # (Auto) [place] # (Auto) Baso # (Auto) Total Counted Seg Neutrophils % Band Neutrophils % Lymphocytes % (Manual) Atypical Lymphs % Monocytes % (Manual) Metamyelocytes % Myelocytes % Neutrophils # (Manual) Differential Comment Toxic Vacuolation RBC Morphology PT 24.7 H INR 2.1 H APTT 19 L D Sodium Potassium Chloride Carbon Dioxide BUN Creatinine Estimated GFR BUN/Creatinine Ratio Glucose Lactate 5.5 H* Calcium Total Bilirubin AST ALT Alkaline Phosphatase Ammonia < 9.0 L Total Creatine Kinase CK-MB (CK-2) CK-MB (CK-2) Rel Index Troponin I B-Natriuretic Peptide Total Protein Albumin Globulin Albumin/Globulin Ratio Lipase Procalcitonin Urine Color Urine Appearance Urine pH Ur Specific [place] Urine Protein Urine Glucose (UA) Urine Ketones Urine Occult Blood Urine Nitrate Urine Bilirubin Urine Urobilinogen Ur Leukocyte Esterase Urine RBC Urine WBC Ur Squamous Epith Cells Urine Bacteria Ur Culture Indicated? Nasal Screen MRSA (PCR) Influenza A & B (PCR) 02/14/19 02/14/19 02/14/19 11:10 11:10 11:10 WBC 18.9 H RBC 4.03 Hgb 13.4 Hct 40.4 MCV 100.3 H MCH 33.2 MCHC 33.1 RDW 14.3 Plt Count 297 Neut % (Auto) Not Reportable Lymph % (Auto) Not Reportable [place] % (Auto) Not Reportable Eos % (Auto) Not Reportable Baso % (Auto) Not Reportable Lymph # (Auto) Not Reportable [place] # (Auto) Not Reportable Baso # (Auto) Not Reportable Total Counted 100 Seg Neutrophils % 60.0 Band Neutrophils % 23.0 H Lymphocytes % (Manual) 5.0 L Atypical Lymphs % 1.0 H Monocytes % (Manual) 5.0 Metamyelocytes % 6.0 H Myelocytes % Neutrophils # (Manual) 99883 H Differential Comment Toxic Vacuolation RBC Morphology Normal morphology PT INR APTT Sodium Potassium Chloride Carbon Dioxide BUN Creatinine Estimated GFR BUN/Creatinine Ratio Glucose Lactate Calcium Total Bilirubin AST ALT Alkaline Phosphatase Ammonia Total Creatine Kinase 101 CK-MB (CK-2) 1.19 CK-MB (CK-2) Rel Index 1.2 L Troponin I 0.031 B-Natriuretic Peptide 503 H Total Protein Albumin Globulin Albumin/Globulin Ratio Lipase Procalcitonin Urine Color Urine Appearance Urine pH Ur Specific [place] Urine Protein Urine Glucose (UA) Urine Ketones Urine Occult Blood Urine Nitrate Urine Bilirubin Urine Urobilinogen Ur Leukocyte Esterase Urine RBC Urine WBC Ur Squamous Epith Cells Urine Bacteria Ur Culture Indicated? Nasal Screen MRSA (PCR) Influenza A & B (PCR) 02/14/19 02/14/19 02/14/19 11:10 11:10 12:10 WBC RBC Hgb Hct MCV MCH MCHC RDW Plt Count Neut % (Auto) Lymph % (Auto) [place] % (Auto) Eos % (Auto) Baso % (Auto) Lymph # (Auto) [place] # (Auto) Baso # (Auto) Total Counted Seg Neutrophils % Band Neutrophils % Lymphocytes % (Manual) Atypical Lymphs % Monocytes % (Manual) Metamyelocytes % Myelocytes % Neutrophils # (Manual) Differential Comment Toxic Vacuolation RBC Morphology PT INR APTT Sodium 139 Potassium 3.3 L Chloride 111 H Carbon Dioxide 16 L BUN 32 H Creatinine 2.40 H Estimated GFR 19.7 L BUN/Creatinine Ratio 13.3 Glucose 69 L Lactate Calcium 7.4 L Total Bilirubin 1.3 AST 26 ALT 21 Alkaline Phosphatase 54 Ammonia Total Creatine Kinase CK-MB (CK-2) CK-MB (CK-2) Rel Index Troponin I B-Natriuretic Peptide Total Protein 5.0 L Albumin 2.5 L Globulin 2.5 Albumin/Globulin Ratio 1.0 Lipase 38 Procalcitonin 29.14 H Urine Color Yellow Urine Appearance Cloudy Urine pH 5.0 Ur Specific [place] 1.015 Urine Protein 3+ H Urine Glucose (UA) Negative Urine Ketones Trace H Urine Occult Blood Trace-intact Urine Nitrate Negative Urine Bilirubin Negative Urine Urobilinogen 0.2 Ur Leukocyte Esterase 2+ H Urine RBC 1-5/hpf Urine WBC >100/hpf H Ur Squamous Epith Cells 1-5 /hpf Urine Bacteria Many (>30) H Ur Culture Indicated? Specimen cultured Nasal Screen MRSA (PCR) Influenza A & B (PCR) 02/14/19 02/14/19 02/14/19 12:45 13:00 13:07 WBC RBC Hgb Hct MCV MCH MCHC RDW Plt Count Neut % (Auto) Lymph % (Auto) [place] % (Auto) Eos % (Auto) Baso % (Auto) Lymph # (Auto) [place] # (Auto) Baso # (Auto) Total Counted Seg Neutrophils % Band Neutrophils % Lymphocytes % (Manual) Atypical Lymphs % Monocytes % (Manual) Metamyelocytes % Myelocytes % Neutrophils # (Manual) Differential Comment Toxic Vacuolation RBC Morphology PT INR APTT Sodium Potassium Chloride Carbon Dioxide BUN Creatinine Estimated GFR BUN/Creatinine Ratio Glucose Lactate 3.1 H Calcium Total Bilirubin AST ALT Alkaline Phosphatase Ammonia Total Creatine Kinase CK-MB (CK-2) CK-MB (CK-2) Rel Index Troponin I B-Natriuretic Peptide Total Protein Albumin Globulin Albumin/Globulin Ratio Lipase Procalcitonin Urine Color Urine Appearance Urine pH Ur Specific [place] Urine Protein Urine Glucose (UA) Urine Ketones Urine Occult Blood Urine Nitrate Urine Bilirubin Urine Urobilinogen Ur Leukocyte Esterase Urine RBC Urine WBC Ur Squamous Epith Cells Urine Bacteria Ur Culture Indicated? Nasal Screen MRSA (PCR) Negative for mrsa Influenza A & B (PCR) Negative 02/14/19 02/14/19 02/14/19 13:35 13:35 17:44 WBC 17.5 H RBC 3.37 L Hgb 11.2 L Hct 34.1 L MCV 101.3 H MCH 33.3 MCHC 32.8 RDW 13.9 Plt Count 189 Neut % (Auto) Not Reportable Lymph % (Auto) Not Reportable [place] % (Auto) Not Reportable Eos % (Auto) Not Reportable Baso % (Auto) Not Reportable Lymph # (Auto) Not Reportable [place] # (Auto) Not Reportable Baso # (Auto) Not Reportable Total Counted 100 Seg Neutrophils % 57.0 Band Neutrophils % 30.0 H Lymphocytes % (Manual) Atypical Lymphs % Monocytes % (Manual) 4.0 Metamyelocytes % 8.0 H Myelocytes % 1.0 H Neutrophils # (Manual) 12593 H Differential Comment Toxic Vacuolation Present H RBC Morphology See below PT INR APTT Sodium 137 Potassium 3.5 Chloride 109 H Carbon Dioxide 16 L BUN 31 H Creatinine 2.20 H Estimated GFR 21.8 L BUN/Creatinine Ratio 14.1 Glucose 75 L Lactate 3.3 H Calcium 7.3 L Total Bilirubin AST ALT Alkaline Phosphatase Ammonia Total Creatine Kinase CK-MB (CK-2) CK-MB (CK-2) Rel Index Troponin I B-Natriuretic Peptide Total Protein Albumin Globulin Albumin/Globulin Ratio Lipase Procalcitonin Urine Color Urine Appearance Urine pH Ur Specific [place] Urine Protein Urine Glucose (UA) Urine Ketones Urine Occult Blood Urine Nitrate Urine Bilirubin Urine Urobilinogen Ur Leukocyte Esterase Urine RBC Urine WBC Ur Squamous Epith Cells Urine Bacteria Ur Culture Indicated? Nasal Screen MRSA (PCR) Influenza A & B (PCR) 02/14/19 19:34 WBC RBC Hgb Hct MCV MCH MCHC RDW Plt Count Neut % (Auto) Lymph % (Auto) [place] % (Auto) Eos % (Auto) Baso % (Auto) Lymph # (Auto) [place] # (Auto) Baso # (Auto) Total Counted Seg Neutrophils % Band Neutrophils % Lymphocytes % (Manual) Atypical Lymphs % Monocytes % (Manual) Metamyelocytes % Myelocytes % Neutrophils # (Manual) Differential Comment Toxic Vacuolation RBC Morphology PT INR APTT Sodium Potassium Chloride Carbon Dioxide BUN Creatinine Estimated GFR BUN/Creatinine Ratio Glucose Lactate Calcium Total Bilirubin AST ALT Alkaline Phosphatase Ammonia Total Creatine Kinase 1106 H D CK-MB (CK-2) CK-MB (CK-2) Rel Index Troponin I B-Natriuretic Peptide Total Protein Albumin Globulin Albumin/Globulin Ratio Lipase Procalcitonin Urine Color Urine Appearance Urine pH Ur Specific [place] Urine Protein Urine Glucose (UA) Urine Ketones Urine Occult Blood Urine Nitrate Urine Bilirubin Urine Urobilinogen Ur Leukocyte Esterase Urine RBC Urine WBC Ur Squamous Epith Cells Urine Bacteria Ur Culture Indicated? Nasal Screen MRSA (PCR) Influenza A & B (PCR) Assessment & Plan Assessment & Plan narrative: 73F septic shock from left upper extremity possible necrotizing fascititis. Rapid development of pain and bulae formation left forearm today, BP 70/40 on 40 Levophed, Hr 150 oliguric, Temp 103, WBC 17, Bicarb 16 intial Lactate 6. Signficant comorbidities including oxygen dependent COPD, Afib on Warfarin, chronic kidney disease, chronic liver disease (unspecified). Emergent left forearm debridement now. May need multiple procedures. FFP now for reversal of Warfarin. Clindamycin, Vancomycin and Zosyn. Discussed with family severity of her present illness and her significant risk of morbidity and mortality. Questions have been answered and they are in agreement with this plan.
[2019-02-14] MEDS: PIPERACILLIN-TAZO 2.25 GM/50 ML FROZ.PIGGY IV (20:06)
[2019-02-14] MEDS: VASOPRESSIN 40 UNIT in SODIUM CHLORIDE 0.9% 100 ML IV (20:30)
--- NOTE | 2019-02-14 20:37 | TAR.TRANSNT ---
patient receiving FFP which the product would not scan. double check with Soumya PAIGE and all numbers matched.
--- NOTE | 2019-02-14 21:22 | PC.NURSE ---
Addendum entered by Evelyn Manuel R.N. 02/14/19 23:32: pt returned from OR at 22:20. B/P 90s/50 initially, then dropped to 60s/30s. Spoke to Misael CURRY. IV rate up to 250 ml/hr, epinephrine gtt started. Pt has not roused while on vent. No sedation or pain meds given. Addendum entered by Evelyn Manuel R.N. 02/14/19 21:33: B/P >90. Per Dr. Knox, attempting to titrate Levophed down to 12 mcg/min. B/P dropped. Back up to 14 mcg/min. Multiple boluses given, Levophed up to 20 mcg/min. HR variable up to 150. Occasionally looks like afib vs. MAT. Left forearm red area now has ruptured and has yellow tissue showing. Weeping serous fluid. Called to notify Dr. Knox of new development with arm. Dr. Knox came to see pt. Surgery consulted for concern about rapidly changing wound, possible necrotizing fasciitis. B/P continues to drop despite fluid boluses, Levophed at 20 mcg/min. Started Vasopressin and first unit of FFP before pt went to OR. Collected wound culture from left forearm. Labs drawn multiple times from central line. Original Note: brian note pt hypotensive. Titrating Levophed to 14 mcg/min. More fluid volume given after discussion with dr. Knox.
--- NOTE | 2019-02-14 21:38 | SUR.OPER ---
Supine on padded OR bed, head on pillow, Right arm secured on padded arm boards at <90 degrees abduction, Left arm on large padded arm board controlled by surgeon, legs uncrossed, safety belt at thigh.
[2019-02-14 22:05] LABS: C-Reactive Protein Quant 13.5 mg/dL (<1.0)
[2019-02-14] MEDS: CLINDAMYCIN 900 MG/50 ML PIGGYBACK 50 MG IV (22:39)
--- NOTE | 2019-02-14 22:59 | P.OP_ITS ---
Operative Date/Time/Diagnoses Date of procedure: 02/14/19 Time of procedure: 22:59 Pre-op diagnosis: Necrotizing fasciitis left upper extremity Post-op diagnosis: same Procedure & Clinicians Procedure: Excisional debridement left upper extremity Same procedure as scheduled: Yes Indications: 73-year-old female presented to the hospital with a painful blistering left forearm for the past 12 hrs and in severe septic shock. Initial BP 50's systolic Hr 150's, oliguric, lactic acid 6 on multiple pressors. She was taken to the operating room for excisional debridement of presumed Necrotizing fasciitis. Surgeon: Willis Norris [employer] Machine Operator: Kenya Jaffe Anesthesia Type: General Operative Notes Findings: Necrotizing fascitis extending from left wrist to left shoulder circumferentially. Viable muscle. Nonviable skin and soft tissue Specimen(s): other Prosthetic devices, grafts, tissues, transplants, or devices: left upper extremity Estimated Blood Loss (mL): 50 Procedure in detail: Patient was brought to the operating room and placed supine on the table. General anesthesia was induced and she was intubated with an endotracheal tube. She was prepped and draped in sterile fashion. A time-out was performed ensure the correct patient procedure necessary equipment within the operating room. An incision was made over the palmar aspect of the left forearm. The skin and subcutaneous tissues were edematous, and non bleeding despite INR 2.0. Using my finger the fascia serperated from the underlaying muscles of the forearm and upper arm without resistance. The infection tracked from the wrist to the left shoulder and was circumferential. All non viable tissue of the left upper extremity was removed. Hemostasis was obtained. A radial artery pulse was palpable. The wound was dressed with adaptic followed by guaze and sharlene wrap. The patient remained intubated and was transfered back to the ICU in critical condition. Upon arrival to the ICU they are requiring Levophed, Vasopressin and Epinephrine for hemodynamic support. Complications: none Post-operative Condition: critical Disposition: ICU
[2019-02-14] MEDS: LACTATED RINGERS 1,000 ML 250 ML IV (23:01)
[2019-02-14 23:07] LABS: Fractionated Inspired Oxygen 40; HCO3 ABG 17 mmol/L (22-26); Oxygen Saturation ABG 99 % (95-100); PCO2 ABG 41.9 mmHg (35-45); PO2 ABG 144 mmHg (80-100); TCO2 ABG 18 mmol/L (21-31); pH ABG 7.21 (7.35-7.45)
[2019-02-14] MEDS: EPINEPHrine 1 MG in DEXTROSE 5% IN WATER 250 ML 15.06 ML IV (23:07)
[2019-02-14 23:24] LABS: Add Manual Diff / Slide Review YES; Hemoglobin 8.8 g/dL (12.0-16.0); Mean Corpuscular HGB Conc 32.6 % (30-36); Mean Corpuscular Hemoglobin 33.1 PG (26-34); Mean Corpuscular Volume 101.7 fL (80-100); Platelet Count 155 X10^3/uL (150-400); Red Blood Cell Count 2.65 X10^6/uL (4.0-5.2); White Blood Cell Count 18.1 X10^3/uL (4.5-11.0)
[2019-02-14 23:26] LABS: Alanine Aminotransferase 27 IU/L (9-52); Albumin Globulin Ratio 0.9 (1.0-2.8); Alkaline Phosphatase 36 U/L (38-126); Aspartate Aminotransferase 57 IU/L (14-36); BUN Creatinine Ratio 15.7 (6-22); Blood Urea Nitrogen 33 mg/dL (7-17); Carbon Dioxide 18 mmol/L (22-32); Chloride 107 mmol/L (98-107); Globulin 2.2 g/dL (1.7-4.1); Glucose 133 mg/dL (80-110); HEMOLYSIS < 15 (0-50); Potassium 3.4 mmol/L (3.4-5.1); Sodium 134 mmol/L (137-145); Total Protein 4.2 g/dL (6.3-8.2)
[2019-02-14 23:28] LABS: Lactate (Lactic Acid) 2.9 mmol/L (0.7-2.1)
--- NOTE | 2019-02-14 23:33 | DI.RAD.S_ITS ---
PROCEDURE: XR CHEST 1V INDICATIONS: tube placement TECHNIQUE: One view of the chest was acquired. COMPARISON: [facility], CR, XR CHEST 1V, 02/14/2019, 11:22. FINDINGS: Surgical changes and devices: ET tube projects 3.4 cm superior to the lalitha. A central venous catheter is stable. Lungs and pleura: There is cephalization of pulmonary vasculature and interstitial prominence concerning for fluid overload. No pleural effusions or pneumothorax. Mediastinum: Mediastinal contours appear normal. Heart size is normal. Bones and chest wall: No suspicious bony lesions. Overlying soft tissues appear unremarkable. IMPRESSION: ET tube 3.4 cm superior to the lalitha. Dictated by: Shelly Angeles MD, PhD on 02/15/2019 at 8:29 Approved by: Shelly Angeles MD, PhD on 02/15/2019 at 8:30
[2019-02-14 23:35] LABS: Calcium 6.6 mg/dL (8.4-10.2)
[2019-02-14 23:40] LABS: Neutrophils Absolute Manual 15204 /uL (3000-5900); Total Cells Counted 100
[2019-02-14 23:42] LABS: Dohle Bodies 1+
[2019-02-15] VITALS (43 sets, daily range): BP systolic 64–116; BP diastolic 34–76; PULSE 93–126; RESP 10–27; TEMP 36–37.5; O2SAT 89–100; BMI 23.3
[2019-02-15] MEDS: HYDROCORTISONE 100 MG/2 ML VIAL IV ×3 (00:05→14:21)
[2019-02-15] MEDS: LACTATED RINGERS 1,000 ML 500 ML IV (00:36)
[2019-02-15] MEDS: POTASSIUM CHLORIDE 40 MEQ in SODIUM CHLORIDE 0.9% 500 ML 130 ML IV (00:36)
[2019-02-15] MEDS: CALCIUM GLUCONATE 4.65 MEQ in SODIUM CHLORIDE 0.9% 50 ML 120 ML IV (00:36)
[2019-02-15 01:11] LABS: Reflexed Lactate in 2 Hours Y
--- NOTE | 2019-02-15 01:16 | PC.NURSE ---
Addendum entered by Crystal Byrd R.N. 02/15/19 06:54: Attempted to wean vasopressors overnight starting with epinephrine infusing at 3 mcg/min. Attempts have been unsuccessful and she remains on Epi 3 mcg/min, Levophed 20 mcg and vasopressin 4.5 ml/Hour to maintain MAP > 65. Tolerating vent settings. Approximately 105 mL urine output this shift total. IVF infusing at 150 mL/hour per PATRICIO Shelley verbal orders. Pt is comfortable on versed and fentanyl gtts. Some serosanguinous drainage under the LUE onto green pad. Family declined changing it at this time to allow the patient to rest. Addendum entered by Crystal Byrd R.N. 02/15/19 02:03: Code status changed to DNR. Plan of care is to continue to maintain in order to allow family to come from out of state. Family aware the patient might not make it that long. Original Note: Received patient in critical condition. PATRICIO Shelley in the unit at change of shift. Epinephrine GTT initiated per orders for persistent hypotension. Pt already receiving Levophed GTT and Vasopressin GTT. Pt with 15 mL urine output since returning from OR. Misael Rosario and Dr. Norris in contact with [facility] regarding transfer. At this time they are declining transfer due to the poor prognosis reported as 90-100% mortality from this event. 0055 Dr. Norris in to speak with family about prognosis. 0115 Current plan is to maintain. Family still wishes patient to be a full code until other family members can arrive. Attempted to titrate Epinephrine GTT down to 1 mcg unsuccessfully. Immediate drop in BP with MAP < 55. 0145 Family at bedside. Pt awake, alert and writing down questions with pen and paper. Denies pain or discomfort. Support offered to family and patient.
[2019-02-15] MEDS: fentaNYL 1,000 MCG in DEXTROSE 5% IN WATER 250 ML 7.655 ML IV (01:19)
[2019-02-15] MEDS: MIDAZOLAM 50 MG in DEXTROSE 5% IN WATER 250 ML IV (01:20)
[2019-02-15] MEDS: NOREPINEPHRINE 4 MG in DEXTROSE 5% IN WATER 250 ML 76.2 ML IV ×5 (01:27→15:30)
--- NOTE | 2019-02-15 02:07 | PM.EVENT ---
Event Note Date Patient Seen: 02/14/19 Time Patient Seen: 19:15 Event Note: Clinical update: 19:15 This is a 78-year-old female patient who is admitted to the hospital with severe sepsis and septic shock. The patient was found to have positive UTI as well as evolving skin lesions of the left arm and admitted to the ICU with hypotension unresponsive to fluid resuscitation and started on norepinephrine infusion. The patient remains hypotensive with continuing up titration of norepinephrine drip. Patient is lethargic and has a temperature of 103? and is tachycardic varying between 110s to 150s with episodes of MAT. The patient is tachypneic with respiratory rate of 30 satting 96%. Left arm is evaluated with Dr. Knox at bedside finding large area of skin slough on the middle left arm on dorsal and volar surfaces with bullae developing. -Dr. Norris, general surgery, is consulted for evaluation and treatment. -ordered 1 L normal saline bolus. -ordered vasopressin at 0.03 units/minute. 20:40 Decision has been made to take the patient to surgery emergently with concerns for necrotizing fasciitis. Reviewed the patient's case with anesthesia and treatments in place. The surgery grew has arrived in the patient is transported to the OR. 22:20 The patient has returned from the OR and remains intubated with respirations supported by ventilator. Ventilator settings per RT protocol. The patient continues to remain hypotensive with norepinephrine at 20 mcg and vasopressin infusing. -IV fluid is increased to 250 mL per hour -ordered epinephrine infusion to titrate to map of pressure 65. -ordered ABG, chest x-ray, CBC, CMP and lactate. 23:45 The patient's pressure has stabilized with additional fluid resuscitation, norepinephrine at 20 mcg, vasopressin infusion and epinephrine drip at 2 mg. Lab work reveals decreasing potassium and low calcium -ordered potassium 40 mEq IV -calcium gluconate 4.65 mg once x1 -with patient's blood pressure improved call placed to [facility] transfer center regarding patient transfer. Spoke with Dr. Jenny Real, general surgery in review of the patient's case presentation and potential transfer. Dr. Real references high mortality based on the information available and following consultation with Dr. Norris please transfer would not be beneficial to the patient or alter the patient's outcome. Spoke with the patient's family with Dr. Norris regarding patient transfer and the patient will not recover from this infection since the infection has spread onto the chest. Goals of care are reviewed. The family supported with a decision to maintain current interventions to allow family to arrive from out of state. It was noted the patient may succumb prior to their arrival. A tentative plan to return to the OR Monday morning for further debridement is canceled, the patient's code status is changed to DNR.
[2019-02-15 03:18] LABS: Hematocrit 27.9 % (36-46); Mean Corpuscular HGB Conc 32.3 % (30-36); Mean Corpuscular Volume 102.1 fL (80-100); Platelet Count 150 X10^3/uL (150-400); Red Blood Cell Count 2.73 X10^6/uL (4.0-5.2); Red Cell Distribution Width 14.3 % (11.6-14.8); White Blood Cell Count 23.6 X10^3/uL (4.5-11.0)
[2019-02-15 03:19] LABS: Add Manual Diff / Slide Review YES
[2019-02-15 03:22] LABS: Alanine Aminotransferase 34 IU/L (9-52); Albumin 2.1 g/dL (3.5-5.0); Albumin Globulin Ratio 0.9 (1.0-2.8); Alkaline Phosphatase 32 U/L (38-126); Aspartate Aminotransferase 65 IU/L (14-36); BUN Creatinine Ratio 16.5 (6-22); Bilirubin Total 1.2 mg/dL (0.2-1.3); Blood Urea Nitrogen 33 mg/dL (7-17); Calcium 6.6 mg/dL (8.4-10.2); Carbon Dioxide 16 mmol/L (22-32); Chloride 106 mmol/L (98-107); Estimated Glomerular Filt Rate 24.4 mL/min (>60); Globulin 2.3 g/dL (1.7-4.1); Glucose 203 mg/dL (80-110); HEMOLYSIS < 15 (0-50); Potassium 4.2 mmol/L (3.4-5.1); Sodium 134 mmol/L (137-145); Total Protein 4.4 g/dL (6.3-8.2)
[2019-02-15 03:47] LABS: Neutrophils Absolute Manual 19824 /uL (3000-5900); Total Cells Counted 100
[2019-02-15 03:48] LABS: Dohle Bodies 1+; Toxic Vacuolation Present
[2019-02-15 04:05] LABS: Acinetobacter baumannii Not Detected (Not Detect); Candida albicans Not Detected (Not Detect); Candida glabrata Not Detected (Not Detect); Candida krusei Not Detected (Not Detect); Candida parapsilosis Not Detected (Not Detect); Candida tropicalis Not Detected (Not Detect); E. coli Not Detected (Not Detect); Enterobacter cloacae complex Not Detected (Not Detect); Enterobacteriaceae species Not Detected (Not Detect); Enterococcus species Not Detected (Not Detect); Haemophilus influenzae Not Detected (Not Detect); Listeria monocytogenes Not Detected (Not Detect); Neisseria meningitidis Not Detected (Not Detect); Proteus species Not Detected (Not Detect); Pseudomonas aeruginosa Not Detected (Not Detect); Serratia marcescens Not Detected (Not Detect); Staphylococcus species Not Detected (Not Detect); Streptococcus agalactiae (Gr B Not Detected (Not Detect); Streptococcus pneumonia Not Detected (Not Detect)
[2019-02-15 04:06] LABS: Streptococcus pyogenes (Gr A) Detected (Not Detect); Streptococcus species Detected (Not Detect)
[2019-02-15] MEDS: LACTATED RINGERS 1,000 ML 100 ML IV (04:25)
[2019-02-15 04:37] LABS: HCO3 ABG 15 mmol/L (22-26); PO2 ABG 187 mmHg (80-100); TCO2 ABG 16 mmol/L (21-31); pH ABG 7.27 (7.35-7.45)
[2019-02-15 04:38] LABS: Fractionated Inspired Oxygen 40; Oxygen Saturation ABG 100 % (95-100)
[2019-02-15] MEDS: CLINDAMYCIN 900 MG/50 ML PIGGYBACK 50 MG IV ×2 (05:08→11:31)
[2019-02-15] MEDS: PIPERACILLIN-TAZO 2.25 GM/50 ML FROZ.PIGGY IV ×2 (06:09→11:15)
[2019-02-15] MEDS: EPINEPHrine 1 MG in DEXTROSE 5% IN WATER 250 ML 45.18 ML IV (06:40)
[2019-02-15 07:54] LABS: Hematocrit 28.6 % (36-46); Hemoglobin 9.2 g/dL (12.0-16.0); Mean Corpuscular HGB Conc 32.1 % (30-36); Mean Corpuscular Hemoglobin 32.8 PG (26-34); Platelet Count 151 X10^3/uL (150-400); Red Blood Cell Count 2.81 X10^6/uL (4.0-5.2); Red Cell Distribution Width 14.3 % (11.6-14.8); White Blood Cell Count 26.1 X10^3/uL (4.5-11.0)
[2019-02-15 07:56] LABS: Add Manual Diff / Slide Review YES
[2019-02-15] MEDS: MORPHINE 2 MG/ML INJ IV ×2 (07:59→19:10)
[2019-02-15 08:03] LABS: BUN Creatinine Ratio 17.9 (6-22); Blood Urea Nitrogen 34 mg/dL (7-17); Calcium 6.5 mg/dL (8.4-10.2); Carbon Dioxide 15 mmol/L (22-32); Chloride 105 mmol/L (98-107); Estimated Glomerular Filt Rate 25.8 mL/min (>60); Glucose 267 mg/dL (80-110); HEMOLYSIS < 15 (0-50); Potassium 4.4 mmol/L (3.4-5.1); Sodium 132 mmol/L (137-145)
[2019-02-15 08:20] LABS: Neutrophils Absolute Manual 19836 /uL (3000-5900); Total Cells Counted 100
[2019-02-15 08:22] LABS: Macrocytosis 2+; Platelet Estimate Adequate on smear
[2019-02-15 08:25] LABS: Dohle Bodies 1+
[2019-02-15] MEDS: ALBUTEROL/IPRATROPIUM 3 ML AMPUL INH ×3 (08:47→16:23)
[2019-02-15] MEDS: VASOPRESSIN 40 UNIT in SODIUM CHLORIDE 0.9% 100 ML IV (09:52)
[2019-02-15] MEDS: LACTATED RINGERS 1,000 ML 150 ML IV (12:07)
--- NOTE | 2019-02-15 13:49 | CM.DANOTE ---
Discharge Planning/Care Management DCP: assessment: case received, EMR reviewed. Discussed in Team Rounds. Pt is a 73 year old female who admitted yesterday afternoon to care of hospitalist team. PCP: Dr. Fidelia Lion Payer: [employer] Medicare ADV INPT Admission status: confirmed by UR GRECIA Pugh. [facility] team is consulting. Transfer to [facility] was explored as pt with dx of Necrotizing Fasciitis. Per discussion in Team Rounds [facility] did decline to accept pt as prognosis is so poor. Have spoken with GRECIA Stapleton. Family are gathering. Alerted Enrollment Management Director Oscar to case.He is following for support. Pt is expected to here. Extensive care is going on now with her in the ICU setting. Will follow prn. CM Discharge Assessment Start: 02/15/19 13:23 Freq: Status: Active Protocol: Document 02/15/19 13:48 ITV (Rec: 02/15/19 13:49 ITV [id number]) Discharge Planning Assessment History Provided By Medical Record Prior Living Arrangements House Household Members none Review Status In Process
[2019-02-15] MEDS: EPINEPHrine 1 MG in DEXTROSE 5% IN WATER 250 ML 60.24 ML IV (14:20)
--- NOTE | 2019-02-15 14:25 | DIET.PN ---
Dietary Progress Note Assessment: 73y F admitted for necrotizing fasciitis, severe sepsis and septic shock. Referred to nutrition for low al score and intubation. Higher acuity care facilities denied transfer r/t poor prognosis. Out of state family travelling to be with pt. HT: 165cm WT: 63.5kg BMI: 23.3 Pt on vent c vasopressors to maintain MAP >65, weaning trial this am dropped MAP <55. EN not indicated for MAP <60. If becomes hemodynamically stable and EN desired and okayed by care team, proceed with permissive underfeeding @20kcal/kg c Glucerna 1.2 to reduce RQ. Goal: Glucerna 1.2 continuous @ 40mL/hr providing 1152 kcal, 48 g PRO, and 768mL free water. Please add total of 1,430mL free water as flushes. Please begin @ 15mL/hr and increase by 10mL q4h as tolerated. Head of bed elevated, check residuals q4h. MNA: 11 Al: 13 Diet Order: NPO EER: 1300kcal, 90g PRO, 2.2L fluids Monitoring/Evaluations:
--- NOTE | 2019-02-15 15:40 | PC.NURSE ---
AM shift Pt is A/O intubated and wakes to voice. Able to make needs known with clipboard. Daughter at bedside. Triple lumen To L UE, Epi running at 4 mcg/min, levophed 20 mcg/min, vasopressor 4.5mls/hr. LR @ 150mls/hr. Fentanyl 1mcg/kg/hr versed 3mls/hr, increased to 5mls/hr for comfort. Pt has c/o throat pain. Educated about POC. Pt is aware of surgery that took place last night, and that prognosis is poor. Qureshi patent with 200mls of output this shift. Multiple family at bedside this shift. 1430-Dr Norris into see Pt and family, update to family and POC to now include all family at bedside, increasing pain medication and extubate later today. Family is aware that once treatment is withdrawn, Pt will not be able to sustain on her own.
--- NOTE | 2019-02-15 16:48 | PM.PN.1 ---
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 Patient is intubated and moderately sedated. She is able to shake her head no to pain. She has been communicating with pen and paper to her family with barely legible one or two word sentences. A late morning care conference was arranged with 6 of the [address] Norris and myself. Dr. Norris informed the family again that the patient's condition is an incurable condition and the likelihood that the patient would survive is very improbable. We explained that the patient is requiring 3 vasopressors, ventilatory support, IV fluids, and broad-spectrum antibiotics with 3 different antibiotics all of which was prolonging the inevitable and likely the same outcome. The patient's necrotizing fasciitis has spread to her chest wall and without continued surgical intervention and debridement the patient will undoubtedly . The patient's children decided that they did not want to proceed with further surgical intervention. We discussed withdrawal of care for which the patient's children needed time to discuss among themselves. All questions were answered. The decision to extubate and then later withdrawal vasopressor support was made late this afternoon. Exam Vital Signs (past 8 hours): - 02/15/19 11:56 02/15/19 12:00 02/15/19 13:00 Temperature 99.5 F Pulse Rate 111 H 118 H 115 H Respiratory Rate 21 19 23 Blood Pressure 67/39 L 98/51 L Pulse Oximetry 98 98 98 02/15/19 14:00 02/15/19 16:23 02/15/19 18:35 Temperature Pulse Rate 114 H 115 H Respiratory Rate 23 21 Blood Pressure 101/72 Pulse Oximetry 97 98 89 L Fraction of Inspired Oxygen 40 Oxygen Delivery Method Nasal Cannula Oxygen Flow Rate 5 Narrative Exam Narrative: General: Elderly female lying in bed intubated and sedated, appears acutely ill and older than stated age, able to follow commands and answer yes and no questions. HEENT: Normocephalic, atraumatic. External ears without defect. Pupils pinpoint, equal, round, and reactive to light. Anicteric sclerae, moist conjunctivae, and no lid lag. Endotracheal and OG tube in place Neck: Supple. No jugular venous distension. No lymphadenopathy or thyromegaly. Cardiovascular: Regular rhythm, tachycardic, without murmurs, rubs, or gallops appreciated. Pulmonary: Clear to auscultation bilaterally without crackles, wheezes, or rhonchi. Passive on ventilator. Abdomen: Soft, bowel sounds present nontender, nondistended. No hepatosplenomegaly or masses appreciated. Extremities: No clubbing or cyanosis. Left arm wrapped in dressing C/D/I. Anterior chest erythematous. Neurological: Cranial nerves grossly intact. Objective Labs Result Diagrams: 02/15/19 07:42 02/15/19 07:42 Labs: Laboratory Results - last 24 hr 02/14/19 02/14/19 02/14/19 11:33 19:34 19:34 WBC RBC Hgb Hct MCV MCH MCHC RDW Plt Count Neut % (Auto) Lymph % (Auto) Jenkins % (Auto) Eos % (Auto) Baso % (Auto) Lymph # (Auto) Jenkins # (Auto) Baso # (Auto) Total Counted Seg Neutrophils % Band Neutrophils % Lymphocytes % (Manual) Atypical Lymphs % Monocytes % (Manual) Metamyelocytes % Myelocytes % Neutrophils # (Manual) Differential Comment Toxic Vacuolation Dohle Bodies Platelet Estimate Plt Morphology Comment RBC Morphology Macrocytosis ABG pH ABG pCO2 ABG pO2 ABG HCO3 ABG Total CO2 ABG O2 Saturation ABG Base Excess FiO2 Sodium Potassium Chloride Carbon Dioxide BUN Creatinine Estimated GFR BUN/Creatinine Ratio Glucose Lactate Calcium Total Bilirubin AST ALT Alkaline Phosphatase Total Creatine Kinase 1106 H D C-Reactive Protein 13.5 H Total Protein Albumin Globulin Albumin/Globulin Ratio A. baumannii (PCR) Kori albicans (PCR) C. glabrata (PCR) C. krusei (PCR) C. parapsilosis (PCR) C. tropicalis (PCR) Enterobacteriac sp PCR E. cloacae complex PCR Enterococcus sp PCR E. coli (PCR) H. influenzae (PCR) Klebsiella oxytoca PCR Klebsiella pneumoniae List. monocytogenes PCR N. meningitidis (PCR) Proteus species (PCR) Serratia marcescens PCR Staphylococcus sp PCR Staph aureus (PCR) mecA-Methicil Res Gene Streptococcus sp PCR Group A Strep (PCR) Strep agalactiae (PCR) Strep pneumoniae (PCR) P. aeruginosa (PCR) Мария/B-Vanco Res Genes KPC-Carbap Res Gene PCR Blood Type O Negative 02/14/19 02/14/19 02/14/19 19:58 22:50 23:05 WBC 18.1 H RBC 2.65 L Hgb 8.8 L Hct 27.0 L MCV 101.7 H MCH 33.1 MCHC 32.6 RDW 14.0 Plt Count 155 Neut % (Auto) Not Reportable Lymph % (Auto) Not Reportable Jenkins % (Auto) Not Reportable Eos % (Auto) Not Reportable Baso % (Auto) Not Reportable Lymph # (Auto) Not Reportable Jenkins # (Auto) Not Reportable Baso # (Auto) Not Reportable Total Counted 100 Seg Neutrophils % 43.0 Band Neutrophils % 41.0 H Lymphocytes % (Manual) 1.0 L Atypical Lymphs % Monocytes % (Manual) 4.0 Metamyelocytes % 10.0 H Myelocytes % 1.0 H Neutrophils # (Manual) 34965 H Differential Comment Toxic Vacuolation Dohle Bodies 1+ H Platelet Estimate Plt Morphology Comment RBC Morphology See below Macrocytosis ABG pH 7.21 L* ABG pCO2 41.9 ABG pO2 144 H ABG HCO3 17 L ABG Total CO2 18 L ABG O2 Saturation 99 ABG Base Excess -11.0 L FiO2 40 Sodium Potassium Chloride Carbon Dioxide BUN Creatinine Estimated GFR BUN/Creatinine Ratio Glucose Lactate 3.0 H Calcium Total Bilirubin AST ALT Alkaline Phosphatase Total Creatine Kinase C-Reactive Protein Total Protein Albumin Globulin Albumin/Globulin Ratio A. baumannii (PCR) Kori albicans (PCR) C. glabrata (PCR) C. krusei (PCR) C. parapsilosis (PCR) C. tropicalis (PCR) Enterobacteriac sp PCR E. cloacae complex PCR Enterococcus sp PCR E. coli (PCR) H. influenzae (PCR) Klebsiella oxytoca PCR Klebsiella pneumoniae List. monocytogenes PCR N. meningitidis (PCR) Proteus species (PCR) Serratia marcescens PCR Staphylococcus sp PCR Staph aureus (PCR) mecA-Methicil Res Gene Streptococcus sp PCR Group A Strep (PCR) Strep agalactiae (PCR) Strep pneumoniae (PCR) P. aeruginosa (PCR) Мария/B-Vanco Res Genes KPC-Carbap Res Gene PCR Blood Type 02/14/19 02/14/19 02/15/19 23:05 23:05 03:05 WBC 23.6 H RBC 2.73 L Hgb 9.0 L Hct 27.9 L MCV 102.1 H MCH 33.0 MCHC 32.3 RDW 14.3 Plt Count 150 Neut % (Auto) Not Reportable Lymph % (Auto) Not Reportable Jenkins % (Auto) Not Reportable Eos % (Auto) Not Reportable Baso % (Auto) Not Reportable Lymph # (Auto) Not Reportable Jenkins # (Auto) Not Reportable Baso # (Auto) Not Reportable Total Counted 100 Seg Neutrophils % 30.0 L Band Neutrophils % 54.0 H Lymphocytes % (Manual) 5.0 L D Atypical Lymphs % 1.0 H Monocytes % (Manual) 4.0 Metamyelocytes % 6.0 H Myelocytes % Neutrophils # (Manual) 37347 H Differential Comment Toxic Vacuolation Present H Dohle Bodies 1+ H Platelet Estimate Plt Morphology Comment RBC Morphology See below Macrocytosis ABG pH ABG pCO2 ABG pO2 ABG HCO3 ABG Total CO2 ABG O2 Saturation ABG Base Excess FiO2 Sodium 134 L Potassium 3.4 Chloride 107 Carbon Dioxide 18 L BUN 33 H Creatinine 2.10 H Estimated GFR 23.0 L BUN/Creatinine Ratio 15.7 Glucose 133 H Lactate 2.9 H Calcium 6.6 L Total Bilirubin 1.0 AST 57 H ALT 27 Alkaline Phosphatase 36 L Total Creatine Kinase C-Reactive Protein Total Protein 4.2 L Albumin 2.0 L Globulin 2.2 Albumin/Globulin Ratio 0.9 L A. baumannii (PCR) Kori albicans (PCR) C. glabrata (PCR) C. krusei (PCR) C. parapsilosis (PCR) C. tropicalis (PCR) Enterobacteriac sp PCR E. cloacae complex PCR Enterococcus sp PCR E. coli (PCR) H. influenzae (PCR) Klebsiella oxytoca PCR Klebsiella pneumoniae List. monocytogenes PCR N. meningitidis (PCR) Proteus species (PCR) Serratia marcescens PCR Staphylococcus sp PCR Staph aureus (PCR) mecA-Methicil Res Gene Streptococcus sp PCR Group A Strep (PCR) Strep agalactiae (PCR) Strep pneumoniae (PCR) P. aeruginosa (PCR) Мария/B-Vanco Res Genes KPC-Carbap Res Gene PCR Blood Type 02/15/19 02/15/19 02/15/19 03:05 04:21 07:42 WBC 26.1 H RBC 2.81 L Hgb 9.2 L Hct 28.6 L MCV 102.0 H MCH 32.8 MCHC 32.1 RDW 14.3 Plt Count 151 Neut % (Auto) Not Reportable Lymph % (Auto) Not Reportable Jenkins % (Auto) Not Reportable Eos % (Auto) Not Reportable Baso % (Auto) Not Reportable Lymph # (Auto) Not Reportable Jenkins # (Auto) Not Reportable Baso # (Auto) Not Reportable Total Counted 100 Seg Neutrophils % 24.0 L Band Neutrophils % 52.0 H Lymphocytes % (Manual) 3.0 L Atypical Lymphs % Monocytes % (Manual) 7.0 Metamyelocytes % 11.0 H Myelocytes % 3.0 H Neutrophils # (Manual) 91547 H Differential Comment Toxic Vacuolation Dohle Bodies 1+ H Platelet Estimate Adequate on smear Plt Morphology Comment RBC Morphology See below Macrocytosis 2+ H ABG pH 7.27 L* ABG pCO2 32.0 L ABG pO2 187 H ABG HCO3 15 L ABG Total CO2 16 L ABG O2 Saturation 100 ABG Base Excess -12.0 L FiO2 40 Sodium 134 L Potassium 4.2 Chloride 106 Carbon Dioxide 16 L BUN 33 H Creatinine 2.00 H Estimated GFR 24.4 L BUN/Creatinine Ratio 16.5 Glucose 203 H Lactate Calcium 6.6 L Total Bilirubin 1.2 AST 65 H ALT 34 Alkaline Phosphatase 32 L Total Creatine Kinase C-Reactive Protein Total Protein 4.4 L Albumin 2.1 L Globulin 2.3 Albumin/Globulin Ratio 0.9 L A. baumannii (PCR) Kori albicans (PCR) C. glabrata (PCR) C. krusei (PCR) C. parapsilosis (PCR) C. tropicalis (PCR) Enterobacteriac sp PCR E. cloacae complex PCR Enterococcus sp PCR E. coli (PCR) H. influenzae (PCR) Klebsiella oxytoca PCR Klebsiella pneumoniae List. monocytogenes PCR N. meningitidis (PCR) Proteus species (PCR) Serratia marcescens PCR Staphylococcus sp PCR Staph aureus (PCR) mecA-Methicil Res Gene Streptococcus sp PCR Group A Strep (PCR) Strep agalactiae (PCR) Strep pneumoniae (PCR) P. aeruginosa (PCR) Мария/B-Vanco Res Genes KPC-Carbap Res Gene PCR Blood Type 02/15/19 02/15/19 07:42 11:02 WBC RBC Hgb Hct MCV MCH MCHC RDW Plt Count Neut % (Auto) Lymph % (Auto) Jenkins % (Auto) Eos % (Auto) Baso % (Auto) Lymph # (Auto) Jenkins # (Auto) Baso # (Auto) Total Counted Seg Neutrophils % Band Neutrophils % Lymphocytes % (Manual) Atypical Lymphs % Monocytes % (Manual) Metamyelocytes % Myelocytes % Neutrophils # (Manual) Differential Comment Toxic Vacuolation Dohle Bodies Platelet Estimate Plt Morphology Comment RBC Morphology Macrocytosis ABG pH ABG pCO2 ABG pO2 ABG HCO3 ABG Total CO2 ABG O2 Saturation ABG Base Excess FiO2 Sodium 132 L Potassium 4.4 Chloride 105 Carbon Dioxide 15 L BUN 34 H Creatinine 1.90 H Estimated GFR 25.8 L BUN/Creatinine Ratio 17.9 Glucose 267 H Lactate Calcium 6.5 L Total Bilirubin AST ALT Alkaline Phosphatase Total Creatine Kinase C-Reactive Protein Total Protein Albumin Globulin Albumin/Globulin Ratio A. baumannii (PCR) Not detected Kori albicans (PCR) Not detected C. glabrata (PCR) Not detected C. krusei (PCR) Not detected C. parapsilosis (PCR) Not detected C. tropicalis (PCR) Not detected Enterobacteriac sp PCR Not detected E. cloacae complex PCR Not detected Enterococcus sp PCR Not detected E. coli (PCR) Not detected H. influenzae (PCR) Not detected Klebsiella oxytoca PCR Not detected Klebsiella pneumoniae Not detected List. monocytogenes PCR Not detected N. meningitidis (PCR) Not detected Proteus species (PCR) Not detected Serratia marcescens PCR Not detected Staphylococcus sp PCR Not detected Staph aureus (PCR) Not detected mecA-Methicil Res Gene Not Reportable Streptococcus sp PCR Detected H Group A Strep (PCR) Detected H Strep agalactiae (PCR) Not detected Strep pneumoniae (PCR) Not detected P. 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 The patient had increasing swelling, tenderness and pain of the entire left arm out of proportion to exam with forearm blistering tracking upwards. Necrotizing fascitis was suspected and she was taken emergently to the OR by Dr. Norris of general surgery. In the OR, the entire left arm was debrided down to muscle and the patient was found to have involvement of chest wall. A care conference ensued after the OR late last night in which the decision was made to keep the patient comfortable with full life support until family could gather. Due to the patient's necrotizing fasciitis spreading to her chest wall the probability of survival was very rare. The patient's children decided that they did not want to proceed with further surgical intervention. We discussed withdrawal of care for which the patient's children needed time to discuss among themselves. The decision to extubate and then later withdrawal vasopressor support was made late this afternoon.evening. Plan to extubate and then when family ready turn off vasopressor support. Patient likely to later tonight. Quality VTE Deep Vein Thrombosis/Pulmonary Embolism Present on Admission: No
--- NOTE | 2019-02-15 18:45 | PC.NURSE ---
brian note pt on ventilator, 3 vasopressors, fentanyl and medazolam gtts. Multiple family members in/out to see pt. Family requested increase in comfort medications prior to extubation. Increased fentanyl and versed gtts, no decrease in B/P noted. Pt extubated per family request. Dentures placed in mouth post extubation. Later, family said they were ready to withdraw pressure support. Notified Dr. Desai. Vasopressors stopped. First B/P off pressors was 64/43, HR 126, O2 sat 89% on 5 L NC, resp rate 8.
[2019-02-16] MEDS: MORPHINE 2 MG/ML INJ IV ×5 (00:13→22:43)
[2019-02-16 00:24] VITALS: BP 70/36; PULSE 120; RESP 13; TEMP 37.1; O2SAT 95
[2019-02-16 01:00] VITALS: BP 68/35; PULSE 121; RESP 11; O2SAT 95
--- NOTE | 2019-02-16 01:11 | PC.NURSE ---
Spoke with patient family at bedside extensively (Kasia) about and dying and end of life. Questions answered, reassurance and comfort provided. Pt with FLACC 0-1 (1 with movement of upper extremities). Medicated per family request with morphine as ordered. Versed GTT continued for comfort.
[2019-02-16 10:00] VITALS: BP 75/40; PULSE 110; RESP 10; O2SAT 95
--- NOTE | 2019-02-16 13:14 | PC.NURSE ---
Am shift Pt continues with comfort measures, with Versed gtt for comfort. IVP Morphine PRN family request. FLACC 1, Reasured family, repositioned as requested. Periods of apnea noted throughout shift. Continue with precautions , Lab confirmed Group A strep. Dr Desai Aware.
[2019-02-16] MEDS: MIDAZOLAM 50 MG in DEXTROSE 5% IN WATER 250 ML 103.194 ML IV (13:42)
--- NOTE | 2019-02-16 17:05 | PC.NURSE ---
Addendum entered by Tiff Oliva R.N. 02/16/19 22:56: 2245 - Pt family reports increased restless LE and furrowed brow. Morphine given. O2 titrated down to 2L, 96%. Monitor. Addendum entered by Tiff Oliva R.N. 02/16/19 20:36: 2030 - Pt resting quietly. Multiple family members in room. Pt daughter swabbing pt mouth. Pt closed mouth around swab and sucked on it. Keeping eyes closed. O2 98% on 5l titrated down to 3L, Monitor. IV's flushed. Versed gtt at 2mg/hr. Addendum entered by Tiff Oliva R.N. 02/16/19 19:37: 1930 - Pt family agreeable to allow for pt to be repositioned. Pt with appearance of deep tissue injury to transverse back and coccyx, LE mottled from mid-bergeron down, bilateral hand edema. Chux under left arm changed. Small amount of serous drainage. Pt not responsive during care. Qureshi with scant urine output, approximately 5cc at this time. Original Note: 1700 - Pt resting comfortable in bed. Supportive family at bedside. Family denies need and declines interventions at this time. Educated to care plan. Asking appropriate questions.
--- NOTE | 2019-02-16 17:57 | PM.PN.1 ---
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 Patient was made comfort care only by her children and all unnecessary medical interventions were withdrawn. Patient is lying in bed and obtunded. She appears comfortable on midazola gtt and as needed morphine pushes. All medical interventions withdrawn. Patient appears imminent with Leroy-Anderson breathing. Exam Vital Signs (past 8 hours): - 02/16/19 10:00 Pulse Rate 110 H Respiratory Rate 10 L Blood Pressure 75/40 L Pulse Oximetry 95 Fraction of Inspired Oxygen 40 Oxygen Delivery Method Nasal Cannula Oxygen Flow Rate 5 Narrative Exam Narrative: General: Elderly female lying in bed obtunded and moribund with Leroy-Anderson breathing. HEENT: Normocephalic, atraumatic. External ears without defect. Pupils pinpoint, equal, round, and reactive to light. Anicteric sclerae, moist conjunctivae, and no lid lag. Endotracheal and OG tube in place Neck: Supple. No jugular venous distension. No lymphadenopathy or thyromegaly. Cardiovascular: Regular rhythm, tachycardic, without murmurs, rubs, or gallops appreciated. Increasingly erythematous chest wall. Pulmonary: Clear to auscultation bilaterally with mild upper airway rhonchi. Extremities: No clubbing or cyanosis. Left arm wrapped in dressing C/D/I. 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 Patient was made comfort care only by her children and all unnecessary medical interventions were withdrawn. 1. End of life palliative care. -The patient had increasing swelling, tenderness and pain of the entire left arm out of proportion to exam with forearm blistering tracking upwards. Necrotizing fascitis was suspected and she was taken emergently to the OR by Dr. Norris of general surgery. In the OR, the entire left arm was debrided down to muscle and the patient was found to have involvement of chest wall. A care conference ensued after the OR late last night in which the decision was made to keep the patient comfortable with full life support until family could gather. Due to the patient's necrotizing fasciitis spreading to her chest wall the probability of survival was very rare. The patient's children decided that they did not want to proceed with further surgical intervention. We discussed withdrawal of care and the decision to extubate and then later withdrawal vasopressor support was made by the patient's children. Continue midazolam gtt and as needed morphine boluses and titrate each as needed for comfort. Patient appears imminent. 2. Septic shock, present on admission. Active. 3. Necrotizing fasicitis of left arm status post debridement, now extending into chest wall, present on admission. Active. 4. Acute urinary tract infection, present on admission. Active. 5. Acute kidney injury on CKD, secondary to septic shock, present on admission. Active. 6. Paroxysmal atrial fibrillation, chronic, present on admission. Stable. 7. End-stage liver disease, chronic, present on admission. Stable. 8. COPD, chronic, present on admission, continue her usual home inhalers 9. History of jejunal bypass surgery, with malabsorption, and B12 deficiency, chronic, present on admission. Stable. 10. History of Zavala's esophagitis, chronic, present on admission. Stable. 11. History of polymyalgia rheumatica, chronic, present on admission. Stable. 12. Coronary artery disease, , chronic, present on admission. Stable. Disposition: Plan for patient to in the hospital. Quality VTE Deep Vein Thrombosis/Pulmonary Embolism Present on Admission: No
[2019-02-16 19:38] VITALS: BP 87/40; PULSE 105; RESP 9
[2019-02-17] MEDS: MORPHINE 2 MG/ML INJ (01:05)
[2019-02-17 01:11] VITALS: PULSE 107; RESP 16; O2SAT 78
--- NOTE | 2019-02-17 01:15 | PC.NURSE ---
Addendum entered by Crystal Byrd R.N. 02/17/19 06:01: Pt picked up by [facility]. Left the hospital at 0601 with dentures. Addendum entered by Crystal Byrd R.N. 02/17/19 03:15: Asystole at 0257. Verified with auscultation. Family at bedside - support and comfort provided. [facility] is families choice. Belongings accounted for and sent home with family per daughter, Beatrice. Dentures held and will be sent with patient to [facility] per family request. Provider regional sales consultant notified of . Addendum entered by Crystal Byrd R.N. 02/17/19 01:54: HR up to 180's sustaining. Sp02 79% RA. Original Note: Pt with increased work of breathing as well as frequent erratic tachycardia up to 140's. FLACC 1, morphine given for comfort and per family request after speaking with PATRICIO Jacinto for an order change in frequency. Morphine was allowed every 4 hours and now every 3. Will continue to assess in real time for the need in increased frequency as patient is being treated palliatively.
[2019-02-17 02:57] VITALS: PULSE 0; RESP 0; O2SAT 0
--- NOTE | 2019-02-17 03:52 | P.DS_ITS ---
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 The patient was in her usual state of health until (02/13), one day prior to admission. Patient presented to the ED on 02/14 with complaints of generalized weakness, bilateral upper extremity pain, and pain in the left knee (with ambulation). Associated symptoms included nausea w/o reported vomiting. Patient denied GI symptoms of hematemesis, melena, and bright red blood per rectum; and symptoms of dysuria hematuria or pyuria. On presentation to the ED patient was found to be markedly febrile (T 100*F), hypotensive (SBP 50 mmHg), tachycardic (HR 116), and tachypneic (RR 32). Presenting lab work revealed leukocytosis (WBC 18.9), elevated lactate (5.1) and PCT level. She was found to have acute kidney injury with sCr level of 2.4 (baseline 1.2). Urinalysis was positive for leukocyte esterase and revealed presence of bacteria (many) and WBCs (many). Chest x-ray was negative. Blood cultures were collected. In lieu of aforementioned findings patient was started on sepsis protocol for early goal-directed therapy. She received 30 ml/kg IVF bolus with balanced cry stalloids and started on antimicrobial therapy with Zosyn and vancomycin. In spite of aforementioned interventions, patient required vasopressor support. She was started on low-dose Levophed and admitted to the ICU w/septic shock and evidence of organ system failure. Discharge Providers Provider Date of admission: 02/14/19 12:13 Discharge Date: 02/17/19 Primary care physician: Kang Lion MD Consults: 02/14/19 13:27 Consult to Dietitian, Adult Routine Comment: Reason For Exam: assessed at high risk Consult to Respiratory Therapy Evaluate & Treat Comment: Physician Instructions: Evaluate and treat 02/15/19 12:48 Consult to Dietitian, Adult Routine Comment: Reason For Exam: Intubated, poor Karishma score 02/16/19 14:53 Consult to Dietitian, Adult Routine Comment: Reason For Exam: karishma score Discharge provider: PATRICIO Jacinto Summary Hospital Course Hospital Course: 02/14 - Initially septic shock was shock was attributed to UTI. - In the ICU patient was continued with IV fluid resuscitation (Lactated Ringer's). Antimicrobial therapy was continued with Zosyn and vancomycin. Vasopressor support was continued. - GLOBAL SECURITY ARCHITECT meds spironolactone, furosemide, and metoprolol were held d/t hypotension and TESHA. Coumadin was held out of concern for potential upper extremity hemat sirisha. - Patient was continued on a PPI given history of Zavala's esophagitis and restarted on her routine bronchodilators given underlying COPD. - An U/S of forearms was ordered to rule out hematoma, given bilateral upper extremity swelling and pain. Prescribed pain medication for pain and upper ext remities. 02/14, left upper extremity ultrasound, soft tissue edema is seen, yet without focal fluid collections. Mildly increased generalized vascularity. No soft tissue masses are seen. Soft tissue edema without an abscess identified. 02/14, right upper extremity ultrasound, soft tissue edema is seen without drainable abscess. On 02/14 by 1900, respectively, the patient continued to be febrile, hypotensive, tachycardic, and tachypneic. She has required continued upward titration of the norepinephrine drip. Noted to be progressively lethargic / obtunded. Patient continued to receive aggressive fluid resuscitation. Basal present was added. Patient's left arm was noted to have large area of skin slough on the middle left arm on dorsal and volar surfaces with developing bullae. General surgery was consulted emergently for further evaluation, after surgical evaluation there was a concern for necrotizing fasciitis. Consequently, patient was taken to the OR for emergent left forearm debridement. Prior to surgical procedure she received FFP for reversal of warfarin. Clindamycin was added to her current antimicrobial therapy. In the OR patient's entire left arm was debrided down to the muscle. She was found to have spread into the chest wall. Upon return from the OR ( 02/14 @ 2220, respectively) patient was intubated and ventilated. She continued to require vasopressor support with norepinephrine and vasopressin, as well as addition of epinephrine. Follow-up labs revealed electrolyte abnormalities, which were repleted accordingly. Patient received potassium and calcium gluconate. By midnight on 02/15 a call was placed to [facility] in an effort to initiate patient transfer to a hospital with higher level of care. Upon review of patient's case by General surgery it was felt that transfer would be futile given high mortality. A late night care conference ensued with the hospitalist [employer]AVING SUPERINTENDENT, general surgeon and family. Decision was made to keep the patient comfortable with full life support to allow other family members to arrive. The family was made aware that patient's condition is incurable in the likelihood that the patient would survive is very improbable. The necrotizing fasciitis has spread to her chest wall and without continue surgical intervention/debridement there is poor likelihood of survival. Patient's children have decided they did not wish to pursue further surgical interventions. Patient's code status was changed to DNR Patient continued to be on life support. There was another meeting with the family in the afternoon/evening on 02/16. At that time discussion in regarding to withdrawing care has taken place. In decision was made to extubate and withdraw vasopressor support. Shortly after patient was extubated and remained on comfort care measures until 02/17 2:27 a.m., at which time she Status at Discharge Overall status at discharge: patient is not back to baseline () Exam Vital Signs (past 8 hours): - 02/17/19 01:11 02/17/19 02:57 Pulse Rate 107 H 0 L Respiratory Rate 16 0 L Pulse Oximetry 78 L 0 L Fraction of Inspired Oxygen 40 Oxygen Delivery Method Room Air Oxygen Flow Rate 5 Narrative Exam Narrative: Patient was not seen. A phone notification was made by patient's RN. Patient's was expected. was pronounced by 2 RNs, Crystal Byrd and Luiza Vigil, at 0257 am. Objective Labs Result Diagrams: 02/15/19 07:42 02/15/19 07:42 Labs: Reviewed Discharge Plan Discharge Plan Patient Disposition: Discharge comment: Not applicable Discharge Data Primary Care Provider: Kang Lion VTE Deep Vein Thrombosis/Pulmonary Embolism Present on Admission: No
--- NOTE | 2019-02-17 16:42 | PC.NURSE ---
Late entry Versed gtt titration by this RN 02/16/19 @ 1340 should read 0.035 mcg/kg/hr, NOT mg/kg/hr, as previously charted on titration.
== END 2019-02-17 06:00 | disposition expired | DRG 853 ==
LOC: ED 12:08 → AC 12:13 → ICU 12:51
PROVIDERS: Emergency Medicine; Nurse Practitioner Adult Health; Surgery; Admitting Provider Internal Medicine; Emergency Provider Emergency Medicine; PCP Internal Medicine; Visit Provider Internal Medicine
PROC: 0JBH0ZZ Excision of Left Lower Arm Subcutaneous Tissue and Fascia, Open Approach (ICD-10-PCS; principal; 2019-02-14 20:30)
DX: A41.9 Sepsis, unspecified organism (principal); R65.21 Severe sepsis with septic shock; M72.6 Necrotizing fasciitis; N17.9 Acute kidney failure, unspecified; K91.2 Postsurgical malabsorption, not elsewhere classified; N39.0 Urinary tract infection, site not specified; K72.90 Hepatic failure, unspecified without coma; J44.9 Chronic obstructive pulmonary disease, unspecified; E53.8 Deficiency of other specified B group vitamins; I25.10 Atherosclerotic heart disease of native coronary artery without angina pectoris; I48.0 Paroxysmal atrial fibrillation; Z51.5 Encounter for palliative care; Z98.84 Bariatric surgery status
CPT/HCPCS: 36415; 36430; 36592; 36600; 51701; 71045; 76882; 80048; 80053; 81001; 82140; 82550; 82553; 82805; 83605; 83690; 83880; 84145; 84484; 85025; 85610; 85730; 86140; 86900; 86901; 86927; 87040; 87070; 87075; 87077; 87086; 87147; 87150; 87186; 87205; 87400; 87502; 87797; 93005; 94002; 94003; 94640; 94760; 94770; 94799; 96361; 96365; 96367; 96368; 99285; 99291; 99292; P9016; J0171; J0330; J0610; J1170; J1642; J1720; J2250; J2270; J2543; J2704; J3010; J3480